=== PATIENT | male | born 1950 | race Native Hawaiian/Other Pacific Islander ===

== ENCOUNTER 2017-01-20 14:57 | Inpatient (IN) | payer BC, MEDICARE ==
[2017-01-20] MEDS ORDERED: Albuterol-Ipratrop 3 mg / 0.5 (3 ml) UD ONE (15:01)
[2017-01-20 15:09] VITALS: BMI 22.0
[2017-01-20] MEDS ORDERED: Albuterol-Ipratrop 3 mg / 0.5 (3 ml) UD INH STA (15:09)
[2017-01-20] MEDS ORDERED: Albuterol-Ipratrop 3 mg / 0.5 (3 ml) UD IH STA (15:22)
[2017-01-20] MEDS: Sodium Chloride 0.9% 200 ML IV SCH (15:29)
[2017-01-20 15:30] LABS: ABG ALLEN TEST YES; ARTERIAL BLOOD GAS HCO3 23.1 mmol/L (21-28); ARTERIAL BLOOD GAS MODE BiPAP; ARTERIAL BLOOD GAS PH 7.41 (7.35-7.45); ARTERIAL BLOOD GAS PO2 105 mm/Hg (80-100)
--- NOTE | 2017-01-20 15:30 | ED PDOC ---
HPI: SOB/CHF/COPD Time Seen by Provider: 01/20/17 15:02 Chief Complaint (Nursing): Shortness Of Breath Chief Complaint (Provider): Shortness Of Breath History Per: Patient History/Exam Limitations: no limitations Onset/Duration Of Symptoms: Days (x7 days ) Current Symptoms Are (Timing): Still Present Additional Complaint(s): 66 y/o male with a past medical history of A Fib, hypertension, pacemaker, and aortic dissection presents to the emergency department accompanied by son with a complaint of shortness of breath, chest pain (had resolved since), gurgling, and cough x1 week. As per history from son, patient was experiencing symptoms for the past week with feeling shortness of breath for the last 2 days which worsened today upon arrival. Denies sputum. No leg pain, numbness, tingles, weakness. No dizziness. PMD: Dr. Meño Adame MD Past Medical History Reviewed: Historical Data, Nursing Documentation, Vital Signs Vital Signs: Last Vital Signs Temp 98 F 01/20/17 15:06 Pulse 116 H 01/20/17 16:24 Resp 27 H 01/20/17 16:24 BP 117/51 L 01/20/17 16:24 Pulse Ox 99 01/20/17 16:24 - Medical History PMH: Atrial Fibrillation, HTN, Chronic Kidney Disease - Surgical History Other surgeries: Pacemaker and aortic dissection - Family History Family History: States: Unknown Family Hx - Living Arrangements Living Arrangements: With Family - Social History Current smoker - smoking cessation education provided: No Alcohol: None Drugs: Denies - Allergies Allergies/Adverse Reactions: Allergies Allergy/AdvReac Type Severity Reaction Status Date / Time No Known Allergies Allergy Verified 01/20/17 15:06 Review of Systems ROS Statement: Except As Marked, All Systems Reviewed And Found Negative Constitutional: Positive for: Other (Gurgling) Cardiovascular: Positive for: Chest Pain (Had resolved since) Respiratory: Positive for: Cough, Shortness of Breath. Negative for: Sputum Physical Exam - Reviewed Nursing Documentation Reviewed: Yes Vital Signs Reviewed: Yes - Physical Exam Appears: Positive for: Uncomfortable Head Exam: Positive for: ATRAUMATIC, NORMAL INSPECTION, NORMOCEPHALIC Skin: Positive for: Normal Color, Warm, Dry Eye Exam: Positive for: Normal appearance, EOMI, PERRL. Negative for: Conjunctival injection ENT: Positive for: Normal ENT Inspection. Negative for: Nasal Congestion, Pharyngeal Erythema, Tonsillar Exudate Neck: Positive for: Normal, Supple Cardiovascular/Chest: Positive for: Tachycardia (Tachycardia with irregular irregularly heart beat), Irregularly Irregular. Negative for: Regular Rate, Rhythm, Murmur Respiratory: Positive for: Other (Diffuse course breath sounds; uncomfortable). Negative for: Normal Breath Sounds, Accessory Muscle Use, Respiratory Distress Gastrointestinal/Abdominal: Positive for: Normal Exam, Soft. Negative for: Tenderness Back: Positive for: Normal Inspection. Negative for: L CVA Tenderness, R CVA Tenderness Extremity: Positive for: Normal ROM, Pedal Edema (1+ pedal edema), Swelling ( bilaterally; better than usual). Negative for: Tenderness, Deformity Neurologic/Psych: Positive for: Alert, Oriented - Laboratory Results Result Diagrams: 01/20/17 15:32 01/20/17 15:32 Interpretation Of Abn Labs: 13.1 wbc, bun/cr elevated - ECG ECG: Positive for: Interpreted By Me, Viewed By Me Interpretation Of Abn EKG: irr, irr afib tachy O2 Sat by Pulse Oximetry: 100 (oxygen) Pulse Ox Interpretation: Normal Interpretation Of Abnormal: 89% on RA - Radiology X-Ray: Interpreted by Me, Viewed By Me X-Ray Interpretation: Other (R 1/2 lower pleural effusion) - Progress ED Course And Treament: 1643: Feels much better with bipap. No distress. Speaking more complete sentences. No pain. AAOx3. Will need admit for further evaluation and treatment. Likely related to large pleural effusion and possible chf component from worsening renal functioning. Not likely sepsis/infectious component. 1647: Stable. Spoke with Dr. Adame. Will admit tele. Pt. vitals improved and stable. Continue bipap. Pt. son is resident in family practice. 1724: Spoke with Dr. Correa. Will admit ICU. - Critical Care Total Time (In Min): 30 Documented Critical Care: Time excludes all time spent performint seperately billable procedures Medical Decision Making Medical Decision Making: Time: 15:02 Initial impression: Shortness of breath Initial plan: --Arterial Blood Gas --Electrocardiogram STAT --B-Type Natriuretic Peptide --COMP Metabolic Panel --Magnesium Stat --Phosphorous Stat --Troponin I Stat --EKG-ED (EDNURTX) --CBC w/ differential --Partial Thromboplastin Time (COAG) --Prothrombin Time (COAG) --Chest Portable (RAD) --Duoneb 3 ml INH --Methylprednisolone 125 mg IVP --Sodium Chloride 200 ml IV 50 mls/hr --Blood Culture Stat --Urine Culture Stat --Senior Manager CONT --Vital Signs Q15M --BIPAP Procedure --Peak Flow Pre/POST TX --Urinalysis Stat --Revaluation Scribe Attestation: Documented by Gricelda Adan, acting as a scribe for Jeffery Wolf MD. Provider Scribe Attestation: All medical record entries made by the Scribe were at my direction and personally dictated by me. I have reviewed the chart and agree that the record accurately reflects my personal performance of the history, physical exam, medical decision making, and the department course for this patient. I have also personally directed, reviewed, and agree with the discharge instructions and disposition. Disposition - Clinical Impression Clinical Impression: CHF (congestive heart failure), Pleural effusion - Patient ED Disposition Is Patient to be Admitted: Yes Counseled Patient/Family Regarding: Studies Performed, Diagnosis - Disposition Disposition Time: 16:49 Condition: SERIOUS - Pt Status Changed To: Hospital Disposition Of: Inpatient - Admit Certification Admit to Inpatient:: After my assessment, the patient will require hospitalization for at least two midnights. This is because of the severity of symptoms shown, intensity of services needed, and/or the medical risk in this patient being treated as an outpatient. - POA Present On Arrival: None
[2017-01-20 15:43] LABS: BASO % 0.2 % (0.0-2.0); HEMATOCRIT 38.8 % (35.0-51.0); LYMPH # 0.4 K/uL (1.0-4.3); LYMPH % 2.8 % (20.0-40.0); MEAN CELL VOLUME 105.9 fl (80.0-94.0); MEAN CORPUSCULAR HEMOGLOBIN 32.7 pg (27.0-31.0); MEAN CORPUSCULAR HGB CONC 30.9 g/dL (33.0-37.0); MEAN PLATELET VOLUME 8.8 fl (7.2-11.7); MONO # 0.6 K/uL (0.0-0.8); MONO % 4.4 % (0.0-10.0); NEUT # 12.1 K/uL (1.8-7.0); NEUT % 92.6 % (50.0-75.0); PLATELET COUNT 129 K/uL (130-400); RED CELL DISTRIBUTION WIDTH 14.9 % (11.5-14.5); WHITE BLOOD COUNT 13.1 K/uL (4.8-10.8)
[2017-01-20 15:54] LABS: ALB/GLOB RATIO 1.2 (1.0-2.1); BILIRUBIN,TOTAL 1.1 mg/dl (0.2-1.3); CALCIUM 9.1 mg/dL (8.4-10.2); MAGNESIUM 2.1 MG/DL (1.6-2.3); PHOSPHOROUS 3.2 mg/dl (2.5-4.5); POTASSIUM 4.8 MMOL/L (3.6-5.0); TOTAL PROTEIN 7.5 G/DL (6.3-8.2)
[2017-01-20 16:11] LABS: PARTIAL THROMBOPLASTIN TIME 31.2 Seconds (25.6-37.1)
--- NOTE | 2017-01-20 16:46 | RAD ---
HISTORY: Sepsis Patient COMPARISON: No prior. FINDINGS: LUNGS: No active pulmonary disease. PLEURA: Right pleural effusion and/or consolidation at the right base. CARDIOVASCULAR: Cardiomegaly. Pacemaker and leads in place. Status post median sternotomy. OSSEOUS STRUCTURES: No significant abnormalities. VISUALIZED UPPER ABDOMEN: Normal. OTHER FINDINGS: None. IMPRESSION: Right pleural effusion and/or consolidation at the right base.
[2017-01-20 17:15] LABS: RBC URINE 1 /hpf (0-3); URINE BACTERIA RARE (<OCC); URINE BILIRUBIN NEGATIVE (NEGATIVE); URINE BLOOD NEGATIVE (NEGATIVE); URINE COLOR YELLOW (YELLOW); URINE GLUCOSE (UA) NEG (Normal); URINE KETONE NEGATIVE (NEGATIVE); URINE LEUKOCYTE ESTERASE NEG Leu/uL (Negative); URINE PROTEIN 100 mg/dL (NEGATIVE); URINE UROBILINOGEN 0.2-1.0 mg/dL (0.2-1.0); WBC URINE 1 /hpf (0-5)
[2017-01-20 17:20] LABS: NEUTROPHIL 89 % (42-75); TOTAL CELLS COUNTED 100
[2017-01-20 17:25] LABS: TROPONIN I 0.101 ng/mL (0.00-0.120)
--- NOTE | 2017-01-20 17:44 | CP.PCM.CON ---
History of Present Illness - History of Present Illness History of Present Illness: 66 male with history of CHF, A Fib, HTN, CKD, pacemaker placement, aortic dissection s/p surgery came complaining of SOB for 2 weeks which increased by time, patient was started on BIPAP in the ER, no chest pain, no fever Review of Systems - Review of Systems Systems not reviewed;Unavailable: Respiratory Distress All systems: reviewed and no additional remarkable complaints except (SOB and occasional cough) Past Patient History - Past Medical History & Family History Past Medical History?: Yes Past Family History: Reviewed and not pertinent - Past Social History Smoking Status: Former Smoker Alcohol: None Drugs: Denies - CARDIAC Hx Cardiac Disorders: Yes - PULMONARY Hx Respiratory Disorders: No - NEUROLOGICAL Hx Neurological Disorder: No - HEENT Hx HEENT Problems: No - RENAL Hx Chronic Kidney Disease: Yes - ENDOCRINE/METABOLIC Hx Endocrine Disorders: No - HEMATOLOGICAL/ONCOLOGICAL Hx Blood Disorders: No - INTEGUMENTARY Hx Dermatological Problems: No - MUSCULOSKELETAL/RHEUMATOLOGICAL Hx Musculoskeletal Disorders: Yes - GASTROINTESTINAL Hx Gastrointestinal Disorders: No - GENITOURINARY/GYNECOLOGICAL Hx Genitourinary Disorders: Yes - PSYCHIATRIC Hx Substance Use: No - SURGICAL HISTORY Other/Comment: Pacemaker. Aortic valve dissection - ANESTHESIA Hx Anesthesia: Yes Hx Anesthesia Reactions: No Meds Allergies/Adverse Reactions: Allergies Allergy/AdvReac Type Severity Reaction Status Date / Time warfarin [From Coumadin] Allergy ANAPHYLAXIS Verified 01/20/17 17:42 - Medications Medications: Current Medications Sodium Chloride (Sodium Chloride 0.9%) 200 mls @ 50 mls/hr IV .Q4H TONY Last Admin: 01/20/17 15:29 Dose: 50 mls/hr Physical Exam - Constitutional Appears: Cachectic - Head Exam Head Exam: ATRAUMATIC, NORMAL INSPECTION - Eye Exam Eye Exam: Normal appearance Pupil Exam: PERRL - ENT Exam ENT Exam: Mucous Membranes Moist - Neck Exam Neck exam: Positive for: Normal Inspection - Respiratory Exam Respiratory Exam: Rhonchi - Cardiovascular Exam Cardiovascular Exam: Irregular Rhythm - GI/Abdominal Exam GI & Abdominal Exam: Normal Bowel Sounds, Soft - Exam Exam: NORMAL INSPECTION - Extremities Exam Extremities exam: Positive for: normal inspection - Back Exam Back exam: NORMAL INSPECTION - Neurological Exam Neurological exam: Alert, Oriented x3 - Skin Skin Exam: Warm Results - Vital Signs Recent Vital Signs: Last Vital Signs Temp 98 F 01/20/17 15:06 Pulse 116 H 06/10/17 17:39 Resp 27 H 01/20/17 17:39 BP 117/51 L 01/20/17 17:39 Pulse Ox 100 01/20/17 17:25 - Labs Result Diagrams: 01/20/17 15:32 01/20/17 15:32 Assessment & Plan - Assessment and Plan (Free Text) Assessment: A/P Respiratory insufficiency, CHF, A Fib, CKD, pleural effusion, h/o HTN, pacemaker placement, aortic dissection s/p surgery, R/O ID - BIPAP as needed - Lasix, aspirin - Cardiac enzymes - Cardiology consult as per PMD - Renal consult as per PMD - Heart rate control Critical care 35 min
[2017-01-20] MEDS ORDERED: Albuterol-Ipratrop 3 mg / 0.5 (3 ml) UD INH PRN (18:05)
--- NOTE | 2017-01-20 19:43 | CT ---
EXAM: CT Chest Without Intravenous Contrast CLINICAL HISTORY: 66 years old, male; Signs and symptoms; Shortness of breath; Prior surgery; Surgery date: 6+ months; Surgery type: Cabg. Pacemaker; Patient HX: A-fib HTN ckd. Aortic dissection; Additional info: Pleural effusion TECHNIQUE: Axial computed tomography images of the chest without intravenous contrast. This CT exam was performed using one or more of the following dose reduction techniques: automated exposure control, adjustment of the mA and/or kV according to patient size, and/or use of iterative reconstruction technique. Coronal and sagittal reformatted images were created and reviewed. EXAM DATE/TIME: 01/20/2017 6:04 PM COMPARISON: No relevant prior studies available. FINDINGS: LIMITATIONS: Streak artifact from an AICD. LUNGS: Extensive consolidation in the basilar segments of the right lower lobe and in the right middle lobe, highly suspicious for pneumonia. Small area of consolidation in the left lung base, suspicious for an additional area of pneumonia. No evidence of diffuse pulmonary vascular congestion. PLEURAL SPACE: Moderate right pleural effusion. This does not appear dense to suggest a hemothorax. No pneumothorax is seen. HEART: Heart appears markedly enlarged. Coronary artery calcification noted. No evidence of significant pericardial effusion. BONES/JOINTS: Sternotomy wires noted. Bony structures appear demineralized. SOFT TISSUES: No acute abnormality of the visualized soft tissues is seen. VASCULATURE: Best seen on images 86 and 87 of series 602, there are multiple calcifications with a linear distribution seen in the lumen of the distal aortic arch and descending thoracic aorta. This is an abnormal finding, and it could be secondary to a chronic, calcified aortic dissection flap. The exam is nondiagnostic for dissection, however, due to unenhanced technique. No evidence of periaortic hemorrhage or aortic rupture. Aortic root is aneurysmally dilated, measuring up to 5.7 cm in diameter (greater than 5 cm is considered aneurysmal dilatation). The remainder of the thoracic aorta is diffusely ectatic and tortuous, without aneurysmal dilatation. Main pulmonary artery segment is enlarged, a finding which can be seen with pulmonary hypertension. Exam is nondiagnostic for pulmonary emboli due to unenhanced technique. THYROID: Large 5 x 4.8 cm fluid density/cystic, round, peripherally calcified, well defined mass in the left thoracic inlet region, most likely representing a large, exophytic left thyroid nodule. It abuts the left common carotid artery, but appears separate from it, and is not felt to represent an aneurysm. LYMPH NODES: No evidence of diffuse lymphadenopathy. GALLBLADDER AND BILE DUCTS: Gallstones incidentally noted. KIDNEYS AND URETERS: Multiple hyperdense lesions seen in the left kidney, the largest measuring 2 cm. These could represent hyperdense cysts, but cannot entirely rule out solid lesions. Recommend further evaluation with renal ultrasound or renal protocol CT or MRI, on a nonemergent basis. INTRAPERITONEAL SPACE: Small amount of free fluid in the right abdomen. TUBES, LINES AND DEVICES: Implantable cardioverter defibrillator (AICD) in place. IMPRESSION: - Abnormal calcifications with a linear distribution in the lumen of the distal aortic arch and descending thoracic aorta. Findings could be secondary to a chronic, calcified aortic dissection flap. The exam is nondiagnostic for dissection due to unenhanced technique, however. No evidence of aortic rupture. 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 - Extensive consolidation in the basilar segments of the right lower lobe and in the right middle lobe, highly suspicious for pneumonia. - Moderate right pleural effusion. - Small amount of free fluid in the right abdomen. - Otherwise, no evidence of significant acute process on this unenhanced exam. - Marked cardiomegaly - Incidental indeterminate hyperdense renal lesions. See above. - Large 5 cm left thyroid nodule. Recommend thyroid ultrasound or scintigraphy for further evaluation, given the size of this nodule, on a nonemergent basis, unless otherwise clinically indicated. - See above for remaining findings.
[2017-01-21 07:17] LABS: BASO % 0.1 % (0.0-2.0); LYMPH # 0.1 K/uL (1.0-4.3); LYMPH % 1.1 % (20.0-40.0); MEAN CELL VOLUME 105.2 fl (80.0-94.0); MEAN CORPUSCULAR HEMOGLOBIN 32.5 pg (27.0-31.0); MEAN CORPUSCULAR HGB CONC 30.9 g/dL (33.0-37.0); MEAN PLATELET VOLUME 8.4 fl (7.2-11.7); MONO # 0.3 K/uL (0.0-0.8); MONO % 2.4 % (0.0-10.0); NEUT # 12.9 K/uL (1.8-7.0); NEUT % 96.4 % (50.0-75.0); PLATELET COUNT 102 K/uL (130-400); RED CELL DISTRIBUTION WIDTH 15.3 % (11.5-14.5); WHITE BLOOD COUNT 13.4 K/uL (4.8-10.8)
--- NOTE | 2017-01-21 07:25 | CP.CCUPN ---
CCU Subjective - Physician Review Events Since Last Encounter (Free Text): 01/21/17 07:24 66 male with history of CHF, A Fib, HTN, CKD, pacemaker placement, aortic dissection s/p surgery admitted with SOB for 2 weeks which increased by time, on BIPAP, no chest pain, no fever, events reviewed CCU Objective - Vital Signs / Intake & Output Vital Signs (Last 4 hours): Vital Signs Temp Pulse Resp BP Pulse Ox 01/21/17 06:00 87 24 115/66 100 01/21/17 04:00 98 F 65 22 98/56 L 100 01/21/17 03:33 72 Intake and Output (Last 8hrs): Intake & Output 01/20/17 01/21/17 01/21/17 22:59 06:59 14:59 Output Total 350 Balance -350 Output: Urine 350 Urine, Voided 150 - Physical Exam Head: Positive for: Atraumatic, Normocephalic Pupils: Positive for: PERRL Extroacular Muscles: Positive for: EOMI Conjunctiva: Positive for: Normal Mouth: Positive for: Moist Mucous Membranes Nose (External): Positive for: Atraumatic Neck: Positive for: Normal Range of Motion Respiratory/Chest: Positive for: Rhonchi Cardiovascular: Positive for: Irregular Rhythm Abdomen: Positive for: Normal Bowel Sounds Upper Extremity: Positive for: Normal Inspection Lower Extremity: Positive for: Normal Inspection Neurological: Positive for: Speech Normal Skin: Positive for: Warm Psychiatric: Positive for: Alert, Oriented x 3 - Medications Active Medications: Active Medications Generic Name Dose Route Start Last Admin Trade Name Freq PRN Reason Stop Dose Admin Albuterol/Ipratropium 3 ml 01/20/17 18:05 Duoneb 3 Mg/0.5 Mg (3 Ml) Ud INH RQ6 PRN Shortness of Breath Aspirin 325 mg 01/21/17 09:00 Aspirin PO DAILY TONY Sodium Chloride 200 mls @ 50 mls/hr 01/20/17 15:15 01/20/17 15:29 Sodium Chloride 0.9% IV 50 mls/hr .Q4H TONY Administration - Patient Studies Lab Studies: Lab Studies 01/21/17 01/21/17 01/20/17 Range/Units 05:30 00:30 18:26 WBC 13.4 H (4.8-10.8) K/uL RBC 3.33 L (4.40-5.90) Mil/uL Hgb 10.8 L (12.0-18.0) g/dL Hct 35.0 (35.0-51.0) % MCV 105.2 H (80.0-94.0) fl MCH 32.5 H (27.0-31.0) pg MCHC 30.9 L (33.0-37.0) g/dL RDW 15.3 H (11.5-14.5) % Plt Count 102 L D (130-400) K/uL MPV 8.4 (7.2-11.7) fl Neut % (Auto) 96.4 H (50.0-75.0) % Lymph % (Auto) 1.1 L (20.0-40.0) % [place] % (Auto) 2.4 (0.0-10.0) % Eos % (Auto) 0.0 (0.0-4.0) % Baso % (Auto) 0.1 (0.0-2.0) % Neut # 12.9 H (1.8-7.0) K/uL Lymph # 0.1 L (1.0-4.3) K/uL [place] # 0.3 (0.0-0.8) K/uL Eos # 0.0 (0.0-0.7) K/uL Baso # 0.0 (0.0-0.2) K/uL Troponin I 1.7700 H* 1.1000 H* (0.00-0.120) ng/mL Laboratory Results - last 24 hr 01/20/17 01/21/17 01/21/17 18:26 00:30 05:30 WBC 13.4 H RBC 3.33 L Hgb 10.8 L Hct 35.0 MCV 105.2 H MCH 32.5 H MCHC 30.9 L RDW 15.3 H Plt Count 102 L D MPV 8.4 Neut % (Auto) 96.4 H Lymph % (Auto) 1.1 L [place] % (Auto) 2.4 Eos % (Auto) 0.0 Baso % (Auto) 0.1 Neut # 12.9 H Lymph # 0.1 L [place] # 0.3 Eos # 0.0 Baso # 0.0 Troponin I 1.1000 H* 1.7700 H* EKG/Cardiology Studies: Cardiology / EKG Studies 01/20/17 17:30 ELECTROCARDIOGRAM Stat Comment: Mode Of Transportation: Reason For Exam: needed Assessment/Plan - Assessment and Plan (Free Text) Assessment: A/P Respiratory insufficiency, CHF, A Fib, CKD, pleural effusion, h/o HTN, pacemaker placement, aortic dissection s/p surgery, R/O [place], R/O pneumonia - BIPAP as needed - Lasix, aspirin - Antibiotics - Cardiac enzymes - Cardiology follow up - Renal follow up - Heart rate control Critical care 35 min
[2017-01-21 07:27] LABS: ALB/GLOB RATIO 1.1 (1.0-2.1); BILIRUBIN,TOTAL 0.9 mg/dl (0.2-1.3); CALCIUM 8.9 mg/dL (8.4-10.2); POTASSIUM 4.5 MMOL/L (3.6-5.0); TOTAL PROTEIN 6.2 G/DL (6.3-8.2)
[2017-01-21] MEDS: Azithromycin 500 MG in Sodium Chloride 0.9% 250 ML IVPB SCH (09:40)
--- NOTE | 2017-01-21 10:28 | CP.PCM.CON ---
History of Present Illness - History of Present Illness History of Present Illness: I was asked to see patient by Dr. Adame. Patient is a 66 year old female with history of HTN, cardiomyopathy, AICD, atrial fibrillation who presents with dyspnea. The patient has noted progressive dyspnea for the past week, and was noted to feel palpitations. The patient was found to be in afib with rapid ventricular function. He was also found to have pleural effusions. He was admitted to ICU and placed on BiPAP. He currently denies chest pain and states dyspnea has improved. Review of Systems - Constitutional Constitutional: absent: As Per HPI, Anorexia, Chills, Daytime Sleepiness, Excessive Sweating, Fatigue, Fever, Frequent Falls, Headache, Increased Appetite , Lethargy, Malaise, Night Sweats, Snoring, Sleep Apnea, Weight Gain, Weight Loss, Weakness, Other - EENT Eyes: absent: As Per HPI, Blind Spots, Blurred Vision, Change in Vision, Decreased Night Vision, Diplopia, Discharge, Dry Eye, Exophthalmos, Floaters, Irritation, Itchy Eyes, Loss of Peripheral Vision, Pain, Photophobia, Requires Corrective Lenses, Sees Flashes, Spots in Vision, Tunnel Vision, Other Visual Disturbances, Loss of Vision, Other Ears: absent: As Per HPI, Decreased Hearing, Ear Discharge, Ear Pain, Tinnitus, Abnormal Hearing, Disequilibrium, Dizziness, Other Nose/Mouth/Throat: absent: As Per HPI, Epistaxis, Nasal Congestion, Nasal Discharge, Nasal Obstruction, Nasal Trauma, Nose Pain, Post Nasal Drip, Sinus Pain, Sinus Pressure, Bleeding Gums, Change in Voice, Dental Pain, Dry Mouth, Dysphagia, Halitosis, Hoarsness, Lip Swelling, Mouth Lesions, Mouth Pain, Odynophagia, Sore Throat, Throat Swelling, Tongue Swelling, Facial Pain, Neck Pain, Neck Mass, Other - Cardiovascular Cardiovascular: Dyspnea, Pedal Edema - Respiratory Respiratory: Dyspnea on Exertion - Gastrointestinal Gastrointestinal: absent: As Per HPI, Abdominal Pain, Belching, Bloating, Change in Bowel Habits, Change in Stool Character, Coffee Ground Emesis, Constipation, Cramping, Diarrhea, Dyspepsia, Dysphagia, Early Satiety, Excessive Flatus, Fecal Incontinence, Heartburn, Hematemesis, Hematochezia, Loose Stools, Melena, Nausea, Odynophagia, Temesmus, Vomiting, Other - Genitourinary Genitourinary: absent: As Per HPI, Change in Urinary Stream, Difficulty Urinating, Dysuria, Flank Pain, Hematuria, Pyuria, Nocturia, Urinary Incontinence, Urinary Frequency, Urinary Hesitance, Urinary Urgency, Voiding Freq/Small Amts, Freq UTI, Hx Renal/Bladder Calculi, Hx /Renal Surgery, Bladder Distension, Other - Musculoskeletal Musculoskeletal: absent: As Per HPI, Abnormal Gait, Arthralgias, Atrophy, Back Pain, Deformity, Joint Swelling, Limited Range of Motion, Loss of Height, Muscle Cramps, Muscle Weakness, Myalgias, Neck Pain, Numbness, Radiating Pain into Limb, Stiffness, Tingling, Other - Integumentary Integumentary: absent: As Per HPI, Acne, Alopecia, Bleeding Lesions, Change in Hair, Change in Nails, Change in Pigmentation, Changing Lesions, Dry Skin, Erythema, Furuncle, Hirsutism, Lesions, New Lesions, Non-Healing Lesions, Photosensitivity, Pruritus, Rash, Skin Pain, Skin Ulcer, Sores, Striae, Swelling , Unusual Bruising, Wounds, Jaundice, Other - Neurological Neurological: absent: As Per HPI, Abnormal Gait, Abnormal Hearing, Abnormal Movements, Abnormal Speech, Behavioral Changes, Burning Sensations, Confusion, Convulsions, Disequilibrium, Dizziness, Numbness, Focal Weakness, Frequent Falls , Headaches, Lack of Coordination, Loss of Vision, Memory Loss, Paresthesias, Radicular Pain, Restless Legs, Sensory Deficit, Syncope, Tingling, Tremor, Vertigo, Weakness, Other Visual Disturbances, Other - Psychiatric Psychiatric: absent: As Per HPI, Abnormal Sleep Pattern, Anhedonia, Anxiety, Auditory Hallucinations, Behavioral Changes, Change in Appetite, Change in Libido, Confusion, Depression, Difficulty Concentrating, Hallucinations, Homicidal Ideation, Hopelessness, Irritability, Memory Loss, Mood Swings, Panic Attacks, Paranoia, Suicidal Ideation, Visual Hallucinations, Tactile Hallucinations, Other - Endocrine Endocrine: absent: As Per HPI, Change in Body Appearance, Change in Libido, Cold Intolorance, Deepening of Voice, Excessive Sweating, Fatigue, Flushing, Heat Intolorance, Increase in Ring/Shoe/Hat Size, Palpitations, Polydipsia, Polyphagia, Polyuria, Other - Hematologic/Lymphatic Hematologic: absent: As Per HPI, Easy Bleeding, Easy Bruising, Lymphadenopathy, Other Past Patient History - Past Medical History & Family History Past Medical History?: Yes - Past Social History Smoking Status: Never Smoked - CARDIAC Hx Cardiac Disorders: Yes - PULMONARY Hx Respiratory Disorders: No - NEUROLOGICAL Hx Neurological Disorder: No - HEENT Hx HEENT Problems: No - RENAL Hx Chronic Kidney Disease: Yes - ENDOCRINE/METABOLIC Hx Endocrine Disorders: No - HEMATOLOGICAL/ONCOLOGICAL Hx Blood Disorders: No - INTEGUMENTARY Hx Dermatological Problems: No - MUSCULOSKELETAL/RHEUMATOLOGICAL Hx Falls: No - GASTROINTESTINAL Hx Gastrointestinal Disorders: No - GENITOURINARY/GYNECOLOGICAL Hx Genitourinary Disorders: Yes - PSYCHIATRIC Hx Substance Use: No - SURGICAL HISTORY Other/Comment: Pacemaker. Aortic valve dissection - ANESTHESIA Hx Anesthesia: Yes Hx Anesthesia Reactions: No Meds Allergies/Adverse Reactions: Allergies Allergy/AdvReac Type Severity Reaction Status Date / Time warfarin [From Coumadin] Allergy ANAPHYLAXIS Verified 01/20/17 17:42 - Medications Medications: Current Medications Albuterol/Ipratropium (Duoneb 3 Mg/0.5 Mg (3 Ml) Ud) 3 ml INH RQ6 PRN PRN Reason: Shortness of Breath Aspirin (Aspirin) 325 mg PO DAILY [facility] Last Admin: 01/21/17 09:40 Dose: 325 mg Sodium Chloride (Sodium Chloride 0.9%) 200 mls @ 50 mls/hr IV .Q4H [facility] Last Admin: 01/20/17 15:29 Dose: 50 mls/hr Piperacillin Sod/Tazobactam (Sod 2.25 gm/ Sodium Chloride) 100 mls @ 100 mls/ hr IVPB Q8 [facility] Last Admin: 01/21/17 09:41 Dose: 100 mls/hr Azithromycin 500 mg/ Sodium (Chloride) 250 mls @ 250 mls/hr IVPB DAILY [facility] Last Admin: 01/21/17 09:40 Dose: 250 mls/hr Physical Exam - Constitutional Appears: Non-toxic - Head Exam Head Exam: NORMAL INSPECTION - Eye Exam Eye Exam: Normal appearance - ENT Exam ENT Exam: Mucous Membranes Moist - Neck Exam Neck exam: Positive for: Full Rom - Respiratory Exam Respiratory Exam: Decreased Breath Sounds - Cardiovascular Exam Cardiovascular Exam: REGULAR RHYTHM - GI/Abdominal Exam GI & Abdominal Exam: Diminished Bowel Sounds - Rectal Exam Rectal Exam: Deferred - Extremities Exam Extremities exam: Positive for: pedal edema - Back Exam Back exam: NORMAL INSPECTION - Neurological Exam Neurological exam: Alert, Oriented x3 - Psychiatric Exam Psychiatric exam: Normal Affect - Skin Skin Exam: Normal Color Results - Vital Signs Recent Vital Signs: Last Vital Signs Temp 98 F 01/21/17 04:00 Pulse 71 01/21/17 08:13 Resp 24 01/21/17 06:00 BP 115/66 01/21/17 06:00 Pulse Ox 100 01/21/17 06:00 - Labs Result Diagrams: 01/21/17 05:30 01/21/17 05:30 Labs: Laboratory Results - last 24 hr 01/20/17 01/21/17 01/21/17 18:26 00:30 05:30 WBC 13.4 H RBC 3.33 L Hgb 10.8 L Hct 35.0 MCV 105.2 H MCH 32.5 H MCHC 30.9 L RDW 15.3 H Plt Count 102 L D MPV 8.4 Neut % (Auto) 96.4 H Lymph % (Auto) 1.1 L [place] % (Auto) 2.4 Eos % (Auto) 0.0 Baso % (Auto) 0.1 Neut # 12.9 H Lymph # 0.1 L [place] # 0.3 Eos # 0.0 Baso # 0.0 Sodium Potassium Chloride Carbon Dioxide Anion Gap BUN Creatinine Est GFR ( Amer) Est GFR (Non-Af Amer) Random Glucose Calcium Total Bilirubin AST ALT Alkaline Phosphatase Troponin I 1.1000 H* 1.7700 H* Total Protein Albumin Globulin Albumin/Globulin Ratio 01/21/17 05:30 WBC RBC Hgb Hct MCV MCH MCHC RDW Plt Count MPV Neut % (Auto) Lymph % (Auto) [place] % (Auto) Eos % (Auto) Baso % (Auto) Neut # Lymph # [place] # Eos # Baso # Sodium 146 Potassium 4.5 Chloride 111 H Carbon Dioxide 23 Anion Gap 17 BUN 65 H Creatinine 2.8 H Est GFR ( Amer) 28 Est GFR (Non-Af Amer) 23 Random Glucose 149 H Calcium 8.9 Total Bilirubin 0.9 AST 26 ALT 23 Alkaline Phosphatase 89 Troponin I Total Protein 6.2 L Albumin 3.2 L D Globulin 3.0 Albumin/Globulin Ratio 1.1 - EKG Data EKG Interpreted by: Myself Assessment & Plan (1) Systolic dysfunction with acute on chronic heart failure Assessment and Plan: will need diuresis. Status: Acute (2) Chronic atrial fibrillation Assessment and Plan: continue coumadin goal INR 2-3 Status: Acute (3) Chronic renal failure Assessment and Plan: renal eval Status: Acute (4) Aortic regurgitation Assessment and Plan: moderate by outpatient echocardiogram Status: Acute
[2017-01-21 12:27] LABS: NEUTROPHIL 90 % (42-75); TOTAL CELLS COUNTED 100
--- NOTE | 2017-01-21 13:19 | CP.PCM.HP ---
History of Present Illness - History of Present Illness History of Present Illness: This is a 66 y/o male with hx of cardiomyopathy atrial fib on pacemaker and HTN , hyperuricemia and CKD 4 who was admitted yesterday for rapid atrial fibrillation. Claims that he has not been feeling well since he came from the [facility] almost two weeks ago and has been progressively getting tired and SOB At the ER he was noted to be in rapid atrial fib with HR in the 130's and to have moderate right pleural effusion and right middle lobe infiltrate. 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 about 5.7 cm Present on Admission - Present on Admission Any Indicators Present on Admission: No History of DVT/PE: No History of Uncontrolled Diabetes: No Urinary Catheter: No Decubitus Ulcer Present: No Review of Systems - Cardiovascular Cardiovascular: Dyspnea, Irregular Heart Rhythm - Respiratory Respiratory: Dyspnea, Dyspnea on Exertion Past Patient History - Past Medical History & Family History Past Medical History?: Yes - Past Social History Smoking Status: Never Smoked - CARDIAC Hx Cardiac Disorders: Yes - PULMONARY Hx Respiratory Disorders: No - NEUROLOGICAL Hx Neurological Disorder: No - HEENT Hx HEENT Problems: No - RENAL Hx Chronic Kidney Disease: Yes - ENDOCRINE/METABOLIC Hx Endocrine Disorders: No - HEMATOLOGICAL/ONCOLOGICAL Hx Blood Disorders: No - INTEGUMENTARY Hx Dermatological Problems: No - MUSCULOSKELETAL/RHEUMATOLOGICAL Hx Falls: No - GASTROINTESTINAL Hx Gastrointestinal Disorders: No - GENITOURINARY/GYNECOLOGICAL Hx Genitourinary Disorders: Yes - PSYCHIATRIC Hx Substance Use: No - SURGICAL HISTORY Other/Comment: Pacemaker. Aortic valve dissection - ANESTHESIA Hx Anesthesia: Yes Hx Anesthesia Reactions: No Meds Allergies/Adverse Reactions: Allergies Allergy/AdvReac Type Severity Reaction Status Date / Time warfarin [From Coumadin] Allergy ANAPHYLAXIS Verified 01/20/17 17:42 Physical Exam - Head Exam Head Exam: NORMAL INSPECTION - Eye Exam Eye Exam: Normal appearance Additional comments: pale conjunctivae - ENT Exam ENT Exam: Mucous Membranes Moist - Respiratory Exam Respiratory Exam: Decreased Breath Sounds - Cardiovascular Exam Cardiovascular Exam: Irregular Rhythm - GI/Abdominal Exam GI & Abdominal Exam: Normal Bowel Sounds Results - Vital Signs Recent Vital Signs: Last Vital Signs Temp 98 F 01/21/17 04:00 Pulse 71 01/21/17 08:13 Resp 24 01/21/17 06:00 BP 115/66 01/21/17 06:00 Pulse Ox 100 01/21/17 06:00 - Labs Result Diagrams: 01/21/17 05:30 01/21/17 05:30 Labs: Laboratory Results - last 24 hr 01/20/17 01/21/17 01/21/17 18:26 00:30 05:30 WBC 13.4 H RBC 3.33 L Hgb 10.8 L Hct 35.0 MCV 105.2 H MCH 32.5 H MCHC 30.9 L RDW 15.3 H Plt Count 102 L D MPV 8.4 Neut % (Auto) 96.4 H Lymph % (Auto) 1.1 L [place] % (Auto) 2.4 Eos % (Auto) 0.0 Baso % (Auto) 0.1 Neut # 12.9 H Lymph # 0.1 L [place] # 0.3 Eos # 0.0 Baso # 0.0 Neutrophils % (Manual) 90 H Band Neutrophils % 7 H Lymphocytes % (Manual) 1 L Monocytes % (Manual) 2 Platelet Estimate Decreased L Hypochromasia (manual) Slight Anisocytosis (manual) Slight Macrocytosis (manual) Slight Sodium Potassium Chloride Carbon Dioxide Anion Gap BUN Creatinine Est GFR ( Amer) Est GFR (Non-Af Amer) Random Glucose Calcium Total Bilirubin AST ALT Alkaline Phosphatase Troponin I 1.1000 H* 1.7700 H* Total Protein Albumin Globulin Albumin/Globulin Ratio 01/21/17 05:30 WBC RBC Hgb Hct MCV MCH MCHC RDW Plt Count MPV Neut % (Auto) Lymph % (Auto) [place] % (Auto) Eos % (Auto) Baso % (Auto) Neut # Lymph # [place] # Eos # Baso # Neutrophils % (Manual) Band Neutrophils % Lymphocytes % (Manual) Monocytes % (Manual) Platelet Estimate Hypochromasia (manual) Anisocytosis (manual) Macrocytosis (manual) Sodium 146 Potassium 4.5 Chloride 111 H Carbon Dioxide 23 Anion Gap 17 BUN 65 H Creatinine 2.8 H Est GFR ( Amer) 28 Est GFR (Non-Af Amer) 23 Random Glucose 149 H Calcium 8.9 Total Bilirubin 0.9 AST 26 ALT 23 Alkaline Phosphatase 89 Troponin I Total Protein 6.2 L Albumin 3.2 L D Globulin 3.0 Albumin/Globulin Ratio 1.1 Assessment & Plan (1) CHF (congestive heart failure) Status: Acute (2) Rapid atrial fibrillation Status: Acute (3) Aortic aneurysm Status: Acute (4) Pneumonia Status: Acute (5) Pleural effusion Status: Acute - Assessment and Plan (Free Text) Plan: Cont meds Cardiology eval seen by Dr Salazar cont meds ICU IV antibiotics
--- NOTE | 2017-01-21 13:29 | CP.PCM.CON ---
History of Present Illness - History of Present Illness History of Present Illness: 66 y/o male with Hx/o HTN, cardiomyopathy, Chr. A.fib,AICD, Aortic dissection & CKD is admitted for 2 wks Hx.o SOB & diagnosed with pneumonia with Pl effusion. Renal consult is requested for his CKD. Pt is followed by Dr. Brennan Lagos as out patient & had a Renal US which showed echogenic kidneys with numerous B/L cysts & few echogenic foci of uncertain etiology. Past Patient History - Past Medical History & Family History Past Medical History?: Yes - Past Social History Smoking Status: Never Smoked - CARDIAC Hx Cardiac Disorders: Yes - PULMONARY Hx Respiratory Disorders: No - NEUROLOGICAL Hx Neurological Disorder: No - HEENT Hx HEENT Problems: No - RENAL Hx Chronic Kidney Disease: Yes - ENDOCRINE/METABOLIC Hx Endocrine Disorders: No - HEMATOLOGICAL/ONCOLOGICAL Hx Blood Disorders: No - INTEGUMENTARY Hx Dermatological Problems: No - MUSCULOSKELETAL/RHEUMATOLOGICAL Hx Falls: No - GASTROINTESTINAL Hx Gastrointestinal Disorders: No - GENITOURINARY/GYNECOLOGICAL Hx Genitourinary Disorders: Yes - PSYCHIATRIC Hx Substance Use: No - SURGICAL HISTORY Other/Comment: Pacemaker. Aortic valve dissection - ANESTHESIA Hx Anesthesia: Yes Hx Anesthesia Reactions: No Meds Allergies/Adverse Reactions: Allergies Allergy/AdvReac Type Severity Reaction Status Date / Time warfarin [From Coumadin] Allergy ANAPHYLAXIS Verified 01/20/17 17:42 - Medications Medications: Current Medications Albuterol/Ipratropium (Duoneb 3 Mg/0.5 Mg (3 Ml) Ud) 3 ml INH RQ6 PRN PRN Reason: Shortness of Breath Aspirin (Aspirin) 325 mg PO DAILY [facility] Last Admin: 01/21/17 09:40 Dose: 325 mg Sodium Chloride (Sodium Chloride 0.9%) 200 mls @ 50 mls/hr IV .Q4H [facility] Last Admin: 01/20/17 15:29 Dose: 50 mls/hr Piperacillin Sod/Tazobactam (Sod 2.25 gm/ Sodium Chloride) 100 mls @ 100 mls/ hr IVPB Q8 [facility] Last Admin: 01/21/17 09:41 Dose: 100 mls/hr Azithromycin 500 mg/ Sodium (Chloride) 250 mls @ 250 mls/hr IVPB DAILY [facility] Last Admin: 01/21/17 09:40 Dose: 250 mls/hr Physical Exam - Constitutional Appears: No Acute Distress - Head Exam Head Exam: ATRAUMATIC, NORMOCEPHALIC - Eye Exam Additional comments: Conjunctivae pale sclera anicteric - ENT Exam ENT Exam: Mucous Membranes Dry - Respiratory Exam Additional comments: No wheezes or rhonchi - Cardiovascular Exam Cardiovascular Exam: Irregular Rhythm Additional comments: A. fib with controlled ventricular rate - GI/Abdominal Exam GI & Abdominal Exam: Soft Additional comments: No tenderness - Rectal Exam Rectal Exam: Deferred - Extremities Exam Additional comments: No edema or cyanosis Results - Vital Signs Recent Vital Signs: Last Vital Signs Temp 98 F 01/21/17 04:00 Pulse 71 01/21/17 08:13 Resp 24 01/21/17 06:00 BP 115/66 01/21/17 06:00 Pulse Ox 100 01/21/17 06:00 - Labs Result Diagrams: 01/21/17 05:30 01/21/17 05:30 Labs: Laboratory Results - last 24 hr 01/20/17 01/21/17 01/21/17 18:26 00:30 05:30 WBC 13.4 H RBC 3.33 L Hgb 10.8 L Hct 35.0 MCV 105.2 H MCH 32.5 H MCHC 30.9 L RDW 15.3 H Plt Count 102 L D MPV 8.4 Neut % (Auto) 96.4 H Lymph % (Auto) 1.1 L [place] % (Auto) 2.4 Eos % (Auto) 0.0 Baso % (Auto) 0.1 Neut # 12.9 H Lymph # 0.1 L [place] # 0.3 Eos # 0.0 Baso # 0.0 Neutrophils % (Manual) 90 H Band Neutrophils % 7 H Lymphocytes % (Manual) 1 L Monocytes % (Manual) 2 Platelet Estimate Decreased L Hypochromasia (manual) Slight Anisocytosis (manual) Slight Macrocytosis (manual) Slight Sodium Potassium Chloride Carbon Dioxide Anion Gap BUN Creatinine Est GFR ( Amer) Est GFR (Non-Af Amer) Random Glucose Calcium Total Bilirubin AST ALT Alkaline Phosphatase Troponin I 1.1000 H* 1.7700 H* Total Protein Albumin Globulin Albumin/Globulin Ratio 01/21/17 05:30 WBC RBC Hgb Hct MCV MCH MCHC RDW Plt Count MPV Neut % (Auto) Lymph % (Auto) [place] % (Auto) Eos % (Auto) Baso % (Auto) Neut # Lymph # [place] # Eos # Baso # Neutrophils % (Manual) Band Neutrophils % Lymphocytes % (Manual) Monocytes % (Manual) Platelet Estimate Hypochromasia (manual) Anisocytosis (manual) Macrocytosis (manual) Sodium 146 Potassium 4.5 Chloride 111 H Carbon Dioxide 23 Anion Gap 17 BUN 65 H Creatinine 2.8 H Est GFR ( Amer) 28 Est GFR (Non-Af Amer) 23 Random Glucose 149 H Calcium 8.9 Total Bilirubin 0.9 AST 26 ALT 23 Alkaline Phosphatase 89 Troponin I Total Protein 6.2 L Albumin 3.2 L D Globulin 3.0 Albumin/Globulin Ratio 1.1 Assessment & Plan - Assessment and Plan (Free Text) Assessment: Stage 1V kidney dis according to estimated GFR B/L renal cyste sec to acquired cystic dis Pneumonia Cardiomyopathy,AICD,A.fib Plan: urine P/Creat PTH Maintain SBP > 100 Avoid nephrotoxic meds
--- NOTE | 2017-01-21 14:49 | CARD ---
APPROVED REPORT EKG Measurement Heart [id number] <Conclusion> Atrial fibrillation with rapid ventricular response with premature ventricular or aberrantly conducted complexes Voltage criteria for left ventricular hypertrophy Marked ST abnormality, possible lateral subendocardial injury Abnormal ECG
--- NOTE | 2017-01-21 14:50 | CARD ---
APPROVED REPORT EKG Measurement Heart [id number] <Conclusion> Atrial fibrillation with rapid ventricular response with premature ventricular or aberrantly conducted complexes Voltage criteria for left ventricular hypertrophy Marked ST abnormality, possible inferolateral subendocardial injury Abnormal ECG
[2017-01-21] MEDS: Sodium Chloride 0.9% 200 ML IV SCH (20:09)
[2017-01-21] MEDS: Sodium Chloride 0.9% 1,000 ML IV SCH (20:28)
[2017-01-22 04:24] LABS: CREATININE, RANDOM URINE 77.5 mg/dL
[2017-01-22 05:42] LABS: BASO % 0.1 % (0.0-2.0); HEMATOCRIT 31.7 % (35.0-51.0); LYMPH # 0.1 K/uL (1.0-4.3); LYMPH % 1.1 % (20.0-40.0); MEAN CELL VOLUME 104.3 fl (80.0-94.0); MEAN CORPUSCULAR HEMOGLOBIN 32.7 pg (27.0-31.0); MEAN CORPUSCULAR HGB CONC 31.4 g/dL (33.0-37.0); MEAN PLATELET VOLUME 8.1 fl (7.2-11.7); MONO # 0.4 K/uL (0.0-0.8); MONO % 3.8 % (0.0-10.0); NEUT # 10.8 K/uL (1.8-7.0); NRBC % 0.1 % (0.0-0.0); PLATELET COUNT 104 K/uL (130-400); RED CELL DISTRIBUTION WIDTH 14.9 % (11.5-14.5); WHITE BLOOD COUNT 11.3 K/uL (4.8-10.8)
[2017-01-22 05:53] LABS: BILIRUBIN,TOTAL 0.7 mg/dl (0.2-1.3); CALCIUM 8.6 mg/dL (8.4-10.2); POTASSIUM 4.8 MMOL/L (3.6-5.0); TOTAL PROTEIN 5.8 G/DL (6.3-8.2)
[2017-01-22] MEDS: Azithromycin 500 MG in Sodium Chloride 0.9% 250 ML IVPB SCH (09:02)
[2017-01-22 09:32] LABS: NEUTROPHIL 91 % (42-75); TOTAL CELLS COUNTED 100
[2017-01-22 09:34] LABS: LARGE PLATELETS PRESENT
--- NOTE | 2017-01-22 10:56 | CP.CCUPN ---
CCU Subjective - Physician Review Subjective (Free Text): Patient awake, and alert, no distress, on 3 LPM NC, in A Fib @ 110/min, no CP, no fever, events reviewed. CCU Objective - Vital Signs / Intake & Output Vital Signs (Last 4 hours): Vital Signs Temp Pulse Resp BP Pulse Ox 01/22/17 08:00 97.4 F L 95 H 25 H 145/66 97 Intake and Output (Last 8hrs): Intake & Output 01/21/17 01/22/17 01/22/17 22:59 06:59 14:59 Intake Total 790 Output Total 400 640 Balance -400 150 Intake: IV 450 Intake, Piggyback 100 Oral 240 Output: Urine 400 640 Urine, Voided 400 640 Other: # Voids Urine, Voided 1 - Physical Exam Head: Positive for: Atraumatic, Normocephalic Pupils: Positive for: PERRL Extroacular Muscles: Positive for: EOMI Conjunctiva: Positive for: Normal Mouth: Positive for: Moist Mucous Membranes Nose (External): Positive for: Atraumatic Neck: Positive for: Normal Range of Motion Respiratory/Chest: Positive for: Rhonchi Cardiovascular: Positive for: Irregular Rhythm Abdomen: Positive for: Normal Bowel Sounds Upper Extremity: Positive for: Normal Inspection Lower Extremity: Positive for: Normal Inspection, Edema (+1) Neurological: Positive for: Speech Normal Skin: Positive for: Warm Psychiatric: Positive for: Alert, Oriented x 3 - Medications Active Medications: Active Medications Generic Name Dose Route Start Last Admin Trade Name Freq PRN Reason Stop Dose Admin Albuterol/Ipratropium 3 ml 01/20/17 18:05 Duoneb 3 Mg/0.5 Mg (3 Ml) Ud INH RQ6 PRN Shortness of Breath Aspirin 325 mg 01/21/17 09:00 01/22/17 09:04 Aspirin PO 325 mg DAILY TONY Administration Piperacillin Sod/Tazobactam 100 mls @ 100 mls/hr 01/21/17 09:00 01/22/17 09: 01 Sod 2.25 gm/ Sodium Chloride IVPB 100 mls/hr Q8 TONY Administration Azithromycin 500 mg/ Sodium 250 mls @ 250 mls/hr 01/21/17 09:00 01/22/17 09: 02 Chloride IVPB 250 mls/hr DAILY TONY Administration Sodium Chloride 1,000 mls @ 50 mls/hr 01/21/17 20:15 01/21/17 20:28 Sodium Chloride 0.9% IV 01/22/17 20:14 50 mls/hr .Q20H TONY Administration - Patient Studies Lab Studies: Lab Studies 01/22/17 01/22/17 01/22/17 Range/Units 04:30 04:30 03:30 WBC 11.3 H (4.8-10.8) K/uL RBC 3.04 L (4.40-5.90) Mil/uL Hgb 9.9 L (12.0-18.0) g/dL Hct 31.7 L (35.0-51.0) % MCV 104.3 H (80.0-94.0) fl MCH 32.7 H (27.0-31.0) pg MCHC 31.4 L (33.0-37.0) g/dL RDW 14.9 H (11.5-14.5) % Plt Count 104 L (130-400) K/uL MPV 8.1 (7.2-11.7) fl Neut % (Auto) 95.0 H (50.0-75.0) % Lymph % (Auto) 1.1 L (20.0-40.0) % Bonner % (Auto) 3.8 (0.0-10.0) % Eos % (Auto) 0.0 (0.0-4.0) % Baso % (Auto) 0.1 (0.0-2.0) % Neut # 10.8 H (1.8-7.0) K/uL Lymph # 0.1 L (1.0-4.3) K/uL Bonner # 0.4 (0.0-0.8) K/uL Eos # 0.0 (0.0-0.7) K/uL Baso # 0.0 (0.0-0.2) K/uL Neutrophils % (Manual) 91 H (42-75) % Band Neutrophils % 5 H (0-2) % Lymphocytes % (Manual) 1 L (20-50) % Monocytes % (Manual) 3 (0-10) % Platelet Estimate Decreased L (NORMAL) Large Platelets Present Hypochromasia (manual) Slight Poikilocytosis (manual Slight Anisocytosis (manual) Slight Macrocytosis (manual) Slight Tear Drop Cells Slight Ovalocytes Slight Schistocytes Slight Sodium 142 (132-148) mmol/l Potassium 4.8 (3.6-5.0) MMOL/L Chloride 109 H (98-107) mmol/L Carbon Dioxide 26 (22-30) mmol/L Anion Gap 12 (10-20) BUN 78 H (9-20) mg/dl Creatinine 2.9 H (0.8-1.5) mg/dL Est GFR ( Amer) 26 Est GFR (Non-Af Amer) 22 Random Glucose 114 H (75-110) mg/dL Calcium 8.6 (8.4-10.2) mg/dL Total Bilirubin 0.7 (0.2-1.3) mg/dl AST 23 (17-59) U/L ALT 25 (21-72) U/L Alkaline Phosphatase 79 (38-126) U/L Total Protein 5.8 L (6.3-8.2) G/DL Albumin 2.9 L (3.5-5.0) g/dL Globulin 2.9 (2.2-3.9) gm/dL Albumin/Globulin Ratio 1.0 (1.0-2.1) Ur Random Creatinine 77.5 mg/dL U Random Total Protein 19.0 H (0.0-12.0) mg/dL Ur Random Sodium < 5 mmol/L 01/21/17 Range/Units 05:30 WBC (4.8-10.8) K/uL RBC (4.40-5.90) Mil/uL Hgb (12.0-18.0) g/dL Hct (35.0-51.0) % MCV (80.0-94.0) fl MCH (27.0-31.0) pg MCHC (33.0-37.0) g/dL RDW (11.5-14.5) % Plt Count (130-400) K/uL MPV (7.2-11.7) fl Neut % (Auto) (50.0-75.0) % Lymph % (Auto) (20.0-40.0) % Bonner % (Auto) (0.0-10.0) % Eos % (Auto) (0.0-4.0) % Baso % (Auto) (0.0-2.0) % Neut # (1.8-7.0) K/uL Lymph # (1.0-4.3) K/uL Bonner # (0.0-0.8) K/uL Eos # (0.0-0.7) K/uL Baso # (0.0-0.2) K/uL Neutrophils % (Manual) 90 H (42-75) % Band Neutrophils % 7 H (0-2) % Lymphocytes % (Manual) 1 L (20-50) % Monocytes % (Manual) 2 (0-10) % Platelet Estimate Decreased L (NORMAL) Large Platelets Hypochromasia (manual) Slight Poikilocytosis (manual Anisocytosis (manual) Slight Macrocytosis (manual) Slight Tear Drop Cells Ovalocytes Schistocytes Sodium (132-148) mmol/l Potassium (3.6-5.0) MMOL/L Chloride (98-107) mmol/L Carbon Dioxide (22-30) mmol/L Anion Gap (10-20) BUN (9-20) mg/dl Creatinine (0.8-1.5) mg/dL Est GFR ( Amer) Est GFR (Non-Af Amer) Random Glucose (75-110) mg/dL Calcium (8.4-10.2) mg/dL Total Bilirubin (0.2-1.3) mg/dl AST (17-59) U/L ALT (21-72) U/L Alkaline Phosphatase (38-126) U/L Total Protein (6.3-8.2) G/DL Albumin (3.5-5.0) g/dL Globulin (2.2-3.9) gm/dL Albumin/Globulin Ratio (1.0-2.1) Ur Random Creatinine mg/dL U Random Total Protein (0.0-12.0) mg/dL Ur Random Sodium mmol/L Laboratory Results - last 24 hr 01/21/17 01/22/17 01/22/17 05:30 03:30 04:30 WBC 11.3 H RBC 3.04 L Hgb 9.9 L Hct 31.7 L MCV 104.3 H MCH 32.7 H MCHC 31.4 L RDW 14.9 H Plt Count 104 L MPV 8.1 Neut % (Auto) 95.0 H Lymph % (Auto) 1.1 L Bonner % (Auto) 3.8 Eos % (Auto) 0.0 Baso % (Auto) 0.1 Neut # 10.8 H Lymph # 0.1 L Bonner # 0.4 Eos # 0.0 Baso # 0.0 Neutrophils % (Manual) 90 H 91 H Band Neutrophils % 7 H 5 H Lymphocytes % (Manual) 1 L 1 L Monocytes % (Manual) 2 3 Platelet Estimate Decreased L Decreased L Large Platelets Present Hypochromasia (manual) Slight Slight Poikilocytosis (manual Slight Anisocytosis (manual) Slight Slight Macrocytosis (manual) Slight Slight Tear Drop Cells Slight Ovalocytes Slight Schistocytes Slight Sodium Potassium Chloride Carbon Dioxide Anion Gap BUN Creatinine Est GFR ( Amer) Est GFR (Non-Af Amer) Random Glucose Calcium Total Bilirubin AST ALT Alkaline Phosphatase Total Protein Albumin Globulin Albumin/Globulin Ratio Ur Random Creatinine 77.5 U Random Total Protein 19.0 H Ur Random Sodium < 5 01/22/17 04:30 WBC RBC Hgb Hct MCV MCH MCHC RDW Plt Count MPV Neut % (Auto) Lymph % (Auto) Bonner % (Auto) Eos % (Auto) Baso % (Auto) Neut # Lymph # Bonner # Eos # Baso # Neutrophils % (Manual) Band Neutrophils % Lymphocytes % (Manual) Monocytes % (Manual) Platelet Estimate Large Platelets Hypochromasia (manual) Poikilocytosis (manual Anisocytosis (manual) Macrocytosis (manual) Tear Drop Cells Ovalocytes Schistocytes Sodium 142 Potassium 4.8 Chloride 109 H Carbon Dioxide 26 Anion Gap 12 BUN 78 H Creatinine 2.9 H Est GFR ( Amer) 26 Est GFR (Non-Af Amer) 22 Random Glucose 114 H Calcium 8.6 Total Bilirubin 0.7 AST 23 ALT 25 Alkaline Phosphatase 79 Total Protein 5.8 L Albumin 2.9 L Globulin 2.9 Albumin/Globulin Ratio 1.0 Ur Random Creatinine U Random Total Protein Ur Random Sodium Review of Systems - Review of Systems All systems: reviewed and no additional remarkable complaints except - Cardiovascular Cardiovascular: absent: Chest Pain, Chest Pain at Rest, Chest Pain with Activity - Respiratory Respiratory: absent: Dyspnea on Exertion Critical Care Progress Note - Ventilator Checklist Head of Bed 30 Degrees: Yes PUD Prophalyxis: Yes DVT Prophylaxis: Yes - Extremities/Vascular Does the Patient have a Central Venous Catheter?: No Does the Patient need a Central Venous Catheter?: No - Prophylaxis GI Prophylaxis GI: PPI - Prophylaxis DVT Prophylaxis DVT: SCDs - Nutrition Nutrition: Nutrition Category Date Time Status 2gm Na [Heart Healthy Diet] [DIET] Diets 01/21/17 Dinner Active Assessment/Plan - Assessment and Plan (Free Text) Assessment: Respiratory insufficiency, CHF, A Fib, CKD, pleural effusion, h/o HTN, pacemaker placement; h/o aortic dissection s/p surgery, R/o VA, R/o pneumonia Plan: -See orders. - BIPAP as needed - Lasix, aspirin - Antibiotics - Cardiac enzymes +, check EKG, ECHO - Cardiology follow up - Renal follow up - Heart rate control
--- NOTE | 2017-01-22 10:59 | CP.PCM.PN ---
Subjective - Date & Time of Evaluation Date of Evaluation: 01/22/17 Time of Evaluation: 10:57 - Subjective Subjective: Feels much more comfortable Has no SOB GFR remains in the 22 to 26 range No chest pain. Objective - Vital Signs/Intake and Output Vital Signs (last 24 hours): Temp Pulse Resp BP Pulse Ox 97.4 F L 95 H 25 H 145/66 97 01/22/17 08:00 01/22/17 08:00 01/22/17 08:00 01/22/17 08:00 01/22/17 08:00 Intake and Output: 01/22/17 01/22/17 06:59 18:59 Intake Total 790 Output Total 640 Balance 150 - Medications Medications: Current Medications Albuterol/Ipratropium (Duoneb 3 Mg/0.5 Mg (3 Ml) Ud) 3 ml INH RQ6 PRN PRN Reason: Shortness of Breath Aspirin (Aspirin) 325 mg PO DAILY [facility] Last Admin: 01/22/17 09:04 Dose: 325 mg Piperacillin Sod/Tazobactam (Sod 2.25 gm/ Sodium Chloride) 100 mls @ 100 mls/ hr IVPB Q8 [facility] Last Admin: 01/22/17 09:01 Dose: 100 mls/hr Azithromycin 500 mg/ Sodium (Chloride) 250 mls @ 250 mls/hr IVPB DAILY [facility] Last Admin: 01/22/17 09:02 Dose: 250 mls/hr Sodium Chloride (Sodium Chloride 0.9%) 1,000 mls @ 50 mls/hr IV .Q20H [facility] Stop: 01/22/17 20:14 Last Admin: 01/21/17 20:28 Dose: 50 mls/hr Pantoprazole Sodium (Protonix Inj) 40 mg IVP DAILY [facility] - Labs Labs: 01/22/17 04:30 01/22/17 04:30 PT 11.5 Seconds (9.8-13.1) 01/20/17 15:32 INR 1.0 (0.9-1.2) 01/20/17 15:32 APTT 31.2 Seconds (25.6-37.1) 01/20/17 15:32 - Head Exam Head Exam: NORMAL INSPECTION - Eye Exam Eye Exam: Normal appearance - ENT Exam ENT Exam: Mucous Membranes Moist - Respiratory Exam Respiratory Exam: Decreased Breath Sounds - Cardiovascular Exam Cardiovascular Exam: Irregular Rhythm - GI/Abdominal Exam GI & Abdominal Exam: Normal Bowel Sounds - Neurological Exam Neurological Exam: Awake, Oriented x3 Assessment and Plan (1) CHF (congestive heart failure) Status: Acute (2) Rapid atrial fibrillation Status: Acute (3) Aortic aneurysm Status: Acute (4) Pneumonia Status: Acute (5) Pleural effusion Status: Acute - Assessment and Plan (Free Text) Plan: Resume all home meds discussed with Dr Salazar and will give Dig q other day cont iv antibiotics telemetry start Phys therapy
--- NOTE | 2017-01-22 11:11 | CP.PCM.PN ---
Subjective - Date & Time of Evaluation Date of Evaluation: 01/22/17 Time of Evaluation: 11:09 - Subjective Subjective: Patient is sitting got been the chair No chest pain no shortness of breath Appeared to be comfortable Objective - Vital Signs/Intake and Output Vital Signs (last 24 hours): Temp Pulse Resp BP Pulse Ox 97.4 F L 95 H 25 H 145/66 97 01/22/17 08:00 01/22/17 08:00 01/22/17 08:00 01/22/17 08:00 01/22/17 08:00 Intake and Output: 01/22/17 01/22/17 06:59 18:59 Intake Total 790 Output Total 640 Balance 150 - Medications Medications: Current Medications Albuterol/Ipratropium (Duoneb 3 Mg/0.5 Mg (3 Ml) Ud) 3 ml INH RQ6 PRN PRN Reason: Shortness of Breath Aspirin (Aspirin) 325 mg PO DAILY [facility] Last Admin: 01/22/17 09:04 Dose: 325 mg Clopidogrel Bisulfate (Plavix) 75 mg PO DAILY [facility] Colchicine (Colocrys) 0.6 mg PO DAILY [facility] Digoxin (Lanoxin) 0.125 mg PO QOTHERDAY [facility] Piperacillin Sod/Tazobactam (Sod 2.25 gm/ Sodium Chloride) 100 mls @ 100 mls/ hr IVPB Q8 [facility] Last Admin: 01/22/17 09:01 Dose: 100 mls/hr Azithromycin 500 mg/ Sodium (Chloride) 250 mls @ 250 mls/hr IVPB [facility] Last Admin: 01/22/17 09:02 Dose: 250 mls/hr Sodium Chloride (Sodium Chloride 0.9%) 1,000 mls @ 50 mls/hr IV .Q20H [facility] Stop: 01/22/17 20:14 Last Admin: 01/21/17 20:28 Dose: 50 mls/hr Pantoprazole Sodium (Protonix Inj) 40 mg IVP DAILY [facility] - Labs Labs: 01/22/17 04:30 01/22/17 04:30 PT 11.5 Seconds (9.8-13.1) 01/20/17 15:32 INR 1.0 (0.9-1.2) 01/20/17 15:32 APTT 31.2 Seconds (25.6-37.1) 01/20/17 15:32 - Constitutional Appears: No Acute Distress - ENT Exam ENT Exam: Mucous Membranes Moist - Respiratory Exam Respiratory Exam: NORMAL BREATHING PATTERN. absent: Chest Wall Tenderness - Cardiovascular Exam Cardiovascular Exam: absent: JVD, Rubs - GI/Abdominal Exam GI & Abdominal Exam: Normal Bowel Sounds - Extremities Exam Extremities Exam: absent: Calf Tenderness - Back Exam Back Exam: absent: CVA tenderness (L), CVA tenderness (R) - Neurological Exam Neurological Exam: Alert Assessment and Plan (1) Chronic kidney disease, stage IV (severe) Assessment & Plan: Patient appeared to have CK D stage IV probably multifactorial related to atherosclerosis perhaps? Patient has AICD Patient is being treated for the current problem which appeared to be stable Continue monitoring and to get ultrasound of the kidney Status: Chronic (2) CHF (congestive heart failure) Status: Chronic (3) Pneumonia Status: Acute
[2017-01-22] MEDS: Potassium Chloride 20 mEq ER Tab PO SCH (13:45)
[2017-01-22] MEDS ORDERED: TRIAMCINOLONE ACETONIDE 0.5% TP SCH (17:00)
[2017-01-22] MEDS: Sodium Chloride 0.9% 1,000 ML IV SCH (17:15)
--- NOTE | 2017-01-22 19:31 | CP.PCM.PN ---
Subjective - Date & Time of Evaluation Date of Evaluation: 01/22/17 Time of Evaluation: 19:25 - Subjective Subjective: no current chest pain or dyspnea Objective - Vital Signs/Intake and Output Vital Signs (last 24 hours): Temp Pulse Resp BP Pulse Ox 98.4 F 77 18 110/72 98 01/22/17 16:00 01/22/17 16:00 01/22/17 16:00 01/22/17 16:00 01/22/17 16:00 - Medications Medications: Current Medications Albuterol/Ipratropium (Duoneb 3 Mg/0.5 Mg (3 Ml) Ud) 3 ml INH RQ6 PRN PRN Reason: Shortness of Breath Aspirin (Aspirin) 325 mg PO DAILY [facility] Last Admin: 01/22/17 09:04 Dose: 325 mg Clopidogrel Bisulfate (Plavix) 75 mg PO DAILY [facility] Last Admin: 01/22/17 13:47 Dose: 75 mg Colchicine (Colocrys) 0.6 mg PO DAILY [facility] Last Admin: 01/22/17 13:40 Dose: 0.6 mg Digoxin (Lanoxin) 0.125 mg PO QOTHERDAY [facility] Finasteride (Proscar) 5 mg PO DAILY [facility] Last Admin: 01/22/17 13:40 Dose: 5 mg Piperacillin Sod/Tazobactam (Sod 2.25 gm/ Sodium Chloride) 100 mls @ 100 mls/ hr IVPB Q8 [facility] Last Admin: 01/22/17 17:16 Dose: 100 mls/hr Azithromycin 500 mg/ Sodium (Chloride) 250 mls @ 250 mls/hr IVPB DAILY [facility] Last Admin: 01/22/17 09:02 Dose: 250 mls/hr Sodium Chloride (Sodium Chloride 0.9%) 1,000 mls @ 50 mls/hr IV .Q20H [facility] Stop: 01/22/17 20:14 Last Admin: 01/22/17 17:15 Dose: 50 mls/hr Metoprolol Tartrate (Lopressor) 50 mg PO Q12 [facility] Last Admin: 01/22/17 13:44 Dose: 50 mg Pantoprazole Sodium (Protonix Inj) 40 mg IVP DAILY [facility] Last Admin: 01/22/17 13:47 Dose: 40 mg Potassium Chloride (K-Dur 20 Meq Er Tab) 20 meq PO DAILY [facility] Last Admin: 01/22/17 13:45 Dose: 20 meq Ramipril (Altace) 5 mg PO DAILY [facility] Last Admin: 01/22/17 12:30 Dose: 5 mg Torsemide (Demadex) 40 mg PO BID [facility] Last Admin: 01/22/17 17:14 Dose: 40 mg - Labs Labs: 01/22/17 04:30 01/22/17 04:30 PT 11.5 Seconds (9.8-13.1) 01/20/17 15:32 INR 1.0 (0.9-1.2) 01/20/17 15:32 APTT 31.2 Seconds (25.6-37.1) 01/20/17 15:32 - Constitutional Appears: Non-toxic - Head Exam Head Exam: NORMAL INSPECTION - Eye Exam Eye Exam: Normal appearance - ENT Exam ENT Exam: Mucous Membranes Moist - Neck Exam Neck Exam: Full ROM - Respiratory Exam Respiratory Exam: Rales - Cardiovascular Exam Cardiovascular Exam: Irregular Rhythm - GI/Abdominal Exam GI & Abdominal Exam: Normal Bowel Sounds - Rectal Exam Rectal Exam: Deferred - Extremities Exam Extremities Exam: absent: Pedal Edema - Back Exam Back Exam: NORMAL INSPECTION - Neurological Exam Neurological Exam: Alert - Psychiatric Exam Psychiatric exam: Normal Affect - Skin Skin Exam: Normal Color Assessment and Plan (1) Systolic dysfunction with acute on chronic heart failure Assessment & Plan: improving. diuresis. follow creatinine Status: Acute (2) Chronic atrial fibrillation Assessment & Plan: continue rate control continue coumadin Status: Deleted (3) Chronic renal failure Assessment & Plan: follow creatinine Status: Acute (4) Aortic regurgitation Assessment & Plan: stable at present Status: Acute
--- NOTE | 2017-01-23 08:17 | PQF GENQUE ---
This form is a permanent part of the medical record 01/23/17 Dr Adame, Would you please clarify if there is an associated diagnosis to go along with the following lab findings: Troponin #1 : 0.10 ( WNL) , Troponin # 2 and #3 1.1 and 1.77 . Admitted with chest pain that had resolved, cough and sob. EKG: A Fib with RVR , LVH, marked ST abnormality. Troponin # 1 normal and # 2 and 3 elevated. Noted to have acute on chronic systolic CHF and CRF. Treatment includes: Aspirin, Plavix, Lanoxin, Lopressor and Altace. Clarification of your documentation is requested to better reflect the severity of illness and intensity of treatment of your patient. PHYSICIAN'S RESPONSE Based on your medical judgment of the clinical indicators outlined above please clarify the following: [] Practitioner response [] If unable to determine, please check the box, sign and date. Present On Admission (POA) Indicator: [] Present at the time of admission [] Not present at the time of admission [] Clinically Undetermined In responding to this query, please exercise your independent professional judgment. The fact that a question is asked does not imply that any particular answer is desired or expected. Thank you for your clarification on this documentation. If you have any questions please call:ext [phone] Medical Records Dept * Thank you, Dahlia Wells RN CD[facility]
--- NOTE | 2017-01-23 08:28 | PQF GENQUE ---
This form is a permanent part of the medical record 01/23/17 Dr. Adame, Would you please clarify if there is an associated diagnosis to go along with the Blood CS x 2 growing Gram negative Rods. Admitted with chest pain which has resolved, cough and SOB. CT Chest highly suspicious for pneumonia. Temp max 100.5. HR 170 rapid a fib. WBC 13.1 with a L shift and 4 % BANDS. Medications include Zithromax and Zosyn. Clarification of your documentation is requested to better reflect the severity of illness and intensity of treatment of your patient. PHYSICIAN'S RESPONSE Based on your medical judgment of the clinical indicators outlined above please clarify the following: [] Practitioner response [] If unable to determine, please check the box, sign and date. Present On Admission (POA) Indicator: [] Present at the time of admission [] Not present at the time of admission [] Clinically Undetermined In responding to this query, please exercise your independent professional judgment. The fact that a question is asked does not imply that any particular answer is desired or expected. Thank you for your clarification on this documentation. If you have any questions please call:extension [phone] * Thank you, Dahlia Wells RN CDMP MTD[facility]
[2017-01-23] MEDS: Potassium Chloride 20 mEq ER Tab PO SCH (08:38)
[2017-01-23] MEDS ORDERED: Pneumococcal 23-Valent Vaccine IM ONE (09:00)
[2017-01-23 10:14] LABS: CALCIUM 8.8 mg/dL (8.4-10.2); POTASSIUM 4.3 MMOL/L (3.6-5.0)
[2017-01-23 10:35] LABS: CHLORIDE URINE 16 mmol/L (32-290)
[2017-01-23] MEDS ORDERED: Epoetin Alfa 20000 UNIT/ML (RENAL DOSE) SC ONE (12:50)
--- NOTE | 2017-01-23 12:54 | CP.PCM.PN ---
Subjective - Date & Time of Evaluation Date of Evaluation: 01/23/17 Time of Evaluation: 12:52 - Subjective Subjective: Patient is out of bed appears to be comfortable No shortness of breath Chest pain Appetite is good Objective - Vital Signs/Intake and Output Vital Signs (last 24 hours): Temp Pulse Resp BP Pulse Ox 98 F 75 18 130/60 96 01/23/17 08:00 01/23/17 08:00 01/23/17 08:00 01/23/17 08:28 01/23/17 08:00 Intake and Output: 01/23/17 01/23/17 06:59 18:59 Intake Total 800 700 Output Total 850 300 Balance -50 400 - Medications Medications: Current Medications Albuterol/Ipratropium (Duoneb 3 Mg/0.5 Mg (3 Ml) Ud) 3 ml INH RQ6 PRN PRN Reason: Shortness of Breath Aspirin (Aspirin) 325 mg PO DAILY [facility] Last Admin: 01/23/17 08:37 Dose: 325 mg Clopidogrel Bisulfate (Plavix) 75 mg PO DAILY [facility] Last Admin: 01/23/17 08:38 Dose: 75 mg Colchicine (Colocrys) 0.6 mg PO DAILY [facility] Last Admin: 01/23/17 08:37 Dose: 0.6 mg Digoxin (Lanoxin) 0.125 mg PO QOTHERDAY [facility] Epoetin Krish (Procrit) 2,000 u SC TTS ONE Stop: 01/23/17 12:51 Finasteride (Proscar) 5 mg PO DAILY [facility] Last Admin: 01/23/17 08:39 Dose: 5 mg Piperacillin Sod/Tazobactam (Sod 2.25 gm/ Sodium Chloride) 100 mls @ 100 mls/ hr IVPB Q8 [facility] Last Admin: 01/23/17 01:21 Dose: 100 mls/hr Meropenem 500 mg/ Sodium (Chloride) 100 mls @ 100 mls/hr IVPB Q12 [facility] Metoprolol Tartrate (Lopressor) 50 mg PO Q12 [facility] Last Admin: 01/22/17 22:43 Dose: 50 mg Pantoprazole Sodium (Protonix Ec Tab) 40 mg PO DAILY [facility] Potassium Chloride (K-Dur 20 Meq Er Tab) 20 meq PO DAILY [facility] Last Admin: 01/23/17 08:38 Dose: 20 meq Ramipril (Altace) 5 mg PO DAILY [facility] Last Admin: 01/23/17 08:28 Dose: 5 mg Torsemide (Demadex) 40 mg PO BID [facility] Last Admin: 01/23/17 08:37 Dose: 40 mg - Labs Labs: 01/22/17 04:30 01/23/17 09:30 PT 11.5 Seconds (9.8-13.1) 01/20/17 15:32 INR 1.0 (0.9-1.2) 01/20/17 15:32 APTT 31.2 Seconds (25.6-37.1) 01/20/17 15:32 - Constitutional Appears: No Acute Distress - ENT Exam ENT Exam: Mucous Membranes Moist - Neck Exam Neck Exam: absent: Lymphadenopathy - Respiratory Exam Respiratory Exam: NORMAL BREATHING PATTERN. absent: Chest Wall Tenderness - Cardiovascular Exam Cardiovascular Exam: absent: JVD, Rubs - GI/Abdominal Exam GI & Abdominal Exam: Soft - Extremities Exam Extremities Exam: absent: Calf Tenderness - Back Exam Back Exam: absent: CVA tenderness (L), CVA tenderness (R) - Neurological Exam Neurological Exam: Alert Assessment and Plan (1) Chronic kidney disease, stage IV (severe) Assessment & Plan: Chronic kidney disease is stage IV appeared to be stable . no significant proteinuria noted Serum phosphorus and PTH pending Patient has pleural effusion pulmonary consult was order to determine whether need to do pleural tap or just continue to monitor this pleural effusion patient receiving diuretics. Past medical history with other medical problem as noted CHF, A Fib, HTN, CKD, pacemaker placement, aortic dissection s/p surgery Status: Chronic (2) CHF (congestive heart failure) Status: Chronic (3) Pneumonia Status: Acute
[2017-01-23] MEDS: Pantoprazole 40 mg EC Tab PO SCH (13:23)
[2017-01-23] MEDS: Meropenem 500 MG in Sodium Chloride 0.9% 100 ML IVPB SCH ×2 (13:24→21:14)
--- NOTE | 2017-01-23 14:50 | CP.PCM.PN ---
<Nick Merida - Last Filed: 01/23/17 15:20> Subjective - Date & Time of Evaluation Date of Evaluation: 01/23/17 Time of Evaluation: 10:36 - Subjective Subjective: Patient seen and evaluated at bedside with attending. No acute events overnight. No fever/chills. No complaints at this time. Noted to have a banana at bedside. Objective - Vital Signs/Intake and Output Vital Signs (last 24 hours): Temp Pulse Resp BP Pulse Ox 97.9 F 89 18 133/69 100 01/23/17 13:11 01/23/17 13:11 01/23/17 13:11 01/23/17 13:11 01/23/17 13:11 Intake and Output: 01/23/17 01/23/17 06:59 18:59 Intake Total 800 700 Output Total 850 300 Balance -50 400 - Medications Medications: Current Medications Albuterol/Ipratropium (Duoneb 3 Mg/0.5 Mg (3 Ml) Ud) 3 ml INH RQ6 PRN PRN Reason: Shortness of Breath Aspirin (Aspirin) 325 mg PO DAILY [facility] Last Admin: 01/23/17 08:37 Dose: 325 mg Clopidogrel Bisulfate (Plavix) 75 mg PO DAILY [facility] Last Admin: 01/23/17 08:38 Dose: 75 mg Colchicine (Colocrys) 0.6 mg PO DAILY [facility] Last Admin: 01/23/17 08:37 Dose: 0.6 mg Digoxin (Lanoxin) 0.125 mg PO QOTHERDAY [facility] Finasteride (Proscar) 5 mg PO DAILY [facility] Last Admin: 01/23/17 08:39 Dose: 5 mg Piperacillin Sod/Tazobactam (Sod 2.25 gm/ Sodium Chloride) 100 mls @ 100 mls/ hr IVPB Q8 [facility] Last Admin: 01/23/17 01:21 Dose: 100 mls/hr Meropenem 500 mg/ Sodium (Chloride) 100 mls @ 100 mls/hr IVPB Q12 [facility] Last Admin: 01/23/17 13:24 Dose: 100 mls/hr Metoprolol Tartrate (Lopressor) 50 mg PO Q12 [facility] Last Admin: 01/23/17 13:22 Dose: 50 mg Pantoprazole Sodium (Protonix Ec Tab) 40 mg PO DAILY [facility] Last Admin: 01/23/17 13:23 Dose: 40 mg Potassium Chloride (K-Dur 20 Meq Er Tab) 20 meq PO DAILY [facility] Last Admin: 01/23/17 08:38 Dose: 20 meq Ramipril (Altace) 5 mg PO DAILY [facility] Last Admin: 01/23/17 08:28 Dose: 5 mg Torsemide (Demadex) 40 mg PO BID [facility] Last Admin: 01/23/17 08:37 Dose: 40 mg - Labs Labs: 01/22/17 04:30 01/23/17 09:30 PT 11.5 Seconds (9.8-13.1) 01/20/17 15:32 INR 1.0 (0.9-1.2) 01/20/17 15:32 APTT 31.2 Seconds (25.6-37.1) 01/20/17 15:32 - Constitutional Appears: Non-toxic, No Acute Distress - Head Exam Head Exam: NORMAL INSPECTION - Eye Exam Eye Exam: Normal appearance - Respiratory Exam Respiratory Exam: Decreased Breath Sounds, NORMAL BREATHING PATTERN - Cardiovascular Exam Cardiovascular Exam: Irregular Rhythm, +S1, +S2. absent: Murmur - GI/Abdominal Exam GI & Abdominal Exam: Soft, Normal Bowel Sounds. absent: Tenderness - Extremities Exam Extremities Exam: Normal Inspection - Back Exam Back Exam: NORMAL INSPECTION - Neurological Exam Neurological Exam: Alert, Awake, Oriented x3 - Psychiatric Exam Psychiatric exam: Normal Affect, Normal Mood - Skin Skin Exam: Dry, Intact, Normal Color, Warm Assessment and Plan (1) Bacteremia Status: Acute (2) Elevated troponin Status: Acute (3) Pleural effusion Status: Acute (4) Pneumonia Status: Acute (5) Rapid atrial fibrillation Status: Chronic (6) CHF (congestive heart failure) Status: Chronic (7) Chronic kidney disease, stage IV (severe) Status: Chronic - Assessment and Plan (Free Text) Assessment: 66 year old male with hx of cardiomyopathy atrial fib on pacemaker and HTN , hyperuricemia and CKD 4 who was admitted for rapid atrial fibrillation found to have bacteremia, PNA, pleural effusion, and elevated troponins. Plan: Labs and imaging reviewed Vitals stable Afebrile, WBC improving Blood culture x 2 positive (E.Coli) Bactermia RLL PNA noted on CT scan ID consulted, appreciate input c/w IV abx Continue monitoring in Telemetry, no chest pain/palpitations/tachycardia Cardiology on board, appreciate input CKD managed with Regional Marketing Manager Dr. Lagos, appreciate input Elevated troponin likely 2ndary to renal disease Pulmonary consulted for pleural effusion, c/w diuretics or thoracentesis 5cm thyroid nodule noted on CT scan, will need U/S <Meño Adame - Last Filed: 01/26/17 19:40> Objective - Vital Signs/Intake and Output Vital Signs (last 24 hours): Temp Pulse Resp BP Pulse Ox 97.3 F L 76 18 129/69 96 01/26/17 15:45 01/26/17 15:45 01/26/17 15:45 01/26/17 15:45 01/26/17 15:45 Intake and Output: 01/26/17 01/27/17 18:59 06:59 Intake Total 1680 Output Total 2200 Balance -520 - Medications Medications: Current Medications Albuterol/Ipratropium (Duoneb 3 Mg/0.5 Mg (3 Ml) Ud) 3 ml INH RQ6 PRN PRN Reason: Shortness of Breath Aspirin (Aspirin) 325 mg PO DAILY [facility] Last Admin: 01/26/17 08:34 Dose: 325 mg Calcitriol (Rocaltrol) 0.25 mcg PO DAILY [facility] Last Admin: 01/26/17 08:30 Dose: 0.25 mcg Clopidogrel Bisulfate (Plavix) 75 mg PO DAILY [facility] Last Admin: 01/26/17 08:29 Dose: 75 mg Colchicine (Colocrys) 0.6 mg PO DAILY [facility] Last Admin: 01/26/17 08:30 Dose: Not Given Digoxin (Lanoxin) 0.125 mg PO QOTHERDAY [facility] Last Admin: 01/26/17 08:29 Dose: 0.125 mg Finasteride (Proscar) 5 mg PO DAILY [facility] Last Admin: 01/26/17 08:29 Dose: 5 mg Piperacillin Sod/Tazobactam (Sod 2.25 gm/ Sodium Chloride) 100 mls @ 100 mls/ hr IVPB Q8 [facility] Last Admin: 01/26/17 18:17 Dose: 100 mls/hr Meropenem 500 mg/ Sodium (Chloride) 100 mls @ 100 mls/hr IVPB Q12 [facility] Last Admin: 01/26/17 08:28 Dose: 100 mls/hr Clindamycin Phosphate 600 mg/ (Sodium Chloride) 104 mls @ 104 mls/hr IVPB Q12 [facility] Last Admin: 01/26/17 08:28 Dose: 104 mls/hr Metoprolol Tartrate (Lopressor) 50 mg PO Q12 [facility] Last Admin: 01/26/17 08:30 Dose: 50 mg Pantoprazole Sodium (Protonix Ec Tab) 40 mg PO DAILY [facility] Last Admin: 01/26/17 08:29 Dose: 40 mg Potassium Chloride (K-Dur 20 Meq Er Tab) 20 meq PO DAILY [facility] Last Admin: 01/26/17 08:30 Dose: 20 meq Ramipril (Altace) 5 mg PO DAILY [facility] Last Admin: 01/26/17 08:30 Dose: 5 mg Torsemide (Demadex) 40 mg PO BID [facility] Last Admin: 01/26/17 18:17 Dose: 40 mg - Labs Labs: 01/24/17 06:30 01/26/17 06:00 PT 11.5 Seconds (9.8-13.1) 01/20/17 15:32 INR 1.0 (0.9-1.2) 01/20/17 15:32 APTT 31.2 Seconds (25.6-37.1) 01/20/17 15:32 Assessment and Plan (1) CHF (congestive heart failure) Status: Chronic (2) Rapid atrial fibrillation Status: Chronic (3) Aortic aneurysm Status: Acute (4) Pneumonia Status: Acute (5) Pleural effusion Status: Acute - Assessment and Plan (Free Text) Plan: I was present during evaluation and discussed with Dr Merida re plans of care and treatment. Meño Adame M.D.
[2017-01-23 16:38] LABS: PHOSPHOROUS 4.5 mg/dl (2.5-4.5)
--- NOTE | 2017-01-23 21:45 | CP.PCM.PN ---
Subjective - Date & Time of Evaluation Date of Evaluation: 01/23/17 Time of Evaluation: 19:00 - Subjective Subjective: patient feels better. no chest pain Objective - Vital Signs/Intake and Output Vital Signs (last 24 hours): Temp Pulse Resp BP Pulse Ox 98.5 F 71 20 111/56 L 96 01/23/17 19:52 01/23/17 19:52 01/23/17 19:52 01/23/17 19:52 01/23/17 19:52 Intake and Output: 01/23/17 01/24/17 18:59 06:59 Intake Total 2350 Output Total 1275 Balance 1075 - Medications Medications: Current Medications Albuterol/Ipratropium (Duoneb 3 Mg/0.5 Mg (3 Ml) Ud) 3 ml INH RQ6 PRN PRN Reason: Shortness of Breath Aspirin (Aspirin) 325 mg PO DAILY [facility] Last Admin: 01/23/17 08:37 Dose: 325 mg Clopidogrel Bisulfate (Plavix) 75 mg PO DAILY [facility] Last Admin: 01/23/17 08:38 Dose: 75 mg Colchicine (Colocrys) 0.6 mg PO DAILY [facility] Last Admin: 01/23/17 08:37 Dose: 0.6 mg Digoxin (Lanoxin) 0.125 mg PO QOTHERDAY [facility] Finasteride (Proscar) 5 mg PO DAILY [facility] Last Admin: 01/23/17 08:39 Dose: 5 mg Piperacillin Sod/Tazobactam (Sod 2.25 gm/ Sodium Chloride) 100 mls @ 100 mls/ hr IVPB Q8 [facility] Last Admin: 01/23/17 18:25 Dose: 100 mls/hr Meropenem 500 mg/ Sodium (Chloride) 100 mls @ 100 mls/hr IVPB Q12 [facility] Last Admin: 01/23/17 21:14 Dose: 100 mls/hr Clindamycin Phosphate 600 mg/ (Sodium Chloride) 104 mls @ 104 mls/hr IVPB Q12 [facility] Metoprolol Tartrate (Lopressor) 50 mg PO Q12 [facility] Last Admin: 01/23/17 13:22 Dose: 50 mg Pantoprazole Sodium (Protonix Ec Tab) 40 mg PO DAILY [facility] Last Admin: 01/23/17 13:23 Dose: 40 mg Potassium Chloride (K-Dur 20 Meq Er Tab) 20 meq PO DAILY [facility] Last Admin: 01/23/17 08:38 Dose: 20 meq Ramipril (Altace) 5 mg PO DAILY [facility] Last Admin: 01/23/17 08:28 Dose: 5 mg Torsemide (Demadex) 40 mg PO BID [facility] Last Admin: 01/23/17 08:37 Dose: 40 mg - Labs Labs: 01/22/17 04:30 01/23/17 09:30 PT 11.5 Seconds (9.8-13.1) 01/20/17 15:32 INR 1.0 (0.9-1.2) 01/20/17 15:32 APTT 31.2 Seconds (25.6-37.1) 01/20/17 15:32 - Constitutional Appears: Non-toxic - Head Exam Head Exam: NORMAL INSPECTION - Eye Exam Eye Exam: Normal appearance - ENT Exam ENT Exam: Mucous Membranes Moist - Neck Exam Neck Exam: Full ROM - Respiratory Exam Respiratory Exam: Decreased Breath Sounds - Cardiovascular Exam Cardiovascular Exam: Irregular Rhythm - GI/Abdominal Exam GI & Abdominal Exam: Normal Bowel Sounds - Rectal Exam Rectal Exam: Deferred - Extremities Exam Extremities Exam: Pedal Edema - Back Exam Back Exam: NORMAL INSPECTION - Neurological Exam Neurological Exam: Alert - Psychiatric Exam Psychiatric exam: Normal Affect - Skin Skin Exam: Normal Color Assessment and Plan (1) Systolic dysfunction with acute on chronic heart failure Assessment & Plan: improving. continue diuresis, but be cautious Status: Acute (2) Chronic atrial fibrillation Assessment & Plan: continue anticoagulation. rate controlled Status: Deleted (3) Chronic renal failure Assessment & Plan: will need to watch renal function Status: Acute (4) Aortic regurgitation Assessment & Plan: stable regurgitation Status: Acute
--- NOTE | 2017-01-23 22:03 | CON ---
DATE: 01/23/2017 The patient is a patient of Dr. Meño Adame. HISTORY OF PRESENT ILLNESS: The patient is a 66-year-old male with a history of CHF, atrial fib, hyp ertension and pacemaker placement and also an aortic dissection, who recently came back the end from a vacation to the [facility] where his only major activity was involved in some swimming. He stated 3 days after he first came home on the beginning of January he started noticing that he was shor t of breath which has continued. He also stated he was coughing and brought up some purulent expecto rant. He denies any history of fever or chills. As the shortness of breath became increasing, he de cided to come to the hospital and he apparently was in [place] and he came to [place] where his h ospital and his doctor are. He was seen in the Emergency Room where there was an increase in shortne ss of breath and he was started on BiPAP in the Emergency Room and ultimately was brought upstairs to the ICU. PAST MEDICAL HISTORY: What I have already discussed and he also has some recent development of renal insufficiency as evidenced by today's creatinine being 3. PHYSICAL EXAMINATION: GENERAL: The patient is quite alert, oriented to time and place. A significant part of the history was given to me by his son who is a resident in the hospital, but the farther corroborated most of wh at the son said and well aware of what happened. NECK: Supple. LUNGS: He has decreased breath sounds in both bases and he had some scattered rhonchi on the right m id lung field. HEART: Basically atrial fibrillation. ABDOMEN: Soft, positive bowel sounds. SKIN: He also has a surgical scar on the chest and abdomen. EXTREMITIES: He has trace pedal edema. LABORATORY DATA: Of significance on his microbiology the patient grew E. coli, which is sensitive to Zosyn and it is also sensitive to carbapenem. I have started him on meropenem, which I feel is the most preferable antibiotic of all the ones since it gives to me the most coverage of Gram-negatives. I am concerned that we grew an E. coli in view of no bacteria in the urine on admission. His GFR i s 21 and his creatinine is 3. Hemoglobin today is 9.9 and his WBC count 11.3 and he has a left shift . I have reviewed the CT scan. IMPRESSION: At present, I feel the patient has pneumonia and Escherichia coli sepsis, etiology to be determined. Would continue with Zosyn. I have added meropenem 500 mg IV piggyback q. 12 and I have added clindamycin 600 mg IV piggyback q. 12. I have also ordered a CT scan of the abdomen and pelvi s without contrast mainly because of the positive E. coli blood culture. Jaxon Prince MD cc: [id number] TT: 01/23/2017 22:02:56 Confirmation # [id number] Dictation # [id number] mn
[2017-01-23] MEDS: Clindamycin 600 MG in Sodium Chloride 0.9% 100 ML IVPB SCH (22:29)
[2017-01-24 07:07] LABS: HEMATOCRIT 31.6 % (35.0-51.0); MEAN CORPUSCULAR HEMOGLOBIN 33.2 pg (27.0-31.0); MEAN CORPUSCULAR HGB CONC 32.2 g/dL (33.0-37.0); RED CELL DISTRIBUTION WIDTH 14.9 % (11.5-14.5); WHITE BLOOD COUNT 6.7 K/uL (4.8-10.8)
[2017-01-24 07:55] LABS: CALCIUM 8.3 mg/dL (8.4-10.2); POTASSIUM 4.9 MMOL/L (3.6-5.0)
--- NOTE | 2017-01-24 10:43 | CON ---
DATE: 01/24/2017 HISTORY OF PRESENT ILLNESS: The patient is a 66-year-old male who is referred for pulmonary evaluati on by Dr. Adame. He was admitted with shortness of breath, exercise intolerance, swelling of the le gs for several days prior to presentation. He indicated that he recently returned from vacation and has developed the above symptoms over the past several days and did not want to come to the hospital. He denies fever or chills, but admits to exercise intolerance. PAST MEDICAL HISTORY: Aortic dissection, congestive heart failure, atrial fibrillation, hypertension , status post pacemaker placement. FAMILY HISTORY: Nonrevealing. SOCIAL HISTORY: He does not smoke or drink. REVIEW OF SYSTEMS: Essentially remarkable for swelling of the legs and shortness of breath with exer cise intolerance. PHYSICAL EXAMINATION: GENERAL: The patient appears to have clinically improved since admission. VITAL SIGNS: Blood pressure of 121/60 with a pulse of 79, respiration is 18. He is afebrile. O2 sa t 95% on room air. SKIN: Shows fair turgor. HEENT: Pupils equal, react to light and accommodation. Mouth shows fair hygiene. NECK: JVP flat. CHEST: There is a pacemaker in place over the anterior chest wall area. HEART: Irregular rhythm due to atrial fibrillation. LUNGS: Fair aeration with dullness at both bases. HEART: S1, S2 (atrial fibrillation). ABDOMEN: Soft, nontender, no organomegaly. EXTREMITIES: Trace pitting pedal edema bilaterally. CENTRAL NERVOUS SYSTEM: Grossly intact. LABORATORY DATA: The patient has a chest x-ray on admission that is compatible with cardiomegaly, pa cemaker leads noted, status post median sternotomy. The chest x-ray also shows a right pleural effus ion which also is confirmed on CAT scan of the chest. WBC 6.7, hemoglobin 10.2, platelet count 114,0 00. ProBNP 67,500. Sodium 141, potassium 4.9, BUN 84, creatinine 3.0. Urine culture no growth. Bl ood culture E. coli. IMPRESSION: Acute exacerbation of congestive heart failure, history of coronary artery disease with atrial fibrillation, Escherichia coli sepsis with possible superimposed pneumonia, renal insufficienc y, history of dissection of aortic aneurysm. PLAN: Continue therapy as ordered. Wood cultures, IV antibiotics. We will repeat chest x-ray to rusty luate pleural effusion to see about resolution. We will continue to follow with you. Further therap y will depend on findings. Amos Hinton MD cc: [id number] TT: 01/24/2017 10:42:35 Confirmation # [id number] Dictation # [id number] tn
[2017-01-24] MEDS: Clindamycin 600 MG in Sodium Chloride 0.9% 100 ML IVPB SCH ×2 (10:58→20:12)
[2017-01-24] MEDS: Meropenem 500 MG in Sodium Chloride 0.9% 100 ML IVPB SCH ×2 (10:59→20:12)
[2017-01-24] MEDS: Potassium Chloride 20 mEq ER Tab PO SCH (11:00)
[2017-01-24] MEDS: Pantoprazole 40 mg EC Tab PO SCH (11:00)
[2017-01-24] MEDS: Digoxin 125 mcg (0.125 mg) Tab PO SCH (11:01)
--- NOTE | 2017-01-24 12:48 | CP.PCM.PN ---
Subjective - Date & Time of Evaluation Date of Evaluation: 01/24/17 Time of Evaluation: 12:46 - Subjective Subjective: Patient and bed Is feeling much better Short of breath on exertion Physical exam Chest decreased breath sound in the right lower lung area No rubs Abdomen soft Extremity no edema Impression and plan Chronic kidney disease is stage 4 GFR in the range of 25 With a chronic cardiac problem related to history of HTN, cardiomyopathy, AICD, atrial fibrillation Pneumonia and pleural effusion patient receiving antibiotics as per primary team Objective - Vital Signs/Intake and Output Vital Signs (last 24 hours): Temp Pulse Resp BP Pulse Ox 97.6 F 70 18 119/67 99 01/24/17 09:00 01/24/17 11:49 01/24/17 09:00 01/24/17 11:01 01/24/17 11:49 Intake and Output: 01/24/17 01/24/17 06:59 18:59 Intake Total 930 Output Total 850 Balance 80 - Medications Medications: Current Medications Albuterol/Ipratropium (Duoneb 3 Mg/0.5 Mg (3 Ml) Ud) 3 ml INH RQ6 PRN PRN Reason: Shortness of Breath Aspirin (Aspirin) 325 mg PO DAILY [facility] Last Admin: 01/24/17 11:27 Dose: 325 mg Clopidogrel Bisulfate (Plavix) 75 mg PO DAILY [facility] Last Admin: 01/24/17 11:00 Dose: 75 mg Colchicine (Colocrys) 0.6 mg PO DAILY [facility] Last Admin: 01/24/17 11:02 Dose: 0.6 mg Digoxin (Lanoxin) 0.125 mg PO QOTHERDAY [facility] Last Admin: 01/24/17 11:01 Dose: 0.125 mg Finasteride (Proscar) 5 mg PO DAILY [facility] Last Admin: 01/24/17 11:00 Dose: 5 mg Piperacillin Sod/Tazobactam (Sod 2.25 gm/ Sodium Chloride) 100 mls @ 100 mls/ hr IVPB Q8 [facility] Last Admin: 01/24/17 10:57 Dose: 100 mls/hr Meropenem 500 mg/ Sodium (Chloride) 100 mls @ 100 mls/hr IVPB Q12 [facility] Last Admin: 01/24/17 10:59 Dose: 100 mls/hr Clindamycin Phosphate 600 mg/ (Sodium Chloride) 104 mls @ 104 mls/hr IVPB Q12 [facility] Last Admin: 01/24/17 10:58 Dose: 104 mls/hr Metoprolol Tartrate (Lopressor) 50 mg PO Q12 [facility] Last Admin: 01/24/17 10:59 Dose: 50 mg Pantoprazole Sodium (Protonix Ec Tab) 40 mg PO DAILY [facility] Last Admin: 01/24/17 11:00 Dose: 40 mg Potassium Chloride (K-Dur 20 Meq Er Tab) 20 meq PO DAILY [facility] Last Admin: 01/24/17 11:00 Dose: 20 meq Ramipril (Altace) 5 mg PO DAILY [facility] Last Admin: 01/24/17 11:01 Dose: 5 mg Torsemide (Demadex) 40 mg PO BID [facility] Last Admin: 01/24/17 11:01 Dose: 40 mg - Labs Labs: 01/24/17 06:30 01/24/17 06:30 PT 11.5 Seconds (9.8-13.1) 01/20/17 15:32 INR 1.0 (0.9-1.2) 01/20/17 15:32 APTT 31.2 Seconds (25.6-37.1) 01/20/17 15:32 Assessment and Plan (1) Chronic kidney disease, stage IV (severe) Status: Chronic (2) CHF (congestive heart failure) Status: Chronic (3) Pneumonia Status: Acute
--- NOTE | 2017-01-24 13:04 | RAD ---
HISTORY: pleural effusion COMPARISON: Chest x-ray performed 01/20/17, CT of the chest without contrast performed 01/20/17 TECHNIQUE: Chest PA and lateral FINDINGS: Examination limited by habitus. LUNGS: Extensive right lower lobe consolidation and associated pleural effusion. Trace left pleural effusion. No definite pneumothorax. Please note that chest x-ray has limited sensitivity for the detection of pulmonary masses. CARDIOVASCULAR: Severe enlargement of the cardiomediastinal silhouette. Aneurysmal dilatation of an ectatic aorta, also exaggerated by patient obliquity. Single lead left-sided AICD. Median sternotomy wires. OSSEOUS STRUCTURES: Degenerative changes. VISUALIZED UPPER ABDOMEN: Unremarkable. OTHER FINDINGS: Peripherally calcified left-sided peritracheal lesion with exerted mass effect on the trachea. IMPRESSION: Extensive right lower lobe consolidation and associated pleural effusion. Trace left pleural effusion. Severe enlargement of the cardiomediastinal silhouette. Aneurysmal dilatation of an ectatic aorta, also exaggerated by patient obliquity. Single lead left-sided AICD. Median sternotomy wires. Peripherally calcified left-sided peritracheal lesion with exerted mass effect on the trachea. This is consistent with left thyroid nodule demonstrated on CT.
--- NOTE | 2017-01-24 14:29 | CP.PCM.PN ---
<Nick Merida - Last Filed: 01/24/17 14:25> Subjective - Date & Time of Evaluation Date of Evaluation: 01/24/17 Time of Evaluation: 10:26 - Subjective Subjective: Patient seen and evaluated at bedside with attending. No acute events overnight. No fever/chills. No complaints at this time. No urinary/respiratory complaints. Objective - Vital Signs/Intake and Output Vital Signs (last 24 hours): Temp Pulse Resp BP Pulse Ox 98.2 F 67 20 120/64 97 01/24/17 13:00 01/24/17 13:00 01/24/17 13:00 01/24/17 13:00 01/24/17 13:00 Intake and Output: 01/24/17 01/24/17 06:59 18:59 Intake Total 930 Output Total 850 Balance 80 - Medications Medications: Current Medications Albuterol/Ipratropium (Duoneb 3 Mg/0.5 Mg (3 Ml) Ud) 3 ml INH RQ6 PRN PRN Reason: Shortness of Breath Aspirin (Aspirin) 325 mg PO DAILY [facility] Last Admin: 01/24/17 11:27 Dose: 325 mg Clopidogrel Bisulfate (Plavix) 75 mg PO DAILY [facility] Last Admin: 01/24/17 11:00 Dose: 75 mg Colchicine (Colocrys) 0.6 mg PO DAILY [facility] Last Admin: 01/24/17 11:02 Dose: 0.6 mg Digoxin (Lanoxin) 0.125 mg PO QOTHERDAY [facility] Last Admin: 01/24/17 11:01 Dose: 0.125 mg Finasteride (Proscar) 5 mg PO DAILY [facility] Last Admin: 01/24/17 11:00 Dose: 5 mg Piperacillin Sod/Tazobactam (Sod 2.25 gm/ Sodium Chloride) 100 mls @ 100 mls/ hr IVPB Q8 [facility] Last Admin: 01/24/17 10:57 Dose: 100 mls/hr Meropenem 500 mg/ Sodium (Chloride) 100 mls @ 100 mls/hr IVPB Q12 [facility] Last Admin: 01/24/17 10:59 Dose: 100 mls/hr Clindamycin Phosphate 600 mg/ (Sodium Chloride) 104 mls @ 104 mls/hr IVPB Q12 [facility] Last Admin: 01/24/17 10:58 Dose: 104 mls/hr Metoprolol Tartrate (Lopressor) 50 mg PO Q12 [facility] Last Admin: 01/24/17 10:59 Dose: 50 mg Pantoprazole Sodium (Protonix Ec Tab) 40 mg PO DAILY [facility] Last Admin: 01/24/17 11:00 Dose: 40 mg Potassium Chloride (K-Dur 20 Meq Er Tab) 20 meq PO DAILY [facility] Last Admin: 01/24/17 11:00 Dose: 20 meq Ramipril (Altace) 5 mg PO DAILY [facility] Last Admin: 01/24/17 11:01 Dose: 5 mg Torsemide (Demadex) 40 mg PO BID [facility] Last Admin: 01/24/17 11:01 Dose: 40 mg - Labs Labs: 01/24/17 06:30 01/24/17 06:30 PT 11.5 Seconds (9.8-13.1) 01/20/17 15:32 INR 1.0 (0.9-1.2) 01/20/17 15:32 APTT 31.2 Seconds (25.6-37.1) 01/20/17 15:32 - Constitutional Appears: Well, Non-toxic, No Acute Distress - Head Exam Head Exam: ATRAUMATIC, NORMAL INSPECTION, NORMOCEPHALIC - Respiratory Exam Respiratory Exam: Clear to Ausculation Bilateral, NORMAL BREATHING PATTERN - Cardiovascular Exam Cardiovascular Exam: REGULAR RHYTHM, +S1, +S2. absent: Murmur - GI/Abdominal Exam GI & Abdominal Exam: Soft, Normal Bowel Sounds. absent: Tenderness - Extremities Exam Extremities Exam: Normal Inspection - Neurological Exam Neurological Exam: Alert, Awake - Psychiatric Exam Psychiatric exam: Normal Affect, Normal Mood - Skin Skin Exam: Dry, Intact, Normal Color, Warm Assessment and Plan (1) Bacteremia Status: Acute (2) Elevated troponin Status: Acute (3) Pleural effusion Status: Acute (4) Pneumonia Status: Acute (5) Rapid atrial fibrillation Status: Chronic (6) CHF (congestive heart failure) Status: Chronic (7) Chronic kidney disease, stage IV (severe) Status: Chronic - Assessment and Plan (Free Text) Assessment: 66 year old male with hx of cardiomyopathy atrial fib on pacemaker and HTN , hyperuricemia and CKD 4 who was admitted for rapid atrial fibrillation found to have bacteremia, PNA, pleural effusion, and elevated troponins. Plan: Chart reviewed including consultants input Vitals stable Afebrile, Normal WBC Blood culture x 2 positive (E.Coli) Bactermia, repeat cultures NGTD RLL PNA noted on CT scan ID consulted, appreciate input c/w IV abx (meropenem added yesterday) Continue monitoring in Telemetry, no chest pain/palpitations/tachycardia Cardiology on board, appreciate input CKD managed with Trip Follower Dr. Lagos, appreciate input Elevated troponin likely 2ndary to renal disease Pulmonary consulted for pleural effusion, c/w diuretics at this time, repeat CXR mitch 5cm thyroid nodule noted on CT scan, will need U/S <Meño Adame - Last Filed: 01/26/17 19:42> Subjective - Subjective Subjective: I was present during evaluation and discussed with Dr Merida re plans of care and management. Meño Adame M.D. Objective - Vital Signs/Intake and Output Vital Signs (last 24 hours): Temp Pulse Resp BP Pulse Ox 97.3 F L 76 18 129/69 96 01/26/17 15:45 01/26/17 15:45 01/26/17 15:45 01/26/17 15:45 01/26/17 15:45 Intake and Output: 01/26/17 01/27/17 18:59 06:59 Intake Total 1680 Output Total 2200 Balance -520 - Medications Medications: Current Medications Albuterol/Ipratropium (Duoneb 3 Mg/0.5 Mg (3 Ml) Ud) 3 ml INH RQ6 PRN PRN Reason: Shortness of Breath Aspirin (Aspirin) 325 mg PO DAILY [facility] Last Admin: 01/26/17 08:34 Dose: 325 mg Calcitriol (Rocaltrol) 0.25 mcg PO DAILY [facility] Last Admin: 01/26/17 08:30 Dose: 0.25 mcg Clopidogrel Bisulfate (Plavix) 75 mg PO DAILY [facility] Last Admin: 01/26/17 08:29 Dose: 75 mg Colchicine (Colocrys) 0.6 mg PO DAILY [facility] Last Admin: 01/26/17 08:30 Dose: Not Given Digoxin (Lanoxin) 0.125 mg PO QOTHERDAY [facility] Last Admin: 01/26/17 08:29 Dose: 0.125 mg Finasteride (Proscar) 5 mg PO DAILY [facility] Last Admin: 01/26/17 08:29 Dose: 5 mg Piperacillin Sod/Tazobactam (Sod 2.25 gm/ Sodium Chloride) 100 mls @ 100 mls/ hr IVPB Q8 [facility] Last Admin: 01/26/17 18:17 Dose: 100 mls/hr Meropenem 500 mg/ Sodium (Chloride) 100 mls @ 100 mls/hr IVPB Q12 [facility] Last Admin: 01/26/17 08:28 Dose: 100 mls/hr Clindamycin Phosphate 600 mg/ (Sodium Chloride) 104 mls @ 104 mls/hr IVPB Q12 [facility] Last Admin: 01/26/17 08:28 Dose: 104 mls/hr Metoprolol Tartrate (Lopressor) 50 mg PO Q12 [facility] Last Admin: 01/26/17 08:30 Dose: 50 mg Pantoprazole Sodium (Protonix Ec Tab) 40 mg PO DAILY [facility] Last Admin: 01/26/17 08:29 Dose: 40 mg Potassium Chloride (K-Dur 20 Meq Er Tab) 20 meq PO DAILY [facility] Last Admin: 01/26/17 08:30 Dose: 20 meq Ramipril (Altace) 5 mg PO DAILY [facility] Last Admin: 01/26/17 08:30 Dose: 5 mg Torsemide (Demadex) 40 mg PO BID [facility] Last Admin: 01/26/17 18:17 Dose: 40 mg - Labs Labs: 01/24/17 06:30 01/26/17 06:00 PT 11.5 Seconds (9.8-13.1) 01/20/17 15:32 INR 1.0 (0.9-1.2) 01/20/17 15:32 APTT 31.2 Seconds (25.6-37.1) 01/20/17 15:32 Assessment and Plan (1) CHF (congestive heart failure) Status: Chronic (2) Rapid atrial fibrillation Status: Chronic (3) Aortic aneurysm Status: Acute (4) Pneumonia Status: Acute (5) Pleural effusion Status: Acute
--- NOTE | 2017-01-24 18:47 | CT ---
PROCEDURE: CT Abdomen and Pelvis without intravenous contrast HISTORY: positive e.coli blood cultures COMPARISON: Comparison is made to the previous study dated 03/16/2008 TECHNIQUE: Axial and reformatted coronal and sagittal CT images of the abdomen and pelvis were obtained without IV or oral contrast administration.. Contrast Dose: 0 Radiation dose: Total exam DLP = 474.34 mGy-cm. This CT exam was performed using one or more of the following dose reduction techniques: Automated exposure control, adjustment of the mA and/or kV according to patient size, and/or use of iterative reconstruction technique. FINDINGS: LOWER THORAX: Heart is markedly enlarged. There is moderate-size right pleural effusion associated with partial consolidation in the right middle lobe and right lower lobe. Pacemaker wires seen extending to the heart. The possibility of pneumonia at the right lower lobe is not totally excluded. LIVER: Unremarkable. No gross lesion or ductal dilatation. GALLBLADDER AND BILE DUCTS: Gallstones are seen without evidence of acute cholecystitis. PANCREAS: Unremarkable. No gross lesion or ductal dilatation. SPLEEN: Unremarkable. ADRENALS: Unremarkable. No mass. KIDNEYS AND URETERS: The kidneys are heterogeneous demonstrate diffuse low-attenuation in the cortex. No evidence of hydronephrosis or obstructing stone. There are foci of high attenuation seen in the renal cortex may represent hemorrhagic cyst. There are also low-attenuation cystic lesions in both kidneys larger and more on the left. The ureters are not dilated. VASCULATURE: Abdominal aortic aneurysm seen at the mid portion measures 3.2 centimeter. There is displacement of the calcified intima suggestive of artery dissection best seen on image 84 series 3. BOWEL: Colonic diverticulosis are seen in the left colon without CT evidence of diverticulitis. No evidence of bowel obstruction. APPENDIX: Unremarkable. Normal appendix. PERITONEUM: Unremarkable. No free fluid. No free air. LYMPH NODES: Unremarkable. No enlarged lymph nodes. BLADDER: The urinary bladder is not distended therefore cannot be evaluated. REPRODUCTIVE: Unremarkable. BONES: No acute fracture. OTHER FINDINGS: None. IMPRESSION: Limited study without IV or oral contrast administration. Heterogeneous renal cortex with foci of high attenuation suspicious for hemorrhagic cyst. No evidence of nephrolithiasis or hydronephrosis. Marked cardiomegaly. Moderate right-sided pleural effusion associated with partial collapse of the right middle lobe and right lower lobe. The possibility of pneumonia at the right lower lobe is not totally excluded. Mild aneurysmal changes at the proximal and mid abdominal aorta. Focal aortic dissection noted at the mid abdominal aorta with intimal displacement at and below the renal arteries. Further assessment by enhanced CT or ultrasound is recommended. Colonic diverticulosis without evidence of diverticulitis. Gallstones without evidence of acute cholecystitis.
--- NOTE | 2017-01-24 19:26 | CP.PCM.PN ---
Subjective - Date & Time of Evaluation Date of Evaluation: 01/24/17 Time of Evaluation: 20:00 - Subjective Subjective: patient has less dyspnea. no chest pain Objective - Vital Signs/Intake and Output Vital Signs (last 24 hours): Temp Pulse Resp BP Pulse Ox 97.4 F L 64 20 106/54 L 98 01/24/17 18:51 01/24/17 18:51 01/24/17 18:51 01/24/17 18:51 01/24/17 18:51 - Medications Medications: Current Medications Albuterol/Ipratropium (Duoneb 3 Mg/0.5 Mg (3 Ml) Ud) 3 ml INH RQ6 PRN PRN Reason: Shortness of Breath Aspirin (Aspirin) 325 mg PO DAILY [facility] Last Admin: 01/24/17 11:27 Dose: 325 mg Clopidogrel Bisulfate (Plavix) 75 mg PO DAILY [facility] Last Admin: 01/24/17 11:00 Dose: 75 mg Colchicine (Colocrys) 0.6 mg PO DAILY [facility] Last Admin: 01/24/17 11:02 Dose: 0.6 mg Digoxin (Lanoxin) 0.125 mg PO QOTHERDAY [facility] Last Admin: 01/24/17 11:01 Dose: 0.125 mg Finasteride (Proscar) 5 mg PO DAILY [facility] Last Admin: 01/24/17 11:00 Dose: 5 mg Piperacillin Sod/Tazobactam (Sod 2.25 gm/ Sodium Chloride) 100 mls @ 100 mls/ hr IVPB Q8 [facility] Last Admin: 01/24/17 16:59 Dose: 100 mls/hr Meropenem 500 mg/ Sodium (Chloride) 100 mls @ 100 mls/hr IVPB Q12 [facility] Last Admin: 01/24/17 10:59 Dose: 100 mls/hr Clindamycin Phosphate 600 mg/ (Sodium Chloride) 104 mls @ 104 mls/hr IVPB Q12 [facility] Last Admin: 01/24/17 10:58 Dose: 104 mls/hr Metoprolol Tartrate (Lopressor) 50 mg PO Q12 [facility] Last Admin: 01/24/17 10:59 Dose: 50 mg Pantoprazole Sodium (Protonix Ec Tab) 40 mg PO DAILY [facility] Last Admin: 01/24/17 11:00 Dose: 40 mg Potassium Chloride (K-Dur 20 Meq Er Tab) 20 meq PO DAILY [facility] Last Admin: 01/24/17 11:00 Dose: 20 meq Ramipril (Altace) 5 mg PO DAILY [facility] Last Admin: 01/24/17 11:01 Dose: 5 mg Torsemide (Demadex) 40 mg PO BID [facility] Last Admin: 01/24/17 17:00 Dose: 40 mg - Labs Labs: 01/24/17 06:30 01/24/17 06:30 PT 11.5 Seconds (9.8-13.1) 01/20/17 15:32 INR 1.0 (0.9-1.2) 01/20/17 15:32 APTT 31.2 Seconds (25.6-37.1) 01/20/17 15:32 - Constitutional Appears: Non-toxic - Head Exam Head Exam: NORMAL INSPECTION - Eye Exam Eye Exam: Normal appearance - ENT Exam ENT Exam: Mucous Membranes Moist - Neck Exam Neck Exam: Full ROM - Respiratory Exam Respiratory Exam: Decreased Breath Sounds - Cardiovascular Exam Cardiovascular Exam: REGULAR RHYTHM - GI/Abdominal Exam GI & Abdominal Exam: Normal Bowel Sounds - Rectal Exam Rectal Exam: Deferred - Extremities Exam Extremities Exam: Pedal Edema - Back Exam Back Exam: NORMAL INSPECTION - Neurological Exam Neurological Exam: Alert - Psychiatric Exam Psychiatric exam: Normal Affect - Skin Skin Exam: Normal Color Assessment and Plan (1) Systolic dysfunction with acute on chronic heart failure Assessment & Plan: improving with diuresis Status: Acute (2) Chronic atrial fibrillation Assessment & Plan: rate controlled. had bleeding with coumadin in the past. Status: Deleted (3) Chronic renal failure Assessment & Plan: monitor creatinine Status: Acute (4) Aortic regurgitation Assessment & Plan: moderate. will follow. Status: Acute
--- NOTE | 2017-01-24 20:29 | CARD ---
APPROVED REPORT EXAM: Two-dimensional and M-mode echocardiogram with Doppler and color Doppler. Other Information Quality : ExcellentRhythm : Pacemaker INDICATION Infection:Subacute bacterial endocarditis Surgery/Intervention Pacemaker: CABD DIMENSIONS IVSd1.20 (0.7-1.1cm)LVDd6.57 (3.9-5.9cm) LVOT Diameter2.56 (1.8-2.4cm)PWd1.34 (0.7-1.1cm) IVSs0.79 (0.8-1.2cm)LVDs6.28 (2.5-4.0cm) FS (%) 4.5 %PWs1.38 (0.8-1.2cm) M-Mode DIMENSIONS Left Atrium (MM)4.33 (2.5-4.0cm)IVSd0.69 (0.7-1.1cm) Aortic Root4.30 (2.2-3.7cm)LVDd7.91 (4.0-5.6cm) Aortic Cusp Exc.2.22 (1.5-2.0cm)PWd0.73 (0.7-1.1cm) IVSs0.79 cmFS (%) 21 % LVDs6.25 (2.0-3.8cm)PWs1.09 cm Aortic Valve AI P 1/2 [id number] Mitral Valve E/A ratio0.0 TDI E/Lateral E'0.0E/Medial E'0.0 Pulmonary Valve PV Peak Awejmmcr005.9cm/s Tricuspid Valve TR Peak [id number]/sRAP [id number] Peak Gr.36mmHg [id number] LEFT VENTRICLE The Left Ventricle is moderately dilated. There is normal left ventricular wall thickness. Left ventricle systolic function is severely impaired. The Ejection Fraction is 15-20%. There is severe global LV hypokinesia. The patient is in atrial fibrillation. No left ventricle thrombus noted on this study. There is no ventricular septal defect visualized. There is no left ventricular aneurysm. There is no mass noted in the left ventricle. RIGHT VENTRICLE The right ventricle is mildly dilated. There is normal right ventricular wall thickness. The right ventricular systolic function is normal. A pacemaker lead is seen in the RV and RA. ATRIA The left atrium is severely dilated. There is no thrombus suspected in the left atrium. The right atrium is moderately dilated. The interatrial septum is intact with no evidence for an atrial septal defect. AORTIC VALVE The aortic valve is normal in structure and function. There is moderate aortic regurgitation. There is no aortic valvular stenosis. There is no aortic valvular vegetation. MITRAL VALVE The mitral valve is normal in structure and function. There is no evidence of mitral valve prolapse. There is no mitral valve stenosis. Mitral regurgitation is severe. TRICUSPID VALVE The tricuspid valve is normal in structure and function. There is severe tricuspid regurgitation. Right ventricular systolic pressure is estimated at 47 mmHg. There is no tricuspid valve prolapse or vegetation. There is no tricuspid valve stenosis. PULMONIC VALVE The pulmonary valve is normal in structure and function. There is at least mild pulmonary regurgitation. GREAT VESSELS The aortic root is mildly enlarged at 4.5 mcs. The IVC collapses <50% with inspiration. PERICARDIAL EFFUSION The pericardium appears normal. There is no pleural effusion. <Conclusion> The Left Ventricle is moderately dilated. There is normal left ventricular wall thickness. Left ventricle systolic function is severely impaired. The Ejection Fraction is 15-20%. The left atrium is severely dilated, the right ventricle is mildly dilated and the right atrium is moderately dilated. The aortic root is dilated at 4.5 cms. The aortic, mitral and tricuspid valves are normal and no valvular vegetations were seen. There is moderate aortic regurgitation, severe mitral regurgitation and severe tricuspid regurgitation.
[2017-01-25] MEDS: Clindamycin 600 MG in Sodium Chloride 0.9% 100 ML IVPB SCH ×2 (08:38→22:33)
[2017-01-25] MEDS: Pantoprazole 40 mg EC Tab PO SCH (08:39)
[2017-01-25] MEDS: Potassium Chloride 20 mEq ER Tab PO SCH (08:39)
--- NOTE | 2017-01-25 09:36 | CP.PCM.PN ---
Subjective - Date & Time of Evaluation Date of Evaluation: 01/25/17 Time of Evaluation: 09:39 - Subjective Subjective: CLINICALLY IMPROVING SOB LESS AFEBRILE Objective - Vital Signs/Intake and Output Vital Signs (last 24 hours): Temp Pulse Resp BP Pulse Ox 97.5 F L 73 18 125/66 96 01/25/17 08:00 01/25/17 08:38 01/25/17 08:00 01/25/17 08:39 01/25/17 08:00 Intake and Output: 01/25/17 01/25/17 06:59 18:59 Intake Total 2376 Output Total 1975 Balance 401 - Medications Medications: Current Medications Albuterol/Ipratropium (Duoneb 3 Mg/0.5 Mg (3 Ml) Ud) 3 ml INH RQ6 PRN PRN Reason: Shortness of Breath Aspirin (Aspirin) 325 mg PO DAILY [facility] Last Admin: 01/25/17 08:44 Dose: 325 mg Clopidogrel Bisulfate (Plavix) 75 mg PO DAILY [facility] Last Admin: 01/25/17 08:40 Dose: 75 mg Colchicine (Colocrys) 0.6 mg PO DAILY [facility] Last Admin: 01/25/17 08:42 Dose: Not Given Digoxin (Lanoxin) 0.125 mg PO QOTHERDAY [facility] Last Admin: 01/24/17 11:01 Dose: 0.125 mg Finasteride (Proscar) 5 mg PO DAILY [facility] Last Admin: 01/25/17 08:39 Dose: 5 mg Piperacillin Sod/Tazobactam (Sod 2.25 gm/ Sodium Chloride) 100 mls @ 100 mls/ hr IVPB Q8 [facility] Last Admin: 01/25/17 08:45 Dose: 100 mls/hr Meropenem 500 mg/ Sodium (Chloride) 100 mls @ 100 mls/hr IVPB Q12 [facility] Last Admin: 01/24/17 20:12 Dose: 100 mls/hr Clindamycin Phosphate 600 mg/ (Sodium Chloride) 104 mls @ 104 mls/hr IVPB Q12 [facility] Last Admin: 01/25/17 08:38 Dose: 104 mls/hr Metoprolol Tartrate (Lopressor) 50 mg PO Q12 [facility] Last Admin: 01/25/17 08:38 Dose: 50 mg Pantoprazole Sodium (Protonix Ec Tab) 40 mg PO DAILY [facility] Last Admin: 01/25/17 08:39 Dose: 40 mg Potassium Chloride (K-Dur 20 Meq Er Tab) 20 meq PO DAILY [facility] Last Admin: 01/25/17 08:39 Dose: 20 meq Ramipril (Altace) 5 mg PO DAILY [facility] Last Admin: 01/25/17 08:39 Dose: 5 mg Torsemide (Demadex) 40 mg PO BID [facility] Last Admin: 01/25/17 08:40 Dose: 40 mg - Labs Labs: 01/24/17 06:30 01/24/17 06:30 PT 11.5 Seconds (9.8-13.1) 01/20/17 15:32 INR 1.0 (0.9-1.2) 01/20/17 15:32 APTT 31.2 Seconds (25.6-37.1) 01/20/17 15:32 - Constitutional Appears: No Acute Distress - Head Exam Head Exam: ATRAUMATIC, NORMAL INSPECTION, NORMOCEPHALIC - Eye Exam Eye Exam: EOMI, Normal appearance, PERRL Pupil Exam: NORMAL ACCOMODATION, PERRL - ENT Exam ENT Exam: Mucous Membranes Moist, Normal Exam - Neck Exam Neck Exam: Full ROM, Normal Inspection. absent: Lymphadenopathy - Respiratory Exam Respiratory Exam: Decreased Breath Sounds, Rales, NORMAL BREATHING PATTERN - Cardiovascular Exam Cardiovascular Exam: REGULAR RHYTHM, +S1, +S2. absent: Murmur - GI/Abdominal Exam GI & Abdominal Exam: Soft, Normal Bowel Sounds. absent: Tenderness - Rectal Exam Rectal Exam: NORMAL INSPECTION - Extremities Exam Extremities Exam: Full ROM, Normal Capillary Refill, Normal Inspection. absent : Joint Swelling, Pedal Edema - Back Exam Back Exam: NORMAL INSPECTION - Neurological Exam Neurological Exam: Alert, Awake, CN II-XII Intact, Normal Gait, Oriented x3 - Psychiatric Exam Psychiatric exam: Normal Affect, Normal Mood - Skin Skin Exam: Dry, Intact, Normal Color, Warm Assessment and Plan - Assessment and Plan (Free Text) Assessment: R PLEURAL EFFUSION AND PNEUMONIA WITH CONSOLIDATION Plan: CONTINUE ANTIBIOTIC RX CONSIDER THORACENTESES IF PLEURAL EFFUSION WORSENS/PERSISTS
[2017-01-25] MEDS: Meropenem 500 MG in Sodium Chloride 0.9% 100 ML IVPB SCH ×2 (10:10→21:13)
--- NOTE | 2017-01-25 10:53 | CP.PCM.PN ---
Subjective - Date & Time of Evaluation Date of Evaluation: 01/25/17 Time of Evaluation: 10:51 - Subjective Subjective: No overnight event reported Patient remained stable no significant changes Objective - Vital Signs/Intake and Output Vital Signs (last 24 hours): Temp Pulse Resp BP Pulse Ox 97.5 F L 73 18 125/66 96 01/25/17 08:00 01/25/17 09:00 01/25/17 08:00 01/25/17 08:39 01/25/17 08:00 Intake and Output: 01/25/17 01/25/17 06:59 18:59 Intake Total 2376 Output Total 1975 Balance 401 - Medications Medications: Current Medications Albuterol/Ipratropium (Duoneb 3 Mg/0.5 Mg (3 Ml) Ud) 3 ml INH RQ6 PRN PRN Reason: Shortness of Breath Aspirin (Aspirin) 325 mg PO DAILY [facility] Last Admin: 01/25/17 08:44 Dose: 325 mg Calcitriol (Rocaltrol) 0.25 mcg PO DAILY [facility] Clopidogrel Bisulfate (Plavix) 75 mg PO DAILY [facility] Last Admin: 01/25/17 08:40 Dose: 75 mg Colchicine (Colocrys) 0.6 mg PO DAILY [facility] Last Admin: 01/25/17 08:42 Dose: Not Given Digoxin (Lanoxin) 0.125 mg PO QOTHERDAY [facility] Last Admin: 01/24/17 11:01 Dose: 0.125 mg Finasteride (Proscar) 5 mg PO DAILY [facility] Last Admin: 01/25/17 08:39 Dose: 5 mg Piperacillin Sod/Tazobactam (Sod 2.25 gm/ Sodium Chloride) 100 mls @ 100 mls/ hr IVPB Q8 [facility] Last Admin: 01/25/17 08:45 Dose: 100 mls/hr Meropenem 500 mg/ Sodium (Chloride) 100 mls @ 100 mls/hr IVPB Q12 [facility] Last Admin: 01/25/17 10:10 Dose: 100 mls/hr Clindamycin Phosphate 600 mg/ (Sodium Chloride) 104 mls @ 104 mls/hr IVPB Q12 [facility] Last Admin: 01/25/17 08:38 Dose: 104 mls/hr Metoprolol Tartrate (Lopressor) 50 mg PO Q12 [facility] Last Admin: 01/25/17 08:38 Dose: 50 mg Pantoprazole Sodium (Protonix Ec Tab) 40 mg PO DAILY [facility] Last Admin: 01/25/17 08:39 Dose: 40 mg Potassium Chloride (K-Dur 20 Meq Er Tab) 20 meq PO DAILY [facility] Last Admin: 01/25/17 08:39 Dose: 20 meq Ramipril (Altace) 5 mg PO DAILY [facility] Last Admin: 01/25/17 08:39 Dose: 5 mg Torsemide (Demadex) 40 mg PO BID [facility] Last Admin: 01/25/17 08:40 Dose: 40 mg - Labs Labs: 01/24/17 06:30 01/24/17 06:30 PT 11.5 Seconds (9.8-13.1) 01/20/17 15:32 INR 1.0 (0.9-1.2) 01/20/17 15:32 APTT 31.2 Seconds (25.6-37.1) 01/20/17 15:32 - Constitutional Appears: No Acute Distress - ENT Exam ENT Exam: Mucous Membranes Moist - Respiratory Exam Respiratory Exam: absent: Chest Wall Tenderness - Cardiovascular Exam Cardiovascular Exam: absent: JVD, Rubs - GI/Abdominal Exam GI & Abdominal Exam: Soft, Normal Bowel Sounds - Extremities Exam Extremities Exam: absent: Calf Tenderness, Pedal Edema - Back Exam Back Exam: absent: CVA tenderness (L), CVA tenderness (R) - Neurological Exam Neurological Exam: Alert Assessment and Plan (1) Chronic kidney disease, stage IV (severe) Assessment & Plan: CK D stage V without any significant changes stable. Secondary hyperparathyroidism PTH noted I would start calcitriol Status: Chronic (2) CHF (congestive heart failure) Status: Chronic (3) Pneumonia Status: Acute
--- NOTE | 2017-01-25 12:15 | CP.PCM.PN ---
<Nick Merida - Last Filed: 01/25/17 12:56> Subjective - Date & Time of Evaluation Date of Evaluation: 01/25/17 Time of Evaluation: 10:14 - Subjective Subjective: Patient seen and evaluated at bedside with attending. No acute events overnight. No fever/chills. No complaints at this time. No urinary/respiratory complaints. Seen by pulmonary/nephro. Objective - Vital Signs/Intake and Output Vital Signs (last 24 hours): Temp Pulse Resp BP Pulse Ox 97.5 F L 73 18 125/66 96 01/25/17 08:00 01/25/17 09:00 01/25/17 08:00 01/25/17 08:39 01/25/17 08:00 Intake and Output: 01/25/17 01/25/17 06:59 18:59 Intake Total 2376 Output Total 1975 Balance 401 - Medications Medications: Current Medications Albuterol/Ipratropium (Duoneb 3 Mg/0.5 Mg (3 Ml) Ud) 3 ml INH RQ6 PRN PRN Reason: Shortness of Breath Aspirin (Aspirin) 325 mg PO DAILY [facility] Last Admin: 01/25/17 08:44 Dose: 325 mg Calcitriol (Rocaltrol) 0.25 mcg PO DAILY [facility] Clopidogrel Bisulfate (Plavix) 75 mg PO DAILY [facility] Last Admin: 01/25/17 08:40 Dose: 75 mg Colchicine (Colocrys) 0.6 mg PO DAILY [facility] Last Admin: 01/25/17 08:42 Dose: Not Given Digoxin (Lanoxin) 0.125 mg PO QOTHERDAY [facility] Last Admin: 01/24/17 11:01 Dose: 0.125 mg Finasteride (Proscar) 5 mg PO DAILY [facility] Last Admin: 01/25/17 08:39 Dose: 5 mg Piperacillin Sod/Tazobactam (Sod 2.25 gm/ Sodium Chloride) 100 mls @ 100 mls/ hr IVPB Q8 [facility] Last Admin: 01/25/17 08:45 Dose: 100 mls/hr Meropenem 500 mg/ Sodium (Chloride) 100 mls @ 100 mls/hr IVPB Q12 [facility] Last Admin: 01/25/17 10:10 Dose: 100 mls/hr Clindamycin Phosphate 600 mg/ (Sodium Chloride) 104 mls @ 104 mls/hr IVPB Q12 [facility] Last Admin: 01/25/17 08:38 Dose: 104 mls/hr Metoprolol Tartrate (Lopressor) 50 mg PO Q12 [facility] Last Admin: 01/25/17 08:38 Dose: 50 mg Pantoprazole Sodium (Protonix Ec Tab) 40 mg PO DAILY [facility] Last Admin: 01/25/17 08:39 Dose: 40 mg Potassium Chloride (K-Dur 20 Meq Er Tab) 20 meq PO DAILY [facility] Last Admin: 01/25/17 08:39 Dose: 20 meq Ramipril (Altace) 5 mg PO DAILY [facility] Last Admin: 01/25/17 08:39 Dose: 5 mg Torsemide (Demadex) 40 mg PO BID [facility] Last Admin: 01/25/17 08:40 Dose: 40 mg - Labs Labs: 01/24/17 06:30 01/24/17 06:30 PT 11.5 Seconds (9.8-13.1) 01/20/17 15:32 INR 1.0 (0.9-1.2) 01/20/17 15:32 APTT 31.2 Seconds (25.6-37.1) 01/20/17 15:32 - Constitutional Appears: Non-toxic, No Acute Distress - Head Exam Head Exam: ATRAUMATIC, NORMAL INSPECTION, NORMOCEPHALIC - Eye Exam Eye Exam: Normal appearance - Neck Exam Neck Exam: Normal Inspection - Respiratory Exam Respiratory Exam: Decreased Breath Sounds (bilateral bases), Clear to Ausculation Bilateral, Rales, NORMAL BREATHING PATTERN - Cardiovascular Exam Cardiovascular Exam: REGULAR RHYTHM, +S1, +S2. absent: Murmur - GI/Abdominal Exam GI & Abdominal Exam: Soft, Normal Bowel Sounds. absent: Tenderness - Neurological Exam Neurological Exam: Alert, Awake, Oriented x3 - Psychiatric Exam Psychiatric exam: Normal Affect, Normal Mood - Skin Skin Exam: Dry, Intact, Normal Color, Warm Assessment and Plan (1) Bacteremia Status: Acute (2) Elevated troponin Status: Acute (3) Pleural effusion Status: Acute (4) Pneumonia Status: Acute (5) Rapid atrial fibrillation Status: Chronic (6) CHF (congestive heart failure) Status: Chronic (7) Chronic kidney disease, stage IV (severe) Status: Chronic - Assessment and Plan (Free Text) Assessment: 66 year old male with hx of cardiomyopathy atrial fib on pacemaker and HTN , hyperuricemia and CKD 4 who was admitted for rapid atrial fibrillation found to have bacteremia, PNA, pleural effusion, and elevated troponins. Plan: Chart reviewed including consultants input Vitals stable Afebrile, Normal WBC Blood culture x 2 positive (E.Coli) Bactermia, repeat cultures NGTD RLL PNA noted on CT scan ID on board, appreciate input c/w IV abx (meropenem added yesterday) Continue monitoring in Telemetry, no chest pain/palpitations/tachycardia Cardiology on board, appreciate input CKD managed with Sales Service Technician Dr. Lagos, appreciate input Elevated troponin likely 2ndary to renal disease Pulmonary consulted for pleural effusion 5cm thyroid nodule noted on CT scan, will need U/S <Meño Adame L - Last Filed: 01/26/17 19:45> Objective - Vital Signs/Intake and Output Vital Signs (last 24 hours): Temp Pulse Resp BP Pulse Ox 97.3 F L 76 18 129/69 96 01/26/17 15:45 01/26/17 15:45 01/26/17 15:45 01/26/17 15:45 01/26/17 15:45 Intake and Output: 01/26/17 01/27/17 18:59 06:59 Intake Total 1680 Output Total 2200 Balance -520 - Medications Medications: Current Medications Albuterol/Ipratropium (Duoneb 3 Mg/0.5 Mg (3 Ml) Ud) 3 ml INH RQ6 PRN PRN Reason: Shortness of Breath Aspirin (Aspirin) 325 mg PO DAILY [facility] Last Admin: 01/26/17 08:34 Dose: 325 mg Calcitriol (Rocaltrol) 0.25 mcg PO DAILY [facility] Last Admin: 01/26/17 08:30 Dose: 0.25 mcg Clopidogrel Bisulfate (Plavix) 75 mg PO DAILY [facility] Last Admin: 01/26/17 08:29 Dose: 75 mg Colchicine (Colocrys) 0.6 mg PO DAILY [facility] Last Admin: 01/26/17 08:30 Dose: Not Given Digoxin (Lanoxin) 0.125 mg PO QOTHERDAY [facility] Last Admin: 01/26/17 08:29 Dose: 0.125 mg Finasteride (Proscar) 5 mg PO DAILY [facility] Last Admin: 01/26/17 08:29 Dose: 5 mg Piperacillin Sod/Tazobactam (Sod 2.25 gm/ Sodium Chloride) 100 mls @ 100 mls/ hr IVPB Q8 [facility] Last Admin: 01/26/17 18:17 Dose: 100 mls/hr Meropenem 500 mg/ Sodium (Chloride) 100 mls @ 100 mls/hr IVPB Q12 [facility] Last Admin: 01/26/17 08:28 Dose: 100 mls/hr Clindamycin Phosphate 600 mg/ (Sodium Chloride) 104 mls @ 104 mls/hr IVPB Q12 [facility] Last Admin: 01/26/17 08:28 Dose: 104 mls/hr Metoprolol Tartrate (Lopressor) 50 mg PO Q12 [facility] Last Admin: 01/26/17 08:30 Dose: 50 mg Pantoprazole Sodium (Protonix Ec Tab) 40 mg PO DAILY [facility] Last Admin: 01/26/17 08:29 Dose: 40 mg Potassium Chloride (K-Dur 20 Meq Er Tab) 20 meq PO DAILY [facility] Last Admin: 01/26/17 08:30 Dose: 20 meq Ramipril (Altace) 5 mg PO DAILY [facility] Last Admin: 01/26/17 08:30 Dose: 5 mg Torsemide (Demadex) 40 mg PO BID [facility] Last Admin: 01/26/17 18:17 Dose: 40 mg - Labs Labs: 01/24/17 06:30 01/26/17 06:00 PT 11.5 Seconds (9.8-13.1) 01/20/17 15:32 INR 1.0 (0.9-1.2) 01/20/17 15:32 APTT 31.2 Seconds (25.6-37.1) 01/20/17 15:32 Assessment and Plan (1) CHF (congestive heart failure) Status: Chronic (2) Rapid atrial fibrillation Status: Chronic (3) Aortic aneurysm Status: Acute (4) Pneumonia Status: Acute (5) Pleural effusion Status: Acute - Assessment and Plan (Free Text) Plan: I was present during evaluation and discussed with Dr Fuad castañeda plans of care. and treatment. Follow up with Greg. repeat CXR in am. Meño Adame M.D.
--- NOTE | 2017-01-25 19:32 | CP.PCM.PN ---
Subjective - Date & Time of Evaluation Date of Evaluation: 01/25/17 Time of Evaluation: 19:31 - Subjective Subjective: ID NOTE ECHOCARDIOGRAM SHOWS NO VEGETATIONS CT SCAN OF ABDOMEN NOTED WBC IS DECREASING CONTINUE PRESENT REGIMEN Objective - Vital Signs/Intake and Output Vital Signs (last 24 hours): Temp Pulse Resp BP Pulse Ox 97.5 F L 60 20 90/44 L 97 01/25/17 15:29 01/25/17 15:29 01/25/17 15:29 01/25/17 15:29 01/25/17 15:29 Intake and Output: 01/25/17 01/26/17 18:59 06:59 Intake Total 1462 Balance 1462 - Medications Medications: Current Medications Albuterol/Ipratropium (Duoneb 3 Mg/0.5 Mg (3 Ml) Ud) 3 ml INH RQ6 PRN PRN Reason: Shortness of Breath Aspirin (Aspirin) 325 mg PO DAILY [facility] Last Admin: 01/25/17 08:44 Dose: 325 mg Calcitriol (Rocaltrol) 0.25 mcg PO DAILY [facility] Last Admin: 01/25/17 12:22 Dose: 0.25 mcg Clopidogrel Bisulfate (Plavix) 75 mg PO DAILY [facility] Last Admin: 01/25/17 08:40 Dose: 75 mg Colchicine (Colocrys) 0.6 mg PO DAILY [facility] Last Admin: 01/25/17 08:42 Dose: Not Given Digoxin (Lanoxin) 0.125 mg PO QOTHERDAY [facility] Last Admin: 01/24/17 11:01 Dose: 0.125 mg Finasteride (Proscar) 5 mg PO DAILY [facility] Last Admin: 01/25/17 08:39 Dose: 5 mg Piperacillin Sod/Tazobactam (Sod 2.25 gm/ Sodium Chloride) 100 mls @ 100 mls/ hr IVPB Q8 [facility] Last Admin: 01/25/17 16:57 Dose: 100 mls/hr Meropenem 500 mg/ Sodium (Chloride) 100 mls @ 100 mls/hr IVPB Q12 [facility] Last Admin: 01/25/17 10:10 Dose: 100 mls/hr Clindamycin Phosphate 600 mg/ (Sodium Chloride) 104 mls @ 104 mls/hr IVPB Q12 [facility] Last Admin: 01/25/17 08:38 Dose: 104 mls/hr Metoprolol Tartrate (Lopressor) 50 mg PO Q12 [facility] Last Admin: 01/25/17 08:38 Dose: 50 mg Pantoprazole Sodium (Protonix Ec Tab) 40 mg PO DAILY [facility] Last Admin: 01/25/17 08:39 Dose: 40 mg Potassium Chloride (K-Dur 20 Meq Er Tab) 20 meq PO DAILY [facility] Last Admin: 01/25/17 08:39 Dose: 20 meq Ramipril (Altace) 5 mg PO DAILY [facility] Last Admin: 01/25/17 08:39 Dose: 5 mg Torsemide (Demadex) 40 mg PO BID [facility] Last Admin: 01/25/17 16:58 Dose: 40 mg - Labs Labs: 01/24/17 06:30 01/24/17 06:30 PT 11.5 Seconds (9.8-13.1) 01/20/17 15:32 INR 1.0 (0.9-1.2) 01/20/17 15:32 APTT 31.2 Seconds (25.6-37.1) 01/20/17 15:32
[2017-01-25 23:16] LABS: CALCIUM 8.3 mg/dL (8.6-10.3)
[2017-01-26 06:49] LABS: CALCIUM 8.5 mg/dL (8.4-10.2); POTASSIUM 4.7 MMOL/L (3.6-5.0)
[2017-01-26] MEDS: Meropenem 500 MG in Sodium Chloride 0.9% 100 ML IVPB SCH ×2 (08:28→21:19)
[2017-01-26] MEDS: Clindamycin 600 MG in Sodium Chloride 0.9% 100 ML IVPB SCH ×2 (08:28→21:19)
[2017-01-26] MEDS: Pantoprazole 40 mg EC Tab PO SCH (08:29)
[2017-01-26] MEDS: Digoxin 125 mcg (0.125 mg) Tab PO SCH (08:29)
[2017-01-26] MEDS: Potassium Chloride 20 mEq ER Tab PO SCH (08:30)
--- NOTE | 2017-01-26 09:31 | CP.PCM.PN ---
Subjective - Date & Time of Evaluation Date of Evaluation: 02/02/17 Time of Evaluation: 09:30 - Subjective Subjective: No new events reported overnight Patient receiving antibiotics as recommended The issue is CK D which has been stable creatinine 2.9 the latest And the treatment of the pleural effusion and underlying pneumonia Objective - Vital Signs/Intake and Output Vital Signs (last 24 hours): Temp Pulse Resp BP Pulse Ox 98 F 66 18 130/58 L 98 01/26/17 08:00 01/26/17 08:30 01/26/17 08:00 01/26/17 08:30 01/26/17 08:00 Intake and Output: 01/26/17 01/26/17 06:59 18:59 Intake Total 210 572 Output Total 1200 Balance 210 -628 - Medications Medications: Current Medications Albuterol/Ipratropium (Duoneb 3 Mg/0.5 Mg (3 Ml) Ud) 3 ml INH RQ6 PRN PRN Reason: Shortness of Breath Aspirin (Aspirin) 325 mg PO DAILY [facility] Last Admin: 01/26/17 08:34 Dose: 325 mg Calcitriol (Rocaltrol) 0.25 mcg PO DAILY [facility] Last Admin: 01/26/17 08:30 Dose: 0.25 mcg Clopidogrel Bisulfate (Plavix) 75 mg PO DAILY [facility] Last Admin: 01/26/17 08:29 Dose: 75 mg Colchicine (Colocrys) 0.6 mg PO DAILY [facility] Last Admin: 01/26/17 08:30 Dose: Not Given Digoxin (Lanoxin) 0.125 mg PO QOTHERDAY [facility] Last Admin: 01/26/17 08:29 Dose: 0.125 mg Finasteride (Proscar) 5 mg PO DAILY [facility] Last Admin: 01/26/17 08:29 Dose: 5 mg Piperacillin Sod/Tazobactam (Sod 2.25 gm/ Sodium Chloride) 100 mls @ 100 mls/ hr IVPB Q8 [facility] Last Admin: 01/26/17 08:27 Dose: 100 mls/hr Meropenem 500 mg/ Sodium (Chloride) 100 mls @ 100 mls/hr IVPB Q12 [facility] Last Admin: 01/26/17 08:28 Dose: 100 mls/hr Clindamycin Phosphate 600 mg/ (Sodium Chloride) 104 mls @ 104 mls/hr IVPB Q12 [facility] Last Admin: 01/26/17 08:28 Dose: 104 mls/hr Metoprolol Tartrate (Lopressor) 50 mg PO Q12 [facility] Last Admin: 01/26/17 08:30 Dose: 50 mg Pantoprazole Sodium (Protonix Ec Tab) 40 mg PO DAILY [facility] Last Admin: 01/26/17 08:29 Dose: 40 mg Potassium Chloride (K-Dur 20 Meq Er Tab) 20 meq PO DAILY [facility] Last Admin: 01/26/17 08:30 Dose: 20 meq Ramipril (Altace) 5 mg PO DAILY [facility] Last Admin: 01/26/17 08:30 Dose: 5 mg Torsemide (Demadex) 40 mg PO BID [facility] Last Admin: 01/26/17 08:29 Dose: 40 mg - Labs Labs: 01/24/17 06:30 01/26/17 06:00 PT 11.5 Seconds (9.8-13.1) 01/20/17 15:32 INR 1.0 (0.9-1.2) 01/20/17 15:32 APTT 31.2 Seconds (25.6-37.1) 01/20/17 15:32 Assessment and Plan (1) Chronic kidney disease, stage IV (severe) Status: Chronic (2) CHF (congestive heart failure) Status: Chronic (3) Pneumonia Status: Acute
--- NOTE | 2017-01-26 11:51 | RAD ---
HISTORY: pleural effusion COMPARISON: Comparison is made to 01/24/2017 TECHNIQUE: Chest PA and lateral FINDINGS: LUNGS: No significant interval change in the lungs noted since the previous exam. Again seen is almost complete collapse of the right lower lobe and right middle lobe. Widening of the mediastinum is again noted. PLEURA: No significant pleural effusion identified. No pneumothorax apparent. CARDIOVASCULAR: The cardiac silhouette is enlarged. Left-sided single wire pacemaker is again seen in place. OSSEOUS STRUCTURES: No significant abnormalities. VISUALIZED UPPER ABDOMEN: Normal. OTHER FINDINGS: None. IMPRESSION: Overall no significant interval change in the chest as described above.
--- NOTE | 2017-01-26 13:09 | CP.PCM.PN ---
Subjective - Date & Time of Evaluation Date of Evaluation: 01/26/17 Time of Evaluation: 13:09 - Subjective Subjective: C/O ORTHOPNEA DENIES CHEST PAINS STILL COUGHING Objective - Vital Signs/Intake and Output Vital Signs (last 24 hours): Temp Pulse Resp BP Pulse Ox 99 F 72 18 126/70 95 01/26/17 13:00 01/26/17 13:00 01/26/17 13:00 01/26/17 13:00 01/26/17 13:00 Intake and Output: 01/26/17 01/26/17 06:59 18:59 Intake Total 210 572 Output Total 1200 Balance 210 -628 - Medications Medications: Current Medications Albuterol/Ipratropium (Duoneb 3 Mg/0.5 Mg (3 Ml) Ud) 3 ml INH RQ6 PRN PRN Reason: Shortness of Breath Aspirin (Aspirin) 325 mg PO DAILY [facility] Last Admin: 01/26/17 08:34 Dose: 325 mg Calcitriol (Rocaltrol) 0.25 mcg PO DAILY [facility] Last Admin: 01/26/17 08:30 Dose: 0.25 mcg Clopidogrel Bisulfate (Plavix) 75 mg PO DAILY [facility] Last Admin: 01/26/17 08:29 Dose: 75 mg Colchicine (Colocrys) 0.6 mg PO DAILY [facility] Last Admin: 01/26/17 08:30 Dose: Not Given Digoxin (Lanoxin) 0.125 mg PO QOTHERDAY [facility] Last Admin: 01/26/17 08:29 Dose: 0.125 mg Finasteride (Proscar) 5 mg PO DAILY [facility] Last Admin: 01/26/17 08:29 Dose: 5 mg Piperacillin Sod/Tazobactam (Sod 2.25 gm/ Sodium Chloride) 100 mls @ 100 mls/ hr IVPB Q8 [facility] Last Admin: 01/26/17 08:27 Dose: 100 mls/hr Meropenem 500 mg/ Sodium (Chloride) 100 mls @ 100 mls/hr IVPB Q12 [facility] Last Admin: 01/26/17 08:28 Dose: 100 mls/hr Clindamycin Phosphate 600 mg/ (Sodium Chloride) 104 mls @ 104 mls/hr IVPB Q12 [facility] Last Admin: 01/26/17 08:28 Dose: 104 mls/hr Metoprolol Tartrate (Lopressor) 50 mg PO Q12 [facility] Last Admin: 01/26/17 08:30 Dose: 50 mg Pantoprazole Sodium (Protonix Ec Tab) 40 mg PO DAILY [facility] Last Admin: 01/26/17 08:29 Dose: 40 mg Potassium Chloride (K-Dur 20 Meq Er Tab) 20 meq PO DAILY [facility] Last Admin: 01/26/17 08:30 Dose: 20 meq Ramipril (Altace) 5 mg PO DAILY [facility] Last Admin: 01/26/17 08:30 Dose: 5 mg Torsemide (Demadex) 40 mg PO BID [facility] Last Admin: 01/26/17 08:29 Dose: 40 mg - Labs Labs: 01/24/17 06:30 01/26/17 06:00 PT 11.5 Seconds (9.8-13.1) 01/20/17 15:32 INR 1.0 (0.9-1.2) 01/20/17 15:32 APTT 31.2 Seconds (25.6-37.1) 01/20/17 15:32 - Constitutional Appears: No Acute Distress - Head Exam Head Exam: ATRAUMATIC, NORMAL INSPECTION, NORMOCEPHALIC - Eye Exam Eye Exam: EOMI, Normal appearance, PERRL Pupil Exam: NORMAL ACCOMODATION, PERRL - ENT Exam ENT Exam: Mucous Membranes Moist, Normal Exam - Neck Exam Neck Exam: Full ROM, Normal Inspection. absent: Lymphadenopathy - Respiratory Exam Respiratory Exam: Decreased Breath Sounds, Rales, NORMAL BREATHING PATTERN - Cardiovascular Exam Cardiovascular Exam: REGULAR RHYTHM, +S1, +S2. absent: Murmur - GI/Abdominal Exam GI & Abdominal Exam: Soft, Normal Bowel Sounds. absent: Tenderness - Rectal Exam Rectal Exam: NORMAL INSPECTION - Extremities Exam Extremities Exam: Full ROM, Normal Capillary Refill, Normal Inspection. absent : Joint Swelling, Pedal Edema - Back Exam Back Exam: NORMAL INSPECTION - Neurological Exam Neurological Exam: Alert, Awake, CN II-XII Intact, Normal Gait, Oriented x3 - Psychiatric Exam Psychiatric exam: Normal Affect, Normal Mood - Skin Skin Exam: Dry, Intact, Normal Color, Warm Assessment and Plan - Assessment and Plan (Free Text) Assessment: PNEUMONIA WITH PLEURAL EFFUSION E.COLI SEPSIS Plan: CONTINUE PRESENT RX WILL NEED THORACENTESES BY SUNDAY IF EFFUSION WORSENS/PERSISTS
--- NOTE | 2017-01-26 19:40 | CARD ---
APPROVED REPORT EKG Measurement Heart [id number] <Conclusion> Ventricular paced rhythm Left ventricular hypertrophy with repolarization abnormality Abnormal ECG
--- NOTE | 2017-01-26 19:48 | CP.PCM.PN ---
Subjective - Date & Time of Evaluation Date of Evaluation: 01/26/17 Time of Evaluation: 11:00 - Subjective Subjective: Patient continue to have SOB Repeat CXR showed almost complete collapse of the right lower and right middle lobe. No change in the size of effusion Still SOB Positive orthopnea. Objective - Vital Signs/Intake and Output Vital Signs (last 24 hours): Temp Pulse Resp BP Pulse Ox 97.3 F L 76 18 129/69 96 01/26/17 15:45 01/26/17 15:45 01/26/17 15:45 01/26/17 15:45 01/26/17 15:45 Intake and Output: 01/26/17 01/27/17 18:59 06:59 Intake Total 1680 Output Total 2200 Balance -520 - Medications Medications: Current Medications Albuterol/Ipratropium (Duoneb 3 Mg/0.5 Mg (3 Ml) Ud) 3 ml INH RQ6 PRN PRN Reason: Shortness of Breath Aspirin (Aspirin) 325 mg PO DAILY [facility] Last Admin: 01/26/17 08:34 Dose: 325 mg Calcitriol (Rocaltrol) 0.25 mcg PO DAILY [facility] Last Admin: 01/26/17 08:30 Dose: 0.25 mcg Clopidogrel Bisulfate (Plavix) 75 mg PO DAILY [facility] Last Admin: 01/26/17 08:29 Dose: 75 mg Colchicine (Colocrys) 0.6 mg PO DAILY [facility] Last Admin: 01/26/17 08:30 Dose: Not Given Digoxin (Lanoxin) 0.125 mg PO QOTHERDAY [facility] Last Admin: 01/26/17 08:29 Dose: 0.125 mg Finasteride (Proscar) 5 mg PO DAILY [facility] Last Admin: 01/26/17 08:29 Dose: 5 mg Piperacillin Sod/Tazobactam (Sod 2.25 gm/ Sodium Chloride) 100 mls @ 100 mls/ hr IVPB Q8 [facility] Last Admin: 01/26/17 18:17 Dose: 100 mls/hr Meropenem 500 mg/ Sodium (Chloride) 100 mls @ 100 mls/hr IVPB Q12 [facility] Last Admin: 01/26/17 08:28 Dose: 100 mls/hr Clindamycin Phosphate 600 mg/ (Sodium Chloride) 104 mls @ 104 mls/hr IVPB Q12 [facility] Last Admin: 01/26/17 08:28 Dose: 104 mls/hr Metoprolol Tartrate (Lopressor) 50 mg PO Q12 [facility] Last Admin: 01/26/17 08:30 Dose: 50 mg Pantoprazole Sodium (Protonix Ec Tab) 40 mg PO DAILY [facility] Last Admin: 01/26/17 08:29 Dose: 40 mg Potassium Chloride (K-Dur 20 Meq Er Tab) 20 meq PO DAILY [facility] Last Admin: 01/26/17 08:30 Dose: 20 meq Ramipril (Altace) 5 mg PO DAILY [facility] Last Admin: 01/26/17 08:30 Dose: 5 mg Torsemide (Demadex) 40 mg PO BID [facility] Last Admin: 01/26/17 18:17 Dose: 40 mg - Labs Labs: 01/24/17 06:30 01/26/17 06:00 PT 11.5 Seconds (9.8-13.1) 01/20/17 15:32 INR 1.0 (0.9-1.2) 01/20/17 15:32 APTT 31.2 Seconds (25.6-37.1) 01/20/17 15:32 - Head Exam Head Exam: NORMAL INSPECTION - Eye Exam Eye Exam: Normal appearance - ENT Exam ENT Exam: Mucous Membranes Moist - Respiratory Exam Respiratory Exam: Decreased Breath Sounds - Cardiovascular Exam Cardiovascular Exam: Irregular Rhythm - GI/Abdominal Exam GI & Abdominal Exam: Normal Bowel Sounds - Neurological Exam Neurological Exam: Alert, Awake, Oriented x3 Assessment and Plan (1) CHF (congestive heart failure) Status: Chronic (2) Rapid atrial fibrillation Status: Chronic (3) Aortic aneurysm Status: Acute (4) Pneumonia Status: Acute (5) Pleural effusion Status: Acute - Assessment and Plan (Free Text) Plan: cont diuresis cont meds monitor effusion\will need thoracentesis.
[2017-01-27] MEDS: Potassium Chloride 20 mEq ER Tab PO SCH (09:18)
[2017-01-27] MEDS: Meropenem 500 MG in Sodium Chloride 0.9% 100 ML IVPB SCH ×2 (09:19→21:08)
[2017-01-27] MEDS: Pantoprazole 40 mg EC Tab PO SCH (09:20)
[2017-01-27] MEDS: Clindamycin 600 MG in Sodium Chloride 0.9% 100 ML IVPB SCH ×2 (09:29→22:14)
--- NOTE | 2017-01-27 12:56 | CP.PCM.PN ---
Subjective - Date & Time of Evaluation Date of Evaluation: 01/27/17 Time of Evaluation: 13:42 - Subjective Subjective: MORE DYSPNEIC TODAY UNABLE TO EXPECTORATE SPUTUM Objective - Vital Signs/Intake and Output Vital Signs (last 24 hours): Temp Pulse Resp BP Pulse Ox 97.5 F L 67 18 123/62 98 01/27/17 12:04 01/27/17 12:04 01/27/17 12:04 01/27/17 12:04 01/27/17 12:04 Intake and Output: 01/27/17 01/27/17 06:59 18:59 Intake Total 660 Output Total 1480 Balance -820 - Medications Medications: Current Medications Albuterol/Ipratropium (Duoneb 3 Mg/0.5 Mg (3 Ml) Ud) 3 ml INH RQ6 PRN PRN Reason: Shortness of Breath Aspirin (Aspirin) 325 mg PO DAILY [facility] Last Admin: 01/27/17 09:17 Dose: 325 mg Calcitriol (Rocaltrol) 0.25 mcg PO DAILY [facility] Last Admin: 01/27/17 09:20 Dose: 0.25 mcg Clopidogrel Bisulfate (Plavix) 75 mg PO DAILY [facility] Last Admin: 01/27/17 09:20 Dose: 75 mg Colchicine (Colocrys) 0.6 mg PO DAILY [facility] Last Admin: 01/27/17 09:21 Dose: Not Given Digoxin (Lanoxin) 0.125 mg PO QOTHERDAY [facility] Last Admin: 01/26/17 08:29 Dose: 0.125 mg Finasteride (Proscar) 5 mg PO DAILY [facility] Last Admin: 01/27/17 09:20 Dose: 5 mg Piperacillin Sod/Tazobactam (Sod 2.25 gm/ Sodium Chloride) 100 mls @ 100 mls/ hr IVPB Q8 [facility] Last Admin: 01/27/17 09:20 Dose: 100 mls/hr Meropenem 500 mg/ Sodium (Chloride) 100 mls @ 100 mls/hr IVPB Q12 [facility] Last Admin: 01/27/17 09:19 Dose: 100 mls/hr Clindamycin Phosphate 600 mg/ (Sodium Chloride) 104 mls @ 104 mls/hr IVPB Q12 [facility] Last Admin: 01/27/17 09:29 Dose: 104 mls/hr Metoprolol Tartrate (Lopressor) 50 mg PO Q12 [facility] Last Admin: 01/27/17 11:52 Dose: 50 mg Pantoprazole Sodium (Protonix Ec Tab) 40 mg PO DAILY [facility] Last Admin: 01/27/17 09:20 Dose: 40 mg Potassium Chloride (K-Dur 20 Meq Er Tab) 20 meq PO DAILY [facility] Last Admin: 01/27/17 09:18 Dose: 20 meq Ramipril (Altace) 5 mg PO DAILY [facility] Last Admin: 01/27/17 09:15 Dose: 5 mg Torsemide (Demadex) 40 mg PO BID [facility] Last Admin: 01/27/17 09:18 Dose: 40 mg - Labs Labs: 01/24/17 06:30 01/26/17 06:00 PT 11.5 Seconds (9.8-13.1) 01/20/17 15:32 INR 1.0 (0.9-1.2) 01/20/17 15:32 APTT 31.2 Seconds (25.6-37.1) 01/20/17 15:32 - Constitutional Appears: In Acute Distress - Head Exam Head Exam: ATRAUMATIC, NORMAL INSPECTION, NORMOCEPHALIC - Eye Exam Eye Exam: EOMI, Normal appearance, PERRL Pupil Exam: NORMAL ACCOMODATION, PERRL - ENT Exam ENT Exam: Mucous Membranes Moist, Normal Exam - Neck Exam Neck Exam: Full ROM, Normal Inspection. absent: Lymphadenopathy - Respiratory Exam Respiratory Exam: Decreased Breath Sounds, Rales, Wheezes, NORMAL BREATHING PATTERN - Cardiovascular Exam Cardiovascular Exam: REGULAR RHYTHM, +S1, +S2. absent: Murmur - GI/Abdominal Exam GI & Abdominal Exam: Soft, Normal Bowel Sounds. absent: Tenderness - Rectal Exam Rectal Exam: NORMAL INSPECTION - Extremities Exam Extremities Exam: Full ROM, Normal Capillary Refill, Normal Inspection. absent : Joint Swelling, Pedal Edema - Back Exam Back Exam: NORMAL INSPECTION - Neurological Exam Neurological Exam: Alert, Awake, CN II-XII Intact, Normal Gait, Oriented x3 - Psychiatric Exam Psychiatric exam: Normal Affect, Normal Mood - Skin Skin Exam: Dry, Intact, Normal Color, Warm Assessment and Plan - Assessment and Plan (Free Text) Assessment: PNEUMONIA
--- NOTE | 2017-01-27 14:01 | CP.PCM.PN ---
Subjective - Date & Time of Evaluation Date of Evaluation: 01/27/17 Time of Evaluation: 12:30 - Subjective Subjective: Fels betterCo c/o sob Objective - Vital Signs/Intake and Output Vital Signs (last 24 hours): Temp Pulse Resp BP Pulse Ox 97.5 F L 67 18 123/62 98 01/27/17 12:04 01/27/17 12:04 01/27/17 12:04 01/27/17 12:04 01/27/17 12:04 Intake and Output: 01/27/17 01/27/17 06:59 18:59 Intake Total 660 Output Total 1480 Balance -820 - Medications Medications: Current Medications Albuterol/Ipratropium (Duoneb 3 Mg/0.5 Mg (3 Ml) Ud) 3 ml INH RQ6 PRN PRN Reason: Shortness of Breath Aspirin (Aspirin) 325 mg PO DAILY [facility] Last Admin: 01/27/17 09:17 Dose: 325 mg Calcitriol (Rocaltrol) 0.25 mcg PO DAILY [facility] Last Admin: 01/27/17 09:20 Dose: 0.25 mcg Clopidogrel Bisulfate (Plavix) 75 mg PO DAILY [facility] Last Admin: 01/27/17 09:20 Dose: 75 mg Colchicine (Colocrys) 0.6 mg PO DAILY [facility] Last Admin: 01/27/17 09:21 Dose: Not Given Digoxin (Lanoxin) 0.125 mg PO QOTHERDAY [facility] Last Admin: 01/26/17 08:29 Dose: 0.125 mg Finasteride (Proscar) 5 mg PO DAILY [facility] Last Admin: 01/27/17 09:20 Dose: 5 mg Piperacillin Sod/Tazobactam (Sod 2.25 gm/ Sodium Chloride) 100 mls @ 100 mls/ hr IVPB Q8 [facility] Last Admin: 01/27/17 09:20 Dose: 100 mls/hr Meropenem 500 mg/ Sodium (Chloride) 100 mls @ 100 mls/hr IVPB Q12 [facility] Last Admin: 01/27/17 09:19 Dose: 100 mls/hr Clindamycin Phosphate 600 mg/ (Sodium Chloride) 104 mls @ 104 mls/hr IVPB Q12 [facility] Last Admin: 01/27/17 09:29 Dose: 104 mls/hr Metoprolol Tartrate (Lopressor) 50 mg PO Q12 [facility] Last Admin: 01/27/17 11:52 Dose: 50 mg Pantoprazole Sodium (Protonix Ec Tab) 40 mg PO DAILY [facility] Last Admin: 01/27/17 09:20 Dose: 40 mg Potassium Chloride (K-Dur 20 Meq Er Tab) 20 meq PO DAILY [facility] Last Admin: 01/27/17 09:18 Dose: 20 meq Ramipril (Altace) 5 mg PO DAILY [facility] Last Admin: 01/27/17 09:15 Dose: 5 mg Torsemide (Demadex) 40 mg PO BID [facility] Last Admin: 01/27/17 09:18 Dose: 40 mg - Labs Labs: 01/24/17 06:30 01/26/17 06:00 PT 11.5 Seconds (9.8-13.1) 01/20/17 15:32 INR 1.0 (0.9-1.2) 01/20/17 15:32 APTT 31.2 Seconds (25.6-37.1) 01/20/17 15:32 - Respiratory Exam Additional comments: Lungs clear - Cardiovascular Exam Cardiovascular Exam: REGULAR RHYTHM - Extremities Exam Additional comments: No edema Assessment and Plan - Assessment and Plan (Free Text) Assessment: Stage 1V kidney Dis Creat is stable CAD.CHF Pneumonia Pl. efusion Plan: Continue to monitor renal function
[2017-01-28] MEDS: Digoxin 125 mcg (0.125 mg) Tab PO SCH (09:52)
[2017-01-28] MEDS: Pantoprazole 40 mg EC Tab PO SCH (09:52)
[2017-01-28] MEDS: Potassium Chloride 20 mEq ER Tab PO SCH (09:53)
[2017-01-28] MEDS: Clindamycin 600 MG in Sodium Chloride 0.9% 100 ML IVPB SCH ×2 (09:54→20:37)
[2017-01-28] MEDS: Meropenem 500 MG in Sodium Chloride 0.9% 100 ML IVPB SCH ×2 (09:58→21:43)
--- NOTE | 2017-01-28 10:42 | CP.PCM.PN ---
Subjective - Date & Time of Evaluation Date of Evaluation: 01/28/17 Time of Evaluation: 10:43 - Subjective Subjective: STILL C/O ORTHOPNEA NO CHEST PAINS Objective - Vital Signs/Intake and Output Vital Signs (last 24 hours): Temp Pulse Resp BP Pulse Ox 97.9 F 64 18 132/71 96 01/28/17 07:51 01/28/17 09:53 01/28/17 07:51 01/28/17 09:53 01/28/17 07:51 Intake and Output: 01/28/17 01/28/17 06:59 18:59 Intake Total 200 472 Output Total 535 750 Balance -335 -278 - Medications Medications: Current Medications Albuterol/Ipratropium (Duoneb 3 Mg/0.5 Mg (3 Ml) Ud) 3 ml INH RQ6 PRN PRN Reason: Shortness of Breath Aspirin (Aspirin) 325 mg PO DAILY [facility] Last Admin: 01/28/17 09:51 Dose: 325 mg Calcitriol (Rocaltrol) 0.25 mcg PO DAILY [facility] Last Admin: 01/28/17 09:52 Dose: 0.25 mcg Clopidogrel Bisulfate (Plavix) 75 mg PO DAILY [facility] Last Admin: 01/28/17 09:52 Dose: 75 mg Colchicine (Colocrys) 0.6 mg PO DAILY [facility] Last Admin: 01/28/17 09:57 Dose: Not Given Digoxin (Lanoxin) 0.125 mg PO QOTHERDAY [facility] Last Admin: 01/28/17 09:52 Dose: 0.125 mg Finasteride (Proscar) 5 mg PO DAILY [facility] Last Admin: 01/28/17 09:52 Dose: 5 mg Piperacillin Sod/Tazobactam (Sod 2.25 gm/ Sodium Chloride) 100 mls @ 100 mls/ hr IVPB Q8 [facility] Last Admin: 01/28/17 00:30 Dose: 100 mls/hr Meropenem 500 mg/ Sodium (Chloride) 100 mls @ 100 mls/hr IVPB Q12 [facility] Last Admin: 01/28/17 09:58 Dose: 100 mls/hr Clindamycin Phosphate 600 mg/ (Sodium Chloride) 104 mls @ 104 mls/hr IVPB Q12 [facility] Last Admin: 01/28/17 09:54 Dose: 104 mls/hr Metoprolol Tartrate (Lopressor) 50 mg PO Q12 [facility] Last Admin: 01/28/17 09:53 Dose: 50 mg Pantoprazole Sodium (Protonix Ec Tab) 40 mg PO DAILY [facility] Last Admin: 01/28/17 09:52 Dose: 40 mg Potassium Chloride (K-Dur 20 Meq Er Tab) 20 meq PO DAILY [facility] Last Admin: 01/28/17 09:53 Dose: 20 meq Ramipril (Altace) 5 mg PO DAILY [facility] Last Admin: 01/28/17 09:51 Dose: 5 mg Torsemide (Demadex) 40 mg PO BID [facility] Last Admin: 01/28/17 09:53 Dose: 40 mg - Labs Labs: 01/24/17 06:30 01/26/17 06:00 PT 11.5 Seconds (9.8-13.1) 01/20/17 15:32 INR 1.0 (0.9-1.2) 01/20/17 15:32 APTT 31.2 Seconds (25.6-37.1) 01/20/17 15:32 - Constitutional Appears: No Acute Distress - Head Exam Head Exam: ATRAUMATIC, NORMAL INSPECTION, NORMOCEPHALIC - Eye Exam Eye Exam: EOMI, Normal appearance, PERRL Pupil Exam: NORMAL ACCOMODATION, PERRL - ENT Exam ENT Exam: Mucous Membranes Moist, Normal Exam - Neck Exam Neck Exam: Full ROM, Normal Inspection. absent: Lymphadenopathy - Respiratory Exam Respiratory Exam: Decreased Breath Sounds, Prolonged Expiratory Phase, Rales, NORMAL BREATHING PATTERN Additional comments: DULLNESS R BASE - Cardiovascular Exam Cardiovascular Exam: REGULAR RHYTHM, +S1, +S2. absent: Murmur - GI/Abdominal Exam GI & Abdominal Exam: Soft, Normal Bowel Sounds. absent: Tenderness - Rectal Exam Rectal Exam: NORMAL INSPECTION - Extremities Exam Extremities Exam: Full ROM, Normal Capillary Refill, Normal Inspection. absent : Joint Swelling, Pedal Edema - Back Exam Back Exam: NORMAL INSPECTION - Neurological Exam Neurological Exam: Alert, Awake, CN II-XII Intact, Normal Gait, Oriented x3 - Psychiatric Exam Psychiatric exam: Normal Affect, Normal Mood - Skin Skin Exam: Dry, Intact, Normal Color, Warm - Additional Findings Additional findings: CXR-MODERATE R PLEURAL EFFUSION Assessment and Plan - Assessment and Plan (Free Text) Assessment: PNEUMONIA R PLEURAL EFFUSION--R/O EMPYEMA SEPSIS CHF Plan: CONTINUE PRESENT RX SUGGEST THORACENTESIS BY IR
--- NOTE | 2017-01-28 14:55 | CP.PCM.PN ---
Subjective - Date & Time of Evaluation Date of Evaluation: 01/28/17 Time of Evaluation: 02:00 - Subjective Subjective: C/o SOB when lying down . Sitting up in bed appears comfortable Objective - Vital Signs/Intake and Output Vital Signs (last 24 hours): Temp Pulse Resp BP Pulse Ox 97.8 F 74 18 112/63 99 01/28/17 13:00 01/28/17 13:00 01/28/17 13:00 01/28/17 13:00 01/28/17 13:00 Intake and Output: 01/28/17 01/28/17 06:59 18:59 Intake Total 200 472 Output Total 535 750 Balance -335 -278 - Medications Medications: Current Medications Albuterol/Ipratropium (Duoneb 3 Mg/0.5 Mg (3 Ml) Ud) 3 ml INH RQ6 PRN PRN Reason: Shortness of Breath Aspirin (Aspirin) 325 mg PO DAILY [facility] Last Admin: 01/28/17 09:51 Dose: 325 mg Calcitriol (Rocaltrol) 0.25 mcg PO DAILY [facility] Last Admin: 01/28/17 09:52 Dose: 0.25 mcg Clopidogrel Bisulfate (Plavix) 75 mg PO DAILY [facility] Last Admin: 01/28/17 09:52 Dose: 75 mg Colchicine (Colocrys) 0.6 mg PO DAILY [facility] Last Admin: 01/28/17 09:57 Dose: Not Given Digoxin (Lanoxin) 0.125 mg PO QOTHERDAY [facility] Last Admin: 01/28/17 09:52 Dose: 0.125 mg Finasteride (Proscar) 5 mg PO DAILY [facility] Last Admin: 01/28/17 09:52 Dose: 5 mg Piperacillin Sod/Tazobactam (Sod 2.25 gm/ Sodium Chloride) 100 mls @ 100 mls/ hr IVPB Q8 [facility] Last Admin: 01/28/17 12:02 Dose: 100 mls/hr Meropenem 500 mg/ Sodium (Chloride) 100 mls @ 100 mls/hr IVPB Q12 [facility] Last Admin: 01/28/17 09:58 Dose: 100 mls/hr Clindamycin Phosphate 600 mg/ (Sodium Chloride) 104 mls @ 104 mls/hr IVPB Q12 [facility] Last Admin: 01/28/17 09:54 Dose: 104 mls/hr Metoprolol Tartrate (Lopressor) 50 mg PO Q12 [facility] Last Admin: 01/28/17 09:53 Dose: 50 mg Pantoprazole Sodium (Protonix Ec Tab) 40 mg PO DAILY [facility] Last Admin: 01/28/17 09:52 Dose: 40 mg Potassium Chloride (K-Dur 20 Meq Er Tab) 20 meq PO DAILY [facility] Last Admin: 01/28/17 09:53 Dose: 20 meq Ramipril (Altace) 5 mg PO DAILY [facility] Last Admin: 01/28/17 09:51 Dose: 5 mg Torsemide (Demadex) 40 mg PO BID [facility] Last Admin: 01/28/17 09:53 Dose: 40 mg - Labs Labs: 01/24/17 06:30 01/26/17 06:00 PT 11.5 Seconds (9.8-13.1) 01/20/17 15:32 INR 1.0 (0.9-1.2) 01/20/17 15:32 APTT 31.2 Seconds (25.6-37.1) 01/20/17 15:32 - Respiratory Exam Respiratory Exam: NORMAL BREATHING PATTERN Additional comments: Decreased BS at bases - Cardiovascular Exam Cardiovascular Exam: REGULAR RHYTHM - Extremities Exam Additional comments: No edema Assessment and Plan - Assessment and Plan (Free Text) Assessment: Stage 1V kidney dis, Renal function is stable Pneumonia with Rt pleural effusion CAD Plan: Continue to monitor renal function For thoracenthenthesis tomorrow
--- NOTE | 2017-01-28 21:19 | CP.PCM.PN ---
Subjective - Date & Time of Evaluation Date of Evaluation: 01/27/17 Time of Evaluation: 12:00 - Subjective Subjective: Patient has less dyspnea today. Objective - Vital Signs/Intake and Output Vital Signs (last 24 hours): Temp Pulse Resp BP Pulse Ox 97.8 F 72 20 117/46 L 97 01/28/17 19:56 01/28/17 20:36 01/28/17 19:56 01/28/17 20:36 01/28/17 19:56 Intake and Output: 01/28/17 01/29/17 18:59 06:59 Intake Total 1732 Output Total 1130 Balance 602 - Medications Medications: Current Medications Albuterol/Ipratropium (Duoneb 3 Mg/0.5 Mg (3 Ml) Ud) 3 ml INH RQ6 PRN PRN Reason: Shortness of Breath Aspirin (Aspirin) 325 mg PO DAILY [facility] Last Admin: 01/28/17 09:51 Dose: 325 mg Calcitriol (Rocaltrol) 0.25 mcg PO DAILY [facility] Last Admin: 01/28/17 09:52 Dose: 0.25 mcg Clopidogrel Bisulfate (Plavix) 75 mg PO DAILY [facility] Last Admin: 01/28/17 09:52 Dose: 75 mg Colchicine (Colocrys) 0.6 mg PO DAILY [facility] Last Admin: 01/28/17 09:57 Dose: Not Given Digoxin (Lanoxin) 0.125 mg PO QOTHERDAY [facility] Last Admin: 01/28/17 09:52 Dose: 0.125 mg Diphenhydramine HCl (Benadryl) 25 mg PO HS PRN PRN Reason: Insomnia Finasteride (Proscar) 5 mg PO DAILY [facility] Last Admin: 01/28/17 09:52 Dose: 5 mg Piperacillin Sod/Tazobactam (Sod 2.25 gm/ Sodium Chloride) 100 mls @ 100 mls/ hr IVPB Q8 [facility] Last Admin: 01/28/17 17:11 Dose: 100 mls/hr Meropenem 500 mg/ Sodium (Chloride) 100 mls @ 100 mls/hr IVPB Q12 [facility] Last Admin: 01/28/17 09:58 Dose: 100 mls/hr Clindamycin Phosphate 600 mg/ (Sodium Chloride) 104 mls @ 104 mls/hr IVPB Q12 [facility] Last Admin: 06/18/17 20:37 Dose: 104 mls/hr Metoprolol Tartrate (Lopressor) 50 mg PO Q12 [facility] Last Admin: 01/28/17 20:36 Dose: 50 mg Pantoprazole Sodium (Protonix Ec Tab) 40 mg PO DAILY [facility] Last Admin: 01/28/17 09:52 Dose: 40 mg Potassium Chloride (K-Dur 20 Meq Er Tab) 20 meq PO DAILY [facility] Last Admin: 01/28/17 09:53 Dose: 20 meq Ramipril (Altace) 5 mg PO DAILY [facility] Last Admin: 01/28/17 09:51 Dose: 5 mg Torsemide (Demadex) 40 mg PO BID [facility] Last Admin: 01/28/17 17:13 Dose: 40 mg - Labs Labs: 01/24/17 06:30 01/26/17 06:00 PT 11.5 Seconds (9.8-13.1) 01/20/17 15:32 INR 1.0 (0.9-1.2) 01/20/17 15:32 APTT 31.2 Seconds (25.6-37.1) 01/20/17 15:32 - Constitutional Appears: Non-toxic - Head Exam Head Exam: NORMAL INSPECTION - Eye Exam Eye Exam: Normal appearance - ENT Exam ENT Exam: Mucous Membranes Moist - Neck Exam Neck Exam: Normal Inspection - Respiratory Exam Respiratory Exam: Decreased Breath Sounds - Cardiovascular Exam Cardiovascular Exam: Irregular Rhythm - GI/Abdominal Exam GI & Abdominal Exam: Normal Bowel Sounds - Rectal Exam Rectal Exam: Deferred - Extremities Exam Extremities Exam: Pedal Edema - Back Exam Back Exam: NORMAL INSPECTION - Neurological Exam Neurological Exam: Alert - Psychiatric Exam Psychiatric exam: Normal Affect - Skin Skin Exam: Normal Color Assessment and Plan (1) Systolic dysfunction with acute on chronic heart failure Assessment & Plan: improving with diuretic therapy. Status: Acute (2) Chronic atrial fibrillation Assessment & Plan: not on anticoagulation. rate is controlled Status: Deleted (3) Chronic renal failure Status: Acute (4) Aortic regurgitation Assessment & Plan: moderate Status: Acute
[2017-01-29] MEDS: Clindamycin 600 MG in Sodium Chloride 0.9% 100 ML IVPB SCH ×2 (09:04→21:12)
[2017-01-29] MEDS: Potassium Chloride 20 mEq ER Tab PO SCH (09:08)
[2017-01-29] MEDS: Pantoprazole 40 mg EC Tab PO SCH (09:09)
[2017-01-29] MEDS: Meropenem 500 MG in Sodium Chloride 0.9% 100 ML IVPB SCH ×2 (10:00→21:13)
--- NOTE | 2017-01-29 10:00 | CP.PCM.PN ---
Subjective - Date & Time of Evaluation Date of Evaluation: 01/29/17 Time of Evaluation: 09:59 - Subjective Subjective: No overnight to changes Kidney functions remain stable Patient may be going for thoracocentesis by the interventional radiologist Continue to monitor Objective - Vital Signs/Intake and Output Vital Signs (last 24 hours): Temp Pulse Resp BP Pulse Ox 97.2 F L 66 18 113/69 94 L 01/29/17 08:03 01/29/17 09:08 01/29/17 08:03 01/29/17 09:08 01/29/17 08:03 Intake and Output: 01/29/17 01/29/17 06:59 18:59 Intake Total 1196 Output Total 1175 Balance 21 - Medications Medications: Current Medications Albuterol/Ipratropium (Duoneb 3 Mg/0.5 Mg (3 Ml) Ud) 3 ml INH RQ6 PRN PRN Reason: Shortness of Breath Aspirin (Aspirin) 325 mg PO DAILY [facility] Last Admin: 01/29/17 08:56 Dose: Not Given Calcitriol (Rocaltrol) 0.25 mcg PO DAILY [facility] Last Admin: 01/29/17 09:06 Dose: 0.25 mcg Clopidogrel Bisulfate (Plavix) 75 mg PO DAILY [facility] Last Admin: 01/29/17 08:57 Dose: Not Given Colchicine (Colocrys) 0.6 mg PO DAILY [facility] Last Admin: 01/29/17 09:07 Dose: 0.6 mg Digoxin (Lanoxin) 0.125 mg PO QOTHERDAY [facility] Last Admin: 01/28/17 09:52 Dose: 0.125 mg Diphenhydramine HCl (Benadryl) 25 mg PO HS PRN PRN Reason: Insomnia Last Admin: 01/28/17 21:43 Dose: 25 mg Finasteride (Proscar) 5 mg PO DAILY [facility] Last Admin: 01/29/17 09:09 Dose: 5 mg Piperacillin Sod/Tazobactam (Sod 2.25 gm/ Sodium Chloride) 100 mls @ 100 mls/ hr IVPB Q8 [facility] Last Admin: 01/29/17 09:05 Dose: 100 mls/hr Meropenem 500 mg/ Sodium (Chloride) 100 mls @ 100 mls/hr IVPB Q12 [facility] Last Admin: 01/28/17 21:43 Dose: 100 mls/hr Clindamycin Phosphate 600 mg/ (Sodium Chloride) 104 mls @ 104 mls/hr IVPB Q12 [facility] Last Admin: 01/29/17 09:04 Dose: 104 mls/hr Metoprolol Tartrate (Lopressor) 50 mg PO Q12 [facility] Last Admin: 01/29/17 09:08 Dose: 50 mg Pantoprazole Sodium (Protonix Ec Tab) 40 mg PO DAILY [facility] Last Admin: 01/29/17 09:09 Dose: 40 mg Potassium Chloride (K-Dur 20 Meq Er Tab) 20 meq PO DAILY [facility] Last Admin: 01/29/17 09:08 Dose: 20 meq Ramipril (Altace) 5 mg PO DAILY [facility] Last Admin: 01/29/17 09:04 Dose: 5 mg Torsemide (Demadex) 40 mg PO BID [facility] Last Admin: 01/29/17 09:07 Dose: 40 mg - Labs Labs: 01/24/17 06:30 01/26/17 06:00 PT 11.5 Seconds (9.8-13.1) 01/20/17 15:32 INR 1.0 (0.9-1.2) 01/20/17 15:32 APTT 31.2 Seconds (25.6-37.1) 01/20/17 15:32 - Constitutional Appears: No Acute Distress - ENT Exam ENT Exam: Mucous Membranes Moist - GI/Abdominal Exam GI & Abdominal Exam: absent: Guarding - Extremities Exam Extremities Exam: absent: Calf Tenderness - Back Exam Back Exam: absent: CVA tenderness (L), CVA tenderness (R) - Neurological Exam Neurological Exam: Alert Assessment and Plan (1) Chronic kidney disease, stage IV (severe) Status: Chronic (2) CHF (congestive heart failure) Status: Chronic (3) Pneumonia Status: Acute
--- NOTE | 2017-01-29 10:48 | CP.PCM.PN ---
Subjective - Date & Time of Evaluation Date of Evaluation: 01/27/17 Time of Evaluation: 10:00 - Subjective Subjective: Still with dyspnea Noted persistent moderate effusion No chest pain Objective - Vital Signs/Intake and Output Vital Signs (last 24 hours): Temp Pulse Resp BP Pulse Ox 97.2 F L 66 18 113/69 94 L 01/29/17 08:03 01/29/17 09:08 01/29/17 08:03 01/29/17 09:08 01/29/17 08:03 Intake and Output: 01/29/17 01/29/17 06:59 18:59 Intake Total 1196 Output Total 1175 Balance 21 - Medications Medications: Current Medications Albuterol/Ipratropium (Duoneb 3 Mg/0.5 Mg (3 Ml) Ud) 3 ml INH RQ6 PRN PRN Reason: Shortness of Breath Aspirin (Aspirin) 325 mg PO DAILY [facility] Last Admin: 01/29/17 08:56 Dose: Not Given Calcitriol (Rocaltrol) 0.25 mcg PO DAILY [facility] Last Admin: 01/29/17 09:06 Dose: 0.25 mcg Clopidogrel Bisulfate (Plavix) 75 mg PO DAILY [facility] Last Admin: 01/29/17 08:57 Dose: Not Given Colchicine (Colocrys) 0.6 mg PO DAILY [facility] Last Admin: 01/29/17 09:07 Dose: 0.6 mg Digoxin (Lanoxin) 0.125 mg PO QOTHERDAY [facility] Last Admin: 01/28/17 09:52 Dose: 0.125 mg Diphenhydramine HCl (Benadryl) 25 mg PO HS PRN PRN Reason: Insomnia Last Admin: 01/28/17 21:43 Dose: 25 mg Finasteride (Proscar) 5 mg PO DAILY [facility] Last Admin: 01/29/17 09:09 Dose: 5 mg Piperacillin Sod/Tazobactam (Sod 2.25 gm/ Sodium Chloride) 100 mls @ 100 mls/ hr IVPB Q8 [facility] Last Admin: 01/29/17 09:05 Dose: 100 mls/hr Meropenem 500 mg/ Sodium (Chloride) 100 mls @ 100 mls/hr IVPB Q12 [facility] Last Admin: 01/28/17 21:43 Dose: 100 mls/hr Clindamycin Phosphate 600 mg/ (Sodium Chloride) 104 mls @ 104 mls/hr IVPB Q12 [facility] Last Admin: 01/29/17 09:04 Dose: 104 mls/hr Metoprolol Tartrate (Lopressor) 50 mg PO Q12 [facility] Last Admin: 01/29/17 09:08 Dose: 50 mg Pantoprazole Sodium (Protonix Ec Tab) 40 mg PO DAILY [facility] Last Admin: 01/29/17 09:09 Dose: 40 mg Potassium Chloride (K-Dur 20 Meq Er Tab) 20 meq PO DAILY [facility] Last Admin: 01/29/17 09:08 Dose: 20 meq Ramipril (Altace) 5 mg PO DAILY [facility] Last Admin: 01/29/17 09:04 Dose: 5 mg Torsemide (Demadex) 40 mg PO BID [facility] Last Admin: 01/29/17 09:07 Dose: 40 mg - Labs Labs: 01/24/17 06:30 01/26/17 06:00 PT 11.5 Seconds (9.8-13.1) 01/20/17 15:32 INR 1.0 (0.9-1.2) 01/20/17 15:32 APTT 31.2 Seconds (25.6-37.1) 01/20/17 15:32 - Head Exam Head Exam: NORMAL INSPECTION - Eye Exam Eye Exam: Normal appearance - ENT Exam ENT Exam: Mucous Membranes Moist - Respiratory Exam Respiratory Exam: Decreased Breath Sounds - Cardiovascular Exam Cardiovascular Exam: Irregular Rhythm - GI/Abdominal Exam GI & Abdominal Exam: Normal Bowel Sounds - Neurological Exam Neurological Exam: Awake, Oriented x3 - Psychiatric Exam Psychiatric exam: Normal Mood - Skin Skin Exam: Intact Assessment and Plan (1) CHF (congestive heart failure) Status: Chronic (2) Rapid atrial fibrillation Status: Chronic (3) Aortic aneurysm Status: Acute (4) Pneumonia Status: Acute (5) Pleural effusion Status: Acute - Assessment and Plan (Free Text) Plan: cont meds Cont tx Cont PT for thoracentesis
--- NOTE | 2017-01-29 10:49 | CP.PCM.PN ---
Subjective - Date & Time of Evaluation Date of Evaluation: 01/28/17 Time of Evaluation: 09:30 - Subjective Subjective: patient is stable but has a lot of SOB Has no chest pain Has no fever. Objective - Vital Signs/Intake and Output Vital Signs (last 24 hours): Temp Pulse Resp BP Pulse Ox 97.2 F L 66 18 113/69 94 L 01/29/17 08:03 01/29/17 09:08 01/29/17 08:03 01/29/17 09:08 01/29/17 08:03 Intake and Output: 01/29/17 01/29/17 06:59 18:59 Intake Total 1196 Output Total 1175 Balance 21 - Medications Medications: Current Medications Albuterol/Ipratropium (Duoneb 3 Mg/0.5 Mg (3 Ml) Ud) 3 ml INH RQ6 PRN PRN Reason: Shortness of Breath Aspirin (Aspirin) 325 mg PO DAILY [facility] Last Admin: 01/29/17 08:56 Dose: Not Given Calcitriol (Rocaltrol) 0.25 mcg PO DAILY [facility] Last Admin: 01/29/17 09:06 Dose: 0.25 mcg Clopidogrel Bisulfate (Plavix) 75 mg PO DAILY [facility] Last Admin: 01/29/17 08:57 Dose: Not Given Colchicine (Colocrys) 0.6 mg PO DAILY [facility] Last Admin: 01/29/17 09:07 Dose: 0.6 mg Digoxin (Lanoxin) 0.125 mg PO QOTHERDAY [facility] Last Admin: 01/28/17 09:52 Dose: 0.125 mg Diphenhydramine HCl (Benadryl) 25 mg PO HS PRN PRN Reason: Insomnia Last Admin: 01/28/17 21:43 Dose: 25 mg Finasteride (Proscar) 5 mg PO DAILY [facility] Last Admin: 01/29/17 09:09 Dose: 5 mg Piperacillin Sod/Tazobactam (Sod 2.25 gm/ Sodium Chloride) 100 mls @ 100 mls/ hr IVPB Q8 [facility] Last Admin: 01/29/17 09:05 Dose: 100 mls/hr Meropenem 500 mg/ Sodium (Chloride) 100 mls @ 100 mls/hr IVPB Q12 [facility] Last Admin: 01/28/17 21:43 Dose: 100 mls/hr Clindamycin Phosphate 600 mg/ (Sodium Chloride) 104 mls @ 104 mls/hr IVPB Q12 [facility] Last Admin: 01/29/17 09:04 Dose: 104 mls/hr Metoprolol Tartrate (Lopressor) 50 mg PO Q12 [facility] Last Admin: 01/29/17 09:08 Dose: 50 mg Pantoprazole Sodium (Protonix Ec Tab) 40 mg PO DAILY [facility] Last Admin: 01/29/17 09:09 Dose: 40 mg Potassium Chloride (K-Dur 20 Meq Er Tab) 20 meq PO DAILY [facility] Last Admin: 01/29/17 09:08 Dose: 20 meq Ramipril (Altace) 5 mg PO DAILY [facility] Last Admin: 01/29/17 09:04 Dose: 5 mg Torsemide (Demadex) 40 mg PO BID [facility] Last Admin: 01/29/17 09:07 Dose: 40 mg - Labs Labs: 01/24/17 06:30 01/26/17 06:00 PT 11.5 Seconds (9.8-13.1) 01/20/17 15:32 INR 1.0 (0.9-1.2) 01/20/17 15:32 APTT 31.2 Seconds (25.6-37.1) 01/20/17 15:32 - Head Exam Head Exam: NORMAL INSPECTION - Eye Exam Eye Exam: Normal appearance - ENT Exam ENT Exam: Mucous Membranes Moist - Respiratory Exam Respiratory Exam: Decreased Breath Sounds - Cardiovascular Exam Cardiovascular Exam: Irregular Rhythm - GI/Abdominal Exam GI & Abdominal Exam: Normal Bowel Sounds - Neurological Exam Neurological Exam: Awake, Oriented x3 Assessment and Plan (1) CHF (congestive heart failure) Status: Chronic (2) Rapid atrial fibrillation Status: Chronic (3) Aortic aneurysm Status: Acute (4) Pneumonia Status: Acute (5) Pleural effusion Status: Acute - Assessment and Plan (Free Text) Plan: contmeds stable for thoracentesis in am. contme NPO post midnight
--- NOTE | 2017-01-29 10:50 | CP.PCM.PN ---
Subjective - Date & Time of Evaluation Date of Evaluation: 01/29/17 Time of Evaluation: 10:50 - Subjective Subjective: patient is stable Has SOB For thoracentesis today. Objective - Vital Signs/Intake and Output Vital Signs (last 24 hours): Temp Pulse Resp BP Pulse Ox 97.2 F L 66 18 113/69 94 L 01/29/17 08:03 01/29/17 09:08 01/29/17 08:03 01/29/17 09:08 01/29/17 08:03 Intake and Output: 01/29/17 01/29/17 06:59 18:59 Intake Total 1196 Output Total 1175 Balance 21 - Medications Medications: Current Medications Albuterol/Ipratropium (Duoneb 3 Mg/0.5 Mg (3 Ml) Ud) 3 ml INH RQ6 PRN PRN Reason: Shortness of Breath Aspirin (Aspirin) 325 mg PO DAILY [facility] Last Admin: 01/29/17 08:56 Dose: Not Given Calcitriol (Rocaltrol) 0.25 mcg PO DAILY [facility] Last Admin: 01/29/17 09:06 Dose: 0.25 mcg Clopidogrel Bisulfate (Plavix) 75 mg PO DAILY [facility] Last Admin: 01/29/17 08:57 Dose: Not Given Colchicine (Colocrys) 0.6 mg PO DAILY [facility] Last Admin: 01/29/17 09:07 Dose: 0.6 mg Digoxin (Lanoxin) 0.125 mg PO QOTHERDAY [facility] Last Admin: 01/28/17 09:52 Dose: 0.125 mg Diphenhydramine HCl (Benadryl) 25 mg PO HS PRN PRN Reason: Insomnia Last Admin: 01/28/17 21:43 Dose: 25 mg Finasteride (Proscar) 5 mg PO DAILY [facility] Last Admin: 01/29/17 09:09 Dose: 5 mg Piperacillin Sod/Tazobactam (Sod 2.25 gm/ Sodium Chloride) 100 mls @ 100 mls/ hr IVPB Q8 [facility] Last Admin: 01/29/17 09:05 Dose: 100 mls/hr Meropenem 500 mg/ Sodium (Chloride) 100 mls @ 100 mls/hr IVPB Q12 [facility] Last Admin: 01/28/17 21:43 Dose: 100 mls/hr Clindamycin Phosphate 600 mg/ (Sodium Chloride) 104 mls @ 104 mls/hr IVPB Q12 [facility] Last Admin: 01/29/17 09:04 Dose: 104 mls/hr Metoprolol Tartrate (Lopressor) 50 mg PO Q12 [facility] Last Admin: 01/29/17 09:08 Dose: 50 mg Pantoprazole Sodium (Protonix Ec Tab) 40 mg PO DAILY [facility] Last Admin: 01/29/17 09:09 Dose: 40 mg Potassium Chloride (K-Dur 20 Meq Er Tab) 20 meq PO DAILY [facility] Last Admin: 01/29/17 09:08 Dose: 20 meq Ramipril (Altace) 5 mg PO DAILY [facility] Last Admin: 01/29/17 09:04 Dose: 5 mg Torsemide (Demadex) 40 mg PO BID [facility] Last Admin: 01/29/17 09:07 Dose: 40 mg - Labs Labs: 01/24/17 06:30 01/26/17 06:00 PT 11.5 Seconds (9.8-13.1) 01/20/17 15:32 INR 1.0 (0.9-1.2) 01/20/17 15:32 APTT 31.2 Seconds (25.6-37.1) 01/20/17 15:32 Assessment and Plan (1) CHF (congestive heart failure) Status: Chronic (2) Rapid atrial fibrillation Status: Chronic (3) Aortic aneurysm Status: Acute (4) Pneumonia Status: Acute (5) Pleural effusion Status: Acute
[2017-01-29] MEDS ORDERED: Lidocaine 1% Inj (20ml) ONE (14:18)
--- NOTE | 2017-01-29 14:54 | PCM.SURG1 ---
Surgeon's Initial Post Op Note - Surgeon's Notes Surgeon: Armen Foley Nursing Tech: None Type of Anesthesia: Local Pre-Operative Diagnosis: Right pleural effusion Operative Findings: US showed a large right effusion Post-Operative Diagnosis: Right pleural effusion Operation Performed: US guided right thoracentesis. Specimen/Specimens Removed: 1100 cc of slight serosanguinous fluid Estimated Blood Loss: EBL {In ML}: 0 Blood Products Given: N/A Drains Used: No Drains Post-Op Condition: Fair Date of Surgery/Procedure: 01/29/17 Time of Surgery/Procedure: 14:50
--- NOTE | 2017-01-29 15:41 | RAD ---
PROCEDURE: CHEST RADIOGRAPH, 1 VIEW HISTORY: s/p Right thoracentesis. COMPARISON: Comparison made with prior chest radiograph 01/26/2017. Comparison also made with CT scan chest dated 01/20/2017. FINDINGS: LUNGS: Patient is status post right-sided thoracentesis. Significant decrease in size right-sided effusion. Small amount of residual pleural fluid and atelectasis right lung base remain .There appears to be some mild left basilar atelectasis. Curvilinear density overly lining the medial aspect of the right trachea near the right lung apex probably represents confluence of shadow and or cortical bone artifact. The possibility of a very tiny apical pneumothorax less likely though not completely excluded. Followup at interval could be performed PLEURA: As above CARDIOVASCULAR: Heart remains massively enlarged. Aneurysmal dilatation of the aortic root is not appreciated on this exam. Please refer to CT scan of the chest. No change single lead pacemaker/defibrillator OSSEOUS STRUCTURES: No significant abnormalities. VISUALIZED UPPER ABDOMEN: Normal. OTHER FINDINGS: Re- demonstrated is a thin peripherally thyroid nodule and or cyst in the left lobe of the thyroid gland IMPRESSION: Interval right-sided thoracentesis with marked decrease size right-sided effusion. Small amount of pleural fluid and right basilar atelectasis remain. Minor with left basilar atelectasis. Curvilinear density overly lining the medial aspect of the right trachea near the right lung apex probably represents confluence of shadow and or cortical bone artifact. The possibility of a very tiny apical pneumothorax less likely though not completely excluded. Followup at interval could be performed. Massive cardiomegaly. Aneurysmal dilatation of the aortic root less well seen on this exam. Please refer to prior CT scan of the chest for additional details.
[2017-01-29 16:48] LABS: BODY FLUID TYPE PLEURAL/THORACENTESI
--- NOTE | 2017-01-29 17:11 | CP.PCM.PN ---
Subjective - Date & Time of Evaluation Date of Evaluation: 01/29/17 Time of Evaluation: 17:12 - Subjective Subjective: s/p thoracentesis with drainage of 1100cc of pleural fluid feels better Objective - Vital Signs/Intake and Output Vital Signs (last 24 hours): Temp Pulse Resp BP Pulse Ox 97.2 F L 96 H 18 132/72 96 01/29/17 16:00 01/29/17 16:00 01/29/17 16:00 01/29/17 16:00 01/29/17 16:00 Intake and Output: 01/29/17 01/29/17 06:59 18:59 Intake Total 1196 Output Total 1175 Balance 21 - Medications Medications: Current Medications Albuterol/Ipratropium (Duoneb 3 Mg/0.5 Mg (3 Ml) Ud) 3 ml INH RQ6 PRN PRN Reason: Shortness of Breath Aspirin (Aspirin) 325 mg PO DAILY [facility] Last Admin: 01/29/17 08:56 Dose: Not Given Calcitriol (Rocaltrol) 0.25 mcg PO DAILY [facility] Last Admin: 01/29/17 09:06 Dose: 0.25 mcg Clopidogrel Bisulfate (Plavix) 75 mg PO DAILY [facility] Last Admin: 01/29/17 08:57 Dose: Not Given Colchicine (Colocrys) 0.6 mg PO DAILY [facility] Last Admin: 01/29/17 09:07 Dose: 0.6 mg Digoxin (Lanoxin) 0.125 mg PO QOTHERDAY [facility] Last Admin: 01/28/17 09:52 Dose: 0.125 mg Diphenhydramine HCl (Benadryl) 25 mg PO HS PRN PRN Reason: Insomnia Last Admin: 01/28/17 21:43 Dose: 25 mg Finasteride (Proscar) 5 mg PO DAILY [facility] Last Admin: 01/29/17 09:09 Dose: 5 mg Piperacillin Sod/Tazobactam (Sod 2.25 gm/ Sodium Chloride) 100 mls @ 100 mls/ hr IVPB Q8 [facility] Last Admin: 01/29/17 09:05 Dose: 100 mls/hr Meropenem 500 mg/ Sodium (Chloride) 100 mls @ 100 mls/hr IVPB Q12 [facility] Last Admin: 01/29/17 10:00 Dose: 100 mls/hr Clindamycin Phosphate 600 mg/ (Sodium Chloride) 104 mls @ 104 mls/hr IVPB Q12 [facility] Last Admin: 01/29/17 09:04 Dose: 104 mls/hr Metoprolol Tartrate (Lopressor) 50 mg PO Q12 [facility] Last Admin: 01/29/17 09:08 Dose: 50 mg Pantoprazole Sodium (Protonix Ec Tab) 40 mg PO DAILY [facility] Last Admin: 01/29/17 09:09 Dose: 40 mg Potassium Chloride (K-Dur 20 Meq Er Tab) 20 meq PO DAILY [facility] Last Admin: 01/29/17 09:08 Dose: 20 meq Ramipril (Altace) 5 mg PO DAILY [facility] Last Admin: 01/29/17 09:04 Dose: 5 mg Torsemide (Demadex) 40 mg PO BID [facility] Last Admin: 01/29/17 09:07 Dose: 40 mg - Labs Labs: 01/24/17 06:30 01/26/17 06:00 PT 11.2 Seconds (9.8-13.1) 01/29/17 10:15 INR 1.0 (0.9-1.2) 01/29/17 10:15 APTT 31.2 Seconds (25.6-37.1) 01/20/17 15:32 - Constitutional Appears: No Acute Distress - Head Exam Head Exam: ATRAUMATIC, NORMAL INSPECTION, NORMOCEPHALIC - Eye Exam Eye Exam: EOMI, Normal appearance, PERRL Pupil Exam: NORMAL ACCOMODATION, PERRL - ENT Exam ENT Exam: Mucous Membranes Moist, Normal Exam - Neck Exam Neck Exam: Full ROM, Normal Inspection. absent: Lymphadenopathy - Respiratory Exam Respiratory Exam: Decreased Breath Sounds, NORMAL BREATHING PATTERN - Cardiovascular Exam Cardiovascular Exam: REGULAR RHYTHM, +S1, +S2. absent: Murmur - GI/Abdominal Exam GI & Abdominal Exam: Soft, Normal Bowel Sounds. absent: Tenderness - Rectal Exam Rectal Exam: NORMAL INSPECTION - Extremities Exam Extremities Exam: Full ROM, Normal Capillary Refill, Normal Inspection. absent : Joint Swelling, Pedal Edema - Back Exam Back Exam: NORMAL INSPECTION - Neurological Exam Neurological Exam: Alert, Awake, CN II-XII Intact, Normal Gait, Oriented x3 - Psychiatric Exam Psychiatric exam: Normal Affect, Normal Mood - Skin Skin Exam: Dry, Intact, Normal Color, Warm Assessment and Plan - Assessment and Plan (Free Text) Assessment: pleural effusion sepsis Plan: will benefit from tcu for iv antibiotic rx
--- NOTE | 2017-01-29 18:29 | CP.PCM.PN ---
Subjective - Date & Time of Evaluation Date of Evaluation: 01/29/17 Time of Evaluation: 18:26 - Subjective Subjective: I D NOTE IR REMOVED 1100 CC OF FLUID FROM CHEST TODAY AWAIT CULTURES PRIOR TO ADJUSTING ANY IV ANTIBIOTICS Objective - Vital Signs/Intake and Output Vital Signs (last 24 hours): Temp Pulse Resp BP Pulse Ox 97.2 F L 96 H 18 132/72 96 01/29/17 16:00 01/29/17 16:00 01/29/17 16:00 01/29/17 16:00 01/29/17 16:00 Intake and Output: 01/29/17 01/29/17 06:59 18:59 Intake Total 1196 Output Total 1175 Balance 21 - Medications Medications: Current Medications Albuterol/Ipratropium (Duoneb 3 Mg/0.5 Mg (3 Ml) Ud) 3 ml INH RQ6 PRN PRN Reason: Shortness of Breath Aspirin (Aspirin) 325 mg PO DAILY [facility] Last Admin: 01/29/17 08:56 Dose: Not Given Calcitriol (Rocaltrol) 0.25 mcg PO DAILY [facility] Last Admin: 01/29/17 09:06 Dose: 0.25 mcg Clopidogrel Bisulfate (Plavix) 75 mg PO DAILY [facility] Last Admin: 01/29/17 08:57 Dose: Not Given Colchicine (Colocrys) 0.6 mg PO DAILY [facility] Last Admin: 01/29/17 09:07 Dose: 0.6 mg Digoxin (Lanoxin) 0.125 mg PO QOTHERDAY [facility] Last Admin: 01/28/17 09:52 Dose: 0.125 mg Diphenhydramine HCl (Benadryl) 25 mg PO HS PRN PRN Reason: Insomnia Last Admin: 01/28/17 21:43 Dose: 25 mg Finasteride (Proscar) 5 mg PO DAILY [facility] Last Admin: 01/29/17 09:09 Dose: 5 mg Piperacillin Sod/Tazobactam (Sod 2.25 gm/ Sodium Chloride) 100 mls @ 100 mls/ hr IVPB Q8 [facility] Last Admin: 01/29/17 17:21 Dose: 100 mls/hr Meropenem 500 mg/ Sodium (Chloride) 100 mls @ 100 mls/hr IVPB Q12 [facility] Last Admin: 01/29/17 10:00 Dose: 100 mls/hr Clindamycin Phosphate 600 mg/ (Sodium Chloride) 104 mls @ 104 mls/hr IVPB Q12 [facility] Last Admin: 01/29/17 09:04 Dose: 104 mls/hr Metoprolol Tartrate (Lopressor) 50 mg PO Q12 [facility] Last Admin: 01/29/17 09:08 Dose: 50 mg Pantoprazole Sodium (Protonix Ec Tab) 40 mg PO DAILY [facility] Last Admin: 01/29/17 09:09 Dose: 40 mg Potassium Chloride (K-Dur 20 Meq Er Tab) 20 meq PO DAILY [facility] Last Admin: 01/29/17 09:08 Dose: 20 meq Ramipril (Altace) 5 mg PO DAILY [facility] Last Admin: 01/29/17 09:04 Dose: 5 mg Torsemide (Demadex) 40 mg PO BID [facility] Last Admin: 01/29/17 17:18 Dose: 40 mg - Labs Labs: 01/24/17 06:30 01/26/17 06:00 PT 11.2 Seconds (9.8-13.1) 01/29/17 10:15 INR 1.0 (0.9-1.2) 01/29/17 10:15 APTT 31.2 Seconds (25.6-37.1) 01/20/17 15:32
[2017-01-29 20:17] LABS: BF GROSS APPEARANCE BLOODY (CLEAR)
[2017-01-29 20:25] LABS: BODY FLUID TOTAL COUNT 100 (0-0)
--- NOTE | 2017-01-30 09:19 | CP.PCM.PN ---
Subjective - Date & Time of Evaluation Date of Evaluation: 01/30/17 Time of Evaluation: 09:19 - Subjective Subjective: SOB IMPROVED C/O GOUT OF FOOT WITH PAIN Objective - Vital Signs/Intake and Output Vital Signs (last 24 hours): Temp Pulse Resp BP Pulse Ox 98.3 F 71 18 133/74 97 01/30/17 08:00 01/30/17 08:00 01/30/17 08:00 01/30/17 08:00 01/30/17 08:00 Intake and Output: 01/30/17 01/30/17 06:59 18:59 Intake Total 780 Output Total 1900 Balance -1120 - Medications Medications: Current Medications Albuterol/Ipratropium (Duoneb 3 Mg/0.5 Mg (3 Ml) Ud) 3 ml INH RQ6 PRN PRN Reason: Shortness of Breath Aspirin (Aspirin) 325 mg PO DAILY [facility] Last Admin: 01/29/17 08:56 Dose: Not Given Calcitriol (Rocaltrol) 0.25 mcg PO DAILY [facility] Last Admin: 01/29/17 09:06 Dose: 0.25 mcg Clopidogrel Bisulfate (Plavix) 75 mg PO DAILY [facility] Last Admin: 01/29/17 08:57 Dose: Not Given Colchicine (Colocrys) 0.6 mg PO DAILY [facility] Last Admin: 01/29/17 09:07 Dose: 0.6 mg Digoxin (Lanoxin) 0.125 mg PO QOTHERDAY [facility] Last Admin: 01/28/17 09:52 Dose: 0.125 mg Diphenhydramine HCl (Benadryl) 25 mg PO HS PRN PRN Reason: Insomnia Last Admin: 01/28/17 21:43 Dose: 25 mg Finasteride (Proscar) 5 mg PO DAILY [facility] Last Admin: 01/29/17 09:09 Dose: 5 mg Piperacillin Sod/Tazobactam (Sod 2.25 gm/ Sodium Chloride) 100 mls @ 100 mls/ hr IVPB Q8 [facility] Last Admin: 01/30/17 00:40 Dose: 100 mls/hr Meropenem 500 mg/ Sodium (Chloride) 100 mls @ 100 mls/hr IVPB Q12 [facility] Last Admin: 01/29/17 21:13 Dose: 100 mls/hr Clindamycin Phosphate 600 mg/ (Sodium Chloride) 104 mls @ 104 mls/hr IVPB Q12 [facility] Last Admin: 01/29/17 21:12 Dose: 104 mls/hr Metoprolol Tartrate (Lopressor) 50 mg PO Q12 [facility] Last Admin: 01/29/17 21:13 Dose: 50 mg Pantoprazole Sodium (Protonix Ec Tab) 40 mg PO DAILY [facility] Last Admin: 01/29/17 09:09 Dose: 40 mg Potassium Chloride (K-Dur 20 Meq Er Tab) 20 meq PO DAILY [facility] Last Admin: 01/29/17 09:08 Dose: 20 meq Ramipril (Altace) 5 mg PO DAILY [facility] Last Admin: 01/29/17 09:04 Dose: 5 mg Torsemide (Demadex) 40 mg PO BID [facility] Last Admin: 01/29/17 17:18 Dose: 40 mg - Labs Labs: 01/24/17 06:30 01/26/17 06:00 PT 11.2 Seconds (9.8-13.1) 01/29/17 10:15 INR 1.0 (0.9-1.2) 01/29/17 10:15 APTT 31.2 Seconds (25.6-37.1) 01/20/17 15:32 - Constitutional Appears: Chronically Ill - Head Exam Head Exam: ATRAUMATIC, NORMAL INSPECTION, NORMOCEPHALIC - Eye Exam Eye Exam: EOMI, Normal appearance, PERRL Pupil Exam: NORMAL ACCOMODATION, PERRL - ENT Exam ENT Exam: Mucous Membranes Moist, Normal Exam - Neck Exam Neck Exam: Full ROM, Normal Inspection. absent: Lymphadenopathy - Respiratory Exam Respiratory Exam: Decreased Breath Sounds, Rales, NORMAL BREATHING PATTERN - Cardiovascular Exam Cardiovascular Exam: REGULAR RHYTHM, +S1, +S2. absent: Murmur - GI/Abdominal Exam GI & Abdominal Exam: Soft, Normal Bowel Sounds. absent: Tenderness - Rectal Exam Rectal Exam: NORMAL INSPECTION - Extremities Exam Extremities Exam: Full ROM, Normal Capillary Refill, Normal Inspection, Tenderness. absent: Joint Swelling, Pedal Edema - Back Exam Back Exam: NORMAL INSPECTION - Neurological Exam Neurological Exam: Alert, Awake, CN II-XII Intact, Normal Gait, Oriented x3 - Psychiatric Exam Psychiatric exam: Normal Affect, Normal Mood - Skin Skin Exam: Dry, Intact, Normal Color, Warm Assessment and Plan - Assessment and Plan (Free Text) Assessment: PLEURAL EFFUSION--IMPROVED GOUT ECOLI SEPSIS Plan: TREATMENTB FOR GOUT WILL BENEFIT FROM IV ANTIBIOTIC RX FOR SEPSIS WILL CONTINUE TO FOLLOW WITH YOU CASE DISCUSSED WITH WILY AND DR JAIN
[2017-01-30] MEDS: Potassium Chloride 20 mEq ER Tab PO SCH (09:23)
[2017-01-30] MEDS: Digoxin 125 mcg (0.125 mg) Tab PO SCH (09:23)
[2017-01-30] MEDS: Pantoprazole 40 mg EC Tab PO SCH (09:24)
[2017-01-30] MEDS: Meropenem 500 MG in Sodium Chloride 0.9% 100 ML IVPB SCH ×2 (09:26→21:24)
[2017-01-30] MEDS: Clindamycin 600 MG in Sodium Chloride 0.9% 100 ML IVPB SCH ×2 (09:30→21:23)
--- NOTE | 2017-01-30 10:57 | US ---
PROCEDURE: Date of procedure: 01/29/2017 Procedure: 1. Ultrasound-guided Right thoracentesis, CPT 02259 Medications: 6cc 1% Lidocaine HISTORY: Right pleural effusion, shortness of breath TECHNIQUE: Following informed consent ,the Patients' right chest was marked. Procedure time-out was called, and the patient was placed in the sitting position and limited ultrasound showed a large right effusion. The patient's right back was prepped and draped in the usual sterile fashion. After the skin was anesthetized with lidocaine, a drainage catheter was advanced under ultrasound guidance into the pleural space. Ultrasound-guided thoracentesis was performed. A total of 1100 cubic centimeters of slight serosanguinous fluid removed without complication. A Xeroform dressing was applied. IMPRESSION: Ultrasound guided Right thoracentesis. There were no immediate complications.
--- NOTE | 2017-01-30 13:05 | CP.PCM.PN ---
Subjective - Date & Time of Evaluation Date of Evaluation: 01/30/17 Time of Evaluation: 13:03 - Subjective Subjective: Patient sitting up in bed Less shortness of breath Status post right pleural tab was about 1100 mL removed. Patient stated he feels much better he can sleep better Serum creatinine down to 0.9 Then patient not patient has CK D stage IV remained stable Status post pleural tap And history of CHF continue monitoring Objective - Vital Signs/Intake and Output Vital Signs (last 24 hours): Temp Pulse Resp BP Pulse Ox 98.1 F 60 18 109/62 95 01/30/17 12:00 01/30/17 12:00 01/30/17 12:00 01/30/17 12:00 01/30/17 12:00 Intake and Output: 01/30/17 01/30/17 06:59 18:59 Intake Total 780 Output Total 1900 Balance -1120 - Medications Medications: Current Medications Albuterol/Ipratropium (Duoneb 3 Mg/0.5 Mg (3 Ml) Ud) 3 ml INH RQ6 PRN PRN Reason: Shortness of Breath Aspirin (Aspirin) 325 mg PO DAILY [facility] Last Admin: 01/30/17 09:26 Dose: 325 mg Calcitriol (Rocaltrol) 0.25 mcg PO DAILY [facility] Last Admin: 01/30/17 09:24 Dose: 0.25 mcg Clopidogrel Bisulfate (Plavix) 75 mg PO DAILY [facility] Last Admin: 01/30/17 09:24 Dose: 75 mg Colchicine (Colocrys) 0.6 mg PO Q2 [facility] Stop: 01/30/17 16:01 Digoxin (Lanoxin) 0.125 mg PO QOTHERDAY [facility] Last Admin: 01/30/17 09:23 Dose: 0.125 mg Diphenhydramine HCl (Benadryl) 25 mg PO HS PRN PRN Reason: Insomnia Last Admin: 01/28/17 21:43 Dose: 25 mg Finasteride (Proscar) 5 mg PO DAILY [facility] Last Admin: 01/30/17 09:24 Dose: 5 mg Piperacillin Sod/Tazobactam (Sod 2.25 gm/ Sodium Chloride) 100 mls @ 100 mls/ hr IVPB Q8 [facility] Last Admin: 01/30/17 09:29 Dose: 100 mls/hr Meropenem 500 mg/ Sodium (Chloride) 100 mls @ 100 mls/hr IVPB Q12 [facility] Last Admin: 01/30/17 09:26 Dose: 100 mls/hr Clindamycin Phosphate 600 mg/ (Sodium Chloride) 104 mls @ 104 mls/hr IVPB Q12 [facility] Last Admin: 01/30/17 09:30 Dose: 104 mls/hr Metoprolol Tartrate (Lopressor) 50 mg PO Q12 [facility] Last Admin: 01/30/17 09:24 Dose: 50 mg Pantoprazole Sodium (Protonix Ec Tab) 40 mg PO DAILY [facility] Last Admin: 01/30/17 09:24 Dose: 40 mg Potassium Chloride (K-Dur 20 Meq Er Tab) 20 meq PO DAILY [facility] Last Admin: 01/30/17 09:23 Dose: 20 meq Ramipril (Altace) 5 mg PO DAILY [facility] Last Admin: 01/30/17 09:22 Dose: 5 mg Torsemide (Demadex) 40 mg PO BID [facility] Last Admin: 01/30/17 09:23 Dose: 40 mg - Labs Labs: 01/24/17 06:30 01/26/17 06:00 PT 11.2 Seconds (9.8-13.1) 01/29/17 10:15 INR 1.0 (0.9-1.2) 01/29/17 10:15 APTT 31.2 Seconds (25.6-37.1) 01/20/17 15:32 Assessment and Plan (1) Chronic kidney disease, stage IV (severe) Status: Chronic (2) CHF (congestive heart failure) Status: Chronic (3) Pneumonia Status: Acute
[2017-01-31] MEDS: Clindamycin 600 MG in Sodium Chloride 0.9% 100 ML IVPB SCH ×2 (08:38→20:23)
[2017-01-31] MEDS: Meropenem 500 MG in Sodium Chloride 0.9% 100 ML IVPB SCH ×2 (08:38→20:23)
[2017-01-31] MEDS: Potassium Chloride 20 mEq ER Tab PO SCH (08:39)
[2017-01-31] MEDS: Pantoprazole 40 mg EC Tab PO SCH (08:39)
--- NOTE | 2017-02-01 08:49 | CP.PCM.PN ---
Subjective - Date & Time of Evaluation Date of Evaluation: 02/01/17 Time of Evaluation: 08:50 - Subjective Subjective: SOB IMPROVED GOUT RESOLVED NO CHEST PAINS Objective - Vital Signs/Intake and Output Vital Signs (last 24 hours): Temp Pulse Resp BP Pulse Ox 97.8 F 86 18 111/45 L 98 02/01/17 05:36 02/01/17 06:10 02/01/17 05:36 02/01/17 05:36 02/01/17 05:36 Intake and Output: 02/01/17 02/01/17 06:59 18:59 Intake Total 1440 Output Total 2200 Balance -760 - Medications Medications: Current Medications Albuterol/Ipratropium (Duoneb 3 Mg/0.5 Mg (3 Ml) Ud) 3 ml INH RQ6 PRN PRN Reason: Shortness of Breath Aspirin (Aspirin) 325 mg PO DAILY [facility] Last Admin: 01/31/17 08:43 Dose: 325 mg Calcitriol (Rocaltrol) 0.25 mcg PO DAILY [facility] Last Admin: 01/31/17 08:39 Dose: 0.25 mcg Clopidogrel Bisulfate (Plavix) 75 mg PO DAILY [facility] Last Admin: 01/31/17 08:39 Dose: 75 mg Digoxin (Lanoxin) 0.125 mg PO QOTHERDAY [facility] Last Admin: 01/30/17 09:23 Dose: 0.125 mg Diphenhydramine HCl (Benadryl) 25 mg PO HS PRN PRN Reason: Insomnia Last Admin: 01/28/17 21:43 Dose: 25 mg Finasteride (Proscar) 5 mg PO DAILY [facility] Last Admin: 01/31/17 08:40 Dose: 5 mg Meropenem 500 mg/ Sodium (Chloride) 100 mls @ 100 mls/hr IVPB Q12 [facility] Last Admin: 01/31/17 20:23 Dose: 100 mls/hr Clindamycin Phosphate 600 mg/ (Sodium Chloride) 104 mls @ 104 mls/hr IVPB Q12 [facility] Last Admin: 01/31/17 20:23 Dose: 104 mls/hr Metoprolol Tartrate (Lopressor) 50 mg PO Q12 [facility] Last Admin: 01/31/17 20:26 Dose: 50 mg Pantoprazole Sodium (Protonix Ec Tab) 40 mg PO DAILY [facility] Last Admin: 01/31/17 08:39 Dose: 40 mg Potassium Chloride (K-Dur 20 Meq Er Tab) 20 meq PO DAILY [facility] Last Admin: 01/31/17 08:39 Dose: 20 meq Ramipril (Altace) 5 mg PO DAILY [facility] Last Admin: 01/31/17 08:39 Dose: 5 mg Torsemide (Demadex) 40 mg PO BID [facility] Last Admin: 01/31/17 16:54 Dose: 40 mg - Labs Labs: 01/24/17 06:30 01/26/17 06:00 PT 11.2 Seconds (9.8-13.1) 01/29/17 10:15 INR 1.0 (0.9-1.2) 01/29/17 10:15 APTT 31.2 Seconds (25.6-37.1) 01/20/17 15:32 - Constitutional Appears: In Acute Distress - Head Exam Head Exam: ATRAUMATIC, NORMAL INSPECTION, NORMOCEPHALIC - Eye Exam Eye Exam: EOMI, Normal appearance, PERRL Pupil Exam: NORMAL ACCOMODATION, PERRL - ENT Exam ENT Exam: Mucous Membranes Moist, Normal Exam - Neck Exam Neck Exam: Full ROM, Normal Inspection. absent: Lymphadenopathy - Respiratory Exam Respiratory Exam: Prolonged Expiratory Phase, NORMAL BREATHING PATTERN - Cardiovascular Exam Cardiovascular Exam: REGULAR RHYTHM, +S1, +S2. absent: Murmur - GI/Abdominal Exam GI & Abdominal Exam: Soft, Normal Bowel Sounds. absent: Tenderness - Rectal Exam Rectal Exam: NORMAL INSPECTION - Extremities Exam Extremities Exam: Full ROM, Normal Capillary Refill, Normal Inspection. absent : Joint Swelling, Pedal Edema - Back Exam Back Exam: NORMAL INSPECTION - Neurological Exam Neurological Exam: Alert, Awake, CN II-XII Intact, Normal Gait, Oriented x3 - Psychiatric Exam Psychiatric exam: Normal Affect, Normal Mood - Skin Skin Exam: Dry, Intact, Normal Color, Warm Assessment and Plan - Assessment and Plan (Free Text) Assessment: PLEURAL EFFUSION IMPROVED--PATH REPORT PENDING/CULTURES- NEGATIVE Plan: CASE DISCUSSED WITH DR JAIN=FOR TRANSFER TO TCU FOR IV ASNTIBIOTIC RX
[2017-02-01] MEDS: Clindamycin 600 MG in Sodium Chloride 0.9% 100 ML IVPB SCH (09:50)
[2017-02-01] MEDS: Potassium Chloride 20 mEq ER Tab PO SCH (09:51)
[2017-02-01] MEDS: Digoxin 125 mcg (0.125 mg) Tab PO SCH (09:51)
[2017-02-01] MEDS: Meropenem 500 MG in Sodium Chloride 0.9% 100 ML IVPB SCH (09:52)
[2017-02-01] MEDS: Pantoprazole 40 mg EC Tab PO SCH (09:53)
[2017-02-01 09:54] VITALS: PULSE 73
--- NOTE | 2017-02-01 10:32 | CP.PCM.PN ---
Subjective - Date & Time of Evaluation Date of Evaluation: 02/01/17 Time of Evaluation: 10:29 - Subjective Subjective: Patient appeared to be stable Appeared to be recovering from acute gouty arthritis of the foot Kidney functions remain stable with serum creatinine 2.9 As noted by the primary team and pulmonary patient receiving antibiotics Cytology still pending Continue monitoring kidney function Objective - Vital Signs/Intake and Output Vital Signs (last 24 hours): Temp Pulse Resp BP Pulse Ox 97.5 F L 73 18 112/63 98 02/01/17 08:00 02/01/17 09:51 02/01/17 08:00 02/01/17 09:51 02/01/17 08:00 Intake and Output: 02/01/17 02/01/17 06:59 18:59 Intake Total 1440 560 Output Total 2200 300 Balance -760 260 - Medications Medications: Current Medications Albuterol/Ipratropium (Duoneb 3 Mg/0.5 Mg (3 Ml) Ud) 3 ml INH RQ6 PRN PRN Reason: Shortness of Breath Aspirin (Aspirin) 325 mg PO DAILY [facility] Last Admin: 02/01/17 09:49 Dose: 325 mg Calcitriol (Rocaltrol) 0.25 mcg PO DAILY [facility] Last Admin: 02/01/17 09:53 Dose: 0.25 mcg Clopidogrel Bisulfate (Plavix) 75 mg PO DAILY [facility] Last Admin: 02/01/17 09:53 Dose: 75 mg Digoxin (Lanoxin) 0.125 mg PO QOTHERDAY [facility] Last Admin: 02/01/17 09:51 Dose: 0.125 mg Diphenhydramine HCl (Benadryl) 25 mg PO HS PRN PRN Reason: Insomnia Last Admin: 01/28/17 21:43 Dose: 25 mg Finasteride (Proscar) 5 mg PO DAILY [facility] Last Admin: 02/01/17 09:53 Dose: 5 mg Meropenem 500 mg/ Sodium (Chloride) 100 mls @ 100 mls/hr IVPB Q12 [facility] Last Admin: 02/01/17 09:52 Dose: 100 mls/hr Clindamycin Phosphate 600 mg/ (Sodium Chloride) 104 mls @ 104 mls/hr IVPB Q12 [facility] Last Admin: 02/01/17 09:50 Dose: 104 mls/hr Metoprolol Tartrate (Lopressor) 50 mg PO Q12 [facility] Last Admin: 02/01/17 09:51 Dose: 50 mg Pantoprazole Sodium (Protonix Ec Tab) 40 mg PO DAILY [facility] Last Admin: 02/01/17 09:53 Dose: 40 mg Potassium Chloride (K-Dur 20 Meq Er Tab) 20 meq PO DAILY [facility] Last Admin: 02/01/17 09:51 Dose: 20 meq Ramipril (Altace) 5 mg PO DAILY [facility] Last Admin: 02/01/17 09:48 Dose: 5 mg Torsemide (Demadex) 40 mg PO BID [facility] Last Admin: 02/01/17 09:51 Dose: 40 mg - Labs Labs: 01/24/17 06:30 01/26/17 06:00 PT 11.2 Seconds (9.8-13.1) 01/29/17 10:15 INR 1.0 (0.9-1.2) 01/29/17 10:15 APTT 31.2 Seconds (25.6-37.1) 01/20/17 15:32 Assessment and Plan (1) Chronic kidney disease, stage IV (severe) Status: Chronic (2) CHF (congestive heart failure) Status: Chronic (3) Pneumonia Status: Acute
--- NOTE | 2017-02-01 14:56 | CP.PCM.PCO ---
Assessment/Plan - Assessment/Plan Assessment (Free Text): Patient seen and examined Plan discussed with Dr Prince, ID on board Patient must continue on iv clindamycin q12 hr and iv merrem q12 hr for E coli in blood cultures until 02/06 - Problems Patient Problems: Problem List (Active/Current) Problem Status Onset Code Aortic aneurysm Acute I71.9 Aortic regurgitation Acute I35.1 Bacteremia Acute R78.81 Chronic renal failure Acute N18.9 Elevated troponin Acute R74.8 Pleural effusion Acute J90 Pneumonia Acute J18.9 Systolic dysfunction with acute on chronic heart failure Acute I50.23 CHF (congestive heart failure) Chronic I50.9 Chronic kidney disease, stage IV (severe) Chronic N18.4 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
[2017-02-01 19:27] VITALS: BP 110/56; PULSE 64; RESP 20; TEMP 97.4; O2SAT 97
== END 2017-02-01 20:40 | DRG 871 ==
LOC: H.ER 14:57 → H.ERHOLD 17:26 → H.ICU/CCU 18:40 → H.TEL 01-22 14:28
PROVIDERS: ADMIT Family Medicine; ATTEND Family Medicine
PROC: 3E0234Z Introduction of Serum, Toxoid and Vaccine into Muscle, Percutaneous Approach (ICD-10-PCS; principal; 2017-01-23)
PROC: 0W993ZZ Drainage of Right Pleural Cavity, Percutaneous Approach (ICD-10-PCS; 2017-01-29)
DX: A41.51 Sepsis due to Escherichia coli [E. coli] (principal); I50.23 Acute on chronic systolic (congestive) heart failure; J91.8 Pleural effusion in other conditions classified elsewhere; I42.9 Cardiomyopathy, unspecified; J18.9 Pneumonia, unspecified organism; N18.4 Chronic kidney disease, stage 4 (severe); I13.0 Hypertensive heart and chronic kidney disease with heart failure and stage 1 through stage 4 chronic kidney disease, or unspecified chronic kidney disease; N25.81 Secondary hyperparathyroidism of renal origin; I48.2 Chronic atrial fibrillation; Z23 Encounter for immunization; Z95.0 Presence of cardiac pacemaker; I25.10 Atherosclerotic heart disease of native coronary artery without angina pectoris; I35.1 Nonrheumatic aortic (valve) insufficiency; Z87.891 Personal history of nicotine dependence; N28.1 Cyst of kidney, acquired; M10.9 Gout, unspecified; I71.9 Aortic aneurysm of unspecified site, without rupture

== ENCOUNTER 2017-02-01 17:19 | Inpatient (IN) | payer BC, OTHER ==
[2017-02-01 22:32] VITALS: BMI 20.2
[2017-02-02] MEDS ORDERED: Albuterol-Ipratrop 3 mg / 0.5 (3 ml) UD INH PRN (00:48)
[2017-02-02] MEDS ORDERED: Meropenem 500 MG in Sodium Chloride 0.9% 100 ML IVPB SCH (01:00)
[2017-02-02 04:56] VITALS: RESP 20
[2017-02-02] MEDS: Meropenem 500 MG in Sodium Chloride 0.9% 100 ML IVPB SCH ×2 (08:30→20:56)
[2017-02-02] MEDS: Potassium Chloride 20 mEq ER Tab PO SCH (09:26)
[2017-02-02] MEDS: Pantoprazole 40 mg EC Tab PO SCH (09:26)
[2017-02-02] MEDS: Digoxin 125 mcg (0.125 mg) Tab PO SCH (09:27)
[2017-02-02] MEDS: Clindamycin 600 MG in Sodium Chloride 0.9% 100 ML IVPB SCH ×2 (10:00→21:49)
--- NOTE | 2017-02-02 10:36 | CP.PCM.HP ---
History of Present Illness - History of Present Illness History of Present Illness: This is a 66 y/o male admitted for gen debility and continuation of Iv antibiotics. He was discharged from the telemetry unit. He had pleural effusion and noted to have positive blood culture wiht E coli. Has ahx of CKD 4 cardiomyopathy CAD atrial fib HTN hyperuricemia and recent gout attack. he was positive for E coli in the blood and started on Iv antibiotic and needed extended IV antibiotics hence admitted to TCU Present on Admission - Present on Admission Any Indicators Present on Admission: No History of DVT/PE: No History of Uncontrolled Diabetes: No Urinary Catheter: No Decubitus Ulcer Present: No Review of Systems - Respiratory Respiratory: Dyspnea, Dyspnea on Exertion Past Patient History - Past Medical History & Family History Past Medical History?: Yes - Past Social History Smoking Status: Former Smoker - CARDIAC Hx Cardiac Disorders: Yes Hx Congestive Heart Failure: Yes Hx Hypercholesterolemia: No Hx Hypertension: Yes - PULMONARY Hx Respiratory Disorders: No Hx Pneumonia: Yes - NEUROLOGICAL HX Cerebrovascular Accident: No - HEENT Hx HEENT Problems: No - RENAL Hx Renal Failure: Yes - ENDOCRINE/METABOLIC Hx Endocrine Disorders: No - HEMATOLOGICAL/ONCOLOGICAL Hx Blood Disorders: No - INTEGUMENTARY Hx Dermatological Problems: No - MUSCULOSKELETAL/RHEUMATOLOGICAL Hx Falls: Yes - GASTROINTESTINAL Hx Gastrointestinal Disorders: No - GENITOURINARY/GYNECOLOGICAL Hx Genitourinary Disorders: Yes - PSYCHIATRIC Hx Substance Use: No - SURGICAL HISTORY Other/Comment: Pacemaker. Aortic valve dissection - ANESTHESIA Hx Anesthesia: Yes Hx Anesthesia Reactions: No Hx Malignant Hyperthermia: No Has any member of the family had a problem w/ anesthesia?: No Meds Allergies/Adverse Reactions: Allergies Allergy/AdvReac Type Severity Reaction Status Date / Time warfarin [From Coumadin] Allergy ANAPHYLAXIS Verified 01/20/17 17:42 Physical Exam - Head Exam Head Exam: NORMAL INSPECTION - Eye Exam Eye Exam: Normal appearance - ENT Exam ENT Exam: Mucous Membranes Moist - Respiratory Exam Respiratory Exam: Decreased Breath Sounds - Cardiovascular Exam Cardiovascular Exam: Irregular Rhythm - GI/Abdominal Exam GI & Abdominal Exam: Normal Bowel Sounds Results - Vital Signs Recent Vital Signs: Last Vital Signs Temp 97.7 F 02/02/17 09:19 Pulse 170 H 02/02/17 09:29 Resp 20 02/02/17 09:19 BP 130/70 02/02/17 09:29 Pulse Ox 96 06/23/17 09:19 Assessment & Plan (1) Atrial fibrillation Status: Acute (2) Bacteremia Status: Acute (3) Chronic renal failure Status: Acute (4) Pleural effusion Status: Acute (5) Pneumonia Status: Acute (6) Systolic dysfunction with acute on chronic heart failure Status: Acute (7) CHF (congestive heart failure) Status: Chronic (8) Chronic kidney disease, stage IV (severe) Status: Chronic - Assessment and Plan (Free Text) Plan: cont IV antibiotics cont meds PT eval.
[2017-02-03] MEDS: Clindamycin 600 MG in Sodium Chloride 0.9% 100 ML IVPB SCH ×2 (08:40→20:20)
[2017-02-03] MEDS: Digoxin 125 mcg (0.125 mg) Tab PO SCH (08:41)
[2017-02-03] MEDS: Potassium Chloride 20 mEq ER Tab PO SCH (08:41)
[2017-02-03] MEDS: Meropenem 500 MG in Sodium Chloride 0.9% 100 ML IVPB SCH ×2 (08:42→21:24)
[2017-02-03] MEDS: Pantoprazole 40 mg EC Tab PO SCH (08:43)
[2017-02-04] MEDS: Clindamycin 600 MG in Sodium Chloride 0.9% 100 ML IVPB SCH ×2 (08:22→20:57)
[2017-02-04] MEDS: Potassium Chloride 20 mEq ER Tab PO SCH (08:24)
[2017-02-04] MEDS: Digoxin 125 mcg (0.125 mg) Tab PO SCH (08:24)
[2017-02-04] MEDS: Meropenem 500 MG in Sodium Chloride 0.9% 100 ML IVPB SCH ×2 (08:25→20:56)
[2017-02-04] MEDS: Pantoprazole 40 mg EC Tab PO SCH (08:25)
[2017-02-05] MEDS: Clindamycin 600 MG in Sodium Chloride 0.9% 100 ML IVPB SCH ×2 (08:14→22:20)
[2017-02-05] MEDS: Potassium Chloride 20 mEq ER Tab PO SCH (08:15)
[2017-02-05] MEDS: Digoxin 125 mcg (0.125 mg) Tab PO SCH (08:16)
[2017-02-05] MEDS: Meropenem 500 MG in Sodium Chloride 0.9% 100 ML IVPB SCH ×2 (08:16→21:22)
[2017-02-05] MEDS: Pantoprazole 40 mg EC Tab PO SCH (08:17)
--- NOTE | 2017-02-05 10:03 | CP.PCM.PN ---
Subjective - Date & Time of Evaluation Date of Evaluation: 02/05/17 Time of Evaluation: 10:02 - Subjective Subjective: Patient is doing very well Has no chest pain or SOB Has no fever Objective - Vital Signs/Intake and Output Vital Signs (last 24 hours): Temp Pulse Resp BP Pulse Ox 97.3 F L 79 20 130/70 100 02/05/17 07:57 02/05/17 08:16 02/05/17 07:57 02/05/17 08:16 02/05/17 07:57 - Medications Medications: Current Medications Albuterol/Ipratropium (Duoneb 3 Mg/0.5 Mg (3 Ml) Ud) 3 ml INH Q6H PRN PRN Reason: Shortness of Breath Aspirin (Aspirin) 325 mg PO DAILY [facility] Last Admin: 02/05/17 08:11 Dose: 325 mg Calcitriol (Rocaltrol) 0.25 mcg PO DAILY [facility] Last Admin: 02/05/17 08:17 Dose: 0.25 mcg Clopidogrel Bisulfate (Plavix) 75 mg PO DAILY [facility] Last Admin: 02/05/17 08:17 Dose: 75 mg Digoxin (Lanoxin) 0.125 mg PO DAILY [facility] Last Admin: 02/05/17 08:16 Dose: 0.125 mg Diphenhydramine HCl (Benadryl) 25 mg PO HS PRN PRN Reason: Insomnia Finasteride (Proscar) 5 mg PO DAILY [facility] Last Admin: 02/05/17 08:17 Dose: 5 mg Clindamycin Phosphate 600 mg/ (Sodium Chloride) 104 mls @ 54 mls/hr IVPB Q12 [facility] Last Admin: 02/05/17 08:14 Dose: 54 mls/hr Meropenem 500 mg/ Sodium (Chloride) 100 mls @ 100 mls/hr IVPB Q12@0900,2100 [facility] Last Admin: 02/05/17 08:16 Dose: 100 mls/hr Metoprolol Tartrate (Lopressor) 50 mg PO Q12@0900,2100 [facility] Last Admin: 02/05/17 08:16 Dose: 50 mg Pantoprazole Sodium (Protonix Ec Tab) 40 mg PO DAILY [facility] Last Admin: 02/05/17 08:17 Dose: 40 mg Potassium Chloride (K-Dur 20 Meq Er Tab) 20 meq PO DAILY [facility] Last Admin: 02/05/17 08:15 Dose: 20 meq Ramipril (Altace) 5 mg PO DAILY [facility] Last Admin: 02/05/17 08:10 Dose: 5 mg Torsemide (Demadex) 40 mg PO BID [facility] Last Admin: 02/05/17 08:15 Dose: 40 mg - Head Exam Head Exam: NORMAL INSPECTION - Eye Exam Eye Exam: Normal appearance - ENT Exam ENT Exam: Mucous Membranes Moist - Respiratory Exam Respiratory Exam: Clear to Ausculation Bilateral - Cardiovascular Exam Cardiovascular Exam: REGULAR RHYTHM - GI/Abdominal Exam GI & Abdominal Exam: Normal Bowel Sounds - Neurological Exam Neurological Exam: Awake, Oriented x3 Assessment and Plan (1) Bacteremia Status: Acute (2) Pleural effusion Status: Acute (3) Systolic dysfunction with acute on chronic heart failure Status: Acute (4) Chronic kidney disease, stage IV (severe) Status: Chronic (5) Atrial fibrillation Status: Acute - Assessment and Plan (Free Text) Plan: Cnt meds cont tx cont iv antibiotics DC plan for tomorrow
[2017-02-06 08:01] VITALS: BP 131/52; PULSE 66; TEMP 97.5; O2SAT 97
[2017-02-06] MEDS: Potassium Chloride 20 mEq ER Tab PO SCH (08:23)
[2017-02-06] MEDS: Digoxin 125 mcg (0.125 mg) Tab PO SCH (08:23)
[2017-02-06] MEDS: Pantoprazole 40 mg EC Tab PO SCH (08:25)
[2017-02-06] MEDS: Meropenem 500 MG in Sodium Chloride 0.9% 100 ML IVPB SCH (08:28)
[2017-02-06 08:30] VITALS: PULSE 66
--- NOTE | 2017-02-06 09:58 | CP.PCM.PN ---
Subjective - Date & Time of Evaluation Date of Evaluation: 02/03/17 Time of Evaluation: 10:00 - Subjective Subjective: patient was doing well has minimal pain on the toe doing well with iv antibiotics. Objective - Vital Signs/Intake and Output Vital Signs (last 24 hours): Temp Pulse Resp BP Pulse Ox 97.5 F L 66 20 131/52 L 97 02/06/17 08:00 02/06/17 08:24 02/06/17 08:00 02/06/17 08:24 02/06/17 08:00 - Medications Medications: Current Medications Albuterol/Ipratropium (Duoneb 3 Mg/0.5 Mg (3 Ml) Ud) 3 ml INH Q6H PRN PRN Reason: Shortness of Breath Aspirin (Aspirin) 325 mg PO DAILY [facility] Last Admin: 02/06/17 08:32 Dose: 325 mg Calcitriol (Rocaltrol) 0.25 mcg PO DAILY [facility] Last Admin: 02/06/17 08:24 Dose: 0.25 mcg Clopidogrel Bisulfate (Plavix) 75 mg PO DAILY [facility] Last Admin: 02/06/17 08:25 Dose: 75 mg Digoxin (Lanoxin) 0.125 mg PO DAILY [facility] Last Admin: 02/06/17 08:23 Dose: 0.125 mg Diphenhydramine HCl (Benadryl) 25 mg PO HS PRN PRN Reason: Insomnia Finasteride (Proscar) 5 mg PO DAILY [facility] Last Admin: 02/05/17 08:17 Dose: 5 mg Clindamycin Phosphate 600 mg/ (Sodium Chloride) 104 mls @ 54 mls/hr IVPB Q12 [facility] Last Admin: 02/05/17 22:20 Dose: 54 mls/hr Meropenem 500 mg/ Sodium (Chloride) 100 mls @ 100 mls/hr IVPB Q12@0900,2100 [facility] Last Admin: 02/06/17 08:28 Dose: 100 mls/hr Metoprolol Tartrate (Lopressor) 50 mg PO Q12@0900,2100 [facility] Last Admin: 02/06/17 08:24 Dose: 50 mg Pantoprazole Sodium (Protonix Ec Tab) 40 mg PO DAILY [facility] Last Admin: 02/06/17 08:25 Dose: 40 mg Potassium Chloride (K-Dur 20 Meq Er Tab) 20 meq PO DAILY [facility] Last Admin: 02/06/17 08:23 Dose: 20 meq Ramipril (Altace) 5 mg PO DAILY [facility] Last Admin: 02/06/17 08:24 Dose: 5 mg Torsemide (Demadex) 40 mg PO BID [facility] Last Admin: 02/06/17 08:27 Dose: 40 mg - Head Exam Head Exam: NORMAL INSPECTION - Eye Exam Eye Exam: Normal appearance - ENT Exam ENT Exam: Mucous Membranes Moist - Respiratory Exam Respiratory Exam: Decreased Breath Sounds, Rhonchi - Cardiovascular Exam Cardiovascular Exam: Irregular Rhythm - GI/Abdominal Exam GI & Abdominal Exam: Normal Bowel Sounds Assessment and Plan (1) Atrial fibrillation Status: Acute (2) Bacteremia Status: Acute (3) Chronic renal failure Status: Acute (4) Pleural effusion Status: Acute (5) Pneumonia Status: Acute (6) Systolic dysfunction with acute on chronic heart failure Status: Acute (7) CHF (congestive heart failure) Status: Chronic (8) Chronic kidney disease, stage IV (severe) Status: Chronic - Assessment and Plan (Free Text) Plan: cont meds cont tx cont PT
--- NOTE | 2017-02-06 09:59 | CP.PCM.PN ---
Subjective - Date & Time of Evaluation Date of Evaluation: 02/04/17 Time of Evaluation: 09:00 - Subjective Subjective: patient is doing well Has minimal SOB but no chest pain. Objective - Vital Signs/Intake and Output Vital Signs (last 24 hours): Temp Pulse Resp BP Pulse Ox 97.5 F L 66 20 131/52 L 97 02/06/17 08:00 02/06/17 08:24 02/06/17 08:00 02/06/17 08:24 02/06/17 08:00 - Medications Medications: Current Medications Albuterol/Ipratropium (Duoneb 3 Mg/0.5 Mg (3 Ml) Ud) 3 ml INH Q6H PRN PRN Reason: Shortness of Breath Aspirin (Aspirin) 325 mg PO DAILY [facility] Last Admin: 02/06/17 08:32 Dose: 325 mg Calcitriol (Rocaltrol) 0.25 mcg PO DAILY [facility] Last Admin: 02/06/17 08:24 Dose: 0.25 mcg Clopidogrel Bisulfate (Plavix) 75 mg PO DAILY [facility] Last Admin: 02/06/17 08:25 Dose: 75 mg Digoxin (Lanoxin) 0.125 mg PO DAILY [facility] Last Admin: 02/06/17 08:23 Dose: 0.125 mg Diphenhydramine HCl (Benadryl) 25 mg PO HS PRN PRN Reason: Insomnia Finasteride (Proscar) 5 mg PO DAILY [facility] Last Admin: 02/05/17 08:17 Dose: 5 mg Clindamycin Phosphate 600 mg/ (Sodium Chloride) 104 mls @ 54 mls/hr IVPB Q12 [facility] Last Admin: 02/05/17 22:20 Dose: 54 mls/hr Meropenem 500 mg/ Sodium (Chloride) 100 mls @ 100 mls/hr IVPB Q12@0900,2100 [facility] Last Admin: 02/06/17 08:28 Dose: 100 mls/hr Metoprolol Tartrate (Lopressor) 50 mg PO Q12@0900,2100 [facility] Last Admin: 02/06/17 08:24 Dose: 50 mg Pantoprazole Sodium (Protonix Ec Tab) 40 mg PO DAILY [facility] Last Admin: 02/06/17 08:25 Dose: 40 mg Potassium Chloride (K-Dur 20 Meq Er Tab) 20 meq PO DAILY [facility] Last Admin: 02/06/17 08:23 Dose: 20 meq Ramipril (Altace) 5 mg PO DAILY [facility] Last Admin: 02/06/17 08:24 Dose: 5 mg Torsemide (Demadex) 40 mg PO BID [facility] Last Admin: 02/06/17 08:27 Dose: 40 mg - Head Exam Head Exam: NORMAL INSPECTION - Eye Exam Eye Exam: Normal appearance - ENT Exam ENT Exam: Mucous Membranes Moist - Respiratory Exam Respiratory Exam: Decreased Breath Sounds, Rhonchi - Cardiovascular Exam Cardiovascular Exam: Irregular Rhythm - GI/Abdominal Exam GI & Abdominal Exam: Normal Bowel Sounds Assessment and Plan (1) Atrial fibrillation Status: Acute (2) Bacteremia Status: Acute (3) Chronic renal failure Status: Acute (4) Pleural effusion Status: Acute (5) Pneumonia Status: Acute (6) Systolic dysfunction with acute on chronic heart failure Status: Acute (7) CHF (congestive heart failure) Status: Chronic (8) Chronic kidney disease, stage IV (severe) Status: Chronic - Assessment and Plan (Free Text) Plan: cont IV antibiotics cont meds cont PT
--- NOTE | 2017-02-06 10:02 | CP.PCM.DIS ---
Provider - Provider Date of Admission: 02/01/17 22:33 Attending physician: Meño Adame MD Primary care physician: Meño Adame MD Time Spent in preparation of Discharge (in minutes): 30 Diagnosis - Discharge Diagnosis (1) Atrial fibrillation Status: Acute (2) Bacteremia Status: Acute (3) Chronic renal failure Status: Acute (4) Pleural effusion Status: Acute (5) Pneumonia Status: Acute (6) Systolic dysfunction with acute on chronic heart failure Status: Acute (7) CHF (congestive heart failure) Status: Chronic (8) Chronic kidney disease, stage IV (severe) Status: Chronic Hospital Course - Hospital Course Hospital Course: Thisis a 66 y/o male admitted for continuation of IV antibiotics for pneumonia and bacteremia. he did very well and tolerated PT and meds. he had no chets pain during admission. Discharge Exam - Head Exam Head Exam: NORMAL INSPECTION - Eye Exam Eye Exam: Normal appearance - Respiratory Exam Respiratory Exam: Decreased Breath Sounds, NORMAL BREATHING PATTERN - Cardiovascular Exam Cardiovascular Exam: Irregular Rhythm - GI/Abdominal Exam GI & Abdominal Exam: Normal Bowel Sounds - Neurological Exam Neurological exam: CN II-XII Intact, Oriented x3 Discharge Plan - Follow Up Plan Condition: GOOD Disposition: HOME/ ROUTINE Additional Instructions: cont all home meds Dc to home follow up n office in 1 week. Referrals: Meño Adame MD [Primary Care Provider] -
[2017-02-06] MEDS: Clindamycin 600 MG in Sodium Chloride 0.9% 100 ML IVPB SCH (10:15)
== END 2017-02-06 12:06 | disposition home or self-care (01) | DRG 193 ==
LOC: H.TCU 22:33
PROVIDERS: ADMIT Family Medicine; ATTEND Family Medicine
PROC: F07M6FZ Therapeutic Exercise Treatment of Musculoskeletal System - Whole Body using Assistive, Adaptive, Supportive or Protective Equipment (ICD-10-PCS; principal; 2017-02-01)
PROC: F08Z4FZ Home Management Treatment using Assistive, Adaptive, Supportive or Protective Equipment (ICD-10-PCS; 2017-02-01)
DX: J18.9 Pneumonia, unspecified organism (principal); I50.23 Acute on chronic systolic (congestive) heart failure; I42.9 Cardiomyopathy, unspecified; N18.4 Chronic kidney disease, stage 4 (severe); R78.81 Bacteremia; I48.91 Unspecified atrial fibrillation; I13.0 Hypertensive heart and chronic kidney disease with heart failure and stage 1 through stage 4 chronic kidney disease, or unspecified chronic kidney disease; I25.10 Atherosclerotic heart disease of native coronary artery without angina pectoris; M10.9 Gout, unspecified

== ENCOUNTER 2017-10-08 12:58 | Inpatient (IN) | payer BC, MEDICARE ==
[2017-10-08 12:58] VITALS: PULSE 66
[2017-10-08 13:09] VITALS: BMI 21.6
[2017-10-08 14:17] LABS: BASO # 0.1 K/uL (0.0-0.2); BASO % 0.6 % (0.0-2.0); HEMOGLOBIN 11.9 g/dL (12.0-18.0); LYMPH # 0.2 K/uL (1.0-4.3); LYMPH % 2.5 % (20.0-40.0); MEAN CORPUSCULAR HEMOGLOBIN 32.4 pg (27.0-31.0); MEAN CORPUSCULAR HGB CONC 30.5 g/dL (33.0-37.0); MONO # 0.8 K/uL (0.0-0.8); NEUT # 7.4 K/uL (1.8-7.0); NEUT % 87.9 % (50.0-75.0); NRBC % 1.7 % (0.0-0.0); PLATELET COUNT 178 K/uL (130-400); RBC 3.67 Mil/uL (4.40-5.90); RED CELL DISTRIBUTION WIDTH 17.4 % (11.5-14.5); WHITE BLOOD COUNT 8.4 K/uL (4.8-10.8)
[2017-10-08 14:30] LABS: CALCIUM 9.1 mg/dL (8.4-10.2)
[2017-10-08 14:31] LABS: MEAN CELL VOLUME 106.3 fl (80.0-94.0)
[2017-10-08] MEDS ORDERED: Albuterol 0.083% Inhal Sol (2.5 mg/3 mL) UD INH STA (14:37)
[2017-10-08] MEDS ORDERED: Insulin Regular 100 units/ml IV STA (14:39)
[2017-10-08] MEDS ORDERED: Dextrose 50% SYRINGE Inj (50 ml) IVP ONE (14:39)
[2017-10-08 14:40] LABS: TROPONIN I 0.075 ng/mL (0.00-0.120)
[2017-10-08] MEDS ORDERED: Sod Polystyrene Sulf 15 gm/60 ml Susp PO ONE ×2 (14:40→17:18)
--- NOTE | 2017-10-08 15:02 | RAD ---
PROCEDURE: CHEST RADIOGRAPH, 1 VIEW HISTORY: dyspnea COMPARISON: Frontal chest radiograph 01/29/2017. FINDINGS: LUNGS: Limited patchy infiltrate or atelectasis is suggested lateral to the right heart border, which is partially obscured. Chronic fibrosis or pleural effusion is is again seen blunting the right costophrenic sulcus. No left-sided infiltrate or pleural effusion identified. No pneumothorax bilaterally. PLEURA: As above. CARDIOVASCULAR: Stable cardiomegaly. No pulmonary derangement appreciated. Implanted defibrillator/pacemaker again evident. OSSEOUS STRUCTURES: No significant abnormalities. VISUALIZED UPPER ABDOMEN: Normal. OTHER FINDINGS: Partially calcified thyroid nodule or cyst again seen the left thoracic inlet. IMPRESSION: Limited patchy atelectasis or infiltrate is identified in the right base with chronic right costophrenic sulcus fibrosis or pleural effusion evident once again. Stable cardiomegaly.
[2017-10-08] MEDS ORDERED: Albuterol 0.083% Inhal Sol (2.5 mg/3 mL) UD ONE (15:21)
[2017-10-08] MEDS ORDERED: Dextrose 50% SYRINGE Inj (50 ml) ONE (15:22)
[2017-10-08] MEDS ORDERED: Insulin Regular 100 units/ml ONE (15:22)
[2017-10-08] MEDS ORDERED: Sod Polystyrene Sulf 15 gm/60 ml Susp ONE (15:23)
--- NOTE | 2017-10-08 15:45 | ED PDOC ---
HPI: SOB/CHF/COPD Time Seen by Provider: 10/08/17 13:29 Chief Complaint (Nursing): Shortness Of Breath Chief Complaint (Provider): Shortness Of Breath History Per: Patient History/Exam Limitations: no limitations Onset/Duration Of Symptoms: Days (x 3) Current Symptoms Are (Timing): Still Present Exacerbating Factor(s): Exertion, Laying Flat Additional Complaint(s): Mr. Barrios is a 67 year old male, with a history of CHF, A-Fib, Hypertension , CABG and pacemaker, who presents to the ED for difficult breathing for 3 days. Patient is also complaining of leg swelling and coughing. No chest pain or fevers. Patient reports difficulty breathing with exertion and when laying flat. Denies syncope or chest pain. PMD: Meño Adame Past Medical History Reviewed: Historical Data, Nursing Documentation, Vital Signs Vital Signs: Last Vital Signs Temp 98.2 F 10/08/17 16:37 Pulse 82 10/08/17 16:45 Resp 18 10/08/17 16:37 BP 119/61 10/08/17 16:37 Pulse Ox 100 10/08/17 16:45 - Medical History PMH: Arthritis, Atrial Fibrillation, CHF, HTN, Pneumonia, Chronic Kidney Disease Denies: Hypercholesterolemia - Surgical History Surgical History: Pacemaker - Family History Family History: States: Unknown Family Hx - Home Medications Home Medications: Ambulatory Orders Medication Instructions Recorded Clopidogrel [Plavix] 75 mg PO DAILY 01/20/17 Colchicine [Colcrys] 0.6 mg PO Q12 PRN 01/20/17 Digoxin 125 mcg PO DAILY 01/20/17 Febuxostat [Uloric] 80 mg PO DAILY 01/20/17 Potassium Chloride [K-Dur 20 mEq 20 meq PO DAILY 01/20/17 ER Tab] Ramipril [Altace] 5 mg PO DAILY 01/20/17 Metoprolol Tartrate [Lopressor] 25 mg PO Q12 10/08/17 Torsemide [Demadex] 20 mg PO BID 10/08/17 - Allergies Allergies/Adverse Reactions: Allergies Allergy/AdvReac Type Severity Reaction Status Date / Time warfarin [From Coumadin] Allergy ANAPHYLAXIS Verified 01/20/17 17:42 Review of Systems ROS Statement: Except As Marked, All Systems Reviewed And Found Negative Constitutional: Negative for: Fever Cardiovascular: Negative for: Chest Pain Respiratory: Positive for: Cough, SOB with Exertion, Other (Difficulty breathing when laying falt) Musculoskeletal: Positive for: Other (Leg swelling) Neurological: Negative for: Other (Syncope) Physical Exam - Reviewed Nursing Documentation Reviewed: Yes Vital Signs Reviewed: Yes - Physical Exam Appears: Positive for: Non-toxic Head Exam: Positive for: ATRAUMATIC, NORMAL INSPECTION, NORMOCEPHALIC Skin: Positive for: Normal Color, Warm, Dry Eye Exam: Positive for: Normal appearance, EOMI, PERRL ENT: Positive for: Normal ENT Inspection Neck: Positive for: Normal Cardiovascular/Chest: Positive for: Irregularly Irregular Respiratory: Positive for: Rhonchi (Some rhonchi bilaterally). Negative for: Respiratory Distress Gastrointestinal/Abdominal: Positive for: Normal Exam Back: Positive for: Normal Inspection Extremity: Positive for: Swelling (Mild Bilateral Lower Leg Swelling) Neurologic/Psych: Positive for: Alert, Oriented (x 3) - Laboratory Results Result Diagrams: 10/08/17 14:00 10/08/17 14:00 - ECG ECG Rhythm: Positive for: Atrial Fibrillation. Negative for: Normal QRS Rate: 82 O2 Sat by Pulse Oximetry: 100 (RA) Pulse Ox Interpretation: Normal Interpretation Of Abnormal: lvh with repolarization abnormality - Critical Care Total Time (In Min): 30 Medical Decision Making Medical Decision Making: Time: 13:56 Impression: Dyspnea Differentials include, but not limited to: CHF exacerbation with A-fib, ACS, Pneumonia Plan: - EKG - B-Type Natriuretic Peptide Stat - BMP - Troponin I Stat - CBC - Chest X-Ray Time: 14:17 - Digoxin Stat (+) Elevated Potassium Level (7.6 MMOL/L) Time: 14:37 - Albuterol 0.083% Inhal Katey (2.5 mg/3ml) UD - Lasix 40 mg IVP - Nitrostat SL Tab - kayeXALATE Susp - Peak Flow Pre/Post Treatment - HumuLIN R 4units IV STAT - Dextrose 50% Inj - Calcium Gluconate IV 1,000 ml Sodium Chloride 0.9% 100 ml IV ONCE Time: 15:01 Chest X-Ray FINDINGS: LUNGS: Limited patchy infiltrate or atelectasis is suggested lateral to the right heart border, which is partially obscured. Chronic fibrosis or pleural effusion is is again seen blunting the right costophrenic sulcus. No left-sided infiltrate or pleural effusion identified. No pneumothorax bilaterally. PLEURA: As above. CARDIOVASCULAR: Stable cardiomegaly. No pulmonary derangement appreciated. Implanted defibrillator/pacemaker again evident. OSSEOUS STRUCTURES: No significant abnormalities. VISUALIZED UPPER ABDOMEN: Normal. OTHER FINDINGS: Partially calcified thyroid nodule or cyst again seen the left thoracic inlet. IMPRESSION: Limited patchy atelectasis or infiltrate is identified in the right base with chronic right costophrenic sulcus fibrosis or pleural effusion evident once again. Stable cardiomegaly. Time: 15:25 - Blood Culture - Cardiology Consult After discussing case to Dr. Adame, patient will be admitted to telemetry as an inpatient under his care for CHF exacerbation and Hyperkalemia. Time: 16:11 - Nephrology Consult Time: 16:[address] Lagos. Recommends KayeXALATE and admission. Scribe Attestation: Documented by Darrel Bettencourt, acting as a scribe for Andrew Velasquez MD. Provider Scribe Attestation: All medical record entries made by the Scribe were at my direction and personally dictated by me. I have reviewed the chart and agree that the record accurately reflects my personal performance of the history, physical exam, medical decision making, and the department course for this patient. I have also personally directed, reviewed, and agree with the discharge instructions and disposition. Disposition - Clinical Impression Clinical Impression: CHF (congestive heart failure), Chronic renal failure, Hyperkalemia - Patient ED Disposition Is Patient to be Admitted: Yes Discussed With DrKelley: Meño Adame Doctor Will See Patient In The: Hospital Counseled Patient/Family Regarding: Studies Performed, Diagnosis - Disposition Disposition Time: 15:25 Condition: FAIR - Pt Status Changed To: Hospital Disposition Of: Inpatient - Admit Certification Admit to Inpatient:: After my assessment, the patient will require hospitalization for at least two midnights. This is because of the severity of symptoms shown, intensity of services needed, and/or the medical risk in this patient being treated as an outpatient. - POA Present On Arrival: None
[2017-10-08 15:53] LABS: LYMPHOCYTE 7 % (20-50); MONOCYTE 4 % (0-10); NEUTROPHIL 89 % (42-75); NUCLEATED RED BLOOD CELL 1 % (0-0); PLATELET ESTIMATE NORMAL (NORMAL); TOTAL CELLS COUNTED 100
[2017-10-08 15:54] LABS: ANISOCYTOSIS SLIGHT; HYPOCHROMIC SLIGHT; OVALOCYTES SLIGHT
[2017-10-08 15:57] LABS: SCHISTOCYTES SLIGHT; TEARDROP CELLS SLIGHT
--- NOTE | 2017-10-08 19:06 | CARD ---
APPROVED REPORT EKG Measurement Heart [id number] <Conclusion> Atrial fibrillation with frequent ventricular-paced complexes Left ventricular hypertrophy with QRS widening ST & Marked T wave abnormality, consider inferolateral ischemia Abnormal ECG
--- NOTE | 2017-10-08 20:29 | CP.PCM.CON ---
History of Present Illness - History of Present Illness History of Present Illness: I was asked to evalaute patient by Dr Adame. Patient is a 67 year old male with PMH dilated cardiomyopathy, valvular heart disease ( severe muitral/tricuspid regurgitation), afib who presents with progressive dyspnea. The patient states symtpoms began about 5 days ago, and occurred when walking with minimal exertion. Symptoms occurred at rest, with associated orthopnea and PND. The patient was found to be in acute on chronic renal failure, and hyperkalemic. The patient was given K lowering therapy. The patient has no chest pain. Review of Systems - Constitutional Constitutional: absent: As Per HPI, Anorexia, Chills, Daytime Sleepiness, Excessive Sweating, Fatigue, Fever, Frequent Falls, Headache, Increased Appetite , Lethargy, Malaise, Night Sweats, Snoring, Sleep Apnea, Weight Gain, Weight Loss, Weakness, Other - EENT Eyes: absent: As Per HPI, Blind Spots, Blurred Vision, Change in Vision, Decreased Night Vision, Diplopia, Discharge, Dry Eye, Exophthalmos, Floaters, Irritation, Itchy Eyes, Loss of Peripheral Vision, Pain, Photophobia, Requires Corrective Lenses, Sees Flashes, Spots in Vision, Tunnel Vision, Other Visual Disturbances, Loss of Vision, Other Ears: absent: As Per HPI, Decreased Hearing, Ear Discharge, Ear Pain, Tinnitus, Abnormal Hearing, Disequilibrium, Dizziness, Other Nose/Mouth/Throat: absent: As Per HPI, Epistaxis, Nasal Congestion, Nasal Discharge, Nasal Obstruction, Nasal Trauma, Nose Pain, Post Nasal Drip, Sinus Pain, Sinus Pressure, Bleeding Gums, Change in Voice, Dental Pain, Dry Mouth, Dysphagia, Halitosis, Hoarsness, Lip Swelling, Mouth Lesions, Mouth Pain, Odynophagia, Sore Throat, Throat Swelling, Tongue Swelling, Facial Pain, Neck Pain, Neck Mass, Other - Cardiovascular Cardiovascular: Dyspnea, Edema - Respiratory Respiratory: Dyspnea - Gastrointestinal Gastrointestinal: absent: As Per HPI, Abdominal Pain, Belching, Bloating, Change in Bowel Habits, Change in Stool Character, Coffee Ground Emesis, Constipation, Cramping, Diarrhea, Dyspepsia, Dysphagia, Early Satiety, Excessive Flatus, Fecal Incontinence, Heartburn, Hematemesis, Hematochezia, Loose Stools, Melena, Nausea, Odynophagia, Temesmus, Vomiting, Other - Genitourinary Genitourinary: absent: As Per HPI, Change in Urinary Stream, Difficulty Urinating, Dysuria, Flank Pain, Hematuria, Pyuria, Nocturia, Urinary Incontinence, Urinary Frequency, Urinary Hesitance, Urinary Urgency, Voiding Freq/Small Amts, Freq UTI, Hx Renal/Bladder Calculi, Hx /Renal Surgery, Bladder Distension, Other - Musculoskeletal Musculoskeletal: absent: As Per HPI, Abnormal Gait, Arthralgias, Atrophy, Back Pain, Deformity, Joint Swelling, Limited Range of Motion, Loss of Height, Muscle Cramps, Muscle Weakness, Myalgias, Neck Pain, Numbness, Radiating Pain into Limb, Stiffness, Tingling, Other - Integumentary Integumentary: absent: As Per HPI, Acne, Alopecia, Bleeding Lesions, Change in Hair, Change in Nails, Change in Pigmentation, Changing Lesions, Dry Skin, Erythema, Furuncle, Hirsutism, Lesions, New Lesions, Non-Healing Lesions, Photosensitivity, Pruritus, Rash, Skin Pain, Skin Ulcer, Sores, Striae, Swelling , Unusual Bruising, Wounds, Jaundice, Other - Neurological Neurological: absent: As Per HPI, Abnormal Gait, Abnormal Hearing, Abnormal Movements, Abnormal Speech, Behavioral Changes, Burning Sensations, Confusion, Convulsions, Disequilibrium, Dizziness, Numbness, Focal Weakness, Frequent Falls , Headaches, Lack of Coordination, Loss of Vision, Memory Loss, Paresthesias, Radicular Pain, Restless Legs, Sensory Deficit, Syncope, Tingling, Tremor, Vertigo, Weakness, Other Visual Disturbances, Other - Psychiatric Psychiatric: absent: As Per HPI, Abnormal Sleep Pattern, Anhedonia, Anxiety, Auditory Hallucinations, Behavioral Changes, Change in Appetite, Change in Libido, Confusion, Depression, Difficulty Concentrating, Hallucinations, Homicidal Ideation, Hopelessness, Irritability, Memory Loss, Mood Swings, Panic Attacks, Paranoia, Suicidal Ideation, Visual Hallucinations, Tactile Hallucinations, Other - Endocrine Endocrine: absent: As Per HPI, Change in Body Appearance, Change in Libido, Cold Intolorance, Deepening of Voice, Excessive Sweating, Fatigue, Flushing, Heat Intolorance, Increase in Ring/Shoe/Hat Size, Palpitations, Polydipsia, Polyphagia, Polyuria, Other - Hematologic/Lymphatic Hematologic: absent: As Per HPI, Easy Bleeding, Easy Bruising, Lymphadenopathy, Other Past Patient History - Past Medical History & Family History Past Medical History?: Yes - Past Social History Smoking Status: Former Smoker - CARDIAC Hx Cardiac Disorders: Yes Hx Atrial Fibrillation: Yes Hx Congestive Heart Failure: Yes Hx Hypertension: Yes Hx Pacemaker: Yes (2010) - PULMONARY Hx Respiratory Disorders: Yes Hx Pneumonia: Yes - NEUROLOGICAL Hx Neurological Disorder: No HX Cerebrovascular Accident: No - HEENT Hx HEENT Problems: Yes - RENAL Hx Chronic Kidney Disease: Yes Hx Dialysis: No - ENDOCRINE/METABOLIC Hx Endocrine Disorders: No - HEMATOLOGICAL/ONCOLOGICAL Hx Blood Disorders: No Hx AIDS: No Hx Human Immunodeficiency Virus (HIV): No - INTEGUMENTARY Hx Dermatological Problems: No - MUSCULOSKELETAL/RHEUMATOLOGICAL Hx Musculoskeletal Disorders: Yes Hx Arthritis: Yes Hx Falls: No - GASTROINTESTINAL Hx Gastrointestinal Disorders: No - GENITOURINARY/GYNECOLOGICAL Hx Genitourinary Disorders: No - PSYCHIATRIC Hx Psychophysiologic Disorder: No Hx Substance Use: No - SURGICAL HISTORY Hx Surgeries: No Other/Comment: Pacemaker. Aortic valve dissection , Open heart surgery 2009 - ANESTHESIA Hx Anesthesia: Yes Hx Anesthesia Reactions: No Hx Malignant Hyperthermia: No Meds Allergies/Adverse Reactions: Allergies Allergy/AdvReac Type Severity Reaction Status Date / Time warfarin [From Coumadin] Allergy ANAPHYLAXIS Verified 01/20/17 17:42 - Medications Medications: Current Medications Clopidogrel Bisulfate (Plavix) 75 mg PO DAILY [facility] Metoprolol Tartrate (Lopressor) 25 mg PO Q12 TONY Physical Exam - Constitutional Appears: Chronically Ill - Head Exam Head Exam: NORMAL INSPECTION - Eye Exam Eye Exam: Normal appearance - ENT Exam ENT Exam: Mucous Membranes Moist - Neck Exam Neck exam: Positive for: Full Rom - Respiratory Exam Respiratory Exam: Decreased Breath Sounds - Cardiovascular Exam Cardiovascular Exam: REGULAR RHYTHM - GI/Abdominal Exam GI & Abdominal Exam: Normal Bowel Sounds - Rectal Exam Rectal Exam: Deferred - Extremities Exam Extremities exam: Positive for: pedal pulses present - Back Exam Back exam: NORMAL INSPECTION - Neurological Exam Neurological exam: Alert, Oriented x3 - Psychiatric Exam Psychiatric exam: Normal Affect - Skin Skin Exam: Normal Color Results - Vital Signs Recent Vital Signs: Last Vital Signs Temp 97.3 F L 10/08/17 20:11 Pulse 66 10/08/17 20:11 Resp 20 10/08/17 20:11 BP 122/66 10/08/17 20:11 Pulse Ox 95 10/08/17 20:11 - Labs Result Diagrams: 10/08/17 14:00 10/08/17 16:50 Labs: Laboratory Results - last 24 hr 10/08/17 10/08/17 10/08/17 12:50 14:00 14:00 WBC 8.4 RBC 3.67 L Hgb 11.9 L Hct 39.0 MCV 106.3 H D MCH 32.4 H MCHC 30.5 L RDW 17.4 H Plt Count 178 MPV 9.0 Neut % (Auto) 87.9 H Lymph % (Auto) 2.5 L [place] % (Auto) 9.0 Eos % (Auto) 0.0 Baso % (Auto) 0.6 Neut # (Auto) 7.4 H Lymph # (Auto) 0.2 L [place] # (Auto) 0.8 Eos # (Auto) 0.0 Baso # (Auto) 0.1 Neutrophils % (Manual) 89 H Lymphocytes % (Manual) 7 L Monocytes % (Manual) 4 Nucleated RBC % 1 H Platelet Estimate Normal Hypochromasia (manual) Slight Anisocytosis (manual) Slight Macrocytosis (manual) Moderate Tear Drop Cells Slight Ovalocytes Slight Schistocytes Slight Sodium 147 Potassium 7.6 H* D Chloride 111 H Carbon Dioxide 16 L Anion Gap 28 H BUN 89 H Creatinine 4.3 H Est GFR ( Amer) 17 Est GFR (Non-Af Amer) 14 Random Glucose 112 H Calcium 9.1 Troponin I 0.0750 NT-Pro-B Natriuret Pep 190333 H Digoxin 1.3 10/08/17 16:50 WBC RBC Hgb Hct MCV MCH MCHC RDW Plt Count MPV Neut % (Auto) Lymph % (Auto) [place] % (Auto) Eos % (Auto) Baso % (Auto) Neut # (Auto) Lymph # (Auto) [place] # (Auto) Eos # (Auto) Baso # (Auto) Neutrophils % (Manual) Lymphocytes % (Manual) Monocytes % (Manual) Nucleated RBC % Platelet Estimate Hypochromasia (manual) Anisocytosis (manual) Macrocytosis (manual) Tear Drop Cells Ovalocytes Schistocytes Sodium Potassium 6.8 H* Chloride Carbon Dioxide Anion Gap BUN Creatinine Est GFR ( Amer) Est GFR (Non-Af Amer) Random Glucose Calcium Troponin I NT-Pro-B Natriuret Pep Digoxin - EKG Data EKG Interpreted by: Alannaelf Assessment & Plan (1) CHF (congestive heart failure) Assessment and Plan: will need diuresis, but may need renal evaluation Status: Chronic (2) Atrial fibrillation Assessment and Plan: rate controlled Status: Acute (3) Systolic dysfunction with acute on chronic heart failure Assessment and Plan: diruesis, but will have to watch renal function Status: Acute (4) Chronic kidney disease, stage IV (severe) Assessment and Plan: renal evaluation Status: Chronic
[2017-10-09] MEDS: Promethazine/Cod 6.25mg-10mg/5ml Syr UD PO PRN ×2 (00:24→05:51)
[2017-10-09 05:42] LABS: ALB/GLOB RATIO 1.1 (1.0-2.1); ALBUMIN 3.5 g/dL (3.5-5.0); CALCIUM 9.2 mg/dL (8.4-10.2)
[2017-10-09 08:26] LABS: MAGNESIUM 2.6 MG/DL (1.6-2.3)
--- NOTE | 2017-10-09 10:49 | CP.PCM.CON ---
History of Present Illness - History of Present Illness History of Present Illness: This patient is 67 years of age was controlled to see him for abnormal kidney function is rising BUN/creatinine and hyperkalemia. Patient presented to the emergency room what he stated worsening shortness of breath and he was found to have very high potassium and he was given multiple medication in the emergency room for hyperkalemia. Patient is known to me with chronic kidney disease that has been worsening comparing to the previous one which has been last january or February with a creatinine less than 3. Past medical history is significant for CABG and coronary artery disease congestive cardiomyopathy rule out heart disease. No history of diabetes Medications reviewed patient has been taking potassium supplement and Demadex among other medications. Social history not contributory Review of Systems - Review of Systems Systems not reviewed;Unavailable: Altered Mental Status - Constitutional Constitutional: Fatigue, Lethargy. absent: Chills, Fever - Cardiovascular Cardiovascular: Dyspnea, Dyspnea on Exertion, Irregular Heart Rhythm. absent: Acrocyanosis, Edema - Respiratory Respiratory: Dyspnea on Exertion, Chest Congestion - Gastrointestinal Gastrointestinal: absent: Abdominal Pain, Belching, Coffee Ground Emesis, Nausea - Genitourinary Genitourinary: Nocturia. absent: Hematuria, Pyuria - Musculoskeletal Musculoskeletal: Abnormal Gait, Muscle Weakness. absent: Numbness, Tingling - Integumentary Integumentary: absent: Acne, Photosensitivity, Pruritus - Neurological Neurological: Abnormal Gait. absent: Confusion, Syncope - Psychiatric Psychiatric: As Per HPI - Hematologic/Lymphatic Hematologic: absent: Easy Bleeding Past Patient History - Past Medical History & Family History Past Medical History?: Yes - Past Social History Smoking Status: Former Smoker - CARDIAC Hx Cardiac Disorders: Yes Hx Atrial Fibrillation: Yes Hx Congestive Heart Failure: Yes Hx Hypertension: Yes Hx Pacemaker: Yes (2010) - PULMONARY Hx Respiratory Disorders: Yes Hx Pneumonia: Yes - NEUROLOGICAL Hx Neurological Disorder: No HX Cerebrovascular Accident: No - HEENT Hx HEENT Problems: Yes - RENAL Hx Chronic Kidney Disease: Yes Hx Dialysis: No - ENDOCRINE/METABOLIC Hx Endocrine Disorders: No - HEMATOLOGICAL/ONCOLOGICAL Hx Blood Disorders: No Hx AIDS: No Hx Human Immunodeficiency Virus (HIV): No - INTEGUMENTARY Hx Dermatological Problems: No - MUSCULOSKELETAL/RHEUMATOLOGICAL Hx Musculoskeletal Disorders: Yes Hx Arthritis: Yes Hx Falls: No - GASTROINTESTINAL Hx Gastrointestinal Disorders: No - GENITOURINARY/GYNECOLOGICAL Hx Genitourinary Disorders: No - PSYCHIATRIC Hx Psychophysiologic Disorder: No Hx Substance Use: No - SURGICAL HISTORY Hx Surgeries: No Other/Comment: Pacemaker. Aortic valve dissection , Open heart surgery 2010 - ANESTHESIA Hx Anesthesia: Yes Hx Anesthesia Reactions: No Hx Malignant Hyperthermia: No Meds Allergies/Adverse Reactions: Allergies Allergy/AdvReac Type Severity Reaction Status Date / Time warfarin [From Coumadin] Allergy ANAPHYLAXIS Verified 01/20/17 17:42 - Medications Medications: Current Medications Clopidogrel Bisulfate (Plavix) 75 mg PO DAILY [facility] Metoprolol Tartrate (Lopressor) 25 mg PO Q12 TONY Last Admin: 10/09/17 09:37 Dose: 25 mg Promethazine HCl/Codeine (Phenergan/Codeine Oral Syrup) 5 ml PO Q6 PRN PRN Reason: Cough Last Admin: 10/09/17 05:51 Dose: 5 ml Sodium Polystyrene Sulfonate (Kayexalate Susp) 30 gm PO ONCE ONE Stop: 10/09/17 11:01 Physical Exam - Constitutional Appears: No Acute Distress - ENT Exam ENT Exam: Mucous Membranes Moist - Neck Exam Neck exam: Negative for: Lymphadenopathy - Respiratory Exam Respiratory Exam: Rhonchi, NORMAL BREATHING PATTERN. absent: Chest Wall Tenderness - Cardiovascular Exam Cardiovascular Exam: absent: Gallop, JVD, Rubs - GI/Abdominal Exam GI & Abdominal Exam: Normal Bowel Sounds, Soft. absent: Distended, Mass - Extremities Exam Extremities exam: Negative for: calf tenderness - Back Exam Back exam: absent: CVA tenderness (L), CVA tenderness (R) - Neurological Exam Neurological exam: Altered - Psychiatric Exam Psychiatric exam: Normal Mood Results - Vital Signs Recent Vital Signs: Last Vital Signs Temp 97.4 F L 10/09/17 08:10 Pulse 63 10/09/17 09:37 Resp 18 10/09/17 08:10 BP 113/64 10/09/17 09:37 Pulse Ox 100 10/09/17 08:10 - Labs Result Diagrams: 10/08/17 14:00 10/09/17 04:20 Labs: Laboratory Results - last 24 hr 10/08/17 10/08/17 10/08/17 12:50 14:00 14:00 WBC 8.4 RBC 3.67 L Hgb 11.9 L Hct 39.0 MCV 106.3 H D MCH 32.4 H MCHC 30.5 L RDW 17.4 H Plt Count 178 MPV 9.0 Neut % (Auto) 87.9 H Lymph % (Auto) 2.5 L [place] % (Auto) 9.0 Eos % (Auto) 0.0 Baso % (Auto) 0.6 Neut # (Auto) 7.4 H Lymph # (Auto) 0.2 L [place] # (Auto) 0.8 Eos # (Auto) 0.0 Baso # (Auto) 0.1 Neutrophils % (Manual) 89 H Lymphocytes % (Manual) 7 L Monocytes % (Manual) 4 Nucleated RBC % 1 H Platelet Estimate Normal Hypochromasia (manual) Slight Anisocytosis (manual) Slight Macrocytosis (manual) Moderate Tear Drop Cells Slight Ovalocytes Slight Schistocytes Slight Sodium 147 Potassium 7.6 H* D Chloride 111 H Carbon Dioxide 16 L Anion Gap 28 H BUN 89 H Creatinine 4.3 H Est GFR ( Amer) 17 Est GFR (Non-Af Amer) 14 Random Glucose 112 H Calcium 9.1 Phosphorus Magnesium Total Bilirubin AST ALT Alkaline Phosphatase Troponin I 0.0750 NT-Pro-B Natriuret Pep 280169 H Total Protein Albumin Globulin Albumin/Globulin Ratio Vitamin B12 Digoxin 1.3 10/08/17 10/09/17 10/09/17 16:50 04:20 04:20 WBC RBC Hgb Hct MCV MCH MCHC RDW Plt Count MPV Neut % (Auto) Lymph % (Auto) [place] % (Auto) Eos % (Auto) Baso % (Auto) Neut # (Auto) Lymph # (Auto) [place] # (Auto) Eos # (Auto) Baso # (Auto) Neutrophils % (Manual) Lymphocytes % (Manual) Monocytes % (Manual) Nucleated RBC % Platelet Estimate Hypochromasia (manual) Anisocytosis (manual) Macrocytosis (manual) Tear Drop Cells Ovalocytes Schistocytes Sodium 152 H Potassium 6.8 H* 6.0 H Chloride 112 H Carbon Dioxide 21 L Anion Gap 25 H BUN 93 H Creatinine 4.7 H Est GFR ( Amer) 15 Est GFR (Non-Af Amer) 12 Random Glucose 106 Calcium 9.2 Phosphorus 7.6 H Magnesium Total Bilirubin 0.6 AST 20 ALT 34 Alkaline Phosphatase 92 Troponin I NT-Pro-B Natriuret Pep Total Protein 6.6 Albumin 3.5 D Globulin 3.2 Albumin/Globulin Ratio 1.1 Vitamin B12 Digoxin 10/09/17 07:43 WBC RBC Hgb Hct MCV MCH MCHC RDW Plt Count MPV Neut % (Auto) Lymph % (Auto) [place] % (Auto) Eos % (Auto) Baso % (Auto) Neut # (Auto) Lymph # (Auto) [place] # (Auto) Eos # (Auto) Baso # (Auto) Neutrophils % (Manual) Lymphocytes % (Manual) Monocytes % (Manual) Nucleated RBC % Platelet Estimate Hypochromasia (manual) Anisocytosis (manual) Macrocytosis (manual) Tear Drop Cells Ovalocytes Schistocytes Sodium Potassium Chloride Carbon Dioxide Anion Gap BUN Creatinine Est GFR ( Amer) Est GFR (Non-Af Amer) Random Glucose Calcium Phosphorus Magnesium 2.6 H Total Bilirubin AST ALT Alkaline Phosphatase Troponin I NT-Pro-B Natriuret Pep Total Protein Albumin Globulin Albumin/Globulin Ratio Vitamin B12 820 Digoxin Assessment & Plan (1) Chronic kidney disease, stage V Assessment and Plan: Patient appeared to have a chronic kidney disease at this point his GFR about 11 stage V. Most likely with acute kidney injury superimposed on chronic kidney disease from congestive heart failure. His baseline serum creatinine was in the range of less than 3 Etiology of chronic kidney disease most likely related to nephrosclerosis . and congestive cardiomyopathy Also patient presented with severe hyperkalemia he was treated in the emergency room serum potassium is still 6.0 we will give stat Kayexalate right now and discontinue potassium supplement. Stat spot urine for urinalysis and creatinine and protein to calculate the protein to creatinine ratio. Serum phosphorus level Serum PTH level As far as diuretics we will hold Lasix perhaps for one day and to monitor kidney function if not improving we will proceed with hemodialysis. Diet including 2 g sodium, 2 g potassium .50 g protein. I discussed with RN practitioner to give stat dose of Kayexalate. US of kidney Status: Acute (2) Elevated troponin Status: Acute (3) Pleural effusion Status: Acute (4) Systolic dysfunction with acute on chronic heart failure Status: Acute
[2017-10-09] MEDS ORDERED: Sod Polystyrene Sulf 15 gm/60 ml Susp PO ONE (11:00)
--- NOTE | 2017-10-09 11:30 | CP.PCM.HP ---
<EmmettJose - Last Filed: 10/09/17 13:01> History of Present Illness - History of Present Illness History of Present Illness: 67 year old male with PMH of dilated cardiomyopathy, valvular heart disease, afib and CKD, who presented to hosp Yesterday with c/o progressive SOB. The patient states symptoms began about 5-6 days ago, and occurred when walking or with minimal exertion. Admitted orthopnea and fatigue. Denies chest pain, palpitations ,vomiting, nausea, headache or acute changes in urination or stools. Afebrile. Present on Admission - Present on Admission Any Indicators Present on Admission: No Review of Systems - Review of Systems All systems: reviewed and no additional remarkable complaints except - Cardiovascular Cardiovascular: Dyspnea, Dyspnea on Exertion, Orthopnea. absent: Chest Pain Past Patient History - Past Medical History & Family History Past Medical History?: Yes - Past Social History Smoking Status: Former Smoker - CARDIAC Hx Cardiac Disorders: Yes Hx Atrial Fibrillation: Yes Hx Congestive Heart Failure: Yes Hx Hypertension: Yes Hx Pacemaker: Yes (2010) - PULMONARY Hx Respiratory Disorders: Yes Hx Pneumonia: Yes - NEUROLOGICAL Hx Neurological Disorder: No HX Cerebrovascular Accident: No - HEENT Hx HEENT Problems: Yes - RENAL Hx Chronic Kidney Disease: Yes Hx Dialysis: No - ENDOCRINE/METABOLIC Hx Endocrine Disorders: No - HEMATOLOGICAL/ONCOLOGICAL Hx Blood Disorders: No Hx AIDS: No Hx Human Immunodeficiency Virus (HIV): No - INTEGUMENTARY Hx Dermatological Problems: No - MUSCULOSKELETAL/RHEUMATOLOGICAL Hx Musculoskeletal Disorders: Yes Hx Arthritis: Yes Hx Falls: No - GASTROINTESTINAL Hx Gastrointestinal Disorders: No - GENITOURINARY/GYNECOLOGICAL Hx Genitourinary Disorders: No - PSYCHIATRIC Hx Psychophysiologic Disorder: No Hx Substance Use: No - SURGICAL HISTORY Hx Surgeries: No Other/Comment: Pacemaker. Aortic valve dissection , Open heart surgery 2009 - ANESTHESIA Hx Anesthesia: Yes Hx Anesthesia Reactions: No Hx Malignant Hyperthermia: No Meds Allergies/Adverse Reactions: Allergies Allergy/AdvReac Type Severity Reaction Status Date / Time warfarin [From Coumadin] Allergy ANAPHYLAXIS Verified 01/20/17 17:42 Physical Exam - Constitutional Appears: Non-toxic - Eye Exam Eye Exam: EOMI, PERRL - ENT Exam ENT Exam: Mucous Membranes Moist - Respiratory Exam Respiratory Exam: Wheezes (Scattered, diffuse, inspiratory). absent: Decreased Breath Sounds, Respiratory Distress - Cardiovascular Exam Cardiovascular Exam: Irregular Rhythm, +S1, +S2. absent: Gallop - GI/Abdominal Exam GI & Abdominal Exam: Normal Bowel Sounds, Soft. absent: Distended, Guarding, Rigid, Tenderness - Extremities Exam Extremities exam: Negative for: calf tenderness - Neurological Exam Neurological exam: Alert, Oriented x3 - Psychiatric Exam Psychiatric exam: Normal Affect, Normal Mood - Skin Skin Exam: Normal Color, Warm Results - Vital Signs Recent Vital Signs: Last Vital Signs Temp 97.4 F L 10/09/17 08:10 Pulse 63 10/09/17 09:37 Resp 18 10/09/17 08:10 BP 113/64 10/09/17 09:37 Pulse Ox 100 10/09/17 08:10 - Labs Result Diagrams: 10/08/17 14:00 10/09/17 04:20 Labs: Laboratory Results - last 24 hr 10/08/17 10/08/17 10/08/17 12:50 14:00 14:00 WBC 8.4 RBC 3.67 L Hgb 11.9 L Hct 39.0 MCV 106.3 H D MCH 32.4 H MCHC 30.5 L RDW 17.4 H Plt Count 178 MPV 9.0 Neut % (Auto) 87.9 H Lymph % (Auto) 2.5 L [place] % (Auto) 9.0 Eos % (Auto) 0.0 Baso % (Auto) 0.6 Neut # (Auto) 7.4 H Lymph # (Auto) 0.2 L [place] # (Auto) 0.8 Eos # (Auto) 0.0 Baso # (Auto) 0.1 Neutrophils % (Manual) 89 H Lymphocytes % (Manual) 7 L Monocytes % (Manual) 4 Nucleated RBC % 1 H Platelet Estimate Normal Hypochromasia (manual) Slight Anisocytosis (manual) Slight Macrocytosis (manual) Moderate Tear Drop Cells Slight Ovalocytes Slight Schistocytes Slight Sodium 147 Potassium 7.6 H* D Chloride 111 H Carbon Dioxide 16 L Anion Gap 28 H BUN 89 H Creatinine 4.3 H Est GFR ( Amer) 17 Est GFR (Non-Af Amer) 14 Random Glucose 112 H Calcium 9.1 Phosphorus Magnesium Total Bilirubin AST ALT Alkaline Phosphatase Troponin I 0.0750 NT-Pro-B Natriuret Pep 648860 H Total Protein Albumin Globulin Albumin/Globulin Ratio Vitamin B12 Digoxin 1.3 10/08/17 10/09/17 10/09/17 16:50 04:20 04:20 WBC RBC Hgb Hct MCV MCH MCHC RDW Plt Count MPV Neut % (Auto) Lymph % (Auto) [place] % (Auto) Eos % (Auto) Baso % (Auto) Neut # (Auto) Lymph # (Auto) [place] # (Auto) Eos # (Auto) Baso # (Auto) Neutrophils % (Manual) Lymphocytes % (Manual) Monocytes % (Manual) Nucleated RBC % Platelet Estimate Hypochromasia (manual) Anisocytosis (manual) Macrocytosis (manual) Tear Drop Cells Ovalocytes Schistocytes Sodium 152 H Potassium 6.8 H* 6.0 H Chloride 112 H Carbon Dioxide 21 L Anion Gap 25 H BUN 93 H Creatinine 4.7 H Est GFR ( Amer) 15 Est GFR (Non-Af Amer) 12 Random Glucose 106 Calcium 9.2 Phosphorus 7.6 H Magnesium Total Bilirubin 0.6 AST 20 ALT 34 Alkaline Phosphatase 92 Troponin I NT-Pro-B Natriuret Pep Total Protein 6.6 Albumin 3.5 D Globulin 3.2 Albumin/Globulin Ratio 1.1 Vitamin B12 Digoxin 10/09/17 07:43 WBC RBC Hgb Hct MCV MCH MCHC RDW Plt Count MPV Neut % (Auto) Lymph % (Auto) [place] % (Auto) Eos % (Auto) Baso % (Auto) Neut # (Auto) Lymph # (Auto) [place] # (Auto) Eos # (Auto) Baso # (Auto) Neutrophils % (Manual) Lymphocytes % (Manual) Monocytes % (Manual) Nucleated RBC % Platelet Estimate Hypochromasia (manual) Anisocytosis (manual) Macrocytosis (manual) Tear Drop Cells Ovalocytes Schistocytes Sodium Potassium Chloride Carbon Dioxide Anion Gap BUN Creatinine Est GFR ( Amer) Est GFR (Non-Af Amer) Random Glucose Calcium Phosphorus Magnesium 2.6 H Total Bilirubin AST ALT Alkaline Phosphatase Troponin I NT-Pro-B Natriuret Pep Total Protein Albumin Globulin Albumin/Globulin Ratio Vitamin B12 820 Digoxin Assessment & Plan - Assessment and Plan (Free Text) Assessment: CHF exacerbation Systolic previous Echo EF 15-20 %. Dilated Cardiomyopathy s/p Lasix at ED Clinically markedly improved PrBnp elevated As per patient he was compliant with meds Cardiology consult appreciated Acute on CKD Nephrology consut. Will f/u recs Creatine/BUN increased from baseline in February 2017 Poss due CHF decompensation Stop diuretics for now Await Nephro recs Hyperkalemia Poss due to ROBERT K improved to 6 today S/p Kayexalate and calcium gluconate at ED Will receive another dose of kayexalate Chronic A.fib Rate controlled F/U cardio recs <Meño Adame - Last Filed: 10/14/17 20:26> Results - Vital Signs Recent Vital Signs: Last Vital Signs Temp 97.5 F L 10/14/17 19:14 Pulse 89 10/14/17 19:14 Resp 18 10/14/17 19:14 BP 123/74 10/14/17 19:14 Pulse Ox 99 10/14/17 19:14 - Labs Result Diagrams: 10/13/17 05:11 10/13/17 05:11 Assessment & Plan - Assessment and Plan (Free Text) Plan: I was present during evaluation and discussed with Dr Christine re Plans of care and mgt. Meño Adame M.D.
[2017-10-09] MEDS ORDERED: cefTRIAXone 2 GM in Sodium Chloride 0.9% 100 ML IVPB SCH (15:15)
--- NOTE | 2017-10-09 15:50 | US ---
PROCEDURE: Renal ultrasound dated 10/09/2017. History ARF COMPARISON: Comparison made with prior renal ultrasound dated 01/12/[address] scan of the abdomen and pelvis 01/24/2017. TECHNIQUE: Transabdominal sonographic evaluation of the kidneys performed. FINDINGS: RIGHT KIDNEY: Right kidney measures approximately 8.8 x 4.6 x 4.8 cm . Left kidney measures approximately 9.9 x 5.6 x 5.3 The renal parenchyma is echogenic bilaterally suggesting underlying medical renal disease. Re- demonstrated are multiple varying sized bilateral cysts and additional rounded echogenic foci that probably represent hyperdense cysts however solid components cannot be excluded. Additionally, several of these cysts and hyperdense foci are associated with tiny calcifications . Note that the findings are seen to better advantage on prior CT scan. Consider pre and post-contrast solid masses/ tumor which cannot be completely excluded based on this exam. Solid tumor component. No evidence of hydronephrosis. . IMPRESSION: The renal parenchyma is echogenic suggesting underlying medical renal disease. There are multiple hypoechoic and hyperechoic of varying sized rounded foci in the throughout both kidneys likely representing cysts and hyperdense cysts some of which are associate with calcifications. Note that the possibility of underlying solid components or solid masses not excluded. Consider follow-up pre and post-contrast MRI to exclude underlying tumor. No obstructive hydronephrosis.
--- NOTE | 2017-10-09 19:36 | CP.PCM.PN ---
Subjective - Date & Time of Evaluation Date of Evaluation: 10/09/17 Time of Evaluation: 19:35 - Subjective Subjective: I D NOTE PATIENT EXAMINED ,CHART REVIEWED DISCUSSED c SON HAVE STARTED MEREM/CLINDAMYCIN CT SCANS ORDERED : CHEST/ABDOMEN /PELVIS FULL CONSULT DICTATED Objective - Vital Signs/Intake and Output Vital Signs (last 24 hours): Temp Pulse Resp BP Pulse Ox 97.5 F L 73 18 114/67 100 10/09/17 15:41 10/09/17 15:41 10/09/17 15:41 10/09/17 15:41 10/09/17 15:41 - Medications Medications: Current Medications Clopidogrel Bisulfate (Plavix) 75 mg PO DAILY [facility] Last Admin: 10/09/17 13:34 Dose: 75 mg Ceftriaxone Sodium 2 gm/ (Sodium Chloride) 100 mls @ 100 mls/hr IVPB DAILY [facility] PRN Reason: Protocol Last Admin: 10/09/17 17:58 Dose: 100 mls/hr Meropenem 500 mg/ Sodium (Chloride) 100 mls @ 100 mls/hr IVPB Q24H [facility] PRN Reason: Protocol Clindamycin Phosphate 600 mg/ (Sodium Chloride) 54 mls @ 54 mls/hr IVPB Q12 [facility] PRN Reason: Protocol Metoprolol Tartrate (Lopressor) 25 mg PO Q12 [facility] Last Admin: 10/09/17 09:37 Dose: 25 mg Promethazine HCl/Codeine (Phenergan/Codeine Oral Syrup) 5 ml PO Q6 PRN PRN Reason: Cough Last Admin: 10/09/17 05:51 Dose: 5 ml - Labs Labs: 10/08/17 14:00 10/09/17 04:20
[2017-10-09] MEDS: Meropenem 500 MG in Sodium Chloride 0.9% 100 ML IVPB SCH (22:32)
--- NOTE | 2017-10-10 00:10 | CT ---
EXAM: CT Abdomen and Pelvis Without Intravenous Contrast CLINICAL HISTORY: 67 years old, male; Condition or disease; Other: R/O renal ca. ; Lung condition and disease; Other: Chf exacerbation; Prior surgery; Surgery type: Heart surgery; Additional info: Rll infiltrate TECHNIQUE: Axial computed tomography images of the abdomen and pelvis without intravenous contrast. All CT scans at this facility use one or more dose reduction techniques, viz.: automated exposure control; ma/kV adjustment per patient size (including targeted exams where dose is matched to indication; i.e. head); or iterative reconstruction technique. Coronal and sagittal reformatted images were created and reviewed. COMPARISON: No relevant prior studies available. FINDINGS: ABDOMEN: Liver: The liver is within normal limits for this noncontrast study. Gallbladder and bile ducts: The gallbladder is contracted with multiple tiny calcified gallstones. No ductal dilation. Pancreas: Unremarkable. No ductal dilation. Spleen: Unremarkable. No splenomegaly. Adrenals: Unremarkable. No mass. Kidneys and ureters: There are multiple bilateral low density simple renal cysts. There are multiple bilateral hyperdense renal lesions most likely secondary to hemorrhagic or proteinaceous cysts, unchanged. The largest in the upper pole the left kidney measures 2 cm, unchanged. There are multiple punctate bilateral renal calcifications. There is no evidence of hydronephrosis. Stomach and bowel: Moderate diverticulosis is present in the sigmoid and descending colon. There is no wall thickening or pericolonic stranding to suggest colitis. No obstruction. Appendix: A normal appendix is identified. PELVIS: Bladder: Unremarkable. No stones. Reproductive: Unremarkable as visualized. ABDOMEN and PELVIS: Intraperitoneal space: No free air. No significant fluid collection. Bones/joints: Degenerative changes at multiple levels. No acute fracture. No dislocation. Soft tissues: There is a fat-containing umbilical hernia. Vasculature: Again redemonstrated is an abdominal aortic aneurysm measuring 3.8 cm in greatest diameter at the level of the celiac artery, unchanged. There is linear calcification which bisects the lumen of the aorta from the hiatus to the distal aorta consistent with chronic aortic dissection. No aortic rupture. Lymph nodes: Unremarkable. No enlarged lymph nodes. IMPRESSION: Stable findings compared to the prior study dated 01/24/2017. Multiple bilateral simple renal cysts. Multiple bilateral hyperdense renal lesions, unchanged most likely secondary to proteinaceous or hemorrhagic cysts. Solid lesions are not completely excluded. Recommend abdominal CT or MRI follow-up in 6-12 months. Diverticulosis without acute diverticulitis. Chronic thoracic aortic dissection without rupture. Further evaluation with CT angiogram of the aorta or MRI could be obtained. EXAM: CT Chest Without Intravenous Contrast CLINICAL HISTORY: 67 years old, male; Condition or disease; Other: R/O renal ca. ; Lung condition and disease; Other: Chf exacerbation; Prior surgery; Surgery type: Heart surgery; Additional info: Rll infiltrate TECHNIQUE: Axial computed tomography images of the chest without intravenous contrast. All CT scans at this facility use one or more dose reduction techniques, viz.: automated exposure control; ma/kV adjustment per patient size (including targeted exams where dose is matched to indication; i.e. head); or iterative reconstruction technique. Coronal and sagittal reformatted images were created and reviewed. COMPARISON: CT - ABD PELVIS W/O PO OR IV CONT 2017-01-24 16:33 FINDINGS: Lungs: Patchy right middle lobe and lung base airspace opacities possibly secondary to an infectious/inflammatory process. Pleural space: There is a small right pleural fluid collection present. No pneumothorax. Heart: The heart demonstrates moderate diffuse enlargement. Coronary artery calcification. No significant pericardial effusion. Thyroid: There is a large low density nodule in the left thyroid lobe with rim calcification measuring 4.8 x 4.3 cm. Bones/joints: There are sternal wires consistent with previous sternotomy incision. There are degenerative changes at multiple levels. No acute fracture. No dislocation. Soft tissues: Unremarkable. Vasculature: Ascending aorta is ectatic measuring 4.1 cm, unchanged. Again demonstrated is linear calcification which bisects the lumen of the distal aortic arch and descending aorta suspicious for chronic aortic dissection, unchanged compared to the prior study dated 01/24/2017. No aortic rupture. Lymph nodes: Unremarkable. No enlarged lymph nodes. Tubes, lines and devices: A pacemaker device is present, and its leads are in appropriate position. IMPRESSION: Small right pleural effusion. Right middle lobe and lung base airspace opacity suspicious for pneumonia. Stable abdominal aortic aneurysm with chronic dissection from the chest to the distal aorta. No aortic rupture. Evaluation is limited by unenhanced technique. Further evaluation with CT angiogram of the aorta or MRI could be obtained. Large left thyroid calcified nodule. Recommend further evaluation with nonemergent thyroid ultrasound. Moderate cardiomegaly, unchanged.
[2017-10-10 05:30] LABS: HEMOGLOBIN 10.2 g/dL (12.0-18.0); MEAN CELL VOLUME 104.1 fl (80.0-94.0); MEAN CORPUSCULAR HGB CONC 31.7 g/dL (33.0-37.0); RBC 3.09 Mil/uL (4.40-5.90); RED CELL DISTRIBUTION WIDTH 15.9 % (11.5-14.5); WHITE BLOOD COUNT 9.2 K/uL (4.8-10.8)
[2017-10-10 05:54] LABS: CALCIUM 7.8 mg/dL (8.4-10.2)
[2017-10-10] MEDS: Clindamycin 600mg/50ml NS 600 MG/50 ML BAG IVPB SCH ×2 (08:54→22:14)
[2017-10-10] MEDS ORDERED: FEBUXOSTAT 80 MG PO SCH (11:00)
--- NOTE | 2017-10-10 11:07 | CP.PCM.PN ---
<EmmettJose - Last Filed: 10/10/17 11:02> Subjective - Date & Time of Evaluation Date of Evaluation: 10/10/17 Time of Evaluation: 10:20 - Subjective Subjective: Feeling better, less SOB. Has no new complains today. No acute events overnight. Objective - Vital Signs/Intake and Output Vital Signs (last 24 hours): Temp Pulse Resp BP Pulse Ox 97.5 F L 71 20 123/50 L 100 10/10/17 08:00 10/10/17 08:54 10/10/17 08:00 10/10/17 08:54 10/10/17 08:00 - Medications Medications: Current Medications Clopidogrel Bisulfate (Plavix) 75 mg PO DAILY [facility] Last Admin: 10/10/17 08:54 Dose: 75 mg Enoxaparin Sodium (Lovenox) 30 mg SC DAILY [facility] PRN Reason: Protocol Home Med (Febuxostat [Uloric]) 80 mg PO DAILY [facility] Meropenem 500 mg/ Sodium (Chloride) 100 mls @ 100 mls/hr IVPB Q24H [facility] PRN Reason: Protocol Last Admin: 10/09/17 22:32 Dose: 100 mls/hr Clindamycin Phosphate (Cleocin In Normal Saline) 600 mg in 50 mls @ 50 mls/hr IVPB Q12 [facility] PRN Reason: Protocol Last Admin: 10/10/17 08:54 Dose: 50 mls/hr Metoprolol Tartrate (Lopressor) 25 mg PO Q12 [facility] Last Admin: 10/10/17 08:54 Dose: 25 mg Promethazine HCl/Codeine (Phenergan/Codeine Oral Syrup) 5 ml PO Q6 PRN PRN Reason: Cough Last Admin: 10/09/17 05:51 Dose: 5 ml - Labs Labs: 10/10/17 04:25 10/10/17 04:25 - Constitutional Appears: Non-toxic, Chronically Ill - Eye Exam Eye Exam: EOMI, PERRL - ENT Exam ENT Exam: Mucous Membranes Moist - Respiratory Exam Respiratory Exam: Wheezes (Scattered, inspiratory). absent: Rales, Respiratory Distress - Cardiovascular Exam Cardiovascular Exam: +S1, +S2. absent: Gallop - GI/Abdominal Exam GI & Abdominal Exam: Soft, Normal Bowel Sounds. absent: Tenderness - Extremities Exam Extremities Exam: Full ROM, Normal Capillary Refill - Neurological Exam Neurological Exam: Alert, Awake, Oriented x3 - Psychiatric Exam Psychiatric exam: Normal Affect, Normal Mood - Skin Skin Exam: Normal Color, Warm Assessment and Plan - Assessment and Plan (Free Text) Assessment: CHF exacerbation Systolic. Dilated Cardiomyopathy Improving PrBnp trending down Cardiology consult appreciated c/w current management Acute on CKD Nephrology consut appreciated Creatine/BUN still elevated Kidney cysts unchanged from previous exams F/u Nephro recs Bacteremia to gram neg rods ID consult appreciated C/W Meropenen and Clindamycin as per ID Hx of E.Coli bacteremia in the past Echocardiogram pending report Hyperkalemia Resolved Chronic A.fib/Pacemaker Rate controlled F/U cardio recs <Meño Adame - Last Filed: 10/14/17 20:31> Objective - Vital Signs/Intake and Output Vital Signs (last 24 hours): Temp Pulse Resp BP Pulse Ox 97.5 F L 89 18 123/74 99 10/14/17 19:14 10/14/17 19:14 10/14/17 19:14 10/14/17 19:14 10/14/17 19:14 Intake and Output: 10/14/17 10/15/17 18:59 06:59 Intake Total 870 Balance 870 - Medications Medications: Current Medications Albuterol/Ipratropium (Duoneb 3 Mg/0.5 Mg (3 Ml) Ud) 3 ml INH RQ6 PRN PRN Reason: Shortness of Breath Last Admin: 10/13/17 11:54 Dose: 3 ml Clopidogrel Bisulfate (Plavix) 75 mg PO DAILY [facility] Last Admin: 10/14/17 09:41 Dose: 75 mg Colchicine (Colocrys) 0.6 mg PO DAILY [facility] Last Admin: 10/14/17 09:41 Dose: 0.6 mg Enoxaparin Sodium (Lovenox) 30 mg SC DAILY [facility] PRN Reason: Protocol Last Admin: 10/14/17 09:41 Dose: 30 mg Furosemide (Lasix) 40 mg PO DAILY [facility] Last Admin: 10/14/17 09:41 Dose: 40 mg Clindamycin Phosphate (Cleocin In Normal Saline) 600 mg in 50 mls @ 50 mls/hr IVPB Q12 [facility] PRN Reason: Protocol Last Admin: 10/14/17 09:39 Dose: 50 mls/hr Cefepime HCl 1 gm/ Sodium (Chloride) 100 mls @ 100 mls/hr IVPB DAILY [facility] PRN Reason: Protocol Last Admin: 10/14/17 09:39 Dose: 100 mls/hr Metoprolol Tartrate (Lopressor) 25 mg PO Q12 [facility] Last Admin: 10/14/17 09:40 Dose: 25 mg Promethazine HCl/Codeine (Phenergan/Codeine Oral Syrup) 5 ml PO Q6 PRN PRN Reason: Cough Last Admin: 10/14/17 01:47 Dose: 5 ml Sevelamer Carbonate (Renvela) 1.6 gm PO TIDWM [facility] Last Admin: 10/14/17 16:52 Dose: 1.6 gm - Labs Labs: 10/13/17 05:11 10/13/17 05:11 Assessment and Plan - Assessment and Plan (Free Text) Plan: I was present during evaluation and discussed with Dr Christine re plans of care and tx. Meño Adame M.D.
--- NOTE | 2017-10-10 11:33 | CARD ---
APPROVED REPORT EXAM: Two-dimensional and M-mode echocardiogram with Doppler and color Doppler. Other Information Quality : ExcellentRhythm : Pacemaker INDICATION Congestive Heart Failure Surgery/Intervention ICD/Pacemaker: 2D DIMENSIONS IVSd1.37 (0.7-1.1cm)LVDd6.86 (3.9-5.9cm) LVOT Diameter2.63 (1.8-2.4cm)PWd1.31 (0.7-1.1cm) IVSs0.94 (0.8-1.2cm)LVDs6.43 (2.5-4.0cm) FS (%) 6.2 %PWs1.53 (0.8-1.2cm) M-Mode DIMENSIONS Left Atrium (MM)5.63 (2.5-4.0cm)IVSd0.88 (0.7-1.1cm) Aortic Root4.60 (2.2-3.7cm)LVDd7.98 (4.0-5.6cm) Aortic Cusp Exc.2.28 (1.5-2.0cm)PWd0.96 (0.7-1.1cm) IVSs1.07 cmFS (%) 16 % LVDs6.69 (2.0-3.8cm)PWs1.58 cm Aortic Valve AI P 1/2 [id number] Mitral Valve E/A ratio0.0 TDI E/Lateral E'0.0E/Medial E'0.0 Pulmonary Valve PV Peak Rxplljeu48.5cm/s Tricuspid Valve TR Peak [id number] [id number] Peak Gr.42mmHg [id number] LEFT VENTRICLE The Left Ventricle is severely dilated. There is normal left ventricular wall thickness. Left ventricle systolic function is severely impaired. The Ejection Fraction is 5-10% There is global hypokinesis Transmitral Doppler flow pattern is Grade IV-fixed restrictive diastolic dysfunction. No left ventricle thrombus noted on this study. There is no ventricular septal defect visualized. There is no left ventricular aneurysm. There is no mass noted in the left ventricle. RIGHT VENTRICLE The right ventricle is mildly to moderately dilated. There is normal right ventricular wall thickness. Systolic function is moderately reduced. ATRIA The left atrium is moderately dilated. The right atrium is moderately dilated. The interatrial septum is intact with no evidence for an atrial septal defect. AORTIC VALVE The aortic valve is normal in structure. There is moderate to severe aortic regurgitation. There is no aortic valvular stenosis. There is no aortic valvular vegetation. MITRAL VALVE The mitral valve is normal in structure. There is no evidence of mitral valve prolapse. There is no mitral valve stenosis. Mitral regurgitation is severe. TRICUSPID VALVE The tricuspid valve is normal in structure. There is severe tricuspid regurgitation. Right ventricular systolic pressure is estimated at 40-50 mmHg. There is no tricuspid valve prolapse or vegetation. There is no tricuspid valve stenosis. PULMONIC VALVE The pulmonary valve is normal in structure. There is no pulmonic valvular regurgitation. There is no pulmonic valvular stenosis. GREAT VESSELS The aortic root is normal in size. The ascending aorta is normal in size. IVC Doppler evaluation reveals systolic flow reversal (suggestive of severe TR). PERICARDIAL EFFUSION The pericardium appears normal. There is no pleural effusion. <Conclusion> Severely reduced LV systolic function LVEF 5-10% Dilated LV Severe Mitral Regurgitation Moderate to Severe Aortic Insufficiency Severe Tricuspid Regurgitation with mild pulmonary hypertension
--- NOTE | 2017-10-10 13:30 | CP.PCM.PN ---
Subjective - Date & Time of Evaluation Date of Evaluation: 10/10/17 Time of Evaluation: 13:24 - Subjective Subjective: Patient sitting gotten at the bedside Feeling much better More awake Appetite is okay No chest pain Objective - Vital Signs/Intake and Output Vital Signs (last 24 hours): Temp Pulse Resp BP Pulse Ox 97.5 F L 71 20 123/50 L 100 10/10/17 08:00 10/10/17 09:00 10/10/17 08:00 10/10/17 08:54 10/10/17 08:00 - Medications Medications: Current Medications Clopidogrel Bisulfate (Plavix) 75 mg PO DAILY [facility] Last Admin: 10/10/17 08:54 Dose: 75 mg Enoxaparin Sodium (Lovenox) 30 mg SC DAILY [facility] PRN Reason: Protocol Home Med (Febuxostat [Uloric]) 80 mg PO DAILY [facility] Meropenem 500 mg/ Sodium (Chloride) 100 mls @ 100 mls/hr IVPB Q24H [facility] PRN Reason: Protocol Last Admin: 10/09/17 22:32 Dose: 100 mls/hr Clindamycin Phosphate (Cleocin In Normal Saline) 600 mg in 50 mls @ 50 mls/hr IVPB Q12 [facility] PRN Reason: Protocol Last Admin: 10/10/17 08:54 Dose: 50 mls/hr Metoprolol Tartrate (Lopressor) 25 mg PO Q12 [facility] Last Admin: 10/10/17 08:54 Dose: 25 mg Promethazine HCl/Codeine (Phenergan/Codeine Oral Syrup) 5 ml PO Q6 PRN PRN Reason: Cough Last Admin: 10/09/17 05:51 Dose: 5 ml Sevelamer Carbonate (Renvela) 1.6 gm PO TIDWM [facility] - Labs Labs: 10/10/17 04:25 10/10/17 04:25 - Constitutional Appears: No Acute Distress - ENT Exam ENT Exam: Mucous Membranes Moist - Neck Exam Neck Exam: absent: Lymphadenopathy - Respiratory Exam Respiratory Exam: NORMAL BREATHING PATTERN. absent: Chest Wall Tenderness - Cardiovascular Exam Cardiovascular Exam: absent: Gallop, JVD, Rubs - GI/Abdominal Exam GI & Abdominal Exam: Soft, Normal Bowel Sounds - Extremities Exam Extremities Exam: absent: Calf Tenderness - Back Exam Back Exam: absent: CVA tenderness (L), CVA tenderness (R) - Neurological Exam Neurological Exam: Alert - Psychiatric Exam Psychiatric exam: Normal Affect - Skin Skin Exam: absent: Cyanosis Assessment and Plan (1) Chronic kidney disease, stage V Assessment & Plan: Acute kidney injury superimposed on Chronic kidney disease stage V Serum creatinine came down 4.2 Related to chronic congestive cardiomyopathy was nephrosclerosis. Hyperphosphatemia start on renvela. Urinalysis for protein and creatinine for ratio. Serum PTH pending Congestive cardiomyopathy with history of valvular disease order venous mapping for possible AV fistula Status: Acute (2) Elevated troponin Status: Acute (3) Pleural effusion Status: Acute (4) Systolic dysfunction with acute on chronic heart failure Status: Acute
[2017-10-10] MEDS: Enoxaparin 30 mg Syringe SC SCH (13:36)
[2017-10-10] MEDS: Sevelamer Carb 0.8 gm/Packet PO SCH (17:13)
[2017-10-10 17:20] LABS: SQUAMOUS EPITHIAL < 1 /hpf (0-5); URINE BILIRUBIN NEGATIVE (NEGATIVE); URINE BLOOD NEGATIVE (NEGATIVE); URINE CLARITY CLEAR (Clear); URINE COLOR YELLOW (YELLOW); URINE GLUCOSE (UA) NEG (Normal); URINE LEUKOCYTE ESTERASE NEG Leu/uL (Negative); URINE NITRATE NEGATIVE (NEGATIVE); URINE PROTEIN NEGATIVE (NEGATIVE); URINE UROBILINOGEN 0.2-1.0 mg/dL (0.2-1.0)
[2017-10-10] MEDS: Meropenem 500 MG in Sodium Chloride 0.9% 100 ML IVPB SCH (17:35)
--- NOTE | 2017-10-10 17:36 | CP.PCM.PN ---
Subjective - Date & Time of Evaluation Date of Evaluation: 10/10/17 Time of Evaluation: 17:29 - Subjective Subjective: I D NOTE AWAITING IDENTIFICAION OF GRAM NEGATIVE ADDISON CT SCANS REVIEWED CONTINUE CLINDAMYCIN AND MEROPENEM Objective - Vital Signs/Intake and Output Vital Signs (last 24 hours): Temp Pulse Resp BP Pulse Ox 98.2 F 69 18 118/62 100 10/10/17 15:57 10/10/17 15:57 10/10/17 15:57 10/10/17 15:57 10/10/17 15:57 - Medications Medications: Current Medications Clopidogrel Bisulfate (Plavix) 75 mg PO DAILY [facility] Last Admin: 10/10/17 08:54 Dose: 75 mg Enoxaparin Sodium (Lovenox) 30 mg SC DAILY [facility] PRN Reason: Protocol Last Admin: 10/10/17 13:36 Dose: 30 mg Home Med (Febuxostat [Uloric]) 80 mg PO DAILY [facility] Meropenem 500 mg/ Sodium (Chloride) 100 mls @ 100 mls/hr IVPB Q24H [facility] PRN Reason: Protocol Last Admin: 10/09/17 22:32 Dose: 100 mls/hr Clindamycin Phosphate (Cleocin In Normal Saline) 600 mg in 50 mls @ 50 mls/hr IVPB Q12 [facility] PRN Reason: Protocol Last Admin: 10/10/17 08:54 Dose: 50 mls/hr Metoprolol Tartrate (Lopressor) 25 mg PO Q12 [facility] Last Admin: 10/10/17 08:54 Dose: 25 mg Promethazine HCl/Codeine (Phenergan/Codeine Oral Syrup) 5 ml PO Q6 PRN PRN Reason: Cough Last Admin: 10/09/17 05:51 Dose: 5 ml Sevelamer Carbonate (Renvela) 1.6 gm PO TIDWM [facility] Last Admin: 10/10/17 17:13 Dose: 1.6 gm - Labs Labs: 10/10/17 04:25 10/10/17 04:25
[2017-10-10 17:52] LABS: CREATININE, RANDOM URINE 110.2 mg/dL
--- NOTE | 2017-10-10 18:32 | CP.PCM.PN ---
Subjective - Date & Time of Evaluation Date of Evaluation: 10/10/17 Time of Evaluation: 18:30 - Subjective Subjective: patient has no chest pain. less dyspnea. Objective - Vital Signs/Intake and Output Vital Signs (last 24 hours): Temp Pulse Resp BP Pulse Ox 98.2 F 69 18 118/62 100 10/10/17 15:57 10/10/17 15:57 10/10/17 15:57 10/10/17 15:57 10/10/17 15:57 - Medications Medications: Current Medications Clopidogrel Bisulfate (Plavix) 75 mg PO DAILY [facility] Last Admin: 10/10/17 08:54 Dose: 75 mg Enoxaparin Sodium (Lovenox) 30 mg SC DAILY [facility] PRN Reason: Protocol Last Admin: 10/10/17 13:36 Dose: 30 mg Home Med (Febuxostat [Uloric]) 80 mg PO DAILY [facility] Meropenem 500 mg/ Sodium (Chloride) 100 mls @ 100 mls/hr IVPB Q24H [facility] PRN Reason: Protocol Last Admin: 10/10/17 17:35 Dose: 100 mls/hr Clindamycin Phosphate (Cleocin In Normal Saline) 600 mg in 50 mls @ 50 mls/hr IVPB Q12 [facility] PRN Reason: Protocol Last Admin: 10/10/17 08:54 Dose: 50 mls/hr Metoprolol Tartrate (Lopressor) 25 mg PO Q12 [facility] Last Admin: 10/10/17 08:54 Dose: 25 mg Promethazine HCl/Codeine (Phenergan/Codeine Oral Syrup) 5 ml PO Q6 PRN PRN Reason: Cough Last Admin: 10/09/17 05:51 Dose: 5 ml Sevelamer Carbonate (Renvela) 1.6 gm PO TIDWM [facility] Last Admin: 10/10/17 17:13 Dose: 1.6 gm - Labs Labs: 10/10/17 04:25 10/10/17 04:25 - Constitutional Appears: Chronically Ill - Head Exam Head Exam: NORMAL INSPECTION - Eye Exam Eye Exam: Normal appearance - ENT Exam ENT Exam: Mucous Membranes Moist - Neck Exam Neck Exam: Full ROM - Respiratory Exam Respiratory Exam: Decreased Breath Sounds - Cardiovascular Exam Cardiovascular Exam: Irregular Rhythm - GI/Abdominal Exam GI & Abdominal Exam: Normal Bowel Sounds - Rectal Exam Rectal Exam: Deferred - Extremities Exam Extremities Exam: Pedal Edema - Back Exam Back Exam: NORMAL INSPECTION - Neurological Exam Neurological Exam: Alert - Psychiatric Exam Psychiatric exam: Normal Affect - Skin Skin Exam: Normal Color Assessment and Plan (1) CHF (congestive heart failure) Assessment & Plan: will continue fluid management. watch for volume overload Status: Chronic (2) Atrial fibrillation Status: Acute (3) Systolic dysfunction with acute on chronic heart failure Status: Acute (4) Chronic kidney disease, stage IV (severe) Assessment & Plan: followed by Dr turner Status: Chronic
[2017-10-10] MEDS: Promethazine/Cod 6.25mg-10mg/5ml Syr UD PO PRN (22:13)
[2017-10-11] MEDS: Albuterol-Ipratrop 3 mg / 0.5 (3 ml) UD INH PRN (01:24)
[2017-10-11 06:16] LABS: CALCIUM 7.6 mg/dL (8.4-10.2)
[2017-10-11] MEDS: Sevelamer Carb 0.8 gm/Packet PO SCH ×3 (08:00→18:05)
[2017-10-11] MEDS: Clindamycin 600mg/50ml NS 600 MG/50 ML BAG IVPB SCH ×2 (09:00→21:43)
[2017-10-11] MEDS: Enoxaparin 30 mg Syringe SC SCH (09:18)
--- NOTE | 2017-10-11 09:54 | CP.PCM.PN ---
Subjective - Date & Time of Evaluation Date of Evaluation: 10/11/17 Time of Evaluation: 09:51 - Subjective Subjective: Patient's sitting up IN THE BED No shortness of breath Feeling much better No nausea or vomiting no diarrhea No abdominal pain Objective - Vital Signs/Intake and Output Vital Signs (last 24 hours): Temp Pulse Resp BP Pulse Ox 97.3 F L 108 H 20 133/64 95 10/11/17 08:00 10/11/17 09:19 10/11/17 08:00 10/11/17 09:19 10/11/17 08:00 - Medications Medications: Current Medications Albuterol/Ipratropium (Duoneb 3 Mg/0.5 Mg (3 Ml) Ud) 3 ml INH RQ6 PRN PRN Reason: Shortness of Breath Last Admin: 10/11/17 01:24 Dose: 3 ml Clopidogrel Bisulfate (Plavix) 75 mg PO DAILY [facility] Last Admin: 10/11/17 09:20 Dose: 75 mg Enoxaparin Sodium (Lovenox) 30 mg SC DAILY [facility] PRN Reason: Protocol Last Admin: 10/11/17 09:18 Dose: 30 mg Furosemide (Lasix) 40 mg PO DAILY [facility] Home Med (Febuxostat [Uloric]) 80 mg PO DAILY [facility] Meropenem 500 mg/ Sodium (Chloride) 100 mls @ 100 mls/hr IVPB Q24H [facility] PRN Reason: Protocol Last Admin: 10/10/17 17:35 Dose: 100 mls/hr Clindamycin Phosphate (Cleocin In Normal Saline) 600 mg in 50 mls @ 50 mls/hr IVPB Q12 [facility] PRN Reason: Protocol Last Admin: 10/11/17 09:00 Dose: 50 mls/hr Metoprolol Tartrate (Lopressor) 25 mg PO Q12 [facility] Last Admin: 10/11/17 09:19 Dose: 25 mg Promethazine HCl/Codeine (Phenergan/Codeine Oral Syrup) 5 ml PO Q6 PRN PRN Reason: Cough Last Admin: 10/10/17 22:13 Dose: 5 ml Sevelamer Carbonate (Renvela) 1.6 gm PO TIDWM [facility] Last Admin: 10/11/17 08:00 Dose: 1.6 gm - Labs Labs: 10/10/17 04:25 10/11/17 05:00 - Constitutional Appears: No Acute Distress - ENT Exam ENT Exam: Mucous Membranes Moist - Respiratory Exam Respiratory Exam: NORMAL BREATHING PATTERN. absent: Chest Wall Tenderness, Rales - GI/Abdominal Exam GI & Abdominal Exam: Soft, Normal Bowel Sounds - Extremities Exam Extremities Exam: absent: Calf Tenderness - Back Exam Back Exam: absent: CVA tenderness (L), CVA tenderness (R) - Neurological Exam Neurological Exam: Alert - Psychiatric Exam Psychiatric exam: Normal Affect - Skin Skin Exam: absent: Cyanosis Assessment and Plan (1) Chronic kidney disease, stage V Assessment & Plan: Serum creatinine and pullover and GFR around 18 consistent with chronic kidney disease is stage IV probably that is his baseline. Patient complaining of pain in the right toe patient has been taken colchicine for gout would reorder it. Restart Lasix which has been on hold for the past couple days. Congestive cardiomyopathy with coronary artery disease Patient explained he will need venous mapping and AV fistula in the near future as outpatient hyperphosphatemia continual phosphorus binders PTH still pending Status: Acute (2) Elevated troponin Status: Acute (3) Pleural effusion Status: Acute (4) Systolic dysfunction with acute on chronic heart failure Status: Acute
[2017-10-11] MEDS ORDERED: methylPREDNISolone 125 MG in Sodium Chloride 0.9% 50 ML IVPB ONE (11:22)
--- NOTE | 2017-10-11 11:27 | CP.PCM.PN ---
<Jose Christine - Last Filed: 10/11/17 11:27> Subjective - Date & Time of Evaluation Date of Evaluation: 10/11/17 Time of Evaluation: 11:00 - Subjective Subjective: 67 y/o M doing better. Patient c/o today of L/big toe pain and swelling and request his medication for gout. no acute events overnight. Objective - Vital Signs/Intake and Output Vital Signs (last 24 hours): Temp Pulse Resp BP Pulse Ox 97.3 F L 108 H 20 133/64 95 10/11/17 08:00 10/11/17 09:19 10/11/17 08:00 10/11/17 09:19 10/11/17 08:00 - Medications Medications: Current Medications Albuterol/Ipratropium (Duoneb 3 Mg/0.5 Mg (3 Ml) Ud) 3 ml INH RQ6 PRN PRN Reason: Shortness of Breath Last Admin: 10/11/17 01:24 Dose: 3 ml Clopidogrel Bisulfate (Plavix) 75 mg PO DAILY [facility] Last Admin: 10/11/17 09:20 Dose: 75 mg Colchicine (Colocrys) 0.6 mg PO DAILY [facility] Enoxaparin Sodium (Lovenox) 30 mg SC DAILY [facility] PRN Reason: Protocol Last Admin: 10/11/17 09:18 Dose: 30 mg Furosemide (Lasix) 40 mg PO DAILY [facility] Home Med (Febuxostat [Uloric]) 80 mg PO DAILY [facility] Meropenem 500 mg/ Sodium (Chloride) 100 mls @ 100 mls/hr IVPB Q24H [facility] PRN Reason: Protocol Last Admin: 10/10/17 17:35 Dose: 100 mls/hr Clindamycin Phosphate (Cleocin In Normal Saline) 600 mg in 50 mls @ 50 mls/hr IVPB Q12 [facility] PRN Reason: Protocol Last Admin: 10/11/17 09:00 Dose: 50 mls/hr Methylprednisolone 125 mg/ (Sodium Chloride) 50 mls @ 100 mls/hr IVPB ONCE ONE Stop: 10/11/17 11:51 Metoprolol Tartrate (Lopressor) 25 mg PO Q12 [facility] Last Admin: 10/11/17 09:19 Dose: 25 mg Promethazine HCl/Codeine (Phenergan/Codeine Oral Syrup) 5 ml PO Q6 PRN PRN Reason: Cough Last Admin: 10/10/17 22:13 Dose: 5 ml Sevelamer Carbonate (Renvela) 1.6 gm PO TIDWM [facility] Last Admin: 10/11/17 08:00 Dose: 1.6 gm - Labs Labs: 10/10/17 04:25 10/11/17 05:00 - Constitutional Appears: Non-toxic, No Acute Distress - Eye Exam Eye Exam: EOMI, PERRL - ENT Exam ENT Exam: Mucous Membranes Moist - Respiratory Exam Respiratory Exam: Wheezes (Scattered. Improved), NORMAL BREATHING PATTERN. absent: Decreased Breath Sounds, Rales - Cardiovascular Exam Cardiovascular Exam: REGULAR RHYTHM, +S1, +S2. absent: Gallop - GI/Abdominal Exam GI & Abdominal Exam: Soft, Normal Bowel Sounds. absent: Tenderness - Extremities Exam Extremities Exam: Joint Swelling (Left big toe), Tenderness (L/big toe). absent : Calf Tenderness - Neurological Exam Neurological Exam: Alert, Awake, Oriented x3 - Psychiatric Exam Psychiatric exam: Normal Affect, Normal Mood - Skin Skin Exam: Warm Assessment and Plan - Assessment and Plan (Free Text) Assessment: Acute on CKD Improved creatinine levels Nephro consult appreciated: NO HD for now Will need mapping for future fistula placement CHF decompensation Stable SOB improved Restart diuretics as per Nephro recs Repeat Echo EF 5-10% Gout acute flare up Start Solumedrol 125 IV once Colchicine daily Bacteremia to E.Coli Sensitive to Meropenen Likely wont need clindamycin anymore Will wait for ID eval today and further recs <Meño Adame - Last Filed: 10/14/17 20:33> Objective - Vital Signs/Intake and Output Vital Signs (last 24 hours): Temp Pulse Resp BP Pulse Ox 97.5 F L 89 18 123/74 99 10/14/17 19:14 10/14/17 19:14 10/14/17 19:14 10/14/17 19:14 10/14/17 19:14 Intake and Output: 10/14/17 10/15/17 18:59 06:59 Intake Total 870 Balance 870 - Medications Medications: Current Medications Albuterol/Ipratropium (Duoneb 3 Mg/0.5 Mg (3 Ml) Ud) 3 ml INH RQ6 PRN PRN Reason: Shortness of Breath Last Admin: 10/13/17 11:54 Dose: 3 ml Clopidogrel Bisulfate (Plavix) 75 mg PO DAILY [facility] Last Admin: 10/14/17 09:41 Dose: 75 mg Colchicine (Colocrys) 0.6 mg PO DAILY [facility] Last Admin: 10/14/17 09:41 Dose: 0.6 mg Enoxaparin Sodium (Lovenox) 30 mg SC DAILY [facility] PRN Reason: Protocol Last Admin: 10/14/17 09:41 Dose: 30 mg Furosemide (Lasix) 40 mg PO DAILY [facility] Last Admin: 10/14/17 09:41 Dose: 40 mg Clindamycin Phosphate (Cleocin In Normal Saline) 600 mg in 50 mls @ 50 mls/hr IVPB Q12 [facility] PRN Reason: Protocol Last Admin: 10/14/17 09:39 Dose: 50 mls/hr Cefepime HCl 1 gm/ Sodium (Chloride) 100 mls @ 100 mls/hr IVPB DAILY [facility] PRN Reason: Protocol Last Admin: 10/14/17 09:39 Dose: 100 mls/hr Metoprolol Tartrate (Lopressor) 25 mg PO Q12 [facility] Last Admin: 10/14/17 09:40 Dose: 25 mg Promethazine HCl/Codeine (Phenergan/Codeine Oral Syrup) 5 ml PO Q6 PRN PRN Reason: Cough Last Admin: 10/14/17 01:47 Dose: 5 ml Sevelamer Carbonate (Renvela) 1.6 gm PO TIDWM [facility] Last Admin: 10/14/17 16:52 Dose: 1.6 gm - Labs Labs: 10/13/17 05:11 10/13/17 05:11 Assessment and Plan - Assessment and Plan (Free Text) Plan: I was present during evaluation and discussed with Dr Emmett castañeda plans of care and tx, Meño Adame M.D.
--- NOTE | 2017-10-11 15:27 | US ---
HISTORY: thyroid nodule TECHNIQUE: Sonographic evaluation of the thyroid gland. COMPARISON: CT chest 10/09/2017 FINDINGS: RIGHT LOBE: Measures 5.7 x 1.2 x 1.9 cm. Heterogeneous echotexture Nodules: Mid to upper pole predominantly cystic nodule, 1.1 cm diameter. Adjacent cystic nodule, 4 x 6 x 6 mm. Lower pole hypoechoic nodule with microcalcifications, 0.7 x 0.7 x 1.1 cm. Lower pole hypoechoic solid nodule, 4 x 6 x 6 mm. LEFT LOBE: Measures 6.7 x 4.7 x 4.2 cm. Heterogeneous echotexture Nodules: Solitary hypoechoic solid nodule with microcalcifications, 4.0 x 4.7 x 5.6 cm. There is peripheral calcification around this entire nodule. In light of the size of the nodule and presence of microcalcifications, evaluation with percutaneous biopsy is suggested. ISTHMUS: Measures 0.4 cm. Normal echotexture and flow. Nodules: None OTHER FINDINGS: None . IMPRESSION: Multinodular goiter. 5.6 cm solid nodule occupying most of the left thyroid lobe, with peripheral calcification but also with microcalcifications. Evaluation with percutaneous biopsy is suggested. There is also a 1.1 cm solid nodule in the lower pole of the right lobe with microcalcifications. Consideration should be given to percutaneous biopsy of this nodule as well.
[2017-10-11] MEDS: Meropenem 500 MG in Sodium Chloride 0.9% 100 ML IVPB SCH (18:00)
[2017-10-11] MEDS: Promethazine/Cod 6.25mg-10mg/5ml Syr UD PO PRN (18:07)
[2017-10-12 06:12] LABS: HEMOGLOBIN 9.6 g/dL (12.0-18.0); MEAN CORPUSCULAR HEMOGLOBIN 32.4 pg (27.0-31.0); MEAN CORPUSCULAR HGB CONC 31.8 g/dL (33.0-37.0); RBC 2.97 Mil/uL (4.40-5.90); RED CELL DISTRIBUTION WIDTH 15.7 % (11.5-14.5); WHITE BLOOD COUNT 4.8 K/uL (4.8-10.8)
[2017-10-12 06:42] LABS: CALCIUM 7.9 mg/dL (8.4-10.2)
[2017-10-12] MEDS: Sevelamer Carb 0.8 gm/Packet PO SCH ×3 (08:21→16:33)
--- NOTE | 2017-10-12 08:56 | US ---
PROCEDURE: Upper Extremity Venous Duplex Exam HISTORY: vein mapping PRIORS: None. TECHNIQUE: Bilateral upper extremity, internal jugular, subclavian, axillary, brachial, ulnar, radial, basilic and upper cephalic veins were evaluated. Flow was assessed with color Doppler, compressibility, assessment of phasic flow and augmentation response. FINDINGS: RIGHT: 1. Internal Jugular Vein: Compressibility - Fully compressible: Thrombus - None : Flow - Phasic 2. Subclavian Vein:Compressibility - Fully compressible: Thrombus - None : Flow - Phasic 3. Axillary Vein: Compressibility - Fully compressible: Thrombus - None 4. Brachial Vein: Compressibility - Fully compressible: Thrombus - None 5. Ulnar Vein:Compressibility - Fully compressible: Thrombus - None 6. Radial Vein:Compressibility - Fully compressible: Thrombus - None 7. Cephalic Vein: Compressibility - Fully compressible: thrombus - None 7.1. Proximal Diameter: 0.13cm. Mid and distal portions not visualized 8. Basilic Vein:Compressibility - Fully compressible: thrombus - None 8.1. Mid Diameter: 0.62cm. Distal Diameter: 0.43cm. LEFT: 1. Internal Jugular Vein: Compressibility - Fully compressible: Thrombus - None : Flow - Phasic 2. Subclavian Vein:Compressibility - Fully compressible: Thrombus - None : Flow - Phasic 3. Axillary Vein: Compressibility - Fully compressible: Thrombus - None 4. Brachial Vein: Compressibility - Fully compressible: Thrombus - None 5. Ulnar Vein:Compressibility - Fully compressible: Thrombus - None 6. Radial Vein:Compressibility - Fully compressible: Thrombus - None 7. Cephalic Vein: Not visualized 8. Basilic Vein:Compressibility - Fully compressible: thrombus - None 8.1. Mid Diameter:0.40cm. Distal Diameter: 0.34cm. OTHER FINDINGS: Right: None. Left: None. IMPRESSION: Right: Proximal cephalic vein measured 0.13 cm. Mid and distal portions not visualized. Basilic vein is measured between 0.43 cm and 0.62 cm. Left: Cephalic vein not visualized. Basilic vein is measured between 0.34cm and 0.40cm.
[2017-10-12] MEDS: Enoxaparin 30 mg Syringe SC SCH (10:23)
[2017-10-12] MEDS: Clindamycin 600mg/50ml NS 600 MG/50 ML BAG IVPB SCH ×2 (10:24→20:30)
--- NOTE | 2017-10-12 11:15 | CP.PCM.PN ---
Subjective - Date & Time of Evaluation Date of Evaluation: 10/12/17 Time of Evaluation: 11:13 - Subjective Subjective: Patient sitting gotten feeling much better although complaining of some shortness of breath. Patient stated that he has been taken a lot of liquid orally Normal showing no vomiting Objective - Vital Signs/Intake and Output Vital Signs (last 24 hours): Temp Pulse Resp BP Pulse Ox 98.1 F 63 20 119/68 99 10/12/17 08:00 10/12/17 10:25 10/12/17 08:00 10/12/17 10:25 10/12/17 08:00 - Medications Medications: Current Medications Albuterol/Ipratropium (Duoneb 3 Mg/0.5 Mg (3 Ml) Ud) 3 ml INH RQ6 PRN PRN Reason: Shortness of Breath Last Admin: 10/11/17 01:24 Dose: 3 ml Clopidogrel Bisulfate (Plavix) 75 mg PO DAILY [facility] Last Admin: 10/12/17 10:24 Dose: 75 mg Colchicine (Colocrys) 0.6 mg PO DAILY [facility] Last Admin: 10/12/17 10:23 Dose: 0.6 mg Enoxaparin Sodium (Lovenox) 30 mg SC DAILY [facility] PRN Reason: Protocol Last Admin: 10/12/17 10:23 Dose: 30 mg Furosemide (Lasix) 40 mg PO DAILY [facility] Last Admin: 10/12/17 10:23 Dose: 40 mg Meropenem 500 mg/ Sodium (Chloride) 100 mls @ 100 mls/hr IVPB Q24H [facility] PRN Reason: Protocol Last Admin: 10/11/17 18:00 Dose: 100 mls/hr Clindamycin Phosphate (Cleocin In Normal Saline) 600 mg in 50 mls @ 50 mls/hr IVPB Q12 [facility] PRN Reason: Protocol Last Admin: 10/12/17 10:24 Dose: 50 mls/hr Metoprolol Tartrate (Lopressor) 25 mg PO Q12 [facility] Last Admin: 10/12/17 10:25 Dose: 25 mg Promethazine HCl/Codeine (Phenergan/Codeine Oral Syrup) 5 ml PO Q6 PRN PRN Reason: Cough Last Admin: 10/11/17 18:07 Dose: 5 ml Sevelamer Carbonate (Renvela) 1.6 gm PO TIDWM [facility] Last Admin: 10/12/17 08:21 Dose: 1.6 gm - Labs Labs: 10/12/17 05:38 10/12/17 05:38 - Constitutional Appears: No Acute Distress - ENT Exam ENT Exam: Mucous Membranes Moist - Neck Exam Neck Exam: absent: Lymphadenopathy - Respiratory Exam Respiratory Exam: absent: Chest Wall Tenderness - Cardiovascular Exam Cardiovascular Exam: absent: Rubs - GI/Abdominal Exam GI & Abdominal Exam: Soft, Normal Bowel Sounds - Extremities Exam Extremities Exam: absent: Calf Tenderness - Back Exam Back Exam: absent: CVA tenderness (L), CVA tenderness (R) - Neurological Exam Neurological Exam: Alert - Psychiatric Exam Psychiatric exam: Normal Affect - Skin Skin Exam: absent: Cyanosis Assessment and Plan (1) Chronic kidney disease, stage V Status: Acute (2) Elevated troponin Status: Acute (3) Pleural effusion Status: Acute (4) Systolic dysfunction with acute on chronic heart failure Status: Acute (5) Chronic kidney disease, stage IV (severe) Assessment & Plan: Serum creatinine continue to improve 3.2 consistent with stage IV chronic kidney disease. Worsening of his shortness of breath and leg edema. And he was given 80 mg of Lasix now. Anemia hemoglobin drop down 9.6 with give EPO. Sepsis with Escherichia coli in the blood the latest blood culture became negative on antibiotics as per ID. Chronic congestive cardiomyopathy as per cardiology. Hyperphosphatemia patient on phosphorus binder. PTH still pending Status: Acute
[2017-10-12] MEDS ORDERED: Epoetin Alfa 4000 UNIT/ML Inj SC ONE (11:28)
--- NOTE | 2017-10-12 13:48 | CP.PCM.PN ---
Subjective - Date & Time of Evaluation Date of Evaluation: 10/12/17 Time of Evaluation: 13:50 - Subjective Subjective: I D NOTE AFEBRILE RENAL FUNCTION IS IMPROVING CREATININE IA 3.2,GFR:19 CT OF CHEST NOTED PLATELETS:119,WILL DISCONTINUE MEROPENEM POSSIBLE ETIOLOGY AND FOLLOW CBC CONTNUE CLINDAMYCIN SHOULD HAVE AT LEAST 10 DAYS OF IV ANTIBIOTICS Objective - Vital Signs/Intake and Output Vital Signs (last 24 hours): Temp Pulse Resp BP Pulse Ox 97.4 F L 70 20 110/67 100 10/12/17 13:00 10/12/17 13:00 10/12/17 13:00 10/12/17 13:00 10/12/17 13:00 - Medications Medications: Current Medications Albuterol/Ipratropium (Duoneb 3 Mg/0.5 Mg (3 Ml) Ud) 3 ml INH RQ6 PRN PRN Reason: Shortness of Breath Last Admin: 10/11/17 01:24 Dose: 3 ml Clopidogrel Bisulfate (Plavix) 75 mg PO DAILY [facility] Last Admin: 10/12/17 10:24 Dose: 75 mg Colchicine (Colocrys) 0.6 mg PO DAILY [facility] Last Admin: 10/12/17 10:23 Dose: 0.6 mg Enoxaparin Sodium (Lovenox) 30 mg SC DAILY [facility] PRN Reason: Protocol Last Admin: 10/12/17 10:23 Dose: 30 mg Furosemide (Lasix) 40 mg PO DAILY [facility] Last Admin: 10/12/17 10:23 Dose: 40 mg Clindamycin Phosphate (Cleocin In Normal Saline) 600 mg in 50 mls @ 50 mls/hr IVPB Q12 [facility] PRN Reason: Protocol Last Admin: 10/12/17 10:24 Dose: 50 mls/hr Cefepime HCl 1 gm/ Sodium (Chloride) 100 mls @ 100 mls/hr IVPB DAILY [facility] PRN Reason: Protocol Metoprolol Tartrate (Lopressor) 25 mg PO Q12 [facility] Last Admin: 10/12/17 10:25 Dose: 25 mg Promethazine HCl/Codeine (Phenergan/Codeine Oral Syrup) 5 ml PO Q6 PRN PRN Reason: Cough Last Admin: 10/11/17 18:07 Dose: 5 ml Sevelamer Carbonate (Renvela) 1.6 gm PO TIDWM [facility] Last Admin: 10/12/17 12:03 Dose: 1.6 gm - Labs Labs: 10/12/17 05:38 10/12/17 05:38
[2017-10-12] MEDS: Albuterol-Ipratrop 3 mg / 0.5 (3 ml) UD INH PRN (13:50)
--- NOTE | 2017-10-12 14:14 | CP.PCM.PN ---
<Jose Christine - Last Filed: 10/12/17 14:12> Subjective - Date & Time of Evaluation Date of Evaluation: 10/12/17 Time of Evaluation: 13:20 - Subjective Subjective: Stable, no acute distress, SOB improved but lit worse than yesterday as well as LE swelling. Patient admits he drank a lot of fluids last night. Has no new complains. Toe pain resolved. Objective - Vital Signs/Intake and Output Vital Signs (last 24 hours): Temp Pulse Resp BP Pulse Ox 97.4 F L 70 20 110/67 100 10/12/17 13:00 10/12/17 13:00 10/12/17 13:00 10/12/17 13:00 10/12/17 13:00 - Medications Medications: Current Medications Albuterol/Ipratropium (Duoneb 3 Mg/0.5 Mg (3 Ml) Ud) 3 ml INH RQ6 PRN PRN Reason: Shortness of Breath Last Admin: 10/12/17 13:50 Dose: 3 ml Clopidogrel Bisulfate (Plavix) 75 mg PO DAILY [facility] Last Admin: 10/12/17 10:24 Dose: 75 mg Colchicine (Colocrys) 0.6 mg PO DAILY [facility] Last Admin: 10/12/17 10:23 Dose: 0.6 mg Enoxaparin Sodium (Lovenox) 30 mg SC DAILY [facility] PRN Reason: Protocol Last Admin: 10/12/17 10:23 Dose: 30 mg Furosemide (Lasix) 40 mg PO DAILY [facility] Last Admin: 10/12/17 10:23 Dose: 40 mg Clindamycin Phosphate (Cleocin In Normal Saline) 600 mg in 50 mls @ 50 mls/hr IVPB Q12 [facility] PRN Reason: Protocol Last Admin: 10/12/17 10:24 Dose: 50 mls/hr Cefepime HCl 1 gm/ Sodium (Chloride) 100 mls @ 100 mls/hr IVPB DAILY [facility] PRN Reason: Protocol Metoprolol Tartrate (Lopressor) 25 mg PO Q12 [facility] Last Admin: 10/12/17 10:25 Dose: 25 mg Promethazine HCl/Codeine (Phenergan/Codeine Oral Syrup) 5 ml PO Q6 PRN PRN Reason: Cough Last Admin: 10/11/17 18:07 Dose: 5 ml Sevelamer Carbonate (Renvela) 1.6 gm PO TIDWM [facility] Last Admin: 10/12/17 12:03 Dose: 1.6 gm - Labs Labs: 10/12/17 05:38 10/12/17 05:38 - Constitutional Appears: Non-toxic, No Acute Distress, Chronically Ill - Eye Exam Eye Exam: EOMI, PERRL - ENT Exam ENT Exam: Mucous Membranes Moist - Respiratory Exam Respiratory Exam: NORMAL BREATHING PATTERN. absent: Wheezes, Respiratory Distress - Cardiovascular Exam Cardiovascular Exam: REGULAR RHYTHM, +S1, +S2. absent: Gallop - GI/Abdominal Exam GI & Abdominal Exam: Soft, Normal Bowel Sounds. absent: Tenderness - Extremities Exam Extremities Exam: Pedal Edema. absent: Calf Tenderness, Tenderness - Neurological Exam Neurological Exam: Alert, Normal Gait, Oriented x3 - Psychiatric Exam Psychiatric exam: Normal Affect, Normal Mood - Skin Skin Exam: Normal Color, Warm Assessment and Plan - Assessment and Plan (Free Text) Assessment: CHF improving Acute on CKD improving Gout pain resolved Bacteremia to E.Coli C/W Diuretics and supportive care Nephro consult appreciated ID consult appreciated: Switched to Cefepime(Will need 10 days of IV abx) Discharge plan to TCU on Sunday if c/w improving <Meño Adame - Last Filed: 10/14/17 20:34> Objective - Vital Signs/Intake and Output Vital Signs (last 24 hours): Temp Pulse Resp BP Pulse Ox 97.5 F L 89 18 123/74 99 10/14/17 19:14 10/14/17 19:14 10/14/17 19:14 10/14/17 19:14 10/14/17 19:14 Intake and Output: 10/14/17 10/15/17 18:59 06:59 Intake Total 870 Balance 870 - Medications Medications: Current Medications Albuterol/Ipratropium (Duoneb 3 Mg/0.5 Mg (3 Ml) Ud) 3 ml INH RQ6 PRN PRN Reason: Shortness of Breath Last Admin: 10/13/17 11:54 Dose: 3 ml Clopidogrel Bisulfate (Plavix) 75 mg PO DAILY [facility] Last Admin: 10/14/17 09:41 Dose: 75 mg Colchicine (Colocrys) 0.6 mg PO DAILY [facility] Last Admin: 10/14/17 09:41 Dose: 0.6 mg Enoxaparin Sodium (Lovenox) 30 mg SC DAILY [facility] PRN Reason: Protocol Last Admin: 10/14/17 09:41 Dose: 30 mg Furosemide (Lasix) 40 mg PO DAILY [facility] Last Admin: 10/14/17 09:41 Dose: 40 mg Clindamycin Phosphate (Cleocin In Normal Saline) 600 mg in 50 mls @ 50 mls/hr IVPB Q12 [facility] PRN Reason: Protocol Last Admin: 10/14/17 09:39 Dose: 50 mls/hr Cefepime HCl 1 gm/ Sodium (Chloride) 100 mls @ 100 mls/hr IVPB DAILY [facility] PRN Reason: Protocol Last Admin: 10/14/17 09:39 Dose: 100 mls/hr Metoprolol Tartrate (Lopressor) 25 mg PO Q12 [facility] Last Admin: 10/14/17 09:40 Dose: 25 mg Promethazine HCl/Codeine (Phenergan/Codeine Oral Syrup) 5 ml PO Q6 PRN PRN Reason: Cough Last Admin: 10/14/17 01:47 Dose: 5 ml Sevelamer Carbonate (Renvela) 1.6 gm PO TIDWM [facility] Last Admin: 10/14/17 16:52 Dose: 1.6 gm - Labs Labs: 10/13/17 05:11 10/13/17 05:11 Assessment and Plan - Assessment and Plan (Free Text) Plan: I was present during evaluation and discussed with Dr Christine re plans of care and mgt. Meño Adame M.D.
[2017-10-13 06:20] LABS: BASO % 0.1 % (0.0-2.0); EOS % 0.6 % (0.0-4.0); HEMOGLOBIN 10.5 g/dL (12.0-18.0); LYMPH # 0.5 K/uL (1.0-4.3); MEAN CELL VOLUME 103.1 fl (80.0-94.0); MEAN CORPUSCULAR HEMOGLOBIN 32.3 pg (27.0-31.0); MEAN CORPUSCULAR HGB CONC 31.4 g/dL (33.0-37.0); MEAN PLATELET VOLUME 8.3 fl (7.2-11.7); MONO # 0.6 K/uL (0.0-0.8); MONO % 8.6 % (0.0-10.0); NEUT # 6.4 K/uL (1.8-7.0); NEUT % 84.7 % (50.0-75.0); NRBC % 0.2 % (0.0-0.0); PLATELET COUNT 133 K/uL (130-400); RBC 3.24 Mil/uL (4.40-5.90); RED CELL DISTRIBUTION WIDTH 16.3 % (11.5-14.5); WHITE BLOOD COUNT 7.5 K/uL (4.8-10.8)
[2017-10-13 06:42] LABS: ALBUMIN 3.3 g/dL (3.5-5.0); CALCIUM 8.1 mg/dL (8.4-10.2)
[2017-10-13 08:53] LABS: ANISOCYTOSIS SLIGHT; LYMPHOCYTE 7 % (20-50); METAMYELOCYTE 2 % (0-0); MONOCYTE 9 % (0-10); NEUTROPHIL 82 % (42-75); NUCLEATED RED BLOOD CELL 1 % (0-0); PLATELET ESTIMATE NORMAL (NORMAL); TOTAL CELLS COUNTED 100
[2017-10-13 08:54] LABS: HYPERSEGMENTATION PRESENT; HYPOCHROMIC SLIGHT; OVALOCYTES SLIGHT; SCHISTOCYTES SLIGHT; TEARDROP CELLS SLIGHT
[2017-10-13] MEDS: Clindamycin 600mg/50ml NS 600 MG/50 ML BAG IVPB SCH ×2 (09:00→21:30)
[2017-10-13] MEDS: Cefepime 1 GM in Sodium Chloride 0.9% 100 ML IVPB SCH (09:00)
[2017-10-13] MEDS: Enoxaparin 30 mg Syringe SC SCH (09:14)
[2017-10-13] MEDS: Sevelamer Carb 0.8 gm/Packet PO SCH ×3 (10:32→18:05)
[2017-10-13] MEDS: Albuterol-Ipratrop 3 mg / 0.5 (3 ml) UD INH PRN (11:54)
--- NOTE | 2017-10-13 12:36 | CP.PCM.PN ---
Subjective - Date & Time of Evaluation Date of Evaluation: 10/13/17 Time of Evaluation: 12:25 - Subjective Subjective: patient has no new complaints. breathing is improved. Objective - Vital Signs/Intake and Output Vital Signs (last 24 hours): Temp Pulse Resp BP Pulse Ox 97.8 F 83 20 108/60 100 10/13/17 08:17 10/13/17 09:15 10/13/17 08:17 10/13/17 09:15 10/13/17 08:17 - Medications Medications: Current Medications Albuterol/Ipratropium (Duoneb 3 Mg/0.5 Mg (3 Ml) Ud) 3 ml INH RQ6 PRN PRN Reason: Shortness of Breath Last Admin: 10/13/17 11:54 Dose: 3 ml Clopidogrel Bisulfate (Plavix) 75 mg PO DAILY [facility] Last Admin: 10/13/17 09:15 Dose: 75 mg Colchicine (Colocrys) 0.6 mg PO DAILY [facility] Last Admin: 10/13/17 09:15 Dose: 0.6 mg Enoxaparin Sodium (Lovenox) 30 mg SC DAILY [facility] PRN Reason: Protocol Last Admin: 10/13/17 09:14 Dose: 30 mg Furosemide (Lasix) 40 mg PO DAILY [facility] Last Admin: 10/13/17 09:15 Dose: 40 mg Clindamycin Phosphate (Cleocin In Normal Saline) 600 mg in 50 mls @ 50 mls/hr IVPB Q12 [facility] PRN Reason: Protocol Last Admin: 10/13/17 09:00 Dose: 50 mls/hr Cefepime HCl 1 gm/ Sodium (Chloride) 100 mls @ 100 mls/hr IVPB DAILY [facility] PRN Reason: Protocol Last Admin: 10/13/17 09:00 Dose: 100 mls/hr Metoprolol Tartrate (Lopressor) 25 mg PO Q12 [facility] Last Admin: 10/13/17 09:15 Dose: 25 mg Promethazine HCl/Codeine (Phenergan/Codeine Oral Syrup) 5 ml PO Q6 PRN PRN Reason: Cough Last Admin: 10/11/17 18:07 Dose: 5 ml Sevelamer Carbonate (Renvela) 1.6 gm PO TIDWM [facility] Last Admin: 10/13/17 10:32 Dose: 1.6 gm - Labs Labs: 10/13/17 05:11 03/03/18 05:11 - Constitutional Appears: Non-toxic - Head Exam Head Exam: NORMAL INSPECTION - Eye Exam Eye Exam: Normal appearance - ENT Exam ENT Exam: Mucous Membranes Moist - Neck Exam Neck Exam: Full ROM - Respiratory Exam Respiratory Exam: Decreased Breath Sounds - Cardiovascular Exam Cardiovascular Exam: REGULAR RHYTHM, Murmur - GI/Abdominal Exam GI & Abdominal Exam: Normal Bowel Sounds - Rectal Exam Rectal Exam: Deferred - Extremities Exam Extremities Exam: absent: Pedal Edema - Back Exam Back Exam: NORMAL INSPECTION - Neurological Exam Neurological Exam: Alert - Psychiatric Exam Psychiatric exam: Normal Affect - Skin Skin Exam: Normal Color Assessment and Plan (1) CHF (congestive heart failure) Assessment & Plan: improving volume status Status: Chronic (2) Atrial fibrillation Assessment & Plan: rate controlled Status: Acute (3) Systolic dysfunction with acute on chronic heart failure Assessment & Plan: improved with diuretic therapy Status: Acute (4) Chronic kidney disease, stage IV (severe) Assessment & Plan: renal function is improving Status: Chronic
--- NOTE | 2017-10-13 15:43 | CP.PCM.PN ---
Subjective - Date & Time of Evaluation Date of Evaluation: 10/13/17 Time of Evaluation: 15:42 - Subjective Subjective: seen and examined, feels improved pe: vs as below gen: nad sclera: anicteric op: clear neck: supple cv: +s1+s2 lungs: cta b/l abd: soft ext: no edema neuro: a+ox3 psych: nml affect skin: no rash imp: arf / ckd IV / anemia of renal disease/ acute on chronic heart failure/ afib plan: renal function improving bp stable hr controlled volume status improving Objective - Vital Signs/Intake and Output Vital Signs (last 24 hours): Temp Pulse Resp BP Pulse Ox 98.0 F 78 18 115/63 99 10/13/17 12:39 10/13/17 12:39 10/13/17 12:39 10/13/17 12:39 10/13/17 12:39 - Medications Medications: Current Medications Albuterol/Ipratropium (Duoneb 3 Mg/0.5 Mg (3 Ml) Ud) 3 ml INH RQ6 PRN PRN Reason: Shortness of Breath Last Admin: 10/13/17 11:54 Dose: 3 ml Clopidogrel Bisulfate (Plavix) 75 mg PO DAILY [facility] Last Admin: 10/13/17 09:15 Dose: 75 mg Colchicine (Colocrys) 0.6 mg PO DAILY [facility] Last Admin: 10/13/17 09:15 Dose: 0.6 mg Enoxaparin Sodium (Lovenox) 30 mg SC DAILY [facility] PRN Reason: Protocol Last Admin: 10/13/17 09:14 Dose: 30 mg Furosemide (Lasix) 40 mg PO DAILY [facility] Last Admin: 10/13/17 09:15 Dose: 40 mg Clindamycin Phosphate (Cleocin In Normal Saline) 600 mg in 50 mls @ 50 mls/hr IVPB Q12 [facility] PRN Reason: Protocol Last Admin: 10/13/17 09:00 Dose: 50 mls/hr Cefepime HCl 1 gm/ Sodium (Chloride) 100 mls @ 100 mls/hr IVPB DAILY [facility] PRN Reason: Protocol Last Admin: 10/13/17 09:00 Dose: 100 mls/hr Metoprolol Tartrate (Lopressor) 25 mg PO Q12 [facility] Last Admin: 10/13/17 09:15 Dose: 25 mg Promethazine HCl/Codeine (Phenergan/Codeine Oral Syrup) 5 ml PO Q6 PRN PRN Reason: Cough Last Admin: 10/11/17 18:07 Dose: 5 ml Sevelamer Carbonate (Renvela) 1.6 gm PO TIDWM [facility] Last Admin: 10/13/17 13:05 Dose: 1.6 gm - Labs Labs: 10/13/17 05:11 10/13/17 05:11
[2017-10-13] MEDS: Promethazine/Cod 6.25mg-10mg/5ml Syr UD PO PRN (18:10)
[2017-10-14] MEDS: Promethazine/Cod 6.25mg-10mg/5ml Syr UD PO PRN ×2 (01:47→21:53)
[2017-10-14] MEDS: Cefepime 1 GM in Sodium Chloride 0.9% 100 ML IVPB SCH (09:39)
[2017-10-14] MEDS: Clindamycin 600mg/50ml NS 600 MG/50 ML BAG IVPB SCH ×2 (09:39→21:51)
[2017-10-14] MEDS: Sevelamer Carb 0.8 gm/Packet PO SCH ×3 (09:40→16:52)
[2017-10-14] MEDS: Enoxaparin 30 mg Syringe SC SCH (09:41)
--- NOTE | 2017-10-14 20:50 | CP.PCM.PN ---
Subjective - Date & Time of Evaluation Date of Evaluation: 10/13/17 Time of Evaluation: 10:00 - Subjective Subjective: Patient feels a lot better. Noted decrease in swelling of the left big toe . Has no SOB Still with trace leg edema Noted persistently elevated probnp Has no cough Has no fever. US of the thyroid shoed multinodular goiter with solid nodule on both lobes but with microcalcification on the left thyroid. ECHO showed EF 10% severe aortic insuff and severe mitral regurg and cardiomyopathy Objective - Vital Signs/Intake and Output Vital Signs (last 24 hours): Temp Pulse Resp BP Pulse Ox 97.5 F L 89 18 123/74 99 10/14/17 19:14 10/14/17 19:14 10/14/17 19:14 10/14/17 19:14 10/14/17 19:14 Intake and Output: 10/14/17 10/15/17 18:59 06:59 Intake Total 870 Balance 870 - Medications Medications: Current Medications Albuterol/Ipratropium (Duoneb 3 Mg/0.5 Mg (3 Ml) Ud) 3 ml INH RQ6 PRN PRN Reason: Shortness of Breath Last Admin: 10/13/17 11:54 Dose: 3 ml Clopidogrel Bisulfate (Plavix) 75 mg PO DAILY [facility] Last Admin: 10/14/17 09:41 Dose: 75 mg Colchicine (Colocrys) 0.6 mg PO DAILY [facility] Last Admin: 10/14/17 09:41 Dose: 0.6 mg Enoxaparin Sodium (Lovenox) 30 mg SC DAILY [facility] PRN Reason: Protocol Last Admin: 10/14/17 09:41 Dose: 30 mg Furosemide (Lasix) 40 mg PO DAILY [facility] Last Admin: 10/14/17 09:41 Dose: 40 mg Clindamycin Phosphate (Cleocin In Normal Saline) 600 mg in 50 mls @ 50 mls/hr IVPB Q12 [facility] PRN Reason: Protocol Last Admin: 10/14/17 09:39 Dose: 50 mls/hr Cefepime HCl 1 gm/ Sodium (Chloride) 100 mls @ 100 mls/hr IVPB DAILY [facility] PRN Reason: Protocol Last Admin: 10/14/17 09:39 Dose: 100 mls/hr Metoprolol Tartrate (Lopressor) 25 mg PO Q12 [facility] Last Admin: 10/14/17 09:40 Dose: 25 mg Promethazine HCl/Codeine (Phenergan/Codeine Oral Syrup) 5 ml PO Q6 PRN PRN Reason: Cough Last Admin: 10/14/17 01:47 Dose: 5 ml Sevelamer Carbonate (Renvela) 1.6 gm PO TIDWM [facility] Last Admin: 10/14/17 16:52 Dose: 1.6 gm - Labs Labs: 10/13/17 05:11 10/13/17 05:11 - Head Exam Head Exam: NORMAL INSPECTION - Eye Exam Eye Exam: Normal appearance - ENT Exam ENT Exam: Mucous Membranes Moist - Respiratory Exam Respiratory Exam: NORMAL BREATHING PATTERN Additional comments: decreased breath sounds - Cardiovascular Exam Cardiovascular Exam: REGULAR RHYTHM - GI/Abdominal Exam GI & Abdominal Exam: Normal Bowel Sounds - Neurological Exam Neurological Exam: Awake, Oriented x3 - Psychiatric Exam Psychiatric exam: Depressed - Skin Skin Exam: Dry Assessment and Plan (1) CHF (congestive heart failure) Status: Chronic (2) Chronic kidney disease, stage V Status: Acute (3) Cardiomyopathy Status: Acute (4) Mitral regurgitation Status: Acute (5) Aortic insufficiency due to bicuspid aortic valve Status: Acute (6) Aortic insufficiency Status: Acute (7) Aortic regurgitation Status: Acute - Assessment and Plan (Free Text) Plan: Cont meds Cont lasix Cont tx Cont meds fluid restriction
--- NOTE | 2017-10-14 21:02 | CP.PCM.PN ---
Subjective - Date & Time of Evaluation Date of Evaluation: 10/14/17 Time of Evaluation: 14:00 - Subjective Subjective: Patient feels tired and noted increase in leg swelling Has no SOB Afebrile. Objective - Vital Signs/Intake and Output Vital Signs (last 24 hours): Temp Pulse Resp BP Pulse Ox 97.5 F L 89 18 123/74 99 10/14/17 19:14 10/14/17 19:14 10/14/17 19:14 10/14/17 19:14 10/14/17 19:14 Intake and Output: 10/14/17 10/15/17 18:59 06:59 Intake Total 870 Balance 870 - Medications Medications: Current Medications Albuterol/Ipratropium (Duoneb 3 Mg/0.5 Mg (3 Ml) Ud) 3 ml INH RQ6 PRN PRN Reason: Shortness of Breath Last Admin: 10/13/17 11:54 Dose: 3 ml Clopidogrel Bisulfate (Plavix) 75 mg PO DAILY [facility] Last Admin: 10/14/17 09:41 Dose: 75 mg Colchicine (Colocrys) 0.6 mg PO DAILY [facility] Last Admin: 10/14/17 09:41 Dose: 0.6 mg Enoxaparin Sodium (Lovenox) 30 mg SC DAILY [facility] PRN Reason: Protocol Last Admin: 10/14/17 09:41 Dose: 30 mg Furosemide (Lasix) 40 mg PO DAILY [facility] Last Admin: 10/14/17 09:41 Dose: 40 mg Clindamycin Phosphate (Cleocin In Normal Saline) 600 mg in 50 mls @ 50 mls/hr IVPB Q12 [facility] PRN Reason: Protocol Last Admin: 10/14/17 09:39 Dose: 50 mls/hr Cefepime HCl 1 gm/ Sodium (Chloride) 100 mls @ 100 mls/hr IVPB DAILY [facility] PRN Reason: Protocol Last Admin: 10/14/17 09:39 Dose: 100 mls/hr Metoprolol Tartrate (Lopressor) 25 mg PO Q12 [facility] Last Admin: 10/14/17 09:40 Dose: 25 mg Promethazine HCl/Codeine (Phenergan/Codeine Oral Syrup) 5 ml PO Q6 PRN PRN Reason: Cough Last Admin: 10/14/17 01:47 Dose: 5 ml Sevelamer Carbonate (Renvela) 1.6 gm PO TIDWM [facility] Last Admin: 10/14/17 16:52 Dose: 1.6 gm - Labs Labs: 10/13/17 05:11 10/13/17 05:11 - Eye Exam Eye Exam: Normal appearance - ENT Exam ENT Exam: Mucous Membranes Moist - Cardiovascular Exam Cardiovascular Exam: REGULAR RHYTHM Assessment and Plan (1) CHF (congestive heart failure) Status: Chronic (2) Chronic kidney disease, stage V Status: Acute (3) Cardiomyopathy Status: Acute (4) Mitral regurgitation Status: Acute (5) Aortic insufficiency due to bicuspid aortic valve Status: Acute (6) Aortic insufficiency Status: Acute (7) Aortic regurgitation Status: Acute - Assessment and Plan (Free Text) Plan: Cont meds Cont lasix increase lasix check labs DC plans.
[2017-10-15 08:17] VITALS: RESP 20
[2017-10-15] MEDS: Clindamycin 600mg/50ml NS 600 MG/50 ML BAG IVPB SCH (08:31)
[2017-10-15] MEDS: Cefepime 1 GM in Sodium Chloride 0.9% 100 ML IVPB SCH (08:33)
[2017-10-15] MEDS: Enoxaparin 30 mg Syringe SC SCH (08:33)
[2017-10-15] MEDS: Sevelamer Carb 0.8 gm/Packet PO SCH ×2 (08:34→11:59)
[2017-10-15 10:11] LABS: HEMOGLOBIN 9.5 g/dL (12.0-18.0); MEAN CELL VOLUME 102.8 fl (80.0-94.0); MEAN CORPUSCULAR HEMOGLOBIN 32.6 pg (27.0-31.0); MEAN CORPUSCULAR HGB CONC 31.7 g/dL (33.0-37.0); RBC 2.93 Mil/uL (4.40-5.90); RED CELL DISTRIBUTION WIDTH 16.1 % (11.5-14.5); WHITE BLOOD COUNT 5.1 K/uL (4.8-10.8)
[2017-10-15] MEDS ORDERED: metOLazone 5 MG TAB PO SCH (10:30)
--- NOTE | 2017-10-15 10:34 | CP.PCM.PN ---
Subjective - Date & Time of Evaluation Date of Evaluation: 10/15/17 Time of Evaluation: 10:31 - Subjective Subjective: Patient sitting up in the bed Cannot lay down flat because of the shortness of breath. Increase leg swollen significantly Objective - Vital Signs/Intake and Output Vital Signs (last 24 hours): Temp Pulse Resp BP Pulse Ox 97.4 F L 84 20 112/64 100 10/15/17 08:16 10/15/17 08:32 10/15/17 08:16 10/15/17 08:32 10/15/17 08:16 Intake and Output: 10/15/17 10/15/17 06:59 18:59 Intake Total 150 Balance 150 - Medications Medications: Current Medications Albuterol/Ipratropium (Duoneb 3 Mg/0.5 Mg (3 Ml) Ud) 3 ml INH RQ6 PRN PRN Reason: Shortness of Breath Last Admin: 10/13/17 11:54 Dose: 3 ml Clopidogrel Bisulfate (Plavix) 75 mg PO DAILY [facility] Last Admin: 10/15/17 08:34 Dose: 75 mg Colchicine (Colocrys) 0.6 mg PO DAILY [facility] Last Admin: 10/15/17 08:32 Dose: Not Given Enoxaparin Sodium (Lovenox) 30 mg SC DAILY [facility] PRN Reason: Protocol Last Admin: 10/15/17 08:33 Dose: 30 mg Furosemide (Lasix) 40 mg PO DAILY [facility] Last Admin: 10/15/17 08:32 Dose: 40 mg Furosemide (Lasix) 40 mg PO ONCE ONE Stop: 10/15/17 10:29 Clindamycin Phosphate (Cleocin In Normal Saline) 600 mg in 50 mls @ 50 mls/hr IVPB Q12 [facility] PRN Reason: Protocol Last Admin: 10/15/17 08:31 Dose: 50 mls/hr Cefepime HCl 1 gm/ Sodium (Chloride) 100 mls @ 100 mls/hr IVPB DAILY [facility] PRN Reason: Protocol Last Admin: 10/15/17 08:33 Dose: 100 mls/hr Metolazone (Zaroxolyn) 5 mg PO DAILY [facility] Metoprolol Tartrate (Lopressor) 25 mg PO Q12 [facility] Last Admin: 10/15/17 08:32 Dose: 25 mg Promethazine HCl/Codeine (Phenergan/Codeine Oral Syrup) 5 ml PO Q6 PRN PRN Reason: Cough Last Admin: 10/14/17 21:53 Dose: 5 ml Sevelamer Carbonate (Renvela) 1.6 gm PO TIDWM [facility] Last Admin: 10/15/17 08:34 Dose: 1.6 gm - Labs Labs: 10/15/17 09:30 10/13/17 05:11 - Constitutional Appears: No Acute Distress - Eye Exam Eye Exam: Conjunctival injection - ENT Exam ENT Exam: Mucous Membranes Moist - Neck Exam Neck Exam: absent: Lymphadenopathy - Respiratory Exam Respiratory Exam: Rales, Rhonchi, NORMAL BREATHING PATTERN. absent: Chest Wall Tenderness - Cardiovascular Exam Cardiovascular Exam: absent: Gallop, Rubs - GI/Abdominal Exam GI & Abdominal Exam: Soft, Normal Bowel Sounds - Extremities Exam Extremities Exam: absent: Calf Tenderness - Back Exam Back Exam: absent: CVA tenderness (L), CVA tenderness (R) - Neurological Exam Neurological Exam: Alert - Psychiatric Exam Psychiatric exam: Normal Affect - Skin Skin Exam: absent: Cyanosis Assessment and Plan (1) Chronic kidney disease, stage V Assessment & Plan: Kidney function appears to be stable however his leg swollen has been increased 2+ Therefore we will add zaraxolyn 5 mg stat dose and also increase Lasix 80 mg daily Status: Acute (2) Elevated troponin Status: Acute (3) Pleural effusion Status: Acute (4) Systolic dysfunction with acute on chronic heart failure Status: Acute (5) Chronic kidney disease, stage IV (severe) Status: Acute
[2017-10-15 11:11] LABS: CALCIUM 8.2 mg/dL (8.4-10.2)
[2017-10-15 12:52] VITALS: BP 110/64; PULSE 90; TEMP 97.5; O2SAT 98
--- NOTE | 2017-10-16 07:35 | CP.PCM.DIS ---
Provider - Provider Date of Admission: 10/08/17 15:25 Attending physician: Meño Adame MD Time Spent in preparation of Discharge (in minutes): 30 Diagnosis - Discharge Diagnosis (1) CHF (congestive heart failure) Status: Chronic (2) Chronic kidney disease, stage V Status: Acute (3) Cardiomyopathy Status: Acute (4) Mitral regurgitation Status: Acute (5) Aortic insufficiency due to bicuspid aortic valve Status: Acute (6) Aortic insufficiency Status: Acute (7) Aortic regurgitation Status: Acute Hospital Course - Lab Results Lab Results: Micro Results 10/10/17 09:20 Blood Blood Culture - Final NO GROWTH AFTER 5 DAYS 10/10/17 09:20 Blood Gram Stain - Final TEST NOT PERFORMED 10/11/17 08:00 Blood Blood Culture - Preliminary NO GROWTH AFTER 4 DAYS 10/10/17 16:50 Urine,Clean Catch Urine Culture - Final No Growth (<1,000 CFU/ML) 10/08/17 16:00 Blood Blood Culture - Final Escherichia Coli 10/08/17 16:00 Blood Gram Stain - Final Most Recent Lab Values WBC 5.1 K/uL (4.8-10.8) 10/15/17 09:30 RBC 2.93 Mil/uL (4.40-5.90) L 10/15/17 09:30 Hgb 9.5 g/dL (12.0-18.0) L 10/15/17 09:30 Hct 30.1 % (35.0-51.0) L 10/15/17 09:30 MCV 102.8 fl (80.0-94.0) H 10/15/17 09:30 MCH 32.6 pg (27.0-31.0) H 10/15/17 09:30 MCHC 31.7 g/dL (33.0-37.0) L 10/15/17 09:30 RDW 16.1 % (11.5-14.5) H 10/15/17 09:30 Plt Count 108 K/uL (130-400) L D 10/15/17 09:30 MPV 8.3 fl (7.2-11.7) 10/13/17 05:11 Neut % (Auto) 84.7 % (50.0-75.0) H 10/13/17 05:11 Lymph % (Auto) 6.0 % (20.0-40.0) L 10/13/17 05:11 [place] % (Auto) 8.6 % (0.0-10.0) 10/13/17 05:11 Eos % (Auto) 0.6 % (0.0-4.0) 10/13/17 05:11 Baso % (Auto) 0.1 % (0.0-2.0) 10/13/17 05:11 Neut # (Auto) 6.4 K/uL (1.8-7.0) 10/13/17 05:11 Lymph # (Auto) 0.5 K/uL (1.0-4.3) L 10/13/17 05:11 [place] # (Auto) 0.6 K/uL (0.0-0.8) 10/13/17 05:11 Eos # (Auto) 0.0 K/uL (0.0-0.7) 10/13/17 05:11 Baso # (Auto) 0.0 K/uL (0.0-0.2) 10/13/17 05:11 Neutrophils % (Manual) 82 % (42-75) H 10/13/17 05:11 Lymphocytes % (Manual) 7 % (20-50) L 10/13/17 05:11 Monocytes % (Manual) 9 % (0-10) 10/13/17 05:11 Metamyelocytes % 2 % (0-0) H 10/13/17 05:11 Nucleated RBC % 1 % (0-0) H 10/13/17 05:11 Hypersegmented Polys Present 10/13/17 05:11 Platelet Estimate Normal (NORMAL) 10/13/17 05:11 Hypochromasia (manual) Slight 10/13/17 05:11 Anisocytosis (manual) Slight 10/13/17 05:11 Macrocytosis (manual) Moderate 10/13/17 05:11 Tear Drop Cells Slight 10/13/17 05:11 Ovalocytes Slight 10/13/17 05:11 Schistocytes Slight 10/13/17 05:11 Sodium 148 mmol/l (132-148) 10/15/17 09:25 Potassium 4.6 MMOL/L (3.6-5.0) 10/15/17 09:25 Chloride 110 mmol/L (98-107) H 10/15/17 09:25 Carbon Dioxide 20 mmol/L (22-30) L 10/15/17 09:25 Anion Gap 23 (10-20) H 10/15/17 09:25 BUN 91 mg/dl (9-20) H 10/15/17 09:25 Creatinine 2.9 mg/dl (0.8-1.5) H 10/15/17 09:25 Est GFR ( Amer) 26 10/15/17 09:25 Est GFR (Non-Af Amer) 22 10/15/17 09:25 Random Glucose 123 mg/dL (75-110) H 10/15/17 09:25 Uric Acid 5.4 mg/Dl (3.5-8.5) 10/10/17 11:46 Calcium 8.2 mg/dL (8.4-10.2) L 10/15/17 09:25 Phosphorus 6.3 mg/dl (2.5-4.5) H 10/10/17 04:25 Magnesium 2.6 MG/DL (1.6-2.3) H 10/09/17 07:43 Total Bilirubin 0.3 mg/dl (0.2-1.3) 10/13/17 05:11 AST 24 U/L (17-59) 10/13/17 05:11 ALT 26 U/L (21-72) 10/13/17 05:11 Alkaline Phosphatase 69 U/L (38-126) 10/13/17 05:11 Troponin I 0.0750 ng/mL (0.00-0.120) 10/08/17 14:00 NT-Pro-B Natriuret Pep 98041 pg/ml (0-900) H 10/10/17 04:25 Total Protein 6.4 G/DL (6.3-8.2) 10/13/17 05:11 Albumin 3.3 g/dL (3.5-5.0) L 10/13/17 05:11 Globulin 3.1 gm/dL (2.2-3.9) 10/13/17 05:11 Albumin/Globulin Ratio 1.0 (1.0-2.1) 10/13/17 05:11 Vitamin B12 820 pg/mL (239-931) 10/09/17 07:43 Folate 16.0 ng/mL 10/09/17 07:43 PTH Intact Whole Mole[place] 188 pg/mL (14-64) H 10/10/17 04:25 Urine Color Yellow (YELLOW) 10/10/17 16:50 Urine Clarity Clear (Clear) 10/10/17 16:50 Urine pH 6.0 (5.0-8.0) 10/10/17 16:50 Ur Specific [place] 1.015 (1.003-1.030) 10/10/17 16:50 Urine Protein Negative mg/dL (NEGATIVE) 10/10/17 16:50 Urine Glucose (UA) Neg mg/dL (Normal) 10/10/17 16:50 Urine Ketones Negative mg/dL (NEGATIVE) 10/10/17 16:50 Urine Blood Negative (NEGATIVE) 10/10/17 16:50 Urine Nitrate Negative (NEGATIVE) 10/10/17 16:50 Urine Bilirubin Negative (NEGATIVE) 10/10/17 16:50 Urine Urobilinogen 0.2-1.0 mg/dL (0.2-1.0) 10/10/17 16:50 Ur Leukocyte Esterase Neg [place]ina/uL (Negative) 10/10/17 16:50 Urine RBC (Auto) 1 /hpf (0-3) 10/10/17 16:50 Urine Microscopic WBC < 1 /hpf (0-5) 10/10/17 16:50 Ur Squamous Epith Cells < 1 /hpf (0-5) 10/10/17 16:50 Ur Random Creatinine 110.2 mg/dL 10/10/17 16:55 U Random Total Protein 13.0 mg/dL (0.0-12.0) H 10/10/17 16:55 Digoxin 1.3 ng/mL (0.8-2.0) 10/08/17 12:50 - Hospital Course Hospital Course: This is a 67 y/o male admitted for worsening of SOB and leg edema. He has a hx of CAD atrial fib, CKD 4 and severe LV dysfunction with EF of 20%. He also has a hx of recurrent gout. he is on a lot of medication He was admitted to [address] [place] [address] and started on fluid restriction and diuresis with high dose Lasix. He responded well. He had an attack of gout on his 4th day. Dr Salazar and Dr Lagos were called and followed up patient. He was noted to have E coli on blood culture. Dr Prince was called for consult and started on IV antibiotics. He was sent to TCU for further PT and iv antibiotics. Discharge Exam - Head Exam Head Exam: NORMAL INSPECTION - Eye Exam Eye Exam: Normal appearance - Respiratory Exam Respiratory Exam: Rales - Cardiovascular Exam Cardiovascular Exam: Irregular Rhythm - GI/Abdominal Exam GI & Abdominal Exam: Unremarkable Discharge Plan - Discharge Medications Prescriptions: Clindamycin in 0.9 % Sod Chlor [Clindamycin 600 mg/50 ml-Ns] 600 mg IV Q12 #14 piggyback Cefepime 1gm in NS 100ml [Maxipime 1gm] 1 gm IVPB DAILY #7 bag - Follow Up Plan Condition: FAIR Disposition: TRANSF TO SNF Additional Instructions: will follow up in TCU cont all meds from medical floor
== END 2017-10-15 14:24 | DRG 291 ==
LOC: H.ER 12:58 → H.ERHOLD 15:25 → H.TEL 17:06
PROVIDERS: ADMIT Family Medicine; ATTEND Family Medicine
PROC: 3E0F7GC Introduction of Other Therapeutic Substance into Respiratory Tract, Via Natural or Artificial Opening (ICD-10-PCS; principal; 2017-10-11)
DX: I13.2 Hypertensive heart and chronic kidney disease with heart failure and with stage 5 chronic kidney disease, or end stage renal disease (principal); I50.23 Acute on chronic systolic (congestive) heart failure; N17.9 Acute kidney failure, unspecified; E87.5 Hyperkalemia; I42.0 Dilated cardiomyopathy; I48.2 Chronic atrial fibrillation; N28.1 Cyst of kidney, acquired; N18.5 Chronic kidney disease, stage 5; J98.11 Atelectasis; D63.1 Anemia in chronic kidney disease; E04.2 Nontoxic multinodular goiter; I25.10 Atherosclerotic heart disease of native coronary artery without angina pectoris; J44.9 Chronic obstructive pulmonary disease, unspecified; M10.9 Gout, unspecified; Z79.02 Long term (current) use of antithrombotics/antiplatelets; Z87.01 Personal history of pneumonia (recurrent); Z87.891 Personal history of nicotine dependence; Z95.0 Presence of cardiac pacemaker; Z95.1 Presence of aortocoronary bypass graft; M19.90 Unspecified osteoarthritis, unspecified site; Z79.899 Other long term (current) drug therapy; M79.676 Pain in unspecified toe(s); M79.89 Other specified soft tissue disorders; R74.8 Abnormal levels of other serum enzymes; I35.1 Nonrheumatic aortic (valve) insufficiency

== ENCOUNTER 2017-10-15 13:35 | Inpatient (IN) | payer BC, OTHER ==
[2017-10-15 14:38] VITALS: RESP 20
[2017-10-15 14:39] VITALS: BMI 23.5
[2017-10-15] MEDS ORDERED: Promethazine/Cod 6.25mg-10mg/5ml Syr UD PO PRN (14:43)
[2017-10-15] MEDS ORDERED: Albuterol-Ipratrop 3 mg / 0.5 (3 ml) UD INH PRN (14:43)
[2017-10-15] MEDS: Clindamycin 600mg/50ml NS 600 MG/50 ML BAG IVPB SCH (17:45)
[2017-10-15] MEDS ORDERED: Patient's Own Med (Clindamycin In 0.9 % Sod Chlor [Clindamycin 600 Mg/50 Ml-Ns] 600 MG) IV SCH (21:00)
[2017-10-16] MEDS: Clindamycin 600mg/50ml NS 600 MG/50 ML BAG IVPB SCH ×2 (05:08→17:01)
[2017-10-16] MEDS: Sevelamer Carb 0.8 gm/Packet PO SCH ×3 (08:34→17:02)
[2017-10-16] MEDS: Cefepime 1 GM in Sodium Chloride 0.9% 100 ML IVPB SCH (08:37)
[2017-10-16] MEDS: metOLazone 5 MG TAB PO SCH (08:38)
--- NOTE | 2017-10-16 08:58 | CP.PCM.CON ---
History of Present Illness - History of Present Illness History of Present Illness: Patient is a 67 year old male with PMH dilated cardiomyopathy, valvular heart disease ( severe muitral/tricuspid regurgitation), afib who presents with progressive dyspnea. Patient admitted with acute kidney injury superimposed on chronic kidney disease. 10 history of congestive cardiomyopathy as noted above. Lately patient has been gaining weight and Lasix was given 80 mg yesterday and Zaroxolyn has been added. Patient also brought from the floor for continuation of antibiotics and for debility. Review of Systems - Constitutional Constitutional: absent: Anorexia, Chills - Cardiovascular Cardiovascular: Dyspnea, Leg Edema. absent: Chest Pain - Respiratory Respiratory: Dyspnea on Exertion. absent: Cough, Hemoptysis - Gastrointestinal Gastrointestinal: absent: Abdominal Pain - Genitourinary Genitourinary: As Per HPI, Nocturia - Musculoskeletal Musculoskeletal: Muscle Weakness. absent: Numbness - Neurological Neurological: Weakness. absent: Tremor - Hematologic/Lymphatic Hematologic: absent: Easy Bleeding Past Patient History - Past Medical History & Family History Past Medical History?: Yes - Past Social History Smoking Status: Former Smoker - CARDIAC Hx Cardiac Disorders: Yes Hx Atrial Fibrillation: Yes Hx Congestive Heart Failure: Yes Hx Hypertension: Yes Hx Pacemaker: Yes (2010) - PULMONARY Hx Respiratory Disorders: Yes Hx Pneumonia: Yes - NEUROLOGICAL Hx Neurological Disorder: No HX Cerebrovascular Accident: No - HEENT Hx HEENT Problems: Yes - RENAL Hx Chronic Kidney Disease: Yes Hx Dialysis: No - ENDOCRINE/METABOLIC Hx Endocrine Disorders: No - HEMATOLOGICAL/ONCOLOGICAL Hx Blood Disorders: No Hx AIDS: No Hx Human Immunodeficiency Virus (HIV): No - INTEGUMENTARY Hx Dermatological Problems: No - MUSCULOSKELETAL/RHEUMATOLOGICAL Hx Musculoskeletal Disorders: Yes Hx Arthritis: Yes Hx Falls: No - GASTROINTESTINAL Hx Gastrointestinal Disorders: No - GENITOURINARY/GYNECOLOGICAL Hx Genitourinary Disorders: No - PSYCHIATRIC Hx Psychophysiologic Disorder: No Hx Substance Use: No - SURGICAL HISTORY Hx Surgeries: No Other/Comment: Pacemaker. Aortic valve dissection , Open heart surgery 2009 - ANESTHESIA Hx Anesthesia: Yes Hx Anesthesia Reactions: No Hx Malignant Hyperthermia: No Meds Allergies/Adverse Reactions: Allergies Allergy/AdvReac Type Severity Reaction Status Date / Time warfarin [From Coumadin] Allergy ANAPHYLAXIS Verified 10/15/17 14:39 - Medications Medications: Current Medications Albuterol/Ipratropium (Duoneb 3 Mg/0.5 Mg (3 Ml) Ud) 3 ml INH RQ6 PRN PRN Reason: Shortness of Breath Clopidogrel Bisulfate (Plavix) 75 mg PO DAILY [facility] Last Admin: 10/16/17 08:36 Dose: 75 mg Colchicine (Colocrys) 0.6 mg PO DAILY [facility] Last Admin: 10/16/17 08:34 Dose: 0.6 mg Enoxaparin Sodium (Lovenox) 30 mg SC DAILY [facility] PRN Reason: Protocol Last Admin: 10/16/17 08:36 Dose: 30 mg Furosemide (Lasix) 40 mg PO DAILY [facility] Last Admin: 10/16/17 08:34 Dose: 40 mg Clindamycin Phosphate (Cleocin In Normal Saline) 600 mg in 50 mls @ 100 mls/hr IVPB Q12H [facility] Last Admin: 10/16/17 05:08 Dose: 100 mls/hr Cefepime HCl 1 gm/ Sodium (Chloride) 100 mls @ 200 mls/hr IVPB DAILY [facility] Last Admin: 10/16/17 08:37 Dose: 200 mls/hr Metolazone (Zaroxolyn) 5 mg PO DAILY [facility] Last Admin: 10/16/17 08:38 Dose: 5 mg Metoprolol Tartrate (Lopressor) 25 mg PO Q12 [facility] Last Admin: 10/16/17 08:35 Dose: 25 mg Promethazine HCl/Codeine (Phenergan/Codeine Oral Syrup) 5 ml PO Q6 PRN PRN Reason: Cough Sevelamer Carbonate (Renvela) 1.6 gm PO TIDWM [facility] Last Admin: 10/16/17 08:34 Dose: 1.6 gm Physical Exam - Constitutional Appears: No Acute Distress - ENT Exam ENT Exam: Mucous Membranes Moist - Neck Exam Neck exam: Negative for: Lymphadenopathy - Respiratory Exam Respiratory Exam: Rhonchi, NORMAL BREATHING PATTERN. absent: Chest Wall Tenderness - Cardiovascular Exam Cardiovascular Exam: absent: Gallop, JVD, Rubs - GI/Abdominal Exam GI & Abdominal Exam: Normal Bowel Sounds. absent: Guarding - Extremities Exam Extremities exam: Negative for: calf tenderness - Back Exam Back exam: absent: CVA tenderness (L), CVA tenderness (R) - Neurological Exam Neurological exam: Alert - Psychiatric Exam Psychiatric exam: Normal Affect Results - Vital Signs Recent Vital Signs: Last Vital Signs Temp 96.8 F L 10/15/17 22:00 Pulse 99 H 10/16/17 08:35 Resp 20 10/15/17 22:00 BP 128/70 10/16/17 08:35 Pulse Ox 100 10/15/17 22:00 Assessment & Plan (1) Atrial fibrillation Status: Acute (2) Cardiomyopathy Status: Acute (3) Chronic kidney disease, stage IV (severe) Assessment and Plan: Patient admitted with congestive cardiomyopathy hyperkalemia which has been improving and his transfer to subacute rehabilitation for continuation of antibiotics for sepsis Escherichia coli. And also his kidney function improving somewhat. Increase leg swollen, Continue Lasix 80 mg by mouth daily and Zaroxolyn 5 mg by mouth daily Daily weight Monitor electrolytes intermittently Status: Acute
[2017-10-16] MEDS ORDERED: Digoxin 125 mcg (0.125 mg) Tab PO SCH (09:00)
[2017-10-16] MEDS ORDERED: Patient's Own Med (Cefepime 1gm In Ns 100ml [Maxipime 1gm] 1 GM) IVPB SCH (09:00)
[2017-10-16] MEDS ORDERED: Enoxaparin 30 mg Syringe SC SCH (09:00)
[2017-10-16] MEDS ORDERED: Cefepime 1 GM in Sodium Chloride 0.9% 50 ML IVPB SCH (09:00)
--- NOTE | 2017-10-16 12:08 | CP.PCM.HP ---
<EmmettJose - Last Filed: 10/16/17 12:55> History of Present Illness - History of Present Illness History of Present Illness: 67 year old male with PMH dilated cardiomyopathy, Gout, Systolic CHF, valvular heart disease ( severe muitral/tricuspid regurgitation), afib, CKD IV, who was admitted to hosp for progressive dyspnea and found to be on CHF exacerbation with extremely and with acute kidney injury superimposed on chronic kidney disease. Patient was also found to have a BCx + for E.Coli and was treated with Diuretics, fluid restriction, IV abx. He did well and was evaluated by Cardio, Nephro and ID. YEsterday he was transferred after markedly improve to TCU unit for deconditioning and to complete 5 more days of IV abx as rec by ID Present on Admission - Present on Admission Any Indicators Present on Admission: No Review of Systems - Review of Systems Review of Systems: as per HPI Past Patient History - Past Medical History & Family History Past Medical History?: Yes - Past Social History Smoking Status: Former Smoker - CARDIAC Hx Cardiac Disorders: Yes Hx Atrial Fibrillation: Yes Hx Congestive Heart Failure: Yes Hx Hypertension: Yes Hx Pacemaker: Yes (2010) - PULMONARY Hx Respiratory Disorders: Yes Hx Pneumonia: Yes - NEUROLOGICAL Hx Neurological Disorder: No HX Cerebrovascular Accident: No - HEENT Hx HEENT Problems: Yes - RENAL Hx Chronic Kidney Disease: Yes Hx Dialysis: No - ENDOCRINE/METABOLIC Hx Endocrine Disorders: No - HEMATOLOGICAL/ONCOLOGICAL Hx Blood Disorders: No Hx AIDS: No Hx Human Immunodeficiency Virus (HIV): No - INTEGUMENTARY Hx Dermatological Problems: No - MUSCULOSKELETAL/RHEUMATOLOGICAL Hx Musculoskeletal Disorders: Yes Hx Arthritis: Yes Hx Falls: No - GASTROINTESTINAL Hx Gastrointestinal Disorders: No - GENITOURINARY/GYNECOLOGICAL Hx Genitourinary Disorders: No - PSYCHIATRIC Hx Psychophysiologic Disorder: No Hx Substance Use: No - SURGICAL HISTORY Hx Surgeries: No Other/Comment: Pacemaker. Aortic valve dissection , Open heart surgery 2009 - ANESTHESIA Hx Anesthesia: Yes Hx Anesthesia Reactions: No Hx Malignant Hyperthermia: No Meds Allergies/Adverse Reactions: Allergies Allergy/AdvReac Type Severity Reaction Status Date / Time warfarin [From Coumadin] Allergy ANAPHYLAXIS Verified 10/15/17 14:39 Physical Exam - Constitutional Appears: Non-toxic, No Acute Distress - Eye Exam Eye Exam: EOMI, PERRL - ENT Exam ENT Exam: Mucous Membranes Moist - Respiratory Exam Respiratory Exam: Rales (RLB), NORMAL BREATHING PATTERN. absent: Wheezes, Respiratory Distress - Cardiovascular Exam Cardiovascular Exam: Irregular Rhythm, +S1, +S2, Systolic Murmur. absent: Gallop - GI/Abdominal Exam GI & Abdominal Exam: Normal Bowel Sounds, Soft. absent: Tenderness - Extremities Exam Extremities exam: Positive for: pedal edema (+1) - Neurological Exam Neurological exam: Alert, CN II-XII Intact, Oriented x3 - Psychiatric Exam Psychiatric exam: Normal Affect, Normal Mood - Skin Skin Exam: Normal Color, Warm Results - Vital Signs Recent Vital Signs: Last Vital Signs Temp 96.6 F L 10/16/17 09:08 Pulse 99 H 10/16/17 09:08 Resp 20 10/16/17 09:08 BP 128/70 10/16/17 09:08 Pulse Ox 95 10/16/17 09:08 Assessment & Plan - Assessment and Plan (Free Text) Assessment: Deconditioning/CHF C/W PT/OT C/W Fluid restriction C/W BB and diuretics Stable Bacteremia to E.Coli Repeat Bcx neg C/W IV abx as per ID ID consult appreciated Suspected CAP C/W Clindamycin Improved CKD IV Improved Nephrology consult appreciated Will need closely F/u as outpatient C/W Phosphate binders <Meño Adame - Last Filed: 10/23/17 12:05> Results - Vital Signs Recent Vital Signs: Last Vital Signs Temp 97.3 F L 10/23/17 07:52 Pulse 73 10/23/17 08:25 Resp 20 10/23/17 07:52 BP 105/54 L 10/23/17 08:30 Pulse Ox 99 10/23/17 07:52 - Labs Result Diagrams: 10/22/17 05:45 10/22/17 05:45 Assessment & Plan - Assessment and Plan (Free Text) Plan: I was present during evaluation and discussed with Dr painting re plans of care and mgt Meño Adame M.D.
[2017-10-17] MEDS: Clindamycin 600mg/50ml NS 600 MG/50 ML BAG IVPB SCH (04:35)
[2017-10-17 06:22] LABS: HEMOGLOBIN 9.6 g/dL (12.0-18.0); MEAN CELL VOLUME 101.8 fl (80.0-94.0); MEAN CORPUSCULAR HEMOGLOBIN 32.4 pg (27.0-31.0); MEAN CORPUSCULAR HGB CONC 31.8 g/dL (33.0-37.0); RBC 2.97 Mil/uL (4.40-5.90); WHITE BLOOD COUNT 6.5 K/uL (4.8-10.8)
[2017-10-17 06:34] LABS: PARTIAL THROMBOPLASTIN TIME 37.4 Seconds (25.6-37.1); PROTHROMBIN TIME 11.3 Seconds (9.8-13.1)
[2017-10-17 07:08] LABS: ALB/GLOB RATIO 1.1 (1.0-2.1); ALBUMIN 3.4 g/dL (3.5-5.0); CALCIUM 8.7 mg/dL (8.4-10.2)
[2017-10-17] MEDS: Sevelamer Carb 0.8 gm/Packet PO SCH ×3 (08:40→16:38)
[2017-10-17] MEDS: metOLazone 5 MG TAB PO SCH (08:40)
[2017-10-17] MEDS: Cefepime 1 GM in Sodium Chloride 0.9% 100 ML IVPB SCH (08:41)
--- NOTE | 2017-10-17 10:27 | CP.PCM.PN ---
Subjective - Date & Time of Evaluation Date of Evaluation: 10/17/17 Time of Evaluation: 10:00 - Subjective Subjective: Stable. S/p Rhino rocket placement Yesterday afternoon after episode of epistaxis. Has no new complains today and nose bleeding stopped after rhino rocket was placed. Afebrile. Swelling improved. denies CP, SOB, palpitations. Objective - Vital Signs/Intake and Output Vital Signs (last 24 hours): Temp Pulse Resp BP Pulse Ox 97.2 F L 92 H 20 130/68 100 10/17/17 08:35 10/17/17 08:38 10/17/17 08:35 10/17/17 08:41 10/17/17 08:35 Intake and Output: 10/17/17 10/17/17 06:59 18:59 Intake Total 810 Output Total 700 Balance 110 - Medications Medications: Current Medications Acetaminophen (Tylenol 325mg Tab) 650 mg PO Q6 PRN PRN Reason: Pain, moderate (4-7) Albuterol/Ipratropium (Duoneb 3 Mg/0.5 Mg (3 Ml) Ud) 3 ml INH RQ6 PRN PRN Reason: Shortness of Breath Clopidogrel Bisulfate (Plavix) 75 mg PO DAILY [facility] Last Admin: 10/16/17 08:36 Dose: 75 mg Colchicine (Colocrys) 0.6 mg PO DAILY [facility] Last Admin: 10/17/17 08:40 Dose: 0.6 mg Diphenhydramine HCl (Benadryl) 50 mg PO HS PRN PRN Reason: Sleep Last Admin: 10/16/17 22:13 Dose: 50 mg Enoxaparin Sodium (Lovenox) 30 mg SC DAILY [facility] PRN Reason: Protocol Last Admin: 10/16/17 08:36 Dose: 30 mg Furosemide (Lasix) 40 mg PO BID [facility] Last Admin: 10/17/17 08:41 Dose: 40 mg Clindamycin Phosphate (Cleocin In Normal Saline) 600 mg in 50 mls @ 100 mls/hr IVPB Q12H [facility] Last Admin: 10/17/17 04:35 Dose: 100 mls/hr Cefepime HCl 1 gm/ Sodium (Chloride) 100 mls @ 200 mls/hr IVPB DAILY [facility] Last Admin: 10/17/17 08:41 Dose: 200 mls/hr Metolazone (Zaroxolyn) 5 mg PO DAILY [facility] Last Admin: 10/17/17 08:40 Dose: 5 mg Metoprolol Tartrate (Lopressor) 25 mg PO Q12 [facility] Last Admin: 10/17/17 08:38 Dose: 25 mg Oxymetazoline HCl (Nasal Decongestant 15 Ml) 1 spr NS Q12 [facility] Promethazine HCl/Codeine (Phenergan/Codeine Oral Syrup) 5 ml PO Q6 PRN PRN Reason: Cough Sevelamer Carbonate (Renvela) 1.6 gm PO TIDWM [facility] Last Admin: 10/17/17 08:40 Dose: 1.6 gm - Labs Labs: 10/17/17 05:15 10/17/17 05:15 PT 11.3 Seconds (9.8-13.1) 10/17/17 05:15 INR 1.0 (0.9-1.2) 10/17/17 05:15 APTT 37.4 Seconds (25.6-37.1) H 10/17/17 05:15 - Constitutional Appears: Non-toxic, No Acute Distress - Eye Exam Eye Exam: EOMI, PERRL - ENT Exam ENT Exam: Mucous Membranes Moist Additional comments: Rhino rocket in place. No active nose bleeding at this time - Respiratory Exam Respiratory Exam: Clear to Ausculation Bilateral, NORMAL BREATHING PATTERN. absent: Decreased Breath Sounds - Cardiovascular Exam Cardiovascular Exam: REGULAR RHYTHM, +S1, +S2. absent: Gallop - GI/Abdominal Exam GI & Abdominal Exam: Soft, Normal Bowel Sounds - Extremities Exam Extremities Exam: Pedal Edema (+1). absent: Calf Tenderness - Neurological Exam Neurological Exam: Alert, Awake, Oriented x3 - Psychiatric Exam Psychiatric exam: Normal Affect, Normal Mood - Skin Skin Exam: Warm Assessment and Plan - Assessment and Plan (Free Text) Assessment: Epistaxis: Resolved. Rhino rocket removed successfully during the encounter. NO active bleeding noted. Will start nasal vasoconstrictor BID CKD: BUN worsened today with creatinine stable. BUN elevated poss due to blood loss/epistaxis yesterday Nephro consult appreciated C/W Lasix as per Nephro E.coli bacteremia C/W IV Abx
--- NOTE | 2017-10-17 10:31 | CP.PCM.PN ---
Subjective - Date & Time of Evaluation Date of Evaluation: 10/17/17 Time of Evaluation: 10:26 - Subjective Subjective: Patient is awake and sitting up in the chair Complaining of somewhat less leg swollen. Patient developed epistaxis yesterday and he lost what appears to be some blood that he swallow Objective - Vital Signs/Intake and Output Vital Signs (last 24 hours): Temp Pulse Resp BP Pulse Ox 97.2 F L 92 H 20 130/68 100 10/17/17 08:35 10/17/17 08:38 10/17/17 08:35 10/17/17 08:41 10/17/17 08:35 Intake and Output: 10/17/17 10/17/17 06:59 18:59 Intake Total 810 Output Total 700 Balance 110 - Medications Medications: Current Medications Acetaminophen (Tylenol 325mg Tab) 650 mg PO Q6 PRN PRN Reason: Pain, moderate (4-7) Albuterol/Ipratropium (Duoneb 3 Mg/0.5 Mg (3 Ml) Ud) 3 ml INH RQ6 PRN PRN Reason: Shortness of Breath Clopidogrel Bisulfate (Plavix) 75 mg PO DAILY [facility] Last Admin: 10/16/17 08:36 Dose: 75 mg Colchicine (Colocrys) 0.6 mg PO DAILY [facility] Last Admin: 10/17/17 08:40 Dose: 0.6 mg Diphenhydramine HCl (Benadryl) 50 mg PO HS PRN PRN Reason: Sleep Last Admin: 10/16/17 22:13 Dose: 50 mg Enoxaparin Sodium (Lovenox) 30 mg SC DAILY [facility] PRN Reason: Protocol Last Admin: 10/16/17 08:36 Dose: 30 mg Furosemide (Lasix) 40 mg PO BID [facility] Last Admin: 10/17/17 08:41 Dose: 40 mg Clindamycin Phosphate (Cleocin In Normal Saline) 600 mg in 50 mls @ 100 mls/hr IVPB Q12H [facility] Last Admin: 10/17/17 04:35 Dose: 100 mls/hr Cefepime HCl 1 gm/ Sodium (Chloride) 100 mls @ 200 mls/hr IVPB DAILY [facility] Last Admin: 10/17/17 08:41 Dose: 200 mls/hr Metoprolol Tartrate (Lopressor) 25 mg PO Q12 [facility] Last Admin: 10/17/17 08:38 Dose: 25 mg Oxymetazoline HCl (Nasal Decongestant 15 Ml) 1 spr NS Q12 [facility] Promethazine HCl/Codeine (Phenergan/Codeine Oral Syrup) 5 ml PO Q6 PRN PRN Reason: Cough Sevelamer Carbonate (Renvela) 1.6 gm PO TIDWM [facility] Last Admin: 10/17/17 08:40 Dose: 1.6 gm - Labs Labs: 10/17/17 05:15 10/17/17 05:15 PT 11.3 Seconds (9.8-13.1) 10/17/17 05:15 INR 1.0 (0.9-1.2) 10/17/17 05:15 APTT 37.4 Seconds (25.6-37.1) H 10/17/17 05:15 - Constitutional Appears: No Acute Distress - Eye Exam Eye Exam: Conjunctival injection - ENT Exam ENT Exam: Mucous Membranes Moist - Neck Exam Neck Exam: absent: Lymphadenopathy - Respiratory Exam Respiratory Exam: absent: Chest Wall Tenderness - Cardiovascular Exam Cardiovascular Exam: absent: Gallop, JVD, Rubs - GI/Abdominal Exam GI & Abdominal Exam: Soft, Normal Bowel Sounds - Extremities Exam Extremities Exam: Pedal Edema. absent: Calf Tenderness - Back Exam Back Exam: absent: CVA tenderness (L), CVA tenderness (R) - Neurological Exam Neurological Exam: Alert - Psychiatric Exam Psychiatric exam: Normal Affect - Skin Skin Exam: absent: Cyanosis Assessment and Plan (1) Atrial fibrillation Status: Acute (2) Cardiomyopathy Status: Acute (3) Chronic kidney disease, stage IV (severe) Assessment & Plan: CK D stage IV BUN continue to rise disproportion to serum creatinine Patient is still edematous was 2+ leg edema on the way to the knees Hold Zaroxolyn for the next day or 2 continue Lasix twice a day Continue monitoring kidney function patient may need dialysis if continue to rise. Status: Acute
--- NOTE | 2017-10-17 16:20 | CP.PCM.CON ---
History of Present Illness - History of Present Illness History of Present Illness: patient seen/examined. Patient has a history of valvular heart disease s/p AVR, AICD severe LV dsyfunction. he presented to in CHF and renal failure. Kidney function improved. Patient required antibiotic therapy. Review of Systems - Constitutional Constitutional: absent: As Per HPI, Anorexia, Chills, Daytime Sleepiness, Excessive Sweating, Fatigue, Fever, Frequent Falls, Headache, Increased Appetite , Lethargy, Malaise, Night Sweats, Snoring, Sleep Apnea, Weight Gain, Weight Loss, Weakness, Other - EENT Eyes: absent: As Per HPI, Blind Spots, Blurred Vision, Change in Vision, Decreased Night Vision, Diplopia, Discharge, Dry Eye, Exophthalmos, Floaters, Irritation, Itchy Eyes, Loss of Peripheral Vision, Pain, Photophobia, Requires Corrective Lenses, Sees Flashes, Spots in Vision, Tunnel Vision, Other Visual Disturbances, Loss of Vision, Other Ears: absent: As Per HPI, Decreased Hearing, Ear Discharge, Ear Pain, Tinnitus, Abnormal Hearing, Disequilibrium, Dizziness, Other Nose/Mouth/Throat: absent: As Per HPI, Epistaxis, Nasal Congestion, Nasal Discharge, Nasal Obstruction, Nasal Trauma, Nose Pain, Post Nasal Drip, Sinus Pain, Sinus Pressure, Bleeding Gums, Change in Voice, Dental Pain, Dry Mouth, Dysphagia, Halitosis, Hoarsness, Lip Swelling, Mouth Lesions, Mouth Pain, Odynophagia, Sore Throat, Throat Swelling, Tongue Swelling, Facial Pain, Neck Pain, Neck Mass, Other - Cardiovascular Cardiovascular: absent: As Per HPI, Acrocyanosis, Chest Pain, Chest Pain at Rest , Chest Pain with Activity, Claudication, Diaphoresis, Dyspnea, Dyspnea on Exertion, Edema, Irregular Heart Rhythm, Pain Radiating to Arm/Neck/Jaw, Leg Edema, Leg Ulcers, Lightheadedness, Orthopnea, Palpitations, Paroxysmal Nocturnal Dyspnea, Pedal Edema, Radiating Pain, Rapid Heart Rate, Slow Heart Rate, Syncope, Other - Respiratory Respiratory: absent: As Per HPI, Cough, Dyspnea, Hemoptysis, Dyspnea on Exertion , Wheezing, Snoring, Stridor, Pain on Inspiration, Chest Congestion, Excessive Mucous Production, Change in Mucous Color, Pain with Coughing, Other - Gastrointestinal Gastrointestinal: absent: As Per HPI, Abdominal Pain, Belching, Bloating, Change in Bowel Habits, Change in Stool Character, Coffee Ground Emesis, Constipation, Cramping, Diarrhea, Dyspepsia, Dysphagia, Early Satiety, Excessive Flatus, Fecal Incontinence, Heartburn, Hematemesis, Hematochezia, Loose Stools, Melena, Nausea, Odynophagia, Temesmus, Vomiting, Other - Genitourinary Genitourinary: absent: As Per HPI, Change in Urinary Stream, Difficulty Urinating, Dysuria, Flank Pain, Hematuria, Pyuria, Nocturia, Urinary Incontinence, Urinary Frequency, Urinary Hesitance, Urinary Urgency, Voiding Freq/Small Amts, Freq UTI, Hx Renal/Bladder Calculi, Hx /Renal Surgery, Bladder Distension, Other - Musculoskeletal Musculoskeletal: absent: As Per HPI, Abnormal Gait, Arthralgias, Atrophy, Back Pain, Deformity, Joint Swelling, Limited Range of Motion, Loss of Height, Muscle Cramps, Muscle Weakness, Myalgias, Neck Pain, Numbness, Radiating Pain into Limb, Stiffness, Tingling, Other - Integumentary Integumentary: absent: As Per HPI, Acne, Alopecia, Bleeding Lesions, Change in Hair, Change in Nails, Change in Pigmentation, Changing Lesions, Dry Skin, Erythema, Furuncle, Hirsutism, Lesions, New Lesions, Non-Healing Lesions, Photosensitivity, Pruritus, Rash, Skin Pain, Skin Ulcer, Sores, Striae, Swelling , Unusual Bruising, Wounds, Jaundice, Other - Neurological Neurological: absent: As Per HPI, Abnormal Gait, Abnormal Hearing, Abnormal Movements, Abnormal Speech, Behavioral Changes, Burning Sensations, Confusion, Convulsions, Disequilibrium, Dizziness, Numbness, Focal Weakness, Frequent Falls , Headaches, Lack of Coordination, Loss of Vision, Memory Loss, Paresthesias, Radicular Pain, Restless Legs, Sensory Deficit, Syncope, Tingling, Tremor, Vertigo, Weakness, Other Visual Disturbances, Other - Psychiatric Psychiatric: absent: As Per HPI, Abnormal Sleep Pattern, Anhedonia, Anxiety, Auditory Hallucinations, Behavioral Changes, Change in Appetite, Change in Libido, Confusion, Depression, Difficulty Concentrating, Hallucinations, Homicidal Ideation, Hopelessness, Irritability, Memory Loss, Mood Swings, Panic Attacks, Paranoia, Suicidal Ideation, Visual Hallucinations, Tactile Hallucinations, Other - Endocrine Endocrine: absent: As Per HPI, Change in Body Appearance, Change in Libido, Cold Intolorance, Deepening of Voice, Excessive Sweating, Fatigue, Flushing, Heat Intolorance, Increase in Ring/Shoe/Hat Size, Palpitations, Polydipsia, Polyphagia, Polyuria, Other - Hematologic/Lymphatic Hematologic: absent: As Per HPI, Easy Bleeding, Easy Bruising, Lymphadenopathy, Other Past Patient History - Past Medical History & Family History Past Medical History?: Yes - Past Social History Smoking Status: Former Smoker - CARDIAC Hx Cardiac Disorders: Yes Hx Atrial Fibrillation: Yes Hx Congestive Heart Failure: Yes Hx Hypertension: Yes Hx Pacemaker: Yes (2010) - PULMONARY Hx Respiratory Disorders: Yes Hx Pneumonia: Yes - NEUROLOGICAL Hx Neurological Disorder: No HX Cerebrovascular Accident: No - HEENT Hx HEENT Problems: Yes - RENAL Hx Chronic Kidney Disease: Yes Hx Dialysis: No - ENDOCRINE/METABOLIC Hx Endocrine Disorders: No - HEMATOLOGICAL/ONCOLOGICAL Hx Blood Disorders: No Hx AIDS: No Hx Human Immunodeficiency Virus (HIV): No - INTEGUMENTARY Hx Dermatological Problems: No - MUSCULOSKELETAL/RHEUMATOLOGICAL Hx Musculoskeletal Disorders: Yes Hx Arthritis: Yes Hx Falls: No - GASTROINTESTINAL Hx Gastrointestinal Disorders: No - GENITOURINARY/GYNECOLOGICAL Hx Genitourinary Disorders: No - PSYCHIATRIC Hx Psychophysiologic Disorder: No Hx Substance Use: No - SURGICAL HISTORY Hx Surgeries: No Other/Comment: Pacemaker. Aortic valve dissection , Open heart surgery 2009 - ANESTHESIA Hx Anesthesia: Yes Hx Anesthesia Reactions: No Hx Malignant Hyperthermia: No Meds Allergies/Adverse Reactions: Allergies Allergy/AdvReac Type Severity Reaction Status Date / Time warfarin [From Coumadin] Allergy ANAPHYLAXIS Verified 10/15/17 14:39 - Medications Medications: Current Medications Acetaminophen (Tylenol 325mg Tab) 650 mg PO Q6 PRN PRN Reason: Pain, moderate (4-7) Albuterol/Ipratropium (Duoneb 3 Mg/0.5 Mg (3 Ml) Ud) 3 ml INH RQ6 PRN PRN Reason: Shortness of Breath Clopidogrel Bisulfate (Plavix) 75 mg PO DAILY [facility] Last Admin: 10/16/17 08:36 Dose: 75 mg Colchicine (Colocrys) 0.6 mg PO DAILY [facility] Last Admin: 10/17/17 08:40 Dose: 0.6 mg Diphenhydramine HCl (Benadryl) 50 mg PO HS PRN PRN Reason: Sleep Last Admin: 10/16/17 22:13 Dose: 50 mg Enoxaparin Sodium (Lovenox) 30 mg SC DAILY [facility] PRN Reason: Protocol Last Admin: 10/16/17 08:36 Dose: 30 mg Furosemide (Lasix) 40 mg PO BID [facility] Last Admin: 10/17/17 08:41 Dose: 40 mg Cefepime HCl 1 gm/ Sodium (Chloride) 100 mls @ 200 mls/hr IVPB DAILY [facility] Last Admin: 10/17/17 08:41 Dose: 200 mls/hr Clindamycin Phosphate 600 mg/ (Dextrose) 54 mls @ 108 mls/hr IVPB Q12H [facility] Stop: 10/22/17 15:46 Metoprolol Tartrate (Lopressor) 25 mg PO Q12 [facility] Last Admin: 10/17/17 08:38 Dose: 25 mg Oxymetazoline HCl (Nasal Decongestant 15 Ml) 1 spr NS Q12 [facility] Last Admin: 10/17/17 12:07 Dose: 1 spr Promethazine HCl/Codeine (Phenergan/Codeine Oral Syrup) 5 ml PO Q6 PRN PRN Reason: Cough Sevelamer Carbonate (Renvela) 1.6 gm PO TIDWM [facility] Last Admin: 10/17/17 12:08 Dose: 1.6 gm Physical Exam - Constitutional Appears: Chronically Ill - Head Exam Head Exam: NORMAL INSPECTION - Eye Exam Eye Exam: Normal appearance - ENT Exam ENT Exam: Mucous Membranes Moist - Neck Exam Neck exam: Positive for: Full Rom - Respiratory Exam Respiratory Exam: Decreased Breath Sounds - Cardiovascular Exam Cardiovascular Exam: Irregular Rhythm, Systolic Murmur - GI/Abdominal Exam GI & Abdominal Exam: Normal Bowel Sounds - Rectal Exam Rectal Exam: Deferred - Extremities Exam Extremities exam: Positive for: pedal edema - Back Exam Back exam: NORMAL INSPECTION - Neurological Exam Neurological exam: Alert, Oriented x3 - Psychiatric Exam Psychiatric exam: Normal Affect - Skin Skin Exam: Normal Color Results - Vital Signs Recent Vital Signs: Last Vital Signs Temp 97.2 F L 10/17/17 08:35 Pulse 92 H 10/17/17 08:38 Resp 20 10/17/17 08:35 BP 130/68 10/17/17 08:41 Pulse Ox 100 10/17/17 08:35 - Labs Result Diagrams: 10/17/17 05:15 10/17/17 05:15 Labs: Laboratory Results - last 24 hr 10/17/17 10/17/17 10/17/17 05:15 05:15 05:15 WBC 6.5 RBC 2.97 L Hgb 9.6 L Hct 30.2 L MCV 101.8 H MCH 32.4 H MCHC 31.8 L RDW 16.0 H Plt Count 123 L PT 11.3 INR 1.0 APTT 37.4 H Sodium 145 Potassium 4.9 Chloride 106 Carbon Dioxide 22 Anion Gap 22 H BUN 101 H* Creatinine 2.7 H Est GFR ( Amer) 29 Est GFR (Non-Af Amer) 24 Random Glucose 89 Calcium 8.7 Total Bilirubin 0.7 AST 39 ALT 41 Alkaline Phosphatase 73 Total Protein 6.5 Albumin 3.4 L Globulin 3.1 Albumin/Globulin Ratio 1.1 Assessment & Plan (1) Chronic kidney disease, stage IV (severe) Assessment and Plan: followed by renal Status: Acute (2) Aortic aneurysm Assessment and Plan: s/p surgery Status: Acute (3) Aortic insufficiency due to bicuspid aortic valve Assessment and Plan: has severe LV dsyfunction. medical therapy and will attempt to control volume status Status: Acute (4) Atrial fibrillation Assessment and Plan: rate controlled Status: Acute
[2017-10-18 06:16] LABS: MEAN CELL VOLUME 102.1 fl (80.0-94.0); MEAN CORPUSCULAR HEMOGLOBIN 32.4 pg (27.0-31.0); MEAN CORPUSCULAR HGB CONC 31.8 g/dL (33.0-37.0); RBC 3.09 Mil/uL (4.40-5.90); RED CELL DISTRIBUTION WIDTH 16.2 % (11.5-14.5); WHITE BLOOD COUNT 6.6 K/uL (4.8-10.8)
[2017-10-18 06:22] LABS: CALCIUM 8.9 mg/dL (8.4-10.2)
[2017-10-18] MEDS: Sevelamer Carb 0.8 gm/Packet PO SCH ×3 (08:11→16:28)
[2017-10-18] MEDS: Cefepime 1 GM in Sodium Chloride 0.9% 100 ML IVPB SCH (08:17)
--- NOTE | 2017-10-18 10:35 | CP.PCM.PN ---
Subjective - Date & Time of Evaluation Date of Evaluation: 10/18/17 Time of Evaluation: 10:30 - Subjective Subjective: Stable, feeling and looking better this morning. Nasal bleeding stopped. Has no new complains. Tolerating PO and being compliant with water restriction. Objective - Vital Signs/Intake and Output Vital Signs (last 24 hours): Temp Pulse Resp BP Pulse Ox 97.0 F L 89 20 116/76 100 10/18/17 08:18 10/18/17 08:18 10/18/17 08:18 10/18/17 08:18 10/18/17 08:18 - Medications Medications: Current Medications Acetaminophen (Tylenol 325mg Tab) 650 mg PO Q6 PRN PRN Reason: Pain, moderate (4-7) Albuterol/Ipratropium (Duoneb 3 Mg/0.5 Mg (3 Ml) Ud) 3 ml INH RQ6 PRN PRN Reason: Shortness of Breath Clopidogrel Bisulfate (Plavix) 75 mg PO DAILY [facility] Last Admin: 10/16/17 08:36 Dose: 75 mg Colchicine (Colocrys) 0.6 mg PO DAILY [facility] Last Admin: 10/18/17 08:09 Dose: 0.6 mg Diphenhydramine HCl (Benadryl) 50 mg PO HS PRN PRN Reason: Sleep Enoxaparin Sodium (Lovenox) 30 mg SC DAILY [facility] PRN Reason: Protocol Last Admin: 10/16/17 08:36 Dose: 30 mg Furosemide (Lasix) 40 mg PO BID [facility] Last Admin: 10/18/17 08:10 Dose: 40 mg Cefepime HCl 1 gm/ Sodium (Chloride) 100 mls @ 200 mls/hr IVPB DAILY [facility] Last Admin: 10/18/17 08:17 Dose: 200 mls/hr Clindamycin Phosphate 600 mg/ (Dextrose) 54 mls @ 108 mls/hr IVPB Q12@0500, 1700 [facility] Last Admin: 10/18/17 05:22 Dose: 108 mls/hr Metoprolol Tartrate (Lopressor) 25 mg PO Q12 [facility] Last Admin: 10/18/17 08:09 Dose: 25 mg Oxymetazoline HCl (Nasal Decongestant 15 Ml) 1 spr NS Q12 [facility] Last Admin: 10/18/17 08:10 Dose: 1 spr Promethazine HCl/Codeine (Phenergan/Codeine Oral Syrup) 5 ml PO Q6 PRN PRN Reason: Cough Sevelamer Carbonate (Renvela) 1.6 gm PO TIDWM [facility] Last Admin: 10/18/17 08:11 Dose: 1.6 gm - Labs Labs: 10/18/17 05:35 10/18/17 05:35 PT 11.3 Seconds (9.8-13.1) 10/17/17 05:15 INR 1.0 (0.9-1.2) 10/17/17 05:15 APTT 37.4 Seconds (25.6-37.1) H 10/17/17 05:15 - Constitutional Appears: Non-toxic, No Acute Distress, Chronically Ill - Eye Exam Eye Exam: EOMI, PERRL - ENT Exam ENT Exam: Mucous Membranes Moist - Respiratory Exam Respiratory Exam: NORMAL BREATHING PATTERN. absent: Decreased Breath Sounds, Respiratory Distress - Cardiovascular Exam Cardiovascular Exam: +S1, +S2. absent: Gallop - GI/Abdominal Exam GI & Abdominal Exam: Soft, Normal Bowel Sounds. absent: Distended, Tenderness, Rebound - Extremities Exam Extremities Exam: Pedal Edema. absent: Calf Tenderness - Neurological Exam Neurological Exam: Alert, Awake, Oriented x3 - Psychiatric Exam Psychiatric exam: Normal Affect, Normal Mood - Skin Skin Exam: Normal Color, Warm Assessment and Plan - Assessment and Plan (Free Text) Assessment: C/W current plan C/W PT Epistaxis seems resolved BUN creat stable C/W IV abx
--- NOTE | 2017-10-18 10:55 | CP.PCM.PN ---
Subjective - Date & Time of Evaluation Date of Evaluation: 10/18/17 Time of Evaluation: 10:52 - Subjective Subjective: Patient feeling okay and no significant changes Urine output 750 mL I believe in 12 hours No daily weight reported Complain of chronic debilitating Objective - Vital Signs/Intake and Output Vital Signs (last 24 hours): Temp Pulse Resp BP Pulse Ox 97.0 F L 89 20 116/76 100 10/18/17 08:18 10/18/17 08:18 10/18/17 08:18 10/18/17 08:18 10/18/17 08:18 - Medications Medications: Current Medications Acetaminophen (Tylenol 325mg Tab) 650 mg PO Q6 PRN PRN Reason: Pain, moderate (4-7) Albuterol/Ipratropium (Duoneb 3 Mg/0.5 Mg (3 Ml) Ud) 3 ml INH RQ6 PRN PRN Reason: Shortness of Breath Clopidogrel Bisulfate (Plavix) 75 mg PO DAILY [facility] Last Admin: 10/16/17 08:36 Dose: 75 mg Colchicine (Colocrys) 0.6 mg PO DAILY [facility] Last Admin: 10/18/17 08:09 Dose: 0.6 mg Diphenhydramine HCl (Benadryl) 50 mg PO HS PRN PRN Reason: Sleep Enoxaparin Sodium (Lovenox) 30 mg SC DAILY [facility] PRN Reason: Protocol Last Admin: 10/16/17 08:36 Dose: 30 mg Furosemide (Lasix) 40 mg PO BID [facility] Last Admin: 10/18/17 08:10 Dose: 40 mg Cefepime HCl 1 gm/ Sodium (Chloride) 100 mls @ 200 mls/hr IVPB DAILY [facility] Last Admin: 10/18/17 08:17 Dose: 200 mls/hr Clindamycin Phosphate 600 mg/ (Dextrose) 54 mls @ 108 mls/hr IVPB Q12@0500, 1700 [facility] Last Admin: 10/18/17 05:22 Dose: 108 mls/hr Metoprolol Tartrate (Lopressor) 25 mg PO Q12 [facility] Last Admin: 10/18/17 08:09 Dose: 25 mg Oxymetazoline HCl (Nasal Decongestant 15 Ml) 1 spr NS Q12 [facility] Last Admin: 10/18/17 08:10 Dose: 1 spr Promethazine HCl/Codeine (Phenergan/Codeine Oral Syrup) 5 ml PO Q6 PRN PRN Reason: Cough Sevelamer Carbonate (Renvela) 1.6 gm PO TIDWM [facility] Last Admin: 10/18/17 08:11 Dose: 1.6 gm - Labs Labs: 10/18/17 05:35 10/18/17 05:35 PT 11.3 Seconds (9.8-13.1) 10/17/17 05:15 INR 1.0 (0.9-1.2) 10/17/17 05:15 APTT 37.4 Seconds (25.6-37.1) H 10/17/17 05:15 - Constitutional Appears: No Acute Distress - ENT Exam ENT Exam: Mucous Membranes Moist - Neck Exam Neck Exam: absent: Lymphadenopathy - Respiratory Exam Respiratory Exam: absent: Chest Wall Tenderness - Cardiovascular Exam Cardiovascular Exam: absent: Gallop, JVD, Rubs - GI/Abdominal Exam GI & Abdominal Exam: Soft, Normal Bowel Sounds - Extremities Exam Extremities Exam: absent: Calf Tenderness - Back Exam Back Exam: absent: CVA tenderness (L), CVA tenderness (R) - Neurological Exam Neurological Exam: Alert - Psychiatric Exam Psychiatric exam: Normal Affect - Skin Skin Exam: absent: Cyanosis Assessment and Plan (1) Atrial fibrillation Status: Acute (2) Cardiomyopathy Status: Acute (3) Chronic kidney disease, stage IV (severe) Assessment & Plan: Chronic kidney disease stage IV appear to be stable Chronic congestive cardiomyopathy appears to be stable 2+ pitting edema of the lower extremity continue Lasix 40 mg twice a day Debility continual subacute rehabilitation Sepsis status post Escherichia coli patient is receiving antibiotics. Status: Acute
[2017-10-19 07:30] LABS: HEMOGLOBIN 9.3 g/dL (12.0-18.0); MEAN CORPUSCULAR HEMOGLOBIN 32.9 pg (27.0-31.0); MEAN CORPUSCULAR HGB CONC 32.2 g/dL (33.0-37.0); RBC 2.82 Mil/uL (4.40-5.90); RED CELL DISTRIBUTION WIDTH 15.8 % (11.5-14.5)
[2017-10-19 07:51] LABS: CALCIUM 8.5 mg/dL (8.4-10.2)
[2017-10-19] MEDS: Sevelamer Carb 0.8 gm/Packet PO SCH ×3 (08:33→17:26)
[2017-10-19] MEDS: Cefepime 1 GM in Sodium Chloride 0.9% 100 ML IVPB SCH (08:40)
--- NOTE | 2017-10-19 12:27 | CP.PCM.PN ---
Subjective - Date & Time of Evaluation Date of Evaluation: 10/19/17 Time of Evaluation: 10:55 - Subjective Subjective: Doing better, no new epistaxis, c/o chronic debility. Denies CP, new SOB, changes in urination or stools. No events overnight Objective - Vital Signs/Intake and Output Vital Signs (last 24 hours): Temp Pulse Resp BP Pulse Ox 96.8 F L 86 20 119/64 99 10/19/17 08:45 10/19/17 08:45 10/19/17 08:45 10/19/17 08:45 10/19/17 08:45 - Medications Medications: Current Medications Acetaminophen (Tylenol 325mg Tab) 650 mg PO Q6 PRN PRN Reason: Pain, moderate (4-7) Albuterol/Ipratropium (Duoneb 3 Mg/0.5 Mg (3 Ml) Ud) 3 ml INH RQ6 PRN PRN Reason: Shortness of Breath Clopidogrel Bisulfate (Plavix) 75 mg PO DAILY [facility] Last Admin: 10/19/17 08:34 Dose: 75 mg Colchicine (Colocrys) 0.6 mg PO DAILY [facility] Last Admin: 10/19/17 08:48 Dose: Not Given Diphenhydramine HCl (Benadryl) 50 mg PO HS PRN PRN Reason: Sleep Last Admin: 10/18/17 21:56 Dose: 50 mg Furosemide (Lasix) 40 mg PO BID [facility] Last Admin: 10/19/17 08:34 Dose: 40 mg Cefepime HCl 1 gm/ Sodium (Chloride) 100 mls @ 200 mls/hr IVPB DAILY [facility] Last Admin: 10/18/17 08:17 Dose: 200 mls/hr Clindamycin Phosphate 600 mg/ (Dextrose) 54 mls @ 108 mls/hr IVPB Q12@0500, 1700 [facility] Last Admin: 10/19/17 04:12 Dose: 108 mls/hr Metoprolol Tartrate (Lopressor) 25 mg PO Q12 [facility] Last Admin: 10/19/17 08:38 Dose: 25 mg Oxymetazoline HCl (Nasal Decongestant 15 Ml) 1 spr NS Q12 [facility] Last Admin: 10/19/17 08:33 Dose: 1 spr Promethazine HCl/Codeine (Phenergan/Codeine Oral Syrup) 5 ml PO Q6 PRN PRN Reason: Cough Sevelamer Carbonate (Renvela) 1.6 gm PO TIDWM [facility] Last Admin: 10/19/17 08:33 Dose: 1.6 gm - Labs Labs: 10/19/17 07:10 10/19/17 07:10 PT 11.3 Seconds (9.8-13.1) 10/17/17 05:15 INR 1.0 (0.9-1.2) 10/17/17 05:15 APTT 37.4 Seconds (25.6-37.1) H 10/17/17 05:15 - Constitutional Appears: Non-toxic, Chronically Ill - Eye Exam Eye Exam: EOMI, PERRL - ENT Exam ENT Exam: Mucous Membranes Moist - Respiratory Exam Respiratory Exam: NORMAL BREATHING PATTERN. absent: Decreased Breath Sounds, Respiratory Distress - Cardiovascular Exam Cardiovascular Exam: +S1, +S2, Murmur. absent: Gallop - GI/Abdominal Exam GI & Abdominal Exam: Soft, Normal Bowel Sounds. absent: Distended, Guarding, Rigid, Tenderness, Rebound - Extremities Exam Extremities Exam: Pedal Edema. absent: Calf Tenderness, Tenderness - Neurological Exam Neurological Exam: Alert, Awake, Oriented x3. absent: Motor Sensory Deficit - Psychiatric Exam Psychiatric exam: Normal Affect, Normal Mood - Skin Skin Exam: Normal Color, Warm Assessment and Plan - Assessment and Plan (Free Text) Assessment: Kidney function impaired/Stable Nephro on board C/W Lasix and rest of meds CHF stable, LE edema C/W current plan E.Coli bacteremia: On IV abx until 10/22/17 as per ID
--- NOTE | 2017-10-19 13:22 | CP.PCM.PN ---
Subjective - Date & Time of Evaluation Date of Evaluation: 10/19/17 Time of Evaluation: 13:21 - Subjective Subjective: No significant changes clinically Vital sign noted to be stable No chest pain Objective - Vital Signs/Intake and Output Vital Signs (last 24 hours): Temp Pulse Resp BP Pulse Ox 96.8 F L 86 20 119/64 99 10/19/17 08:45 10/19/17 08:45 10/19/17 08:45 10/19/17 08:45 10/19/17 08:45 - Medications Medications: Current Medications Acetaminophen (Tylenol 325mg Tab) 650 mg PO Q6 PRN PRN Reason: Pain, moderate (4-7) Albuterol/Ipratropium (Duoneb 3 Mg/0.5 Mg (3 Ml) Ud) 3 ml INH RQ6 PRN PRN Reason: Shortness of Breath Clopidogrel Bisulfate (Plavix) 75 mg PO DAILY [facility] Last Admin: 10/19/17 08:34 Dose: 75 mg Colchicine (Colocrys) 0.6 mg PO DAILY [facility] Last Admin: 10/19/17 08:48 Dose: Not Given Diphenhydramine HCl (Benadryl) 50 mg PO HS PRN PRN Reason: Sleep Last Admin: 10/18/17 21:56 Dose: 50 mg Furosemide (Lasix) 40 mg PO BID [facility] Last Admin: 10/19/17 08:34 Dose: 40 mg Cefepime HCl 1 gm/ Sodium (Chloride) 100 mls @ 200 mls/hr IVPB DAILY [facility] Last Admin: 10/18/17 08:17 Dose: 200 mls/hr Clindamycin Phosphate 600 mg/ (Dextrose) 54 mls @ 108 mls/hr IVPB Q12@0500, 1700 [facility] Last Admin: 10/19/17 04:12 Dose: 108 mls/hr Metoprolol Tartrate (Lopressor) 25 mg PO Q12 [facility] Last Admin: 10/19/17 08:38 Dose: 25 mg Oxymetazoline HCl (Nasal Decongestant 15 Ml) 1 spr NS Q12 [facility] Last Admin: 10/19/17 08:33 Dose: 1 spr Promethazine HCl/Codeine (Phenergan/Codeine Oral Syrup) 5 ml PO Q6 PRN PRN Reason: Cough Sevelamer Carbonate (Renvela) 1.6 gm PO TIDWM [facility] Last Admin: 10/19/17 12:55 Dose: 1.6 gm - Labs Labs: 10/19/17 07:10 10/19/17 07:10 PT 11.3 Seconds (9.8-13.1) 10/17/17 05:15 INR 1.0 (0.9-1.2) 10/17/17 05:15 APTT 37.4 Seconds (25.6-37.1) H 10/17/17 05:15 - Constitutional Appears: No Acute Distress - ENT Exam ENT Exam: Mucous Membranes Moist - Neck Exam Neck Exam: absent: Lymphadenopathy - Respiratory Exam Respiratory Exam: NORMAL BREATHING PATTERN - Cardiovascular Exam Cardiovascular Exam: absent: JVD, Rubs - GI/Abdominal Exam GI & Abdominal Exam: Soft, Normal Bowel Sounds - Extremities Exam Extremities Exam: absent: Calf Tenderness - Back Exam Back Exam: absent: CVA tenderness (L), CVA tenderness (R) - Neurological Exam Neurological Exam: Alert - Psychiatric Exam Psychiatric exam: Anxious - Skin Skin Exam: absent: Cyanosis Assessment and Plan (1) Atrial fibrillation Status: Acute (2) Cardiomyopathy Status: Acute (3) Chronic kidney disease, stage IV (severe) Assessment & Plan: CK D stage IV GFR 20. Worsening of kidney function slightly Leg edema , very slight improvement Continue diuresis gently Daily weight Again we will consider hemodialysis sometime next week if no improvement. Status: Acute
[2017-10-20] MEDS: Sevelamer Carb 0.8 gm/Packet PO SCH ×3 (08:50→17:01)
[2017-10-20] MEDS: Cefepime 1 GM in Sodium Chloride 0.9% 100 ML IVPB SCH (08:52)
[2017-10-20 11:19] LABS: BASO # 0.1 K/uL (0.0-0.2); BASO % 1.3 % (0.0-2.0); EOS # 0.1 K/uL (0.0-0.7); EOS % 2.1 % (0.0-4.0); HEMOGLOBIN 9.5 g/dL (12.0-18.0); LYMPH # 0.3 K/uL (1.0-4.3); LYMPH % 5.9 % (20.0-40.0); MEAN CELL VOLUME 103.7 fl (80.0-94.0); MEAN CORPUSCULAR HEMOGLOBIN 32.4 pg (27.0-31.0); MEAN CORPUSCULAR HGB CONC 31.2 g/dL (33.0-37.0); MEAN PLATELET VOLUME 8.9 fl (7.2-11.7); MONO # 0.6 K/uL (0.0-0.8); MONO % 10.2 % (0.0-10.0); NEUT # 4.5 K/uL (1.8-7.0); NEUT % 80.5 % (50.0-75.0); NRBC % 0.2 % (0.0-0.0); PLATELET COUNT 118 K/uL (130-400); RBC 2.94 Mil/uL (4.40-5.90); RED CELL DISTRIBUTION WIDTH 16.8 % (11.5-14.5); WHITE BLOOD COUNT 5.6 K/uL (4.8-10.8)
[2017-10-20 11:24] LABS: CALCIUM 8.5 mg/dL (8.4-10.2)
[2017-10-20 11:57] LABS: FERRITIN 83.6 ng/Ml (17.9-464)
[2017-10-20 12:40] LABS: ANISOCYTOSIS SLIGHT; EOSINOPHIL 2 % (0-7); HYPOCHROMIC SLIGHT; LYMPHOCYTE 9 % (20-50); MONOCYTE 5 % (0-10); MYELOCYTE 3 % (0-0); NEUTROPHIL 81 % (42-75); OVALOCYTES SLIGHT; PLATELET ESTIMATE SLIGHTLY DECREASED (NORMAL); POIKILOCYTOSIS SLIGHT; TOTAL CELLS COUNTED 100
[2017-10-20 12:41] LABS: SCHISTOCYTES SLIGHT
--- NOTE | 2017-10-20 17:48 | CP.PCM.PN ---
Subjective - Date & Time of Evaluation Date of Evaluation: 10/20/17 Time of Evaluation: 17:44 - Subjective Subjective: Nephrology Consultation Note Assessment: Stable Acute Kidney Injury (N17.9) likely Cardiorenal; stable Hypertensive Chronic Kidney Disease (I12.9) Chronic Kidney Disease (N18.4) Stage 4 with 100 mg proteinuria (R80.9) Anemia (D64.9), Hyperphosphatemia (E83.39), Secondary Hyperparathyroidism (E21.1 ), HTN (I12.9) Recent Escherichia coli sepsis Plan No acute need for renal replacement therapy at this time. Hypertension control with meds as ordered. Patient not on ACEI/ARB due to recent ROBERT And advanced CKD Monitor Input/Output, daily weights and renal function with basic metabolic panel Start iron supplementation and multivitamin Increase Lasix up to 80 mg 2 times a day Continue Renvela Check for 25-OH vitamin D, phosphorus level. Iron studies as TSAT, Ferritin. Dose meds/antibiotics for reduced GFR. Avoid fleets enema/magnesium based laxatives. Avoid nephrotoxins/NSAIDs/ iodinated contrast (unless needed emergently) Glycemic control Further work up for as per primary team Thanks for allowing me to participate in care of your patient. Will follow patient with you. Please call if any Qs Dr Tyler Vang Office: [phone] Subjective: Noted events overnight. Patients feels okay. Denies chest pain, palpitation, reports exertional shortness of breath and leg swelling. All other negative. No urinary complaints Physical Examination: General Appearance: Comfortable, in no acute respiratory distress, co-operative . Vitals reviewed and noted as below Head; Atraumatic, normocephalic ENT: no ulcers no thrush. Tongue is midline. Oropharynx: no rash or ulcers. EYES: Pupils are equal, round and reactive to light accommodation. Eye muscles and extraocular movement intact. Sclera is anicteric. Neck; supple no lymphadenopathy, no thyromegaly or bruit Lungs: Normal respiratory rate/effort. Breath sounds bilateral equal and few rales at bases Heart: Normal rate. s1s2 normal. No rub or gallop. Extremities: 2+ edema. No varicose veins Neurological: Patient is alert, awake and oriented to person, place and time. No focal deficit. Strength bilateral appropriate and equal Skin: Warm and dry. Normal turgor. No rash. Palpitation: Normal elasticity for age Abdomen: Abdomen is soft. Bowel sounds +. There is no abdominal tenderness, no guarding/rigidity no organomegaly Psych: normal insight and normal affect/mood MSK: no joint tenderness or swelling. Digits and nails normal, no deformity : kidney or bladder not palpable Labs/imaging reviewed. Past medical history, past surgical history, family history, social history, allergy reviewed and noted as below Family hx: no hx of CKD. Rest non-contributory work up; PTH 188 Renal sonogram bilateral renal cyst UA negative for protein spot ratio for protein creatinine is 100 mg/g of creatinine Echo severe MR and severe TR EF 5 to 10% Objective - Vital Signs/Intake and Output Vital Signs (last 24 hours): Temp Pulse Resp BP Pulse Ox 97.0 F L 80 20 112/64 100 10/20/17 15:58 10/20/17 15:58 10/20/17 15:58 10/20/17 17:03 10/20/17 15:58 - Medications Medications: Current Medications Acetaminophen (Tylenol 325mg Tab) 650 mg PO Q6 PRN PRN Reason: Pain, moderate (4-7) Albuterol/Ipratropium (Duoneb 3 Mg/0.5 Mg (3 Ml) Ud) 3 ml INH RQ6 PRN PRN Reason: Shortness of Breath Clopidogrel Bisulfate (Plavix) 75 mg PO DAILY [facility] Last Admin: 10/20/17 08:51 Dose: 75 mg Colchicine (Colocrys) 0.6 mg PO DAILY [facility] Last Admin: 10/20/17 12:20 Dose: Not Given Diphenhydramine HCl (Benadryl) 50 mg PO HS PRN PRN Reason: Sleep Last Admin: 10/19/17 23:10 Dose: 50 mg Ferrous Gluconate (Fergon) 324 mg PO TID [facility] Last Admin: 10/20/17 17:01 Dose: 324 mg Furosemide (Lasix) 80 mg PO BID [facility] Last Admin: 10/20/17 17:03 Dose: 80 mg Cefepime HCl 1 gm/ Sodium (Chloride) 100 mls @ 200 mls/hr IVPB DAILY [facility] Last Admin: 10/20/17 08:52 Dose: 200 mls/hr Clindamycin Phosphate 600 mg/ (Dextrose) 54 mls @ 108 mls/hr IVPB Q12@0500, 1700 [facility] Last Admin: 10/20/17 17:00 Dose: 108 mls/hr Metoprolol Tartrate (Lopressor) 25 mg PO Q12 [facility] Last Admin: 10/20/17 08:51 Dose: 25 mg Oxymetazoline HCl (Nasal Decongestant 15 Ml) 1 spr NS Q12 [facility] Last Admin: 10/20/17 08:52 Dose: 1 spr Promethazine HCl/Codeine (Phenergan/Codeine Oral Syrup) 5 ml PO Q6 PRN PRN Reason: Cough Sevelamer Carbonate (Renvela) 1.6 gm PO TIDWM [facility] Last Admin: 10/20/17 17:01 Dose: 1.6 gm Vitamin B Complex/Vit C/Folic Acid (Nephro-Christo) 1 tab PO DAILY [facility] - Labs Labs: 10/20/17 10:15 10/20/17 10:15 PT 11.3 Seconds (9.8-13.1) 10/17/17 05:15 INR 1.0 (0.9-1.2) 10/17/17 05:15 APTT 37.4 Seconds (25.6-37.1) H 10/17/17 05:15
[2017-10-21] MEDS: Sevelamer Carb 0.8 gm/Packet PO SCH ×3 (09:02→17:27)
[2017-10-21] MEDS: Multivitamin Vitamin B Complex (Nephro-Vite) Tab PO SCH (09:02)
[2017-10-21] MEDS: Cefepime 1 GM in Sodium Chloride 0.9% 100 ML IVPB SCH (09:05)
[2017-10-21 13:27] LABS: ABG ALLEN TEST YES; ARTERIAL BLOOD GAS HCO3 21.4 mmol/L (21-28); ARTERIAL BLOOD GAS HEMOGLOBIN 9.3 g/dL (11.7-17.4); ARTERIAL BLOOD GAS O2 CAPACITY 12.9 mL/dL (16-24); ARTERIAL BLOOD GAS O2 CONTENT 12.8 ML/dL (15-23); ARTERIAL BLOOD GAS O2 SAT 99.5 % (95-98); ARTERIAL BLOOD GAS PCO2 35 mm/Hg (35-45); ARTERIAL BLOOD GAS PH 7.37 (7.35-7.45); ARTERIAL BLOOD GAS PO2 96 mm/Hg (80-100); ARTERIAL BLOOD GAS TCO2 21.3 mmol/L (22-28)
--- NOTE | 2017-10-21 17:41 | CP.PCM.PN ---
Subjective - Date & Time of Evaluation Date of Evaluation: 10/21/17 Time of Evaluation: 17:40 - Subjective Subjective: Nephrology Consultation Note Assessment: Stable Acute Kidney Injury (N17.9) likely Cardiorenal; stable Hypertensive Chronic Kidney Disease (I12.9) Chronic Kidney Disease (N18.4) Stage 4 with 100 mg proteinuria (R80.9) Anemia (D64.9), Hyperphosphatemia (E83.39), Secondary Hyperparathyroidism (E21.1 ), HTN (I12.9) Recent Escherichia coli sepsis Plan No acute need for renal replacement therapy at this time. Hypertension control with meds as ordered. Patient not on ACEI/ARB due to recent ROBERT And advanced CKD Monitor Input/Output, daily weights and renal function with basic metabolic panel Start iron supplementation and multivitamin Increase Lasix up to 80 mg 2 times a day. consider metolazone tomorrow if renal function/bp stable Continue Renvela Check for 25-OH vitamin D, phosphorus level Dose meds/antibiotics for reduced GFR. Avoid fleets enema/magnesium based laxatives. Avoid nephrotoxins/NSAIDs/ iodinated contrast (unless needed emergently) Glycemic control Further work up for as per primary team Thanks for allowing me to participate in care of your patient. Will follow patient with you. Please call if any Qs Dr Tyler Vang Office: [phone] Subjective: Noted events overnight. Patients feels okay. Denies chest pain, palpitation, reports exertional shortness of breath and orthopnoea and leg swelling. All other negative. No urinary complaints Physical Examination: General Appearance: Comfortable, in no acute respiratory distress, co-operative . Vitals reviewed and noted as below Head; Atraumatic, normocephalic ENT: no ulcers no thrush. Tongue is midline. Oropharynx: no rash or ulcers. EYES: Pupils are equal, round and reactive to light accommodation. Eye muscles and extraocular movement intact. Sclera is anicteric. Neck; supple no lymphadenopathy, no thyromegaly or bruit Lungs: Normal respiratory rate/effort. Breath sounds bilateral equal and few rales at bases Heart: Normal rate. s1s2 normal. No rub or gallop. Extremities: 2+ edema. No varicose veins Neurological: Patient is alert, awake and oriented to person, place and time. No focal deficit. Strength bilateral appropriate and equal Skin: Warm and dry. Normal turgor. No rash. Palpitation: Normal elasticity for age Abdomen: Abdomen is soft. Bowel sounds +. There is no abdominal tenderness, no guarding/rigidity no organomegaly Psych: normal insight and normal affect/mood MSK: no joint tenderness or swelling. Digits and nails normal, no deformity : kidney or bladder not palpable Labs/imaging reviewed. Past medical history, past surgical history, family history, social history, allergy reviewed and noted as below Family hx: no hx of CKD. Rest non-contributory work up; PTH 188 Renal sonogram bilateral renal cyst UA negative for protein spot ratio for protein creatinine is 100 mg/g of creatinine Echo severe MR and severe TR EF 5 to 10% Objective - Vital Signs/Intake and Output Vital Signs (last 24 hours): Temp Pulse Resp BP Pulse Ox 97.0 F L 85 20 98/64 L 99 10/21/17 16:49 10/21/17 16:49 10/21/17 16:49 10/21/17 16:49 10/21/17 16:49 Intake and Output: 10/21/17 10/21/17 06:59 18:59 Intake Total Output Total Balance - Medications Medications: Current Medications Acetaminophen (Tylenol 325mg Tab) 650 mg PO Q6 PRN PRN Reason: Pain, moderate (4-7) Albuterol/Ipratropium (Duoneb 3 Mg/0.5 Mg (3 Ml) Ud) 3 ml INH RQ6 PRN PRN Reason: Shortness of Breath Clopidogrel Bisulfate (Plavix) 75 mg PO DAILY [facility] Last Admin: 10/21/17 09:02 Dose: 75 mg Colchicine (Colocrys) 0.6 mg PO DAILY [facility] Last Admin: 10/21/17 09:01 Dose: Not Given Diphenhydramine HCl (Benadryl) 50 mg PO HS PRN PRN Reason: Sleep Last Admin: 10/19/17 23:10 Dose: 50 mg Ferrous Gluconate (Fergon) 324 mg PO TID [facility] Last Admin: 10/21/17 17:23 Dose: 324 mg Furosemide (Lasix) 80 mg PO BID [facility] Cefepime HCl 1 gm/ Sodium (Chloride) 100 mls @ 200 mls/hr IVPB DAILY [facility] Last Admin: 10/21/17 09:05 Dose: 200 mls/hr Clindamycin Phosphate 600 mg/ (Dextrose) 54 mls @ 108 mls/hr IVPB Q12@0500, 1700 [facility] Last Admin: 10/21/17 17:24 Dose: 108 mls/hr Metoprolol Tartrate (Lopressor) 25 mg PO Q12 [facility] Last Admin: 10/21/17 09:02 Dose: 25 mg Oxymetazoline HCl (Nasal Decongestant 15 Ml) 1 spr NS Q12 [facility] Last Admin: 10/21/17 09:02 Dose: 1 spr Promethazine HCl/Codeine (Phenergan/Codeine Oral Syrup) 5 ml PO Q6 PRN PRN Reason: Cough Sevelamer Carbonate (Renvela) 1.6 gm PO TIDWM [facility] Last Admin: 10/21/17 17:27 Dose: 1.6 gm Vitamin B Complex/Vit C/Folic Acid (Nephro-Christo) 1 tab PO DAILY [facility] Last Admin: 10/21/17 09:02 Dose: 1 tab - Labs Labs: 10/20/17 10:15 10/20/17 10:15 PT 11.3 Seconds (9.8-13.1) 10/17/17 05:15 INR 1.0 (0.9-1.2) 10/17/17 05:15 APTT 37.4 Seconds (25.6-37.1) H 10/17/17 05:15
--- NOTE | 2017-10-21 22:43 | CP.PCM.PN ---
Subjective - Date & Time of Evaluation Date of Evaluation: 10/20/17 Time of Evaluation: 10:00 - Subjective Subjective: Patient continues to have leg edema. Also has persistent SOB when walking short distances. Objective - Vital Signs/Intake and Output Vital Signs (last 24 hours): Temp Pulse Resp BP Pulse Ox 97.7 F 82 20 100/60 100 10/21/17 20:08 10/21/17 21:20 10/21/17 20:08 10/21/17 21:20 10/21/17 20:08 Intake and Output: 10/21/17 10/22/17 18:59 06:59 Intake Total 600 Output Total 750 Balance -150 - Medications Medications: Current Medications Acetaminophen (Tylenol 325mg Tab) 650 mg PO Q6 PRN PRN Reason: Pain, moderate (4-7) Albuterol/Ipratropium (Duoneb 3 Mg/0.5 Mg (3 Ml) Ud) 3 ml INH RQ6 PRN PRN Reason: Shortness of Breath Clopidogrel Bisulfate (Plavix) 75 mg PO DAILY [facility] Last Admin: 10/21/17 09:02 Dose: 75 mg Colchicine (Colocrys) 0.6 mg PO DAILY [facility] Last Admin: 10/21/17 09:01 Dose: Not Given Diphenhydramine HCl (Benadryl) 50 mg PO HS PRN PRN Reason: Sleep Last Admin: 10/19/17 23:10 Dose: 50 mg Ferrous Gluconate (Fergon) 324 mg PO TID [facility] Last Admin: 10/21/17 17:23 Dose: 324 mg Furosemide (Lasix) 80 mg PO BID [facility] Last Admin: 10/21/17 18:16 Dose: 80 mg Cefepime HCl 1 gm/ Sodium (Chloride) 100 mls @ 200 mls/hr IVPB DAILY [facility] Last Admin: 10/21/17 09:05 Dose: 200 mls/hr Clindamycin Phosphate 600 mg/ (Dextrose) 54 mls @ 108 mls/hr IVPB Q12@0500, 1700 [facility] Last Admin: 10/21/17 17:24 Dose: 108 mls/hr Metoprolol Tartrate (Lopressor) 25 mg PO Q12 [facility] Last Admin: 10/21/17 21:20 Dose: 25 mg Oxymetazoline HCl (Nasal Decongestant 15 Ml) 1 spr NS Q12 [facility] Last Admin: 10/21/17 21:19 Dose: 1 spr Promethazine HCl/Codeine (Phenergan/Codeine Oral Syrup) 5 ml PO Q6 PRN PRN Reason: Cough Sevelamer Carbonate (Renvela) 1.6 gm PO TIDWM [facility] Last Admin: 10/21/17 17:27 Dose: 1.6 gm Vitamin B Complex/Vit C/Folic Acid (Nephro-Christo) 1 tab PO DAILY [facility] Last Admin: 10/21/17 09:02 Dose: 1 tab - Labs Labs: 10/20/17 10:15 10/20/17 10:15 PT 11.3 Seconds (9.8-13.1) 10/17/17 05:15 INR 1.0 (0.9-1.2) 10/17/17 05:15 APTT 37.4 Seconds (25.6-37.1) H 10/17/17 05:15
--- NOTE | 2017-10-21 22:46 | CP.PCM.PN ---
Subjective - Date & Time of Evaluation Date of Evaluation: 10/21/17 Time of Evaluation: 11:00 - Subjective Subjective: Patient feels a lot better Currently on Lasix 80 mg daily Has less SOB and noted less leg edema. Objective - Vital Signs/Intake and Output Vital Signs (last 24 hours): Temp Pulse Resp BP Pulse Ox 97.7 F 82 20 100/60 100 10/21/17 20:08 10/21/17 21:20 10/21/17 20:08 10/21/17 21:20 10/21/17 20:08 Intake and Output: 10/21/17 10/22/17 18:59 06:59 Intake Total 600 Output Total 750 Balance -150 - Medications Medications: Current Medications Acetaminophen (Tylenol 325mg Tab) 650 mg PO Q6 PRN PRN Reason: Pain, moderate (4-7) Albuterol/Ipratropium (Duoneb 3 Mg/0.5 Mg (3 Ml) Ud) 3 ml INH RQ6 PRN PRN Reason: Shortness of Breath Clopidogrel Bisulfate (Plavix) 75 mg PO DAILY [facility] Last Admin: 10/21/17 09:02 Dose: 75 mg Colchicine (Colocrys) 0.6 mg PO DAILY [facility] Last Admin: 10/21/17 09:01 Dose: Not Given Diphenhydramine HCl (Benadryl) 50 mg PO HS PRN PRN Reason: Sleep Last Admin: 10/19/17 23:10 Dose: 50 mg Ferrous Gluconate (Fergon) 324 mg PO TID [facility] Last Admin: 10/21/17 17:23 Dose: 324 mg Furosemide (Lasix) 80 mg PO BID [facility] Last Admin: 10/21/17 18:16 Dose: 80 mg Cefepime HCl 1 gm/ Sodium (Chloride) 100 mls @ 200 mls/hr IVPB DAILY [facility] Last Admin: 10/21/17 09:05 Dose: 200 mls/hr Clindamycin Phosphate 600 mg/ (Dextrose) 54 mls @ 108 mls/hr IVPB Q12@0500, 1700 [facility] Last Admin: 10/21/17 17:24 Dose: 108 mls/hr Metoprolol Tartrate (Lopressor) 25 mg PO Q12 [facility] Last Admin: 10/21/17 21:20 Dose: 25 mg Oxymetazoline HCl (Nasal Decongestant 15 Ml) 1 spr NS Q12 [facility] Last Admin: 10/21/17 21:19 Dose: 1 spr Promethazine HCl/Codeine (Phenergan/Codeine Oral Syrup) 5 ml PO Q6 PRN PRN Reason: Cough Sevelamer Carbonate (Renvela) 1.6 gm PO TIDWM [facility] Last Admin: 10/21/17 17:27 Dose: 1.6 gm Vitamin B Complex/Vit C/Folic Acid (Nephro-Christo) 1 tab PO DAILY [facility] Last Admin: 10/21/17 09:02 Dose: 1 tab - Labs Labs: 10/20/17 10:15 10/20/17 10:15 PT 11.3 Seconds (9.8-13.1) 10/17/17 05:15 INR 1.0 (0.9-1.2) 10/17/17 05:15 APTT 37.4 Seconds (25.6-37.1) H 10/17/17 05:15
[2017-10-22 06:56] LABS: BASO # 0.1 K/uL (0.0-0.2); BASO % 1.5 % (0.0-2.0); EOS # 0.1 K/uL (0.0-0.7); EOS % 2.1 % (0.0-4.0); HEMOGLOBIN 9.2 g/dL (12.0-18.0); LYMPH # 0.4 K/uL (1.0-4.3); LYMPH % 8.2 % (20.0-40.0); MEAN CELL VOLUME 101.5 fl (80.0-94.0); MEAN CORPUSCULAR HEMOGLOBIN 32.7 pg (27.0-31.0); MEAN CORPUSCULAR HGB CONC 32.3 g/dL (33.0-37.0); MEAN PLATELET VOLUME 9.1 fl (7.2-11.7); MONO # 0.6 K/uL (0.0-0.8); MONO % 12.1 % (0.0-10.0); NEUT # 3.8 K/uL (1.8-7.0); NEUT % 76.1 % (50.0-75.0); NRBC % 0.1 % (0.0-0.0); RBC 2.82 Mil/uL (4.40-5.90); RED CELL DISTRIBUTION WIDTH 16.3 % (11.5-14.5)
[2017-10-22 07:37] LABS: CALCIUM 8.7 mg/dL (8.4-10.2)
[2017-10-22] MEDS: Multivitamin Vitamin B Complex (Nephro-Vite) Tab PO SCH (08:20)
[2017-10-22] MEDS: Sevelamer Carb 0.8 gm/Packet PO SCH ×3 (08:20→16:13)
[2017-10-22] MEDS: Cefepime 1 GM in Sodium Chloride 0.9% 100 ML IVPB SCH (08:22)
--- NOTE | 2017-10-22 10:50 | CP.PCM.PN ---
Subjective - Date & Time of Evaluation Date of Evaluation: 10/22/17 Time of Evaluation: 10:48 - Subjective Subjective: Patient sitting up in bed complaining of less shortness of breath and somewhat less leg swelling and edema. However complain of nausea at the time Objective - Vital Signs/Intake and Output Vital Signs (last 24 hours): Temp Pulse Resp BP Pulse Ox 97.3 F L 86 20 102/61 100 10/22/17 07:51 10/22/17 08:20 10/22/17 07:51 10/22/17 10:10 10/22/17 07:51 - Medications Medications: Current Medications Acetaminophen (Tylenol 325mg Tab) 650 mg PO Q6 PRN PRN Reason: Pain, moderate (4-7) Albuterol/Ipratropium (Duoneb 3 Mg/0.5 Mg (3 Ml) Ud) 3 ml INH RQ6 PRN PRN Reason: Shortness of Breath Clopidogrel Bisulfate (Plavix) 75 mg PO DAILY [facility] Last Admin: 10/22/17 08:20 Dose: 75 mg Colchicine (Colocrys) 0.6 mg PO DAILY [facility] Last Admin: 10/22/17 08:21 Dose: Not Given Diphenhydramine HCl (Benadryl) 50 mg PO HS PRN PRN Reason: Sleep Last Admin: 10/19/17 23:10 Dose: 50 mg Ferrous Gluconate (Fergon) 324 mg PO TID [facility] Last Admin: 10/22/17 08:22 Dose: 324 mg Furosemide (Lasix) 80 mg PO BID [facility] Last Admin: 10/22/17 10:07 Dose: Not Given Furosemide (Lasix) 40 mg PO BID [facility] Last Admin: 10/22/17 10:10 Dose: 40 mg Cefepime HCl 1 gm/ Sodium (Chloride) 100 mls @ 200 mls/hr IVPB DAILY [facility] Last Admin: 10/22/17 08:22 Dose: 200 mls/hr Clindamycin Phosphate 600 mg/ (Dextrose) 54 mls @ 108 mls/hr IVPB Q12@0500, 1700 [facility] Last Admin: 10/22/17 05:04 Dose: 108 mls/hr Metoprolol Tartrate (Lopressor) 25 mg PO Q12 [facility] Last Admin: 10/22/17 08:20 Dose: 25 mg Oxymetazoline HCl (Nasal Decongestant 15 Ml) 1 spr NS Q12 [facility] Last Admin: 10/22/17 08:20 Dose: 1 spr Promethazine HCl/Codeine (Phenergan/Codeine Oral Syrup) 5 ml PO Q6 PRN PRN Reason: Cough Sevelamer Carbonate (Renvela) 1.6 gm PO TIDWM [facility] Last Admin: 10/22/17 08:20 Dose: 1.6 gm Vitamin B Complex/Vit C/Folic Acid (Nephro-Christo) 1 tab PO DAILY [facility] Last Admin: 10/22/17 08:20 Dose: 1 tab - Labs Labs: 10/22/17 05:45 10/22/17 05:45 PT 11.3 Seconds (9.8-13.1) 10/17/17 05:15 INR 1.0 (0.9-1.2) 10/17/17 05:15 APTT 37.4 Seconds (25.6-37.1) H 10/17/17 05:15 - Constitutional Appears: No Acute Distress - ENT Exam ENT Exam: Mucous Membranes Moist - Neck Exam Neck Exam: absent: Lymphadenopathy - Cardiovascular Exam Cardiovascular Exam: absent: Gallop, JVD, Rubs - GI/Abdominal Exam GI & Abdominal Exam: Soft, Normal Bowel Sounds - Extremities Exam Extremities Exam: absent: Calf Tenderness - Back Exam Back Exam: absent: CVA tenderness (L), CVA tenderness (R) - Neurological Exam Neurological Exam: Alert - Psychiatric Exam Psychiatric exam: Normal Affect - Skin Skin Exam: absent: Cyanosis Assessment and Plan (1) Atrial fibrillation Status: Acute (2) Cardiomyopathy Status: Acute (3) Chronic kidney disease, stage IV (severe) Assessment & Plan: Chronic kidney disease stage IV GFR dropping 16 was rising creatinine 3.8 rising BUN. The plan cut down Lasix from 80 mg twice a day to 40 mg twice a day patient still have 1+ pitting edema. I spoke with the patient in detail regarding the need of dialysis is still hesitating. Congestive cardiomyopathy patient is receiving diuretics and cardiac medication. Hyperphosphatemia serum phosphorus is going up 6.6 The plan increase thrombophilia labs from 2 tablets 3 times a day to 3 tablets 3 times a day Continue daily weight. Status post bacteremia which has been treated with antibiotics as recommended by ID Status: Acute
[2017-10-23 07:53] VITALS: BP 105/54; PULSE 73; TEMP 97.3; O2SAT 99
[2017-10-23] MEDS: Sevelamer Carb 0.8 gm/Packet PO SCH (08:26)
--- NOTE | 2017-10-23 10:27 | CP.PCM.DIS ---
Provider - Provider Date of Admission: 10/15/17 14:41 Attending physician: Meño Adame MD Primary care physician: Dr Adame Consults: Nephro ID Cardiology Time Spent in preparation of Discharge (in minutes): 35 Diagnosis - Discharge Diagnosis (1) Bacteremia Status: Resolved Comment: S/P IV abx (2) Systolic dysfunction with acute on chronic heart failure Status: Acute Comment: Improved. c/w lasix 40 BID (3) Chronic kidney disease, stage IV (severe) Status: Chronic Comment: Stable, evaluated by Nephro, Will prob need to start HD soon as outpatient (4) Cardiomyopathy Status: Chronic (5) Hyperkalemia Status: Resolved Hospital Course - Lab Results Lab Results: Most Recent Lab Values WBC 5.0 K/uL (4.8-10.8) 10/22/17 05:45 RBC 2.82 Mil/uL (4.40-5.90) L 10/22/17 05:45 Hgb 9.2 g/dL (12.0-18.0) L 10/22/17 05:45 Hct 28.7 % (35.0-51.0) L 10/22/17 05:45 MCV 101.5 fl (80.0-94.0) H D 10/22/17 05:45 MCH 32.7 pg (27.0-31.0) H 10/22/17 05:45 MCHC 32.3 g/dL (33.0-37.0) L 10/22/17 05:45 RDW 16.3 % (11.5-14.5) H 10/22/17 05:45 Plt Count 96 K/uL (130-400) L D 10/22/17 05:45 MPV 9.1 fl (7.2-11.7) 10/22/17 05:45 Neut % (Auto) 76.1 % (50.0-75.0) H 10/22/17 05:45 Lymph % (Auto) 8.2 % (20.0-40.0) L 10/22/17 05:45 [place] % (Auto) 12.1 % (0.0-10.0) H 10/22/17 05:45 Eos % (Auto) 2.1 % (0.0-4.0) 10/22/17 05:45 Baso % (Auto) 1.5 % (0.0-2.0) 10/22/17 05:45 Neut # (Auto) 3.8 K/uL (1.8-7.0) 10/22/17 05:45 Lymph # (Auto) 0.4 K/uL (1.0-4.3) L 10/22/17 05:45 [place] # (Auto) 0.6 K/uL (0.0-0.8) 10/22/17 05:45 Eos # (Auto) 0.1 K/uL (0.0-0.7) 10/22/17 05:45 Baso # (Auto) 0.1 K/uL (0.0-0.2) 10/22/17 05:45 Neutrophils % (Manual) 81 % (42-75) H 10/20/17 10:15 Lymphocytes % (Manual) 9 % (20-50) L 10/20/17 10:15 Monocytes % (Manual) 5 % (0-10) 10/20/17 10:15 Eosinophils % (Manual) 2 % (0-7) 10/20/17 10:15 Myelocytes % 3 % (0-0) H 10/20/17 10:15 Platelet Estimate Slightly decreased (NORMAL) L 10/20/17 10:15 Hypochromasia (manual) Slight 10/20/17 10:15 Poikilocytosis (manual Slight 10/20/17 10:15 Anisocytosis (manual) Slight 10/20/17 10:15 Macrocytosis (manual) Slight 10/20/17 10:15 Ovalocytes Slight 10/20/17 10:15 Schistocytes Slight 10/20/17 10:15 PT 11.3 Seconds (9.8-13.1) 10/17/17 05:15 INR 1.0 (0.9-1.2) 10/17/17 05:15 APTT 37.4 Seconds (25.6-37.1) H 10/17/17 05:15 pCO2 35 mm/Hg (35-45) 10/21/17 13:13 pO2 96 mm/Hg (80-100) 10/21/17 13:13 HCO3 21.4 mmol/L (21-28) 10/21/17 13:13 ABG pH 7.37 (7.35-7.45) 10/21/17 13:13 ABG Total CO2 21.3 mmol/L (22-28) L 10/21/17 13:13 ABG O2 Saturation 99.5 % (95-98) H 10/21/17 13:13 ABG O2 Content 12.8 ML/dL (15-23) L 10/21/17 13:13 ABG Base Excess -4.5 mmol/L (-2.0-3.0) L 10/21/17 13:13 ABG Hemoglobin 9.3 g/dL (11.7-17.4) L 10/21/17 13:13 ABG Carboxyhemoglobin 2.0 % (0.5-1.5) H 10/21/17 13:13 POC ABG HHb (Measured) 0.5 % (0.0-5.0) 10/21/17 13:13 ABG Methemoglobin 0.7 % (0.0-3.0) 10/21/17 13:13 ABG O2 Capacity 12.9 mL/dL (16-24) L 10/21/17 13:13 Fernando Test Yes 10/21/17 13:13 A-a O2 Difference 10.0 mm/Hg 10/21/17 13:13 Hgb O2 Saturation 96.8 % (95.0-98.0) 10/21/17 13:13 FiO2 21.0 % 10/21/17 13:13 Sodium 141 mmol/l (132-148) 10/22/17 05:45 Potassium 5.0 MMOL/L (3.6-5.0) 10/22/17 05:45 Chloride 100 mmol/L (98-107) 10/22/17 05:45 Carbon Dioxide 22 mmol/L (22-30) 10/22/17 05:45 Anion Gap 24 (10-20) H 10/22/17 05:45 BUN 115 mg/dl (9-20) H* 10/22/17 05:45 Creatinine 3.8 mg/dl (0.8-1.5) H 10/22/17 05:45 Est GFR ( Amer) 19 10/22/17 05:45 Est GFR (Non-Af Amer) 16 10/22/17 05:45 Random Glucose 125 mg/dL (75-110) H 10/22/17 05:45 Calcium 8.7 mg/dL (8.4-10.2) 10/22/17 05:45 Phosphorus 6.6 mg/dl (2.5-4.5) H 10/22/17 05:45 Magnesium 2.5 MG/DL (1.6-2.3) H 10/20/17 10:15 Iron 54 ug/dL (49-181) 10/20/17 10:15 TIBC 392 ug/dL (250-450) 10/20/17 10:15 % Saturation 14 % (20-55) L 10/20/17 10:15 Ferritin 83.6 ng/Ml (17.9-464) 10/20/17 10:15 Total Bilirubin 0.7 mg/dl (0.2-1.3) 10/17/17 05:15 AST 39 U/L (17-59) 10/17/17 05:15 ALT 41 U/L (21-72) 10/17/17 05:15 Alkaline Phosphatase 73 U/L (38-126) 10/17/17 05:15 Total Protein 6.5 G/DL (6.3-8.2) 10/17/17 05:15 Albumin 3.4 g/dL (3.5-5.0) L 10/17/17 05:15 Globulin 3.1 gm/dL (2.2-3.9) 10/17/17 05:15 Albumin/Globulin Ratio 1.1 (1.0-2.1) 10/17/17 05:15 25-OH Vitamin D Total 37.3 NG/ML (30.0-100.0) 10/20/17 10:15 - Hospital Course Hospital Course: 67 year old male with PMH dilated cardiomyopathy, Gout, Systolic CHF, valvular heart disease ( severe muitral/tricuspid regurgitation), afib, CKD IV, who was admitted to hosp for progressive dyspnea and found to be on CHF exacerbation with extremely and with acute kidney injury superimposed on chronic kidney disease. Patient was also found to have a BCx + for E.Coli and was treated with Diuretics, fluid restriction, IV abx. He did well and was evaluated by Cardio, Nephro and ID. After stable he was admitted to TCU for rehab and c/w IV abx. He remained stable and revaluated by healthcare risk control consultant. Today after cleared by Nephro and finished IV abx/PT he is decided to DC home and f/u as outpatient. Discharge Exam - Head Exam Head Exam: NORMAL INSPECTION - Eye Exam Eye Exam: EOMI, PERRL - ENT Exam ENT Exam: Mucous Membranes Moist - Respiratory Exam Respiratory Exam: Clear to PA & Lateral, NORMAL BREATHING PATTERN, UNREMARKABLE. absent: Rales, Respiratory Distress - Cardiovascular Exam Cardiovascular Exam: +S1, +S2. absent: Gallop - GI/Abdominal Exam GI & Abdominal Exam: Normal Bowel Sounds, Unremarkable. absent: Guarding, Rebound, Tenderness - Extremities Exam Extremities exam: normal capillary refill, pedal edema (+1) - Neurological Exam Neurological exam: Alert, Normal Gait, Oriented x3 - Psychiatric Exam Psychiatric exam: Normal Affect, Normal Mood - Skin Skin Exam: Normal Color, Warm Discharge Plan - Discharge Medications Prescriptions: Sevelamer Carbonate [Renvela] 2.4 gm PO TIDWM #30 packet - Follow Up Plan Condition: STABLE Disposition: HOME/ ROUTINE Instructions: Heart Failure, Adult (DC), Kidney Disease Diet (For People Not on Dialysis), Fluid Restricted Diet Referrals: Morteza Lagos MD [Staff Provider] - Meño Adame MD [Staff Provider] -
[2017-10-23] MEDS: Multivitamin Vitamin B Complex (Nephro-Vite) Tab PO SCH (10:48)
[2017-10-23] MEDS ORDERED: Epoetin Alfa 4000 UNIT/ML Inj SC ONE (11:41)
--- NOTE | 2017-10-23 11:46 | CP.PCM.PN ---
Subjective - Date & Time of Evaluation Date of Evaluation: 10/23/17 Time of Evaluation: 11:44 - Subjective Subjective: Patient appears to be stable No new event reported overnight Leg swelling about the same Objective - Vital Signs/Intake and Output Vital Signs (last 24 hours): Temp Pulse Resp BP Pulse Ox 97.3 F L 73 20 105/54 L 99 10/23/17 07:52 10/23/17 08:25 10/23/17 07:52 10/23/17 08:30 10/23/17 07:52 - Medications Medications: Current Medications Acetaminophen (Tylenol 325mg Tab) 650 mg PO Q6 PRN PRN Reason: Pain, moderate (4-7) Albuterol/Ipratropium (Duoneb 3 Mg/0.5 Mg (3 Ml) Ud) 3 ml INH RQ6 PRN PRN Reason: Shortness of Breath Clopidogrel Bisulfate (Plavix) 75 mg PO DAILY [facility] Last Admin: 10/23/17 08:26 Dose: 75 mg Colchicine (Colocrys) 0.6 mg PO DAILY [facility] Last Admin: 10/23/17 08:27 Dose: Not Given Diphenhydramine HCl (Benadryl) 50 mg PO HS PRN PRN Reason: Sleep Last Admin: 10/22/17 23:10 Dose: 50 mg Epoetin Krish (Procrit) 3,000 unit SC TTS ONE Stop: 10/23/17 11:42 Ferrous Gluconate (Fergon) 324 mg PO TID [facility] Last Admin: 10/23/17 08:26 Dose: 324 mg Furosemide (Lasix) 40 mg PO BID [facility] Last Admin: 10/23/17 08:30 Dose: 40 mg Metoprolol Tartrate (Lopressor) 25 mg PO Q12 [facility] Last Admin: 10/23/17 08:25 Dose: 25 mg Oxymetazoline HCl (Nasal Decongestant 15 Ml) 1 spr NS Q12 [facility] Last Admin: 10/23/17 08:27 Dose: 1 spr Promethazine HCl/Codeine (Phenergan/Codeine Oral Syrup) 5 ml PO Q6 PRN PRN Reason: Cough Sevelamer Carbonate (Renvela) 2.4 gm PO TIDWM [facility] Last Admin: 10/23/17 08:26 Dose: 2.4 gm Vitamin B Complex/Vit C/Folic Acid (Nephro-Christo) 1 tab PO DAILY [facility] Last Admin: 10/23/17 10:48 Dose: 1 tab - Labs Labs: 10/22/17 05:45 10/22/17 05:45 PT 11.3 Seconds (9.8-13.1) 10/17/17 05:15 INR 1.0 (0.9-1.2) 10/17/17 05:15 APTT 37.4 Seconds (25.6-37.1) H 10/17/17 05:15 - Constitutional Appears: No Acute Distress - ENT Exam ENT Exam: Mucous Membranes Moist - Neck Exam Neck Exam: absent: Lymphadenopathy - Cardiovascular Exam Cardiovascular Exam: absent: Gallop, JVD, Rubs - GI/Abdominal Exam GI & Abdominal Exam: Soft, Normal Bowel Sounds - Extremities Exam Extremities Exam: absent: Calf Tenderness - Back Exam Back Exam: absent: CVA tenderness (L), CVA tenderness (R) - Neurological Exam Neurological Exam: Alert - Psychiatric Exam Psychiatric exam: Normal Affect - Skin Skin Exam: absent: Cyanosis Assessment and Plan (1) Atrial fibrillation Status: Acute (2) Cardiomyopathy Status: Acute (3) Chronic kidney disease, stage IV (severe) Assessment & Plan: Chronic kidney disease stage IV GFR dropping 16 was rising creatinine 3.8 rising BUN. The plan cut down Lasix from 80 mg twice a day to 40 mg twice a day patient still have 1+ pitting edema. I spoke with the patient in detail regarding the need of dialysis is still hesitating. Congestive cardiomyopathy patient is receiving diuretics and cardiac medication. Hyperphosphatemia serum phosphorus is going up 6.6 The plan increase thrombophilia labs from 2 tablets 3 times a day to 3 tablets 3 times a day Continue daily weight. Status post bacteremia which has been treated with antibiotics . Anemia will give EPO now before leaving and will give outpatint Status: Acute
[2017-10-23] MEDS ORDERED: Epoetin Alfa 20000 UNIT/ML Inj SC ONE (11:49)
--- NOTE | 2017-10-23 12:04 | CP.PCM.PN ---
Subjective - Date & Time of Evaluation Date of Evaluation: 10/22/17 Time of Evaluation: 10:00 - Subjective Subjective: Patient feels a lot better Still with persistent leg edema Noted increase in BUN Currently on 80 bid of lasix SOB has improved. Objective - Vital Signs/Intake and Output Vital Signs (last 24 hours): Temp Pulse Resp BP Pulse Ox 97.3 F L 73 20 105/54 L 99 10/23/17 07:52 10/23/17 08:25 10/23/17 07:52 10/23/17 08:30 10/23/17 07:52 - Labs Labs: 10/22/17 05:45 10/22/17 05:45 PT 11.3 Seconds (9.8-13.1) 10/17/17 05:15 INR 1.0 (0.9-1.2) 10/17/17 05:15 APTT 37.4 Seconds (25.6-37.1) H 10/17/17 05:15 - Head Exam Head Exam: NORMAL INSPECTION - Eye Exam Eye Exam: Normal appearance - Respiratory Exam Respiratory Exam: Decreased Breath Sounds - Cardiovascular Exam Cardiovascular Exam: Irregular Rhythm - GI/Abdominal Exam GI & Abdominal Exam: Normal Bowel Sounds - Extremities Exam Additional comments: pitting leg edema bilateral
== END 2017-10-23 11:40 | disposition home or self-care (01) | DRG 871 ==
LOC: H.TCU 14:41
PROVIDERS: ADMIT Family Medicine; ATTEND Family Medicine
PROC: F07M6FZ Therapeutic Exercise Treatment of Musculoskeletal System - Whole Body using Assistive, Adaptive, Supportive or Protective Equipment (ICD-10-PCS; 2017-10-15)
PROC: 3E03329 Introduction of Other Anti-infective into Peripheral Vein, Percutaneous Approach (ICD-10-PCS; principal; 2017-10-16)
DX: A41.51 Sepsis due to Escherichia coli [E. coli] (principal); I50.23 Acute on chronic systolic (congestive) heart failure; N17.9 Acute kidney failure, unspecified; E83.39 Other disorders of phosphorus metabolism; E87.5 Hyperkalemia; I07.1 Rheumatic tricuspid insufficiency; I42.0 Dilated cardiomyopathy; I13.0 Hypertensive heart and chronic kidney disease with heart failure and stage 1 through stage 4 chronic kidney disease, or unspecified chronic kidney disease; N25.81 Secondary hyperparathyroidism of renal origin; N18.4 Chronic kidney disease, stage 4 (severe); I48.91 Unspecified atrial fibrillation; I71.9 Aortic aneurysm of unspecified site, without rupture; D64.9 Anemia, unspecified; I35.1 Nonrheumatic aortic (valve) insufficiency; R04.0 Epistaxis; Z87.01 Personal history of pneumonia (recurrent); Z87.891 Personal history of nicotine dependence; Z95.2 Presence of prosthetic heart valve; Z95.810 Presence of automatic (implantable) cardiac defibrillator; M10.9 Gout, unspecified; M19.90 Unspecified osteoarthritis, unspecified site; R11.0 Nausea; R80.9 Proteinuria, unspecified